=== PATIENT | female | born 1980 | race African-American/Black ===

== ENCOUNTER 2016-04-14 14:58 | Inpatient (IN) | payer OTHER ==
[~2016-04-14] VITALS: Ht 154.9 cm; Wt 104.0 kg
[2016-04-29] MEDS ORDERED: SIMV5TAB3 PO (14:57)
[2016-04-29] MEDS ORDERED: AMLO5TAB2 PO (14:57)
[2016-04-29] MEDS ORDERED: ZANT150T2 PO (15:10)
[2016-04-29] MEDS ORDERED: ERGO1CAP10 PO (15:10)
[2016-04-30 11:03] VITALS: BP 139/75; PULSE 76; RESP 18; TEMP 98.4; O2SAT 99
[2016-04-30] MEDS ORDERED: VANCOMYCIN 1,000 MG/NS 250ML (for <70 kg) IV SCH ×2 (11:30)
[2016-04-30] MEDS ORDERED: APREPITANT 40 MG CAP PO SCH (11:30)
[2016-04-30] MEDS ORDERED: ONDANSETRON HCL 4 MG/2 ML VIAL IV PUSH SCH (11:30)
[2016-04-30] MEDS ORDERED: SODIUM CHLORID 0.9% 500 ML IV SCH (11:30)
[2016-04-30] MEDS ORDERED: metroNIDAZOLE 500 MG INJ 100 ML IV SCH (11:30)
[2016-04-30] MEDS ORDERED: INSULIN HUMAN REGULAR 1,000 UNITS/10 ML VIAL SQ PRN (11:30)
[2016-04-30] MEDS ORDERED: LACTATED RINGER'S 1000 ML IV SCH (11:30)
[2016-04-30] MEDS ORDERED: METOPROLOL TARTRATE 25 MG TAB PO PRN (11:30)
[2016-04-30] MEDS ORDERED: ACETAMINOPHEN 1000 MG/100 ML VIAL IV SCH (11:30)
[2016-04-30] MEDS ORDERED: PHENYLEPH/NS 1000 MCG/10 ML SYR IV ONE (12:00)
[2016-04-30] MEDS ORDERED: NEOSTIGMINE 3 MG/3 ML SYR IV ONE (12:00)
[2016-04-30] MEDS ORDERED: NORMOSOL R INJ 1,000 ML IV ONE (12:00)
[2016-04-30] MEDS ORDERED: PROPOFOL 200 MG/20 ML AMP IV ONE (12:00)
[2016-04-30] MEDS ORDERED: ONDANSETRON HCL 4 MG/2 ML VIAL IV PUSH ONE (12:00)
[2016-04-30] MEDS ORDERED: LACTATED RINGER'S 1000 ML INJ 1,000 ML IV ONE (12:00)
[2016-04-30] MEDS ORDERED: BUPIVACAINE/EPINEPHRINE 0.25% 50 ML VIAL INFIL ONE (14:47)
[2016-04-30] MEDS ORDERED: ACETAMINOPHEN/HYDROcodone 325 MG/5 MG TAB PO PRN ×2 (17:45)
[2016-04-30] MEDS ORDERED: MAGNESIUM HYDROXIDE SUSP 30 ML CUP PO PRN (17:45)
[2016-04-30] MEDS ORDERED: SODIUM CHLORIDE 0.9% FLUSH 5 ML FLUSH IVF PRN (17:45)
[2016-04-30] MEDS ORDERED: Post-op Orders (for Pharmacy) MISC XX ONE (17:45)
[2016-04-30] MEDS ORDERED: ONDANSETRON HCL 4 MG/2 ML VIAL IV PRN (17:45)
[2016-04-30] MEDS ORDERED: fentaNYL CITRATE 250 MCG/5 ML AMP ONE ×2 (18:11)
[2016-04-30] MEDS ORDERED: DO NOT ADM ANY ANTICOAGULANT DRUGS XX PRN (19:30)
[2016-04-30] MEDS ORDERED: *morphine SULFATE 8 MG/ML PERIprocedure ONLY ONE (19:39)
[2016-04-30] MEDS: SODIUM CHLOR 0.9% 1000 ML INJ 1,000 ML IV SCH (19:45)
[2016-04-30 20:00] VITALS: BP 133/83; PULSE 103; RESP 18; TEMP 97.3; O2SAT 100
[2016-04-30] MEDS: HYDROmorphone HCL PF 1 MG/ML VIAL IV PRN (21:34)
[2016-04-30] MEDS: SODIUM CHLORIDE 0.9% FLUSH 5 ML FLUSH IVF SCH (21:39)
[2016-04-30] MEDS: PANTOPRAZOLE SODIUM 40 MG VIAL IV PUSH SCH (21:39)
[2016-04-30] MEDS: metroNIDAZOLE 500 MG INJ 100 ML IV SCH (21:39)
[2016-04-30] MEDS: DOCUSATE SODIUM 100 MG CAP PO SCH (21:39)
[2016-05-01] VITALS (8 sets, daily range): BP systolic 111–159; BP diastolic 62–93; PULSE 47–86; RESP 16–26; TEMP 96.6–98.1; O2SAT 96–99
[2016-05-01] MEDS: VANCOMYCIN INJ 1,000 MG in SODIUM CHLOR 0.9% 250 ML INJ 250 ML IV SCH ×2 (00:52→11:22)
[2016-05-01] MEDS: metroNIDAZOLE 500 MG INJ 100 ML IV SCH ×2 (04:45→12:39)
[2016-05-01] MEDS: HYDROmorphone HCL PF 1 MG/ML VIAL IV PRN ×2 (04:45→20:34)
[2016-05-01] MEDS: SODIUM CHLOR 0.9% 1000 ML INJ 1,000 ML IV SCH ×2 (04:46→16:58)
--- NOTE | 2016-05-01 05:28 | RADRPT ---
EXAM DATE/TIME: 05/01/2016 04:59 [facility] COMPARISON: No previous studies available for comparison. INDICATIONS : Shortness of breath. MEDICAL HISTORY : None. SURGICAL HISTORY : hiatal hernia repair ENCOUNTER: Initial ACUITY: 1 day PAIN SCORE: 0/10 LOCATION: Bilateral chest FINDINGS: The right lung is grossly clear. There appears to be an infiltrate in the left lung base. The heart s ize appears to be diffusely enlarged. There are no pleural effusions or overt pulmonary edema. The jenni ny structures are grossly intact. CONCLUSION: 1. Left lower lung probable consolidation. 2. Moderate cardiomegaly Aung Abdullahi MD on May 01, 2016 at 5:26 Board Certified Radiologist. This report was verified electronically.
[2016-05-01] MEDS: DOCUSATE SODIUM 100 MG CAP PO SCH ×2 (08:15→20:40)
[2016-05-01] MEDS: SODIUM CHLORIDE 0.9% FLUSH 5 ML FLUSH IVF SCH ×2 (08:16→20:40)
[2016-05-01] MEDS ORDERED: ACETAMINOPHEN 325MG/HYDROcodone 7.5MG/15ML UDC PO PRN (08:45)
--- NOTE | 2016-05-01 09:59 | HHI.PR ---
Subjective Subjective Notes pt comfortable sob unchanged from prior no n/v Objective Vitals/I&O Vital Signs Date Time Temp Pulse Resp B/P Pulse Ox O2 Delivery O2 Flow Rate FiO2 05/01/16 08:00 96.6 70 16 114/71 97 04/30/16 19:50 Nasal Cannula 3 Labs Laboratory Tests Test 05/01/16 04:57 Hemoglobin 11.2 Lungs: Clear Abdomen: Post-op tenderness Extremities: Perfused Wound Wound : Wound Location: Abdomen Appearance: Clean & Dry A/P Assessment and Plan pod #1 S/P lap repair hiatal hernia normal post op changes IS q 1hr possible d/c home later today Lawson Barajas MD May 01, 2016 09:59
[2016-05-01] MEDS: ACETAMINOPHEN 325MG/HYDROcodone 7.5MG/15ML UDC PO PRN ×2 (11:21→16:58)
[2016-05-01] MEDS: RESP: ALBUTEROL 1.25 MG/3 ML NEB (PRN) NEB ×2 (11:22→15:18)
[2016-05-01] MEDS ORDERED: ENOXAPARIN SODIUM 40 MG/0.4 ML SYRINGE SQ SCH (17:07)
[2016-05-01] MEDS: PANTOPRAZOLE SODIUM 40 MG VIAL IV PUSH SCH (20:40)
[2016-05-02] VITALS: BP 127/69; PULSE 82; RESP 24; TEMP 97.1; O2SAT 94
[2016-05-02] MEDS: SODIUM CHLOR 0.9% 1000 ML INJ 1,000 ML IV SCH (02:06)
[2016-05-02] MEDS: ACETAMINOPHEN 325MG/HYDROcodone 7.5MG/15ML UDC PO PRN ×2 (03:13→09:10)
[2016-05-02 08:00] VITALS: BP 125/86; PULSE 82; RESP 16; TEMP 98.6; O2SAT 95
[2016-05-02] MEDS: DOCUSATE SODIUM 100 MG CAP PO SCH (09:08)
[2016-05-02] MEDS: SODIUM CHLORIDE 0.9% FLUSH 5 ML FLUSH IVF SCH (09:08)
[2016-05-02] MEDS: RESP: ALBUTEROL 1.25 MG/3 ML NEB (PRN) NEB (09:46)
[2016-05-02 09:49] VITALS: O2SAT 91
[2016-05-02 12:00] VITALS: BP 124/79; PULSE 98; RESP 17; TEMP 98.8; O2SAT 96
--- NOTE | 2016-05-09 13:09 | MP ---
cc: JOSE ALBERTO BARAJAS DATE OF SURGERY: 04/30/2016. PREOPERATIVE DIAGNOSIS: Hiatal hernia and reflux unresponsive to medical management. POSTOPERATIVE DIAGNOSIS: Hiatal hernia and reflux unresponsive to medical management. OPERATIVE PROCEDURE PERFORMED: Robot-assisted laparoscopic repair of hiatal hernia with Bio-A mesh. SURGEON: Jose Alberto Barajas MD. ANESTHESIA: General endotracheal anesthesia. ESTIMATED BLOOD LOSS: Scant. FINDINGS: Hiatal hernia with proximal stomach within the chest. SPECIMENS: None. COMPLICATIONS: None. DESCRIPTION OF THE PROCEDURE IN DETAIL: The patient was brought to the operating room and placed on the operating table in the supine position. Bilateral sequential inflation devices were placed on the lower extremity. General anesthesia instituted. Olmos catheter placed. Antibiotics initiated. The abdomen was prepped and draped sterilely. A point 15 cm distal to the xiphoid in the midline was anesthetized with 0.25% Marcaine with epinephrine. The skin incision was made. A 5 mm OptiVu port was placed under direct vision and a pneumoperitoneum created. Under direct vision, a 5-mm left upper quadrant, an 8 mm left upper quadrant robotic port, an 8 mm right upper quadrant robotic port and a 5 mm right upper quadrant port was placed. Prior to placement of all ports, the skin and peritoneum were anesthetized with 0.25% Marcaine with epinephrine. The 5 mm port in the midline was switched out to the 12 mm port under direct vision. The patient was placed in reverse Trendelenburg position with the left side up. The Kassandra-Flex retractor was placed. The left lobe of the liver was retracted. #0 silk sutures as well as Newport drain and Ray-Ariel gauze was placed into the abdomen. The laparoscopic tower was then removed from the patient's bedside. The da Jeffrey robot was brought to the patient's bedside and docked in place. I then broke scrub and went to the console. Attention focused on the hepatogastric ligament. This was opened. The omentum adhesed to the lateral aspect of the stomach was taken down. The posterior gastric space was dissected from [id number]. The Newport was then placed. The stomach was retracted into the abdomen. The crura of the diaphragm was dissected anteriorly. The lower mediastinum was dissected, reducing the GE junction into the abdominal cavity and the hernia sac was excised. The vagus nerve was identified during the dissection and preserved both anterior and posterior. The crura of the diaphragm was then approximated inferiorly with #O silk suture in a [id number] manner. Three interrupted stitches were placed. A Bio-A mesh was opened on the back table. The ends were trimmed. It was introduced into the peritoneal cavity. It was then fashioned around the hiatus and secured with 2-0 silk sutures in the four corners as well as centrally. At this point, the robot was then undocked. The laparoscopic tower was brought back to the patient's bedside and I then scrubbed back in. All needle, sponge and Ray-Ariel were removed from the abdominal cavity as well as the Ronnell. The cavity was inspected. Hemostasis assured. The Kassandra-Flex retractor was then removed. The fascia at the 12 mm port site approximated with #0 Vicryl sutures. The CO2 was removed. All ports were removed. All skin incisions closed with 4-0 Monocryl. The abdominal wall was cleaned and sterile dressing was placed. All instruments and sponge counts and needle counts were reported as correct at the end of procedure. MD FARAZ Grigsby/CLAY /9:26 AM /1:01 PM
== END 2016-05-02 15:33 | disposition home or self-care (01) | DRG 327 ==
LOC: HSDI 04-30 10:14 → N07B 04-30 20:18
PROVIDERS: ADMIT Surgery; ATTEND Surgery
PROC: 0BUR4JZ (ICD-10-PCS; 2016-04-30)
PROC: 8E0W4CZ Robotic Assisted Procedure of Trunk Region, Percutaneous Endoscopic Approach (ICD-10-PCS; 2016-04-30)
PROC: 0BUS4JZ (ICD-10-PCS; principal; 2016-04-30 13:53)
PROC: 0T9B70Z Drainage of Bladder with Drainage Device, Via Natural or Artificial Opening (ICD-10-PCS; 2016-05-01)
DX: K44.9 Diaphragmatic hernia without obstruction or gangrene (principal); Z68.41 Body mass index [BMI] 40.0-44.9, adult; K21.9 Gastro-esophageal reflux disease without esophagitis; I10 Essential (primary) hypertension; E78.00 Pure hypercholesterolemia, unspecified; E66.01 Morbid (severe) obesity due to excess calories; Z98.84 Bariatric surgery status; E11.9 Type 2 diabetes mellitus without complications; R06.02 Shortness of breath
CPT/HCPCS: 71010; 85018; 94150; 94640; 94664; C1781; C9113; J0131; J1170; J1650; J2270; J2370; J2405; J2710; J3010; J3370; J7030; J7050; J7120; J7613; J8501

== ENCOUNTER 2016-05-09 14:36 | Emergency (ER) | payer OTHER ==
[~2016-05-09] VITALS: Ht 154.9 cm; Wt 100.0 kg
[~2016-05-09 14:36] MED LIST: AMLO5TAB2 PO; ERGO1CAP10 PO; SIMV5TAB3 PO; ZANT150T2 PO
[2016-05-09 14:38] VITALS: BP 152/103; PULSE 68; RESP 16; TEMP 98.7; O2SAT 99
[2016-05-09 16:21] VITALS: BP 127/80
--- NOTE | 2016-05-09 16:50 | PD ---
HPI Chief Complaint: Foreign Body Time Seen by Provider: 16:10 Travel History International Travel<30 days: No Contact w/Intl Traveler<30days: No Traveled to known affect area: No History of Present Illness HPI This patient reports that she swallowed a Levaquin pill on Thursday and feels like it got stuck in the bottom of her esophagus. She has history of gastric sleeve surgery and hiatal hernia repair. She is able to drink liquids without any difficulty but if she eats solids she has discomfort. No vomiting today. Symptoms severity is mild to moderate. PFSH Past Medical History Arthritis: No Autoimmune Disease: No Anxiety: No Depression: No Cancer: No Cardiovascular Problems: Yes (mitral valve prolapse) High Cholesterol: No Chemotherapy: No Chest Pain: No Congestive Heart Failure: No Cerebrovascular Accident: No Diabetes: Yes (type 1 diabetes) Patient Takes Glucophage: No Diminished Hearing: No Endocrine: No Gastrointestinal Disorders: No Genitourinary: No Headaches: No Hepatitis: No Hiatal Hernia: Yes Heparin Induced Thrombocytopen: No Hypertension: Yes Immune Disorder: No Implanted Vascular Access Dvce: No Musculoskeletal: No Neurologic: No Psychiatric: No Reproductive: No Respiratory: Yes (sob on occasion) Migraines: No Radiation Therapy: No Seizures: No Sickle Cell Disease: No Sleep Apnea: No Thyroid Disease: No Tetanus Vaccination: < 5 Years Influenza Vaccination: Yes ?: Not LMP: 04/09/2016 Past Surgical History Abdominal Surgery: Yes (gastric sleeve 2012) AICD: No Arteriovenous Shunt: No Body Medical Devices: sleeve Ear Surgery: No Endocrine Surgery: No Eye Surgery: No Genitourinary Surgery: No Gynecologic Surgery: No Insulin Pump: No Joint Replacement: No Pacemaker: No Thoracic Surgery: No Other Surgery: Yes (cardiac catherization and breast reduction) Social History Alcohol Use: No Tobacco Use: No Substance Use: No Allergies-Medications (Allergen,Severity, Reaction): Coded Allergies: Lisinopril (Verified Allergy, Severe, LIP AND AFCE SWELLING, 05/09/16) Penicillin (Verified Allergy, Severe, Hives, 05/09/16) Reported Meds & Prescriptions Reported Meds & Active Scripts Active Reported Zantac (Ranitidine HCl) 150 Mg Tab 150 Mg PO BID Vitamin D (Ergocalciferol) 50,000 Unit Cap 50,000 Units PO 2XWEEK Simvastatin 5 Mg Tab 5 Mg PO HS Amlodipine (Amlodipine Besylate) 5 Mg Tab 5 Mg PO HS Review of Systems General / Constitutional: No: Fever HENT: No: Headaches Cardiovascular: No: Chest Pain or Discomfort Physical Exam Narrative GASTROINTESTINAL: Abdomen soft, non-tender, nondistended. Positive bowel sounds. No hepato-splenomegaly, or palpable masses. No guarding. SKIN: Inspection shows no rash or ulcers. Palpation shows no induration or nodules. NECK: Symmetrical appearance, midline trachea. No mass or crepitus. Thyroid without enlargement, tenderness, or mass. Throat clear Data Data Last Documented VS Vital Signs Date Time Temp Pulse Resp B/P Pulse Ox O2 Delivery O2 Flow Rate FiO2 05/09/16 16:21 127/80 05/09/16 14:38 98.7 68 16 99 Room Air [facility] Medical Decision Making Medical Screen Exam Complete: Yes Emergency Medical Condition: Yes Medical Record Reviewed: Yes Differential Diagnosis Esophageal foreign body, esophagitis, hiatal hernia Narrative Course I have reviewed the patient's electronic medical record. No objective findings here. She's been drinking liquids and soft foods without any trouble but certain things like chicken and steak seems to cause her problems She may have esophageal stricture I'm recommending full liquid diet and GI follow-up to consider endoscopy I don't feel he needs to be done emergently She is here asymptomatic Diagnosis Primary Impression: Sensation of foreign body in esophagus Additional Instructions: Call the office of Dr. Chavez on Thursday if you still have symptoms for follow- up Use full liquid diet Med/Other Pt SpecificInfo: Other Disposition: DISCHARGE HOME Condition: Stable Tony Miller MD May 09, 2016 16:50
== END 2016-05-09 18:21 | disposition home or self-care (01) ==
LOC: NEPB 14:36
DX: R09.89 Other specified symptoms and signs involving the circulatory and respiratory systems (principal); R13.19 Other dysphagia; E10.9 Type 1 diabetes mellitus without complications; K44.9 Diaphragmatic hernia without obstruction or gangrene; I10 Essential (primary) hypertension
CPT/HCPCS: 99283

== ENCOUNTER 2017-01-09 08:10 | Day surgery (SDC) | payer OTHER ==
[2017-01-09] MEDS ORDERED: SODIUM CHLORID 0.9% 500 ML IV PRN (08:45)
[2017-01-09] MEDS ORDERED: POVIDONE IODINE 5% (ANTISEPSIS KIT) 4 APPLICATIONS EACH NARE PRN (08:45)
[2017-01-09] MEDS ORDERED: INSULIN HUMAN REGULAR 1,000 UNITS/10 ML VIAL SQ PRN (08:45)
[2017-01-09] MEDS ORDERED: LACTATED RINGER'S 1000 ML IV PRN (08:45)
[2017-01-09] MEDS ORDERED: METOPROLOL TARTRATE 25 MG TAB PO PRN (08:45)
[2017-01-09] MEDS ORDERED: CHLORHEXIDINE GLUCONATE 2 % 1 PACK (2 CLOTHS) TOPICAL PRN (08:45)
[2017-01-09] MEDS ORDERED: PROT40TA PO (08:56)
[2017-01-09] MEDS ORDERED: ERGO1CAP30 PO (08:56)
[2017-01-09] MEDS ORDERED: BARIATRIC VITAMIN PO (08:56)
[2017-01-09] MEDS ORDERED: [UNRECOGNIZED DRUG - OTHER] PO (08:56)
[2017-01-09] MEDS ORDERED: ROCURONIUM INJ 50 MG/5 ML SYRINGE IV PUSH ONE (12:00)
[2017-01-09] MEDS ORDERED: PROPOFOL 200 MG/20 ML AMP IV ONE (12:00)
[2017-01-09] MEDS ORDERED: LIDOCAINE HCL 1% PF 5 ML AMPULE OTHER ONE (12:00)
[2017-01-09] MEDS ORDERED: ONDANSETRON HCL 4 MG/2 ML VIAL IV PUSH ONE (12:00)
[2017-01-09] MEDS ORDERED: NEOSTIGMINE 3 MG/3 ML SYR IV ONE (12:00)
[2017-01-09] MEDS ORDERED: GLYCOPYRROLATE 1 MG/5 ML SYRINGE IV PUSH ONE (12:00)
[2017-01-09] MEDS ORDERED: PHENYLEPH/NS 1000 MCG/10 ML SYR IV ONE (12:00)
--- NOTE | 2017-01-09 12:02 | ECHRPT ---
Indication: MR CONCLUSIONS The left ventricular systolic function is normal with an estimated ejection fraction in the range of 55-60%. The interatrial septum bowed from left to right, consistent with increased left atrial pressure. Mild thickening of the mitral valve leaflets. Mitral valve regurgitation directed posteriorly with Coanda effect, appears severe in nature. Restricted mobility of the posterior mitral valve leaflet. There is mild tricuspid valve regurgitation. BP: 130 / 70 HR: 90 Rhythm: Sinus Technical Quality:Good Medications Complications None Proc. Components Anesthesia at bedside for sedation. FINDINGS LEFT VENTRICLE Normal left ventricular size. The left ventricular systolic function is normal with an estimated ejection fraction in the range of 55-60%. Wall thickness is normal. No regional wall motion abnormalities are present. RIGHT VENTRICLE Normal right ventricular size and systolic function. LEFT ATRIUM The left atrial size is moderately dilated. There is evidence of increased left atrial pressure. RIGHT ATRIUM The right atrial size is normal. ATRIAL APPENDAGES Normal left atrial appendage size with no evidence of thrombus formation. ATRIAL SEPTUM Normal atrial septal thickness. The interatrial septum bowed from left to right, consistent with increased left atrial pressure. No atrial level shunt is demonstrated by color flow Doppler or agitated saline imaging. MITRAL VALVE Mild thickening of the mitral valve leaflets. Mitral valve regurgitation directed posteriorly with Coanda effect, appears severe in nature. Restricted mobility of the posterior mitral valve leaflet. No mitral valve stenosis. AORTIC VALVE Trileaflet aortic valve. No aortic valve stenosis or regurgitation. TRICUSPID VALVE Structurally normal tricuspid valve. There is mild tricuspid valve regurgitation. No tricuspid valve stenosis. VESSELS The pulmonary valve is not well visualized. No pulmonary valve regurgitation. PERICADIUM No pericardial effusion. Alex Miller DO (Electronically Signed) Final Date:09 January 2017 12:01
--- NOTE | 2017-01-10 05:26 | EKG ---
Date Performed: 01/09/2017 Time Performed: 08:59:44 PTAGE: 36 years EKG: Sinus rhythm . Normal ECG PREVIOUS TRACING : 04/19/2004 02.56 DOCTOR: Brett Alaniz Interpretating Date/Time 01/10/2017 05:16:20
== END 2017-01-09 11:33 | disposition home or self-care (01) ==
LOC: HDOC 08:10 → HDIC 08:12 → HDOC 11:33
PROVIDERS: ATTEND Nuclear Medicine Nuclear Cardiology
DX: I34.0 Nonrheumatic mitral (valve) insufficiency (principal); I11.9 Hypertensive heart disease without heart failure; E11.9 Type 2 diabetes mellitus without complications; E78.5 Hyperlipidemia, unspecified; E66.9 Obesity, unspecified
CPT/HCPCS: 01922; 93005; 93312; 93320; 93325; J2370; J2405; J2710

== ENCOUNTER 2017-01-12 09:30 | Day surgery (SDC) | payer OTHER ==
[~2017-01-12] VITALS: Ht 154.9 cm; Wt 99.7 kg
[~2017-01-12 09:30] MED LIST changes: +BARIATRIC VITAMIN PO; -ERGO1CAP10 PO; +ERGO1CAP30 PO; +PROT40TA PO; +[UNRECOGNIZED DRUG - OTHER] PO
[2017-01-12] MEDS ORDERED: IOHEXOL 350 MG/ML 50 ML BTL (for Cath Lab) OTHER ONE (09:31)
[2017-01-12 10:15] LABS: AUTOMATED NEUTROPHIL # 3.2 TH/MM3 (1.8-7.7); BASOPHIL # 0.1 TH/MM3 (0-0.2); BASOPHIL % 0.9 % (0.0-2.0); EOSINOPHIL # 0.1 TH/MM3 (0-0.4); EOSINOPHIL % 1.8 % (0.0-4.0); HEMATOCRIT 35.2 % (35.0-46.0); HEMO FLAGS DIFF FINAL; LYMPH % 32.4 % (9.0-44.0); LYMPHOCYTE # 1.8 TH/MM3 (1.0-4.8); MEAN CELL VOLUME 79.2 FL (80.0-100.0); MEAN CORPUSCULAR HEMOGLOBIN 25.9 PG (27.0-34.0); MEAN CORPUSCULAR HGB CONC 32.7 % (32.0-36.0); MONO % 6.9 % (0.0-8.0); PLATELET COUNT 258 TH/MM3 (150-450); RED BLOOD COUNT 4.44 MIL/MM3 (4.00-5.30); WHITE BLOOD COUNT 5.5 TH/MM3 (4.0-11.0)
[2017-01-12 10:29] LABS: INTERNATIONAL NORMALIZED RATIO 1.1 RATIO; PROTHROMBIN TIME - PATIENT 11.8 SEC (9.8-11.6)
[2017-01-12] MEDS ORDERED: NS 1000P @30 MLS/HR (KVO) IV SCH (10:30)
[2017-01-12 10:45] LABS: BICARBONATE 27.8 MEQ/L (21.0-32.0); POTASSIUM 3.7 MEQ/L (3.5-5.1)
[2017-01-12] MEDS ORDERED: VERAPAMIL HCL 5 MG/2 ML VIAL ONE (12:49)
[2017-01-12] MEDS ORDERED: HEPARIN SODIUM - IV 10,000 UNITS/10 ML VIAL ONE (12:49)
[2017-01-12] MEDS ORDERED: NITROGLYCERIN INJ 5 ML ONE (12:49)
[2017-01-12] MEDS ORDERED: MIDAZOLAM HCL 2 MG/2 ML VIAL ONE (12:49)
[2017-01-12] MEDS ORDERED: MISC INFORMATION XX ONE (13:30)
[2017-01-12 14:46] LABS: BETA HCG QUANT 1 MIU/ML (0-5)
--- NOTE | 2017-01-12 15:14 | RADRPT ---
EXAM DATE/TIME: 01/12/2017 14:52 [facility] COMPARISON: No previous studies available for comparison. INDICATIONS : Evaluate for pneumonia, pneumothorax, and communicable disease. Pre op mitral valve replacement. MEDICAL HISTORY : None. SURGICAL HISTORY : None. ENCOUNTER: Initial ACUITY: 1 day PAIN SCORE: 0/10 LOCATION: Bilateral chest FINDINGS: There is compensated cardiomegaly. The lungs are nearly clear. The portion of the bony skeleton visu alized is unremarkable. CONCLUSION: Mild compensated cardiomegaly. Lew Marcial MD FACR on January 12, 2017 at 15:12 Board Certified Radiologist. This report was verified electronically.
[2017-01-12 16:35] LABS: HEMOGLOBIN A1a 1.1 %; HEMOGLOBIN A1b 0.8 %; HEMOGLOBIN Ao 85.7 %; HEMOGLOBIN F 1.2 %; HEMOGLOBIN LA1C 1.7 %; HEMOGLOBIN P3 3.5 %
--- NOTE | 2017-01-12 17:40 | PD.CAR.PN ---
CVT Progress Note Subjective/Hospital Course: sts data discussed with pt RISK SCORES About the STS Risk Calculator Procedure: MV Replacement Only Risk of Mortality: 0.572% Morbidity or Mortality: 10.454% Long Length of Stay: 4.994% Short Length of Stay: 35.682% Permanent Stroke: 0.827% Prolonged Ventilation: 6.38% DSW Infection: 0.117% Renal Failure: 2.077% Reoperation: 5.447% Objective: Vital Signs Date Time Temp Pulse Resp B/P (MAP) Pulse Ox O2 Delivery O2 Flow Rate FiO2 01/12/17 13:36 96 Room Air Labs: Laboratory Tests Test 01/12/17 10:00 White Blood Count 5.5 TH/MM3 (4.0-11.0) Red Blood Count 4.44 MIL/MM3 (4.00-5.30) Hemoglobin 11.5 GM/DL (11.6-15.3) Hematocrit 35.2 % (35.0-46.0) Mean Corpuscular Volume 79.2 FL (80.0-100.0) Mean Corpuscular Hemoglobin 25.9 PG (27.0-34.0) Mean Corpuscular Hemoglobin Concent 32.7 % (32.0-36.0) Red Cell Distribution Width 16.0 % (11.6-17.2) Platelet Count 258 TH/MM3 (150-450) Mean Platelet Volume 9.1 FL (7.0-11.0) Neutrophils (%) (Auto) 58.0 % (16.0-70.0) Lymphocytes (%) (Auto) 32.4 % (9.0-44.0) Monocytes (%) (Auto) 6.9 % (0.0-8.0) Eosinophils (%) (Auto) 1.8 % (0.0-4.0) Basophils (%) (Auto) 0.9 % (0.0-2.0) Neutrophils # (Auto) 3.2 TH/MM3 (1.8-7.7) Lymphocytes # (Auto) 1.8 TH/MM3 (1.0-4.8) Monocytes # (Auto) 0.4 TH/MM3 (0-0.9) Eosinophils # (Auto) 0.1 TH/MM3 (0-0.4) Basophils # (Auto) 0.1 TH/MM3 (0-0.2) CBC Comment DIFF FINAL Differential Comment Prothrombin Time 11.8 SEC (9.8-11.6) Prothromb Time International Ratio 1.1 RATIO Activated Partial Thromboplast Time 33.0 SEC (24.3-30.1) Blood Urea Nitrogen 10 MG/DL (7-18) Creatinine 0.71 MG/DL (0.50-1.00) Random Glucose 81 MG/DL (74-106) Calcium Level 8.4 MG/DL (8.5-10.1) Sodium Level 140 MEQ/L (136-145) Potassium Level 3.7 MEQ/L (3.5-5.1) Chloride Level 106 MEQ/L (98-107) Carbon Dioxide Level 27.8 MEQ/L (21.0-32.0) Anion Gap 6 MEQ/L (5-15) Estimat Glomerular Filtration Rate 112 ML/MIN (>89) Human Chorionic Gonadotropin, Quant 1 MIU/ML (0-5) Result Diagram: 01/12/17 1000 01/12/17 1000 Christa Mariano Jan 12, 2017 17:40
[2017-01-12 18:48] LABS: BACTERIA, URINE RARE /hpf; BLOOD, URINE NEG (NEG); COMMENT (UR) CULTURE INDICATED; CULTURE IF INDICATED CULTURE INDICATED; GLUCOSE,URINE NEG (NEG); KETONE, URINE NEG (NEG); MUCUS URINE FEW /lpf (OCC); NITRITE,URINE NEG (NEG); PH, URINE 8.5 (5.0-8.5); SQUAMOUS EPITHELIAL CELL URINE 44 /hpf (0-5); URINE COLOR YELLOW (YELLW/STRAW)
--- NOTE | 2017-01-12 19:14 | RADRPT ---
EXAM DATE/TIME: 01/12/2017 18:15 [facility] COMPARISON: No previous studies available for comparison. INDICATIONS : Preop mitral valve replacement. MEDICAL HISTORY : Hernia, hiatal. Hypertension. Diabetes mellitus type 1. Mitral valve prolapse. Dyspnea. SURGICAL HISTORY : Cardiac cath. Gastric sleeve. Breast reduction. ENCOUNTER: Initial ACUITY: 1 day PAIN SCORE: 0/10 LOCATION: Bilateral neck PEAK SYSTOLIC VELOCITIES (cm/sec): ICA/CCA RATIO: Right: 1.2 Left: 1.1 ICA: Right: 96.3 Left: 99.2 CCA: Right: 79.0 Left: 86.4 ECA: Right: 75.6 Left: 60.0 VERTEBRAL: Right: 62.2 antegrade Left: 63.1 antegrade Elevated flow velocities and ICA/CCA ratios have been found to correlate with increased degrees of vessel stenosis, calculated as percentage of diameter relative to a normal segment of distal ICA/CCA FINDINGS: RIGHT CAROTID: No significant stenosis is visualized. The waveforms are within normal limits. LEFT CAROTID: No significant stenosis is visualized. The waveforms are within normal limits. VERTEBRAL ARTERIES: Antegrade flow is seen in both vertebral arteries. MISCELLANEOUS: None. CONCLUSION: 1. No evidence of hemodynamically significant lesion. Reinaldo Sweet MD on January 12, 2017 at 19:12 Board Certified Radiologist. This report was verified electronically.
--- NOTE | 2017-01-13 08:07 | MB ---
cc: LIVIER MATOS MD DATE OF CONSULTATION 01/12/2017 DATE OF 1980 HISTORY OF THE PRESENT ILLNESS A 29-year-old patient of Dr. Miller, Dr. Robert Byers who has a history of aortic stenosis that she has known since she was about age 11. 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 She had noted some pressure in her chest and some shortness of breath. She normally had been riding a stationary bike three days a week but has noted progressive discomfort and shortness of breath. She underwent a transesophageal echo on 01/09/2017 which showed an EF of 55-60%. The mitral valve regurg directed posteriorly with a Coanda effect that appears severe in nature. Restricted immobility of the posterior mitral valve leaflet. No mitral valve stenosis. There was mild tricuspid regurgitation. The aortic valve had no stenosis or regurgitation. She underwent cardiac cath today which showed nonobstructive coronary disease. PAST MEDICAL HISTORY Her past medical history includes: 1. Iron deficiency anemia. 2. Sleep apnea. 3. Asthma. 4. Nonobstructive coronary disease. 5. Diabetes mellitus type 2. 6. Hyperlipidemia. 7. Hypertension. 8. Mitral regurgitation. 9. Obesity. PAST SURGICAL HISTORY Surgeries include: 1. A gastric sleeve surgery 4 years ago. she lost about 90 pounds and then gained some of that back. 2. Hiatal hernia back in April of 2016. 3. Reduction mammoplasty. ALLERGIES INCLUDE LISINOPRIL WHICH CAUSES FACIAL AND LIP SWELLING. PENICILLIN CAUSES HIVES. MEDICATIONS Home meds include: 1. Amlodipine. 2. Bariatric vitamin. 3. Vitamin D. 4. Protonix. 5. Simvastatin. 6. Zantac. FAMILY HISTORY Father at 67 from an [place]. Mother alive, had history of breast cancer 12 years ago. The patient is single. No tobacco or alcohol. REVIEW OF SYSTEMS GENERAL: No night sweats, fever, heat and cold intolerance. SKIN: No psoriasis, itching or hives. HEENT: No blurred vision, hearing loss. RESPIRATORY: As above in the HPI. CARDIOVASCULAR: As above in the history of present illness. GASTROINTESTINAL: No diarrhea, vomiting. GENITOURINARY: No burning, frequency, urgency. CENTRAL NERVOUS SYSTEM: No history of TIA, CVA, seizure disorder. ENDOCRINE: No history of diabetes or hypothyroidism. PHYSICAL EXAMINATION VITAL SIGNS: On exam blood pressure 130/70, heart rate of 78. Afebrile. O2 saturation 98%. GENERAL: The patient is awake, alert, in no acute distress. HEENT: Head is normocephalic, atraumatic. Pupils equal and reactive. Oral mucosa pink, moist. NECK: Supple. No JVD. CARDIOVASCULAR: Heart sounds S1-S2. Regular rate and rhythm. Has a holosystolic mitral regurg murmur. LUNGS: Clear to auscultation. No wheezes, rales or rhonchi. ABDOMEN: Obese, soft, nontender. No masses or organomegaly. EXTREMITIES: Reveal no cyanosis, clubbing or edema. LABORATORY DATA Lab work shows hemoglobin of 11, hematocrit of 35, white cell count 5.5, platelet count 258. Sodium 140, potassium 3.7, BUN of 10, creatinine 0.7. Beta hCG is negative. INR 1.1. IMAGING Radiological exams, mild compensated cardiomegaly. Pulmonary function testing pending. IMPRESSION This is a very pleasant 36-year-old female with history of mitral valve regurgitation, status post heart cath with nonobstructive disease, restrictive mobility of the posterior and mitral valve leaflet. At this time the patient is being evaluated for possible mitral valve replacement with a mechanical valve due to her age. However, we will send the copies of the CD and information and echo to Dr. Griffin Jeter at [facility] to evaluate for possible mitral valve repair, since she is concerned about childbearing in the near future. So further planning still pending. DICTATED BY: ALBERTINA Gonzalez Livier KING /5:26 PM /8:04 AM
--- NOTE | 2017-01-13 10:47 | MA ---
cc: ALEX REARDON DO DATE: 01/12/2017 PROCEDURE 1. Left heart catheterization. 2. Coronary angiogram. 3. Moderate sedation 20 minutes PREPROCEDURE DIAGNOSIS 1. Severe mitral regurgitation for possible open heart surgery. 2. Shortness of breath. POSTPROCEDURE DIAGNOSIS 1. Severe mitral regurgitation by echocardiogram. 2. Minimal coronary artery disease. MEDICATIONS Versed 0.5 mg, fentanyl 25 mcg, verapamil 2.5 mg, nitro 200 mcg, heparin 4000 units. CONTRAST USED 30 cc. FLUOROSCOPY 5.9 minutes. SEDATION Moderate sedation 20 minutes. ESTIMATED BLOOD LOSS 10 cc. PROCEDURAL SUMMARY Guicho Malik is a pleasant 36-year-old female who saw my partner, Dr. Marr, in the outpatient setting and was found to have severe mitral regurgitation. As there is a consideration for possible open heart surgery she needs to undergo coronary angiogram to rule out significant coronary artery disease. The risks, benefits and alternatives were explained to her and she consented as such. She was brought to the lab and prepped in the usual sterile fashion. The right radial artery was accessed using modified Seldinger technique and placement of a 5/6 [place] Slender sheath. This was easily aspirated and flushed. A JR4 was advanced over a J-wire to the ascending aorta and across the aortic valve for measurement of left ventricular pressure. This was pulled back across the aortic valve showing no significant gradient of aortic stenosis. The JR4 was used for selective angiography of the right coronary artery. This was exchanged out for a JL 3.5 which was used for selective angiography of the left coronary artery. The JL 3.5 was removed over a J-wire. A radial band was placed over the arteriotomy site for hemostasis. The patient left the catheterization laboratory technician cardiovascularly stable. FINDINGS Left main: Normal size vessel with adequate reflux and no significant disease. It bifurcates into an LAD and circumflex. LAD: Normal size vessel with mild tortuosity distally and mild luminal irregularities but no significant disease. It gives off two small diagonals with no disease. Left circumflex: Normal size vessel with no disease. It gives off two obtuse marginals with mild tortuosity as well as mild luminal irregularities but no significant disease. Right coronary artery: High anterior takeoff. Normal size vessel with mild luminal irregularities and mild tortuosity. It is a dominant vessel by nature with the PDA having no significant disease. LVEDP is 5. IMPRESSION 1. Severe mitral regurgitation by echocardiogram. 2. Minimal coronary artery disease by cardiac catheterization. 3. Shortness of breath secondary to mitral regurgitation. RECOMMENDATIONS 1. Because of Ms. Malik's significant mitral regurgitation she will be seen by CT surgery for consideration of repair versus replacement of her mitral valve. 2. She has no significant coronary artery disease that needs bypass at the time of the procedure. 3. Further recommendations will be made after being seen by cardiothoracic surgery. Thank you for allowing me to see Samira Malik. If there are any questions, please do not hesitate to call. Alex Reardon DO VGP/BT /10:21 AM /10:33 AM
== END 2017-01-12 20:00 | disposition home or self-care (01) ==
LOC: HDOC 09:30 → HDIC 09:30 → HDOC 20:00
PROVIDERS: ATTEND Nuclear Medicine Nuclear Cardiology
DX: R07.9 Chest pain, unspecified (principal); I35.0 Nonrheumatic aortic (valve) stenosis; I34.0 Nonrheumatic mitral (valve) insufficiency; I25.10 Atherosclerotic heart disease of native coronary artery without angina pectoris; D50.9 Iron deficiency anemia, unspecified; G47.30 Sleep apnea, unspecified; J45.909 Unspecified asthma, uncomplicated; E78.5 Hyperlipidemia, unspecified; I10 Essential (primary) hypertension; E66.9 Obesity, unspecified; I34.1 Nonrheumatic mitral (valve) prolapse; R82.90 Unspecified abnormal findings in urine; Z01.810 Encounter for preprocedural cardiovascular examination; Z79.4 Long term (current) use of insulin; E10.8 Type 1 diabetes mellitus with unspecified complications
CPT/HCPCS: 71020; 80048; 81001; 83036; 84702; 85025; 85610; 85730; 86850; 86900; 86901; 87086; 87641; 93458; 93880; 94010; C1769; C1893; J1644; J2250; J3010; Q9967

== ENCOUNTER → 2017-02-23 | Outpatient (CLI) | payer OTHER ==
[~2017-02-23] MED LIST changes: +AMIO200T PO; +ASPI81TA23 PO; +COUM5TAB PO; +DOCU1CAP39 PO; -ERGO1CAP30 PO; +OXYC1TAB63 PO; +VITA500012 PO
[2017-02-23 12:38] LABS: AUTOMATED NEUTROPHIL # 4.2 TH/MM3 (1.8-7.7); BASOPHIL % 0.2 % (0.0-2.0); EOSINOPHIL # 0.1 TH/MM3 (0-0.4); EOSINOPHIL % 1.4 % (0.0-4.0); HEMATOCRIT 35.2 % (35.0-46.0); HEMO FLAGS DIFF FINAL; LYMPH % 28.1 % (9.0-44.0); LYMPHOCYTE # 1.8 TH/MM3 (1.0-4.8); MEAN CELL VOLUME 79.9 FL (80.0-100.0); MEAN CORPUSCULAR HEMOGLOBIN 25.4 PG (27.0-34.0); MEAN CORPUSCULAR HGB CONC 31.7 % (32.0-36.0); MONO % 5.9 % (0.0-8.0); NEUT % 64.4 % (16.0-70.0); PLATELET COUNT 256 TH/MM3 (150-450); RED BLOOD COUNT 4.41 MIL/MM3 (4.00-5.30); RED CELL DISTRIBUTION WIDTH 14.6 % (11.6-17.2); WHITE BLOOD COUNT 6.5 TH/MM3 (4.0-11.0)
[2017-02-23 12:48] LABS: APTT (PATIENT) 32.9 SEC (24.3-30.1); PROTHROMBIN TIME - PATIENT 11.4 SEC (9.8-11.6)
--- NOTE | 2017-02-23 12:48 | RADRPT ---
EXAM DATE/TIME: 02/23/2017 12:15 [facility] COMPARISON: CHEST PA & LAT, January 12, 2017, 14:52. INDICATIONS : Evaluate for pneumonia,pneonothorax and communicable disease. MEDICAL HISTORY : mitral valve replacement. SURGICAL HISTORY : None. ENCOUNTER: Initial ACUITY: 1 day PAIN SCORE: 6/10 LOCATION: upper chest FINDINGS: The heart is enlarged. The pulmonary vasculature is normal. The lungs are clear. CONCLUSION: 1. Cardiomegaly. 2. No focal infiltrate or pulmonary vascular congestion. Lucio Doran MD on February 23, 2017 at 12:45 Board Certified Radiologist. This report was verified electronically.
[2017-02-23 13:01] LABS: ANION GAP 6 MEQ/L (5-15); BICARBONATE 25.5 MEQ/L (21.0-32.0); BLOOD UREA NITROGEN 9 MG/DL (7-18); CHLORIDE 106 MEQ/L (98-107); GLOMERULAR FILTRATION RATE 110 ML/MIN (>89); GLUCOSE,FASTING 102 MG/DL (74-99); POTASSIUM 3.7 MEQ/L (3.5-5.1); SODIUM (NA) 137 MEQ/L (136-145)
[2017-02-23 13:18] LABS: BLOOD, URINE SMALL (NEG); GLUCOSE,URINE NEG (NEG); KETONE, URINE NEG (NEG); MUCUS URINE FEW /lpf (OCC); NITRITE,URINE NEG (NEG); SQUAMOUS EPITHELIAL CELL URINE 2 /hpf (0-5); URINE COLOR YELLOW (YELLW/STRAW)
[2017-02-23 13:23] LABS: COMMENT (UR) CULT NOT INDICATED; CULTURE IF INDICATED CULT NOT INDICATED
[2017-02-23 14:34] LABS: MRSA PCR NEGATIVE (NEGATIVE); STAPH AUREUS PCR NEGATIVE (NEGATIVE)
[2017-02-23 17:15] LABS: HEMOGLOBIN A1a 1.1 %; HEMOGLOBIN A1b 0.8 %; HEMOGLOBIN Ao 85.2 %; HEMOGLOBIN F 1.3 %; HEMOGLOBIN LA1C 1.9 %; HEMOGLOBIN P3 3.6 %
--- NOTE | 2017-02-24 19:38 | EKG ---
Date Performed: 02/23/2017 Time Performed: 11:39:11 PTAGE: 36 years EKG: Sinus rhythm Since previous tracing, no significant change noted NORMAL ECG PREVIOUS TRACING : 01/09/2017 08.59.44 DOCTOR: Law Stanton Interpretating Date/Time 02/24/2017 19:36:53
== END ==
LOC: CPRE 11:01
PROVIDERS: ATTEND Thoracic Surgery (Cardiothoracic Vascular Surgery)
DX: Z01.810 Encounter for preprocedural cardiovascular examination (principal); Z01.811 Encounter for preprocedural respiratory examination; Z01.812 Encounter for preprocedural laboratory examination; I50.33 Acute on chronic diastolic (congestive) heart failure; I34.0 Nonrheumatic mitral (valve) insufficiency
CPT/HCPCS: 36415; 71020; 80048; 81001; 83036; 85025; 85610; 85730; 86850; 86900; 86901; 87640; 87641; 93005

== ENCOUNTER 2017-03-03 05:58 | Inpatient (IN) | payer OTHER ==
[~2017-03-03] VITALS: Ht 154.9 cm; Wt 104.5 kg
[~2017-03-03 05:58] MED LIST changes: -AMIO200T PO; -ASPI81TA23 PO; -COUM5TAB PO; -DOCU1CAP39 PO; -OXYC1TAB63 PO
[2017-03-03] MEDS ORDERED: CHLORHEXIDINE GLUCONATE 2 % 1 PACK (2 CLOTHS) TOPICAL PRN (06:30)
[2017-03-03] MEDS ORDERED: VANCOMYCIN 1000 MG in NS IRR BTL 1000 ML IRRIGATION SCH (06:30)
[2017-03-03] MEDS ORDERED: CHLORHEXIDINE GLUCONATE 4% SOLN 120 ML BTL TOPICAL SCH (06:30)
[2017-03-03] MEDS ORDERED: LACTATED RINGER'S 1000 ML IV PRN (06:30)
[2017-03-03] MEDS ORDERED: SODIUM CHLORID 0.9% 500 ML IV PRN (06:30)
[2017-03-03] MEDS ORDERED: INSULIN HUMAN REGULAR 1,000 UNITS/10 ML VIAL SQ PRN (06:30)
[2017-03-03] MEDS ORDERED: ceFAZolin 2 GM PREMIX 50 ML IV SCH (06:30)
[2017-03-03] MEDS ORDERED: SODIUM CHLORIDE 0.9% FLUSH 10 ML FLUSH IV FLUSH PRN ×3 (06:30→13:45)
[2017-03-03] MEDS ORDERED: METOPROLOL TARTRATE 25 MG TAB PO PRN (06:30)
[2017-03-03] MEDS ORDERED: METOPROLOL TARTRATE 25 MG TAB PO SCH (06:30)
[2017-03-03] MEDS ORDERED: POVIDONE IODINE 5% (ANTISEPSIS KIT) 4 APPLICATIONS EACH NARE PRN (06:30)
[2017-03-03] MEDS ORDERED: DEXTROSE 50% IN WATER 50 ML VIAL(D50) IV PUSH PRN ×2 (06:30→13:45)
[2017-03-03] MEDS ORDERED: INSULIN REGULAR 100 UNITS in NS 100 ML IV PRN (06:45)
[2017-03-03] MEDS ORDERED: ACETAMINOPHEN 1000 MG/100 ML 100 ML IV ONE (06:49)
[2017-03-03] MEDS ORDERED: DEXMEDETOMIDINE HCL 200 MCG/2 ML VIAL ONE (06:49)
[2017-03-03] MEDS ORDERED: HEPARIN SODIUM - SQ 10,000 UNITS/ML VIAL ONE (06:58)
[2017-03-03] MEDS ORDERED: VANCOMYCIN HCL 1000 MG VIAL ONE ×2 (06:58→09:56)
[2017-03-03] MEDS ORDERED: methylPREDNISolone SOD SUCC 125 MG/2 ML VIAL ONE (06:58)
[2017-03-03] MEDS ORDERED: BUPIVACAINE HCL PF 0.5% 30 ML VIAL ONE (06:58)
[2017-03-03] MEDS ORDERED: CUSTODIOL HTK IRR SOLN 2,000 ML ONE (07:25)
[2017-03-03] MEDS ORDERED: HEPARIN SODIUM - IV 10,000 UNITS/10 ML VIAL ONE (07:25)
[2017-03-03] MEDS ORDERED: SODIUM BICARBONATE 8.4% INJ 100 ML ONE (07:26)
[2017-03-03] MEDS ORDERED: POTASSIUM CHLORIDE 40 MEQ/20 ML VIAL ONE (07:26)
[2017-03-03] MEDS ORDERED: MANNITOL INJ 100 ML ONE (07:26)
[2017-03-03] MEDS ORDERED: ALBUMIN 25% INJ 50 ML IV ONE (07:27)
[2017-03-03] MEDS ORDERED: CALCIUM CHLORIDE 10% SOLN 1 GRAM/10 ML SYR ONE (07:27)
[2017-03-03] MEDS ORDERED: CALCIUM CHLORIDE 10% 1 GRAM/10 ML VIAL IV PUSH PRN (13:45)
[2017-03-03] MEDS ORDERED: POTASSIUM CHLORIDE 20 MEQ CONTROLLED RELEASE TAB PO PRN ×2 (13:45)
[2017-03-03] MEDS ORDERED: SODIUM BICARBONATE 8.4% SOLN 50 MEQ/50 ML VIAL IV PUSH PRN ×2 (13:45)
[2017-03-03] MEDS ORDERED: INSULIN REGULAR (IV INFUSION) 100 UNITS in SODIUM CHLORIDE 0.9% INJ 99 ML IV PRN (13:45)
[2017-03-03] MEDS ORDERED: METOPROLOL TARTRATE 5 MG/5 ML VIAL IV PUSH PRN (13:45)
[2017-03-03] MEDS ORDERED: ACETAMINOPHEN 650 MG SUPP RECTAL PRN (13:45)
[2017-03-03] MEDS ORDERED: RESP: ALBUTEROL 2.5 MG/IPRATROPIUM 0.5 MG NEB (PRN) NEB (13:45)
[2017-03-03] MEDS ORDERED: RESP: RACEPINEPHRINE 2.25% 0.5 ML NEB NEB PRN (13:45)
[2017-03-03] MEDS ORDERED: DEXMEDETOMIDINE INJ 200 MCG in SODIUM CHLORIDE 0.9% INJ 50 ML IV PRN (13:45)
[2017-03-03] MEDS ORDERED: POTASSIUM CHLOR 20 MEQ PREMIX 100 ML IV PRN ×3 (13:45)
[2017-03-03] MEDS ORDERED: Post-op Orders (for Pharmacy) MISC OTHER ONE (13:45)
[2017-03-03] MEDS ORDERED: LACTATED RINGER'S 1000 ML INJ 500 ML IV PRN (13:45)
[2017-03-03] MEDS ORDERED: ACETAMINOPHEN 325 MG TAB PO PRN (13:45)
[2017-03-03] MEDS ORDERED: ONDANSETRON HCL 4 MG/2 ML VIAL IV PUSH PRN (13:45)
[2017-03-03] MEDS ORDERED: CALCIUM CHLORIDE INJ 1 GM in SODIUM CHLORIDE 0.9% INJ 100 ML IV PRN (13:45)
[2017-03-03] MEDS ORDERED: hydrALAZINE HCL 20 MG/ML VIAL IV PUSH PRN (13:45)
[2017-03-03] MEDS ORDERED: MAGNESIUM SULFATE INJ 2 GM in SODIUM CHLORIDE 0.9% INJ 100 ML IV PRN ×4 (13:45)
[2017-03-03] MEDS ORDERED: ALBUMIN 5% INJ 250 ML IV PRN (13:45)
[2017-03-03] MEDS: AMIODARONE 200 MG TAB PO SCH ×2 (14:00→21:07)
--- NOTE | 2017-03-03 14:19 | PD.OP ---
cc: Kimberly Randolph MD; Alex Miller DO Operative Report Date of Surgery: Mar 03, 2017 Preoperative Diagnosis: (1) Mitral regurgitation (2) Diastolic CHF due to valvular disease Postoperative Diagnosis: same Procedure: Minimally invasive MV Repair Posterior leaflet reconstruction Annuloplasty with a 26 Broughton ring JAISON Percutaneous left femoral artery and vein cannulation with arterial Perclose closure Anesthesia: Dr. Parada Surgeon: Kimberly Randolph Real Property Appraiser(s): Scooby GA Operation and Findings: Standard monitoring lines and Olmos catheter were placed. General anesthesia was induced. The patient was prepped and draped in a sterile fashion. A 6 cm right anterolateral thoracotomy was performed in the 5th intercostal space. This was performed in the crease of the right breast laterally due to her habitus. An Ender retractor was placed followed by a small chest retractor. The pericardium was opened and a pericardial sling was created using interrupted 0 silk sutures. A small 1 cm incision was made at the 7th intercostal space and an LV vent CO2 line were placed through this access port. The aorta was dissected posteriorly for crossclamp placement. The left femoral artery and vein were percutaneously accessed using ultrasound guidance. The patient was heparinized for cardiopulmonary bypass. The left femoral artery was cannulated with a 17F Biomed[employer] arterial cannula. The left femoral vein was cannulated with a 21 Biomedicus cannula under JAISON guidance. Three Perclose devices were placed in the artery for later closure. Antegrade Custodiol cardioplegia was employed. The patient was placed on cardiopulmonary bypass. Waterstons groove was dissected using electrocautery and blunt dissection. An aortic cross-clamp was applied and the heart was arrested using cold Custodiol cardioplegia delivered through a 14F catheter. The left atrium was opened and the mitral valve was exposed. The valve was analyzed and the posterior leaflet was noted to be small with a cleft in P2. The cleft was closed in the posterior leaflet with interrupted 5-0 Ticron suture. The annulus was sized to a 26 Raphael ring which was seated using interrupted 2-0 Ticron horizontal mattress sutures. The repair was tested and found to be excellent. The left atrium was closed using running 4-0 Prolene suture. The patient systemically rewarmed and placed in Trendelenburg position. The cross clamp was removed, with the aorta and LV vented. The patient was easily weaned from cardiopulmonary bypass. Decannulation was carried out without incident and the artery was secured with the Perclose sutures. The vein was controlled with manual compression. Protamine was given. There was no adverse reaction. Intraoperative JAISON following the procedure showed a good repair with no MR or NAINA. LV function was preserved. Wound was checked for hemostasis was obtained using electrocautery. A 32F right pleural chest tube was placed and secured to the skin with a 0 silk suture. The ribs were approximated using a 1 Vicryl suture. The subcutaneous tissue was closed using a running 3-0 Monocryl suture. The skin was closed with 4-0 Monocryl. Sterile dressings were placed. At the end of the operation, all sponge, instruments, and needle counts were correct. The patient was transferred to the CVICU in stable condition. Kimberly Randolph MD Mar 03, 2017 14:19
[2017-03-03 14:22] VITALS: BP_SYST 125; BP_SYST 89; BP_DIAS 41; BP_DIAS 90; PULSE 97; RESP 20; TEMP 98.3; O2SAT 97
[2017-03-03 14:28] VITALS: TEMP 98.3
[2017-03-03 15:00] VITALS: BP 115/78; PULSE 84; RESP 20; TEMP 98.3; O2SAT 97
--- NOTE | 2017-03-03 15:16 | RADRPT ---
EXAM DATE/TIME: 03/03/2017 14:57 [facility] COMPARISON: CHEST PA & LAT, February 23, 2017, 12:15. INDICATIONS : Post CABG. MEDICAL HISTORY : Mitral valve replacement. SURGICAL HISTORY : None. ENCOUNTER: Initial ACUITY: 1 day PAIN SCORE: Non-responsive. LOCATION: Bilateral chest FINDINGS: The heart is enlarged. There is a cannula which enters via the subclavian vein. It appears in good po sition. The lungs are clear. There is a chest tube in place on the right. The osseous structures are grossly intact. CONCLUSION: 1. Cardiomegaly. 2. There is a cannula which enters from the left subclavian vein which appears in satisfactory positi on. Justen Marcial MD on March 03, 2017 at 15:13 Board Certified Radiologist. This report was verified electronically.
[2017-03-03] MEDS: VANCOMYCIN INJ 1,000 MG in SODIUM CHLOR 0.9% 250 ML INJ 250 ML IV SCH (15:21)
[2017-03-03] MEDS: ACETAMINOPHEN 1000 MG/100 ML 100 ML IV SCH ×2 (15:22→20:14)
[2017-03-03] MEDS ORDERED: RESP: ALBUTEROL 2.5 MG/IPRATROPIUM 0.5 MG NEB (SCH) NEB (16:00)
[2017-03-03] MEDS ORDERED: KETOROLAC TROMETHAMINE 30 MG/ML (IVP) VIAL IV PUSH ONE (18:00)
[2017-03-03 19:00] VITALS: BP_SYST 114; BP_DIAS 76; BP_DIAS 77; PULSE 81; PULSE 87; RESP 18; TEMP 98.6; O2SAT 99
[2017-03-03] MEDS: SODIUM CHLORIDE 0.9% FLUSH 10 ML FLUSH IV FLUSH SCH (20:14)
[2017-03-03] MEDS: PRAVASTATIN SOD 40 MG TAB PO SCH (20:14)
[2017-03-03 22:50] VITALS: O2SAT 98
[2017-03-03 23:00] VITALS: BP_SYST 118; BP_SYST 132; BP_DIAS 72; BP_DIAS 74; PULSE 84; RESP 22; TEMP 98.3; O2SAT 99
[2017-03-04] VITALS (15 sets, daily range): BP systolic 110–130; BP diastolic 57–87; PULSE 76–95; RESP 16–22; TEMP 97.6–99.6; O2SAT 93–99
[2017-03-04] MEDS ORDERED: KETOROLAC TROMETHAMINE 30 MG/ML (IVP) VIAL IV PUSH PRN
[2017-03-04] MEDS: ACETAMINOPHEN 1000 MG/100 ML 100 ML IV SCH ×2 (02:38→08:00)
[2017-03-04] MEDS: VANCOMYCIN INJ 1,000 MG in SODIUM CHLOR 0.9% 250 ML INJ 250 ML IV SCH ×2 (02:39→14:07)
[2017-03-04 04:51] LABS: MEAN CELL VOLUME 78.7 FL (80.0-100.0); MEAN CORPUSCULAR HEMOGLOBIN 24.5 PG (27.0-34.0); MEAN CORPUSCULAR HGB CONC 31.1 % (32.0-36.0); PLATELET COUNT 150 TH/MM3 (150-450); RED BLOOD COUNT 3.94 MIL/MM3 (4.00-5.30); RED CELL DISTRIBUTION WIDTH 14.4 % (11.6-17.2); REVIEW FLAG FINAL
--- NOTE | 2017-03-04 05:01 | RADRPT ---
EXAM DATE/TIME: 03/04/2017 04:00 [facility] COMPARISON: CHEST SINGLE AP, March 03, 2017, 14:57. INDICATIONS : Shortness of breath. MEDICAL HISTORY : Mitral valve replacement. SURGICAL HISTORY : None. ENCOUNTER: Subsequent ACUITY: 1 week PAIN SCORE: 0/10 LOCATION: Bilateral chest FINDINGS: There is a right chest tube in place. There is hazy density seen throughout the lungs bilaterally. Th e heart size appears enlarged. CONCLUSION: 1. Cardiomegaly. 2. Increased density seen at the lungs bilaterally likely related to diffuse consolidation and possib le effusions. Scooby Fuchs MD on March 04, 2017 at 4:59 Board Certified Radiologist. This report was verified electronically.
[2017-03-04 05:20] LABS: BICARBONATE 23.3 MEQ/L (21.0-32.0); MAGNESIUM 1.8 MG/DL (1.5-2.5); POTASSIUM 4.4 MEQ/L (3.5-5.1)
[2017-03-04] MEDS: AMIODARONE 200 MG TAB PO SCH ×3 (05:45→21:53)
[2017-03-04] MEDS: SODIUM CHLORIDE 0.9% FLUSH 10 ML FLUSH IV FLUSH SCH ×2 (08:32→21:00)
[2017-03-04] MEDS: ASPIRIN 81 MG CHEW TAB PO SCH (08:32)
[2017-03-04] MEDS: PANTOPRAZOLE SOD 40 MG DELAYED RELEASE TAB PO SCH (08:32)
[2017-03-04] MEDS ORDERED: GLUCAGON 1 MG/ML VIAL OTHER PRN (09:00)
[2017-03-04] MEDS ORDERED: MULTIVITAMIN INJ 10 ML, THIAMINE INJ 500 MG, FOLIC ACID INJ 1 MG in SODIUM CHLORID 0.9%... IV SCH (09:00)
[2017-03-04] MEDS ORDERED: DEXTROSE 50% IN WATER 50 ML VIAL(D50) IV PUSH PRN (09:00)
--- NOTE | 2017-03-04 09:20 | EKG ---
Date Performed: 03/04/2017 Time Performed: 05:42:20 PTAGE: 36 years EKG: Sinus tachycardia. Possible inferior infarct - age undetermined Abnormal ECG Compared to pr ior electrocardiogram, rate has increased . NO PREVIOUS TRACING DOCTOR: Dilshad Marr Interpretating Date/Time 03/04/2017 09:19:07
[2017-03-04] MEDS ORDERED: PILL SPLITTER OTHER PRN (09:45)
[2017-03-04] MEDS: INSULIN ASPART SUPPLEMENTAL SCALE SQ SCH ×4 (09:58→22:30)
[2017-03-04] MEDS ORDERED: FUROSEMIDE 40 MG/4 ML VIAL IV PUSH ONE (10:00)
[2017-03-04] MEDS ORDERED: POTASSIUM CHLORIDE 20 MEQ CONTROLLED RELEASE TAB PO ONE (10:00)
[2017-03-04] MEDS: MAGNESIUM HYDROXIDE SUSP 30 ML CUP PO SCH (10:05)
[2017-03-04] MEDS: MULTIVITAMINS/MINERALS THERAPEUTIC TAB PO SCH (10:05)
[2017-03-04] MEDS ORDERED: BISACODYL 10 MG SUPP RECTAL PRN (11:00)
[2017-03-04] MEDS ORDERED: SOD PHOSPHATE/SOD BIPHOSPHATE (ADULT) ENEMA 133ML RECTAL PRN (11:00)
[2017-03-04] MEDS: FERROUS SULFATE 300 MG /5ML UDC PO SCH (12:17)
[2017-03-04] MEDS: RESP: ALBUTEROL 2.5 MG/IPRATROPIUM 0.5 MG NEB (SCH) NEB ×2 (13:53→20:15)
[2017-03-04] MEDS: METOPROLOL TARTRATE 25 MG TAB PO SCH ×2 (14:07→21:54)
--- NOTE | 2017-03-04 14:59 | PD.CAR.PN ---
CVT Progress Note Subjective/Hospital Course: 36-year-old patient of Dr. Miller, Dr. Robert Byers who has a history of aortic stenosis that she has known since she was about age 11. 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 She had noted some pressure in her chest and some shortness of breath. She normally had been riding a stationary bike three days a week but has noted progressive discomfort and shortness of breath. She underwent a transesophageal echo on 01/09/2017 which showed an EF of 55-60%. The mitral valve regurg directed posteriorly with a Coanda effect that appears severe in nature. Restricted immobility of the posterior mitral valve leaflet. No mitral valve stenosis. There was mild tricuspid regurgitation. The aortic valve had no stenosis or regurgitation. She underwent cardiac cath today which showed nonobstructive coronary disease. PAST MEDICAL HISTORY: Iron deficiency anemia, Sleep apnea, Asthma, Nonobstructive coronary disease, Diabetes mellitus type 2, Hyperlipidemia, Hypertension, Mitral regurgitation, Obesity. PAST SURGICAL HISTORY A gastric sleeve surgery 4 years ago 03/03 surgery : Minimally invasive MV Repair, Posterior leaflet reconstruction, Annuloplasty with a 26 Raphael ring, JAISON, Percutaneous left femoral artery and vein cannulation with arterial Perclose closure crystalloid 2900cc, 500cc cell saver, EBL 1000cc 03/04 very painful this am fentanyl dosing increased CXR noted, gentle diuresis pulm toileting chest tube in place, drained 130cc/ 12 hrs will transfer to stepdown Objective: GENERAL: SKIN: Warm and dry. right upper chest wall dressing in place HEAD: Normocephalic. EYES: No scleral icterus. No injection or drainage. NECK: Supple, trachea midline. No JVD or lymphadenopathy. CARDIOVASCULAR: Regular rate and rhythm without murmurs, gallops, or rubs. RESPIRATORY: Breath sounds equal bilaterally. No accessory muscle use. right chest tube in place, no air leak to wall suction GASTROINTESTINAL: Abdomen soft, non-tender, nondistended. MUSCULOSKELETAL: No cyanosis, or edema. BACK: Nontender without obvious deformity. No CVA tenderness. Vital Signs Date Time Temp Pulse Resp B/P (MAP) Pulse Ox O2 Delivery O2 Flow Rate FiO2 03/04/17 11:47 97.6 76 18 110/70 (83) 95 03/04/17 11:00 89 03/04/17 11:00 98.6 93 18 117/87 (97) 98 Arterial Line 03/04/17 07:58 97 Nasal Cannula 2.00 03/04/17 07:00 98.7 94 16 99 125/73 (90) 03/04/17 07:00 92 03/04/17 07:00 99 Room Air 03/04/17 04:15 20 03/04/17 03:10 18 03/04/17 03:00 85 03/04/17 03:00 98.3 84 22 118/77 (91) 99 130/71 (90) 03/03/17 23:00 98.3 84 22 132/74 (93) 99 118/72 (87) 03/03/17 23:00 84 03/03/17 22:50 98 Nasal Cannula 2.00 03/03/17 19:00 98.6 81 18 114/77 (89) 99 114/76 (89) 03/03/17 19:00 100 Nasal Cannula 2.00 03/03/17 19:00 87 03/03/17 19:00 18 03/03/17 15:00 84 03/03/17 15:00 98.3 84 20 115/78 (90) 97 Labs: Laboratory Tests Test 03/04/17 04:14 White Blood Count 18.0 TH/MM3 (4.0-11.0) Red Blood Count 3.94 MIL/MM3 (4.00-5.30) Hemoglobin 9.6 GM/DL (11.6-15.3) Hematocrit 31.0 % (35.0-46.0) Mean Corpuscular Volume 78.7 FL (80.0-100.0) Mean Corpuscular Hemoglobin 24.5 PG (27.0-34.0) Mean Corpuscular Hemoglobin Concent 31.1 % (32.0-36.0) Red Cell Distribution Width 14.4 % (11.6-17.2) Platelet Count 150 TH/MM3 (150-450) Mean Platelet Volume 9.6 FL (7.0-11.0) Blood Urea Nitrogen 9 MG/DL (7-18) Creatinine 0.53 MG/DL (0.50-1.00) Random Glucose 104 MG/DL (74-106) Calcium Level 7.8 MG/DL (8.5-10.1) Magnesium Level 1.8 MG/DL (1.5-2.5) Sodium Level 139 MEQ/L (136-145) Potassium Level 4.4 MEQ/L (3.5-5.1) Chloride Level 108 MEQ/L (98-107) Carbon Dioxide Level 23.3 MEQ/L (21.0-32.0) Anion Gap 8 MEQ/L (5-15) Estimat Glomerular Filtration Rate 157 ML/MIN (>89) Result Diagram: 03/04/1741303/04/17413 Telemetry: NSR (1) S/P mitral valve repair Plan: ASA, BB gentle diuresis OOB pulm toileting (2) Chronic anemia Plan: resume ferrous sulfate (3) Diastolic CHF due to valvular disease Plan: gentle diuresis (4) Mitral regurgitation Christa Mariano Mar 04, 2017 14:59
--- NOTE | 2017-03-04 15:03 | HHI.FF ---
Face to Face Verification Diagnosis: (1) Sensation of foreign body in esophagus (2) Mitral regurgitation (3) Diastolic CHF due to valvular disease (4) Chronic anemia (5) S/P mitral valve repair Home Health Nursing Order: Signs/symptoms of disease process Medication education-adverse effect Wound care and dressing changes Nursing assessment with vital signs Instructions: Heart and Vascular Surgery patients *Special attention to sternal dressing Mandatory frequency Assess and evaluation, 4 days in a row The next week 3X week 2 times a week for 4 weeks 1 time a week for 5 weeks Schedule Heart and Vascular patients for full 60 day certification period Initial visit Review Open Heart Surgery Discharge Instructions (Sternal precautions, Activity, Elastic hose, Incision care, Driving, Incentive spirometry, Smoking, [place], Work and other) Need Betadine to paint incision Medication reconciliation Importance of follow up care/ check on appointments Make calendar record temperature daily When to call [facility] nurse, review instructions, phone list Incentive Spirometry, demonstration Visit 1- Begin discharge instruction for patient family and/ or caregiver using teach back method- Signs and symptoms of infection Disease characteristics Medicines and side effects Foods and nutrition/ appetite Infection control/ hand washing/ hygiene Visit 2- Continue teaching Discharge instructions- include additional information on smoking cessation , sternal dressing (sternal vac) Visit 3- Continue teaching- Cough and deep breathing, incision monitoring. Choose my plate Visit 4- Continue teaching- Discuss limitations Discuss how they are feeling Discuss progress toward goals Remaining visits- continue teaching and monitoring Incentive spirometry Q1 hr x 10, while awake, also use acapella device hourly whole awake chest wall Precautions: NO pushing or pulling, ( pt must use chest pillow to support chest with all activities and with coughing Daily incision care: ok to shower daily, no tub bath. Wash all incisions with liquid dial soap, clean wash cloth to each site, rinse and pat dry. Observe for any signs of infection, such as drainage which is dark yellow, miller, green or foul smelling. Immediately report to the surgeon any drainage from the chest incision, or legs, and for any abnormal drainage from the chest tube sites. Notify surgeon if any temp >101.5 degrees F. When specialty dressing removed/ or if you do not have one, continue to shower daily as above, then rinse and pat incision dry and paint with betadine daily x 5 days. Allow steri strips to fall off if you have any. Avoid lotions, creams, salves, oils, etc. for the first month For Dr. Randolph patients , please obtain CBC, BMP, PA & Lat CXR in 2 weeks, results to Dr. Randolph ( prescription will be given) ( ) (Tele: [phone]) , Valve replacement pts will need 2decho in 2 weeks with results to Dr. Randolph . Please obtain 2 d echo at your data security administrator office if possible F/U appointment: as per DC instructions: PCP in 2 weeks, CV surgeon 2 weeks, Meat Smoker 3-4 weeks For any questions regarding incisions/ dressing / meds / post op care or above Symptoms, Thursday 8am-5pm Heart & Vascular Surgery Office ( Dr. Pike & Dr. Randolph), After Hours / Nights (5pm -8am) Weekends and Holidays Please call [facility] ([facility]) Charge Nurse I have seen patient Samira Malik on 03/04/17. My clinical findings support the need for the requested home health care services because: Deconditioned w/ increased weakness I certify that my clinical findings support that this patient is homebound because: Post-op weakness Christa Mariano Mar 04, 2017 15:03
[2017-03-04] MEDS: oxyCODONE/ACETAMINOPHEN 5 MG/325 MG TAB PO PRN (18:06)
[2017-03-04] MEDS: PRAVASTATIN SOD 40 MG TAB PO SCH (21:53)
[2017-03-04] MEDS: DOCUSATE SODIUM 100 MG CAP PO SCH (21:53)
[2017-03-04] MEDS: SENNOSIDES 8.6 MG TAB PO SCH (21:53)
[2017-03-05] VITALS (21 sets, daily range): BP systolic 93–133; BP diastolic 57–77; PULSE 73–94; RESP 16–18; TEMP 98.4–100; O2SAT 94
[2017-03-05] MEDS: oxyCODONE/ACETAMINOPHEN 5 MG/325 MG TAB PO PRN ×5 (00:05→20:37)
[2017-03-05] MEDS: INSULIN ASPART SUPPLEMENTAL SCALE SQ SCH ×5 (02:00→21:00)
[2017-03-05] MEDS: AMIODARONE 200 MG TAB PO SCH ×2 (05:44→20:38)
[2017-03-05 05:58] LABS: AUTOMATED NEUTROPHIL # 10.5 TH/MM3 (1.8-7.7); BASOPHIL # 0.1 TH/MM3 (0-0.2); BASOPHIL % 0.4 % (0.0-2.0); EOSINOPHIL % 0.2 % (0.0-4.0); HEMATOCRIT 27.1 % (35.0-46.0); HEMO FLAGS DIFF FINAL; LYMPH % 12.5 % (9.0-44.0); LYMPHOCYTE # 1.7 TH/MM3 (1.0-4.8); MEAN CELL VOLUME 79.4 FL (80.0-100.0); MEAN CORPUSCULAR HEMOGLOBIN 25.3 PG (27.0-34.0); MEAN CORPUSCULAR HGB CONC 31.9 % (32.0-36.0); MONO % 9.9 % (0.0-8.0); PLATELET COUNT 140 TH/MM3 (150-450); RED BLOOD COUNT 3.42 MIL/MM3 (4.00-5.30); RED CELL DISTRIBUTION WIDTH 14.7 % (11.6-17.2); WHITE BLOOD COUNT 13.6 TH/MM3 (4.0-11.0)
[2017-03-05 06:27] LABS: BICARBONATE 27.5 MEQ/L (21.0-32.0); MAGNESIUM 2.1 MG/DL (1.5-2.5); POTASSIUM 3.9 MEQ/L (3.5-5.1)
[2017-03-05] MEDS: RESP: ALBUTEROL 2.5 MG/IPRATROPIUM 0.5 MG NEB (SCH) NEB ×3 (08:00→19:37)
[2017-03-05] MEDS: SODIUM CHLORIDE 0.9% FLUSH 10 ML FLUSH IV FLUSH SCH ×2 (09:00→20:49)
[2017-03-05] MEDS: POLYETHYLENE GLYCOL 17 GM PKG PO SCH (09:21)
[2017-03-05] MEDS: MAGNESIUM HYDROXIDE SUSP 30 ML CUP PO SCH (09:22)
[2017-03-05] MEDS: METOPROLOL TARTRATE 25 MG TAB PO SCH ×2 (09:23→20:38)
[2017-03-05] MEDS: FERROUS SULFATE 300 MG /5ML UDC PO SCH (09:23)
[2017-03-05] MEDS: DOCUSATE SODIUM 100 MG CAP PO SCH ×2 (09:23→20:38)
[2017-03-05] MEDS: MULTIVITAMINS/MINERALS THERAPEUTIC TAB PO SCH (09:23)
[2017-03-05] MEDS: PANTOPRAZOLE SOD 40 MG DELAYED RELEASE TAB PO SCH (09:24)
[2017-03-05] MEDS: ASPIRIN 81 MG CHEW TAB PO SCH (09:24)
[2017-03-05 11:28] LABS: INTERNATIONAL NORMALIZED RATIO 1.1 RATIO; PROTHROMBIN TIME - PATIENT 11.6 SEC (9.8-11.6)
[2017-03-05] MEDS: WARFARIN SOD 5 MG TAB PO SCH (16:10)
--- NOTE | 2017-03-05 17:09 | PD.CAR.PN ---
CVT Progress Note Subjective/Hospital Course: 36-year-old patient of Dr. Miller, Dr. Robert Byers who has a history of aortic stenosis that she has known since she was about age 11. 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 She had noted some pressure in her chest and some shortness of breath. She normally had been riding a stationary bike three days a week but has noted progressive discomfort and shortness of breath. She underwent a transesophageal echo on 01/09/2017 which showed an EF of 55-60%. The mitral valve regurg directed posteriorly with a Coanda effect that appears severe in nature. Restricted immobility of the posterior mitral valve leaflet. No mitral valve stenosis. There was mild tricuspid regurgitation. The aortic valve had no stenosis or regurgitation. She underwent cardiac cath today which showed nonobstructive coronary disease. PAST MEDICAL HISTORY: Iron deficiency anemia, Sleep apnea, Asthma, Nonobstructive coronary disease, Diabetes mellitus type 2, Hyperlipidemia, Hypertension, Mitral regurgitation, Obesity. PAST SURGICAL HISTORY A gastric sleeve surgery 4 years ago 03/03 surgery : Minimally invasive MV Repair, Posterior leaflet reconstruction, Annuloplasty with a 26 Raphael ring, JAISON, Percutaneous left femoral artery and vein cannulation with arterial Perclose closure crystalloid 2900cc, 500cc cell saver, EBL 1000cc 03/04 very painful this am fentanyl dosing increased CXR noted, gentle diuresis pulm toileting chest tube in place, drained 130cc/ 12 hrs will transfer to stepdown 03/05 chest tube removed without difficulty start coumadin this pm , goal 2-2.5 x 6 weeks Objective: GENERAL: SKIN: Warm and dry. incision intact left chest wall , groin dressing in place HEAD: Normocephalic. EYES: No scleral icterus. No injection or drainage. NECK: Supple, trachea midline. No JVD or lymphadenopathy. CARDIOVASCULAR: Regular rate and rhythm without murmurs, gallops, or rubs. RESPIRATORY: Breath sounds equal bilaterally. No accessory muscle use. GASTROINTESTINAL: Abdomen soft, non-tender, nondistended. MUSCULOSKELETAL: No cyanosis, or edema. BACK: Nontender without obvious deformity. No CVA tenderness. Vital Signs Date Time Temp Pulse Resp B/P (MAP) Pulse Ox O2 Delivery O2 Flow Rate FiO2 03/05/17 16:00 98.4 78 18 130/76 (94) 94 03/05/17 16:00 78 03/05/17 15:00 84 03/05/17 14:00 73 03/05/17 13:00 78 03/05/17 12:00 98.6 73 18 105/74 (84) 94 03/05/17 12:00 73 03/05/17 11:05 20 03/05/17 11:00 74 03/05/17 10:00 80 03/05/17 09:00 79 03/05/17 08:00 99.1 85 18 108/77 (87) 94 03/05/17 08:00 78 03/05/17 07:00 78 03/05/17 06:00 79 03/05/17 05:00 80 03/05/17 04:00 78 03/05/17 03:00 99.1 85 18 93/57 (69) 94 03/05/17 03:00 81 03/05/17 02:00 81 03/05/17 01:00 78 03/05/17 00:00 86 03/04/17 23:14 16 03/04/17 23:00 98.8 85 16 111/57 (75) 93 03/04/17 23:00 82 03/04/17 22:00 88 03/04/17 21:54 16 03/04/17 21:00 88 03/04/17 20:15 94 21 03/04/17 20:00 88 03/04/17 19:00 90 03/04/17 19:00 99.6 87 16 119/78 (92) 93 03/04/17 17:19 86 Labs: Laboratory Tests Test 03/05/17 05:45 03/05/17 10:33 White Blood Count 13.6 TH/MM3 (4.0-11.0) Red Blood Count 3.42 MIL/MM3 (4.00-5.30) Hemoglobin 8.6 GM/DL (11.6-15.3) Hematocrit 27.1 % (35.0-46.0) Mean Corpuscular Volume 79.4 FL (80.0-100.0) Mean Corpuscular Hemoglobin 25.3 PG (27.0-34.0) Mean Corpuscular Hemoglobin Concent 31.9 % (32.0-36.0) Red Cell Distribution Width 14.7 % (11.6-17.2) Platelet Count 140 TH/MM3 (150-450) Mean Platelet Volume 9.5 FL (7.0-11.0) Neutrophils (%) (Auto) 77.0 % (16.0-70.0) Lymphocytes (%) (Auto) 12.5 % (9.0-44.0) Monocytes (%) (Auto) 9.9 % (0.0-8.0) Eosinophils (%) (Auto) 0.2 % (0.0-4.0) Basophils (%) (Auto) 0.4 % (0.0-2.0) Neutrophils # (Auto) 10.5 TH/MM3 (1.8-7.7) Lymphocytes # (Auto) 1.7 TH/MM3 (1.0-4.8) Monocytes # (Auto) 1.3 TH/MM3 (0-0.9) Eosinophils # (Auto) 0.0 TH/MM3 (0-0.4) Basophils # (Auto) 0.1 TH/MM3 (0-0.2) CBC Comment DIFF FINAL Differential Comment Blood Urea Nitrogen 8 MG/DL (7-18) Creatinine 0.62 MG/DL (0.50-1.00) Random Glucose 108 MG/DL (74-106) Calcium Level 7.9 MG/DL (8.5-10.1) Magnesium Level 2.1 MG/DL (1.5-2.5) Sodium Level 140 MEQ/L (136-145) Potassium Level 3.9 MEQ/L (3.5-5.1) Chloride Level 104 MEQ/L (98-107) Carbon Dioxide Level 27.5 MEQ/L (21.0-32.0) Anion Gap 9 MEQ/L (5-15) Estimat Glomerular Filtration Rate 131 ML/MIN (>89) Prothrombin Time 11.6 SEC (9.8-11.6) Prothromb Time International Ratio 1.1 RATIO Result Diagram: 03/05/1745 03/05/17544 (1) S/P mitral valve repair Plan: ASA, BB OOB pulm toileting start coumadin (2) Chronic anemia Plan: resume ferrous sulfate (3) Diastolic CHF due to valvular disease Plan: gentle diuresis (4) Mitral regurgitation Christa Mariano Mar 05, 2017 17:09
[2017-03-05] MEDS: SENNOSIDES 8.6 MG TAB PO SCH (20:37)
[2017-03-05] MEDS: PRAVASTATIN SOD 40 MG TAB PO SCH (20:37)
[2017-03-06] VITALS (22 sets, daily range): BP systolic 93–127; BP diastolic 52–67; PULSE 85–104; RESP 16–22; TEMP 98.3–100.6; O2SAT 93–97
[2017-03-06] MEDS: oxyCODONE/ACETAMINOPHEN 5 MG/325 MG TAB PO PRN ×3 (00:07→20:12)
--- NOTE | 2017-03-06 06:04 | RADRPT ---
EXAM DATE/TIME: 03/06/2017 05:14 [facility] COMPARISON: CHEST SINGLE AP, March 04, 2017, 4:00. INDICATIONS : Chest tube removal- Evaluate for pneumothorax MEDICAL HISTORY : Mitral Valve Replacement SURGICAL HISTORY : ENCOUNTER: Subsequent ACUITY: 1 week PAIN SCORE: 7/10 LOCATION: Bilateral chest FINDINGS: Portable AP view of the chest demonstrates cardiac silhouette size at the upper limits for normal. Th e right chest tube has been removed and no pneumothorax is visualized. There is mild bibasilar air sp natalia opacity. No pleural effusion is appreciated. CONCLUSION: No pneumothorax following right chest tube removal. There is mild bibasilar airspace opacity. Scooby Cassidy MD on March 06, 2017 at 6:02 Board Certified Radiologist. This report was verified electronically.
[2017-03-06] MEDS: RESP: ALBUTEROL 2.5 MG/IPRATROPIUM 0.5 MG NEB (SCH) NEB (07:50)
[2017-03-06] MEDS: INSULIN ASPART SUPPLEMENTAL SCALE SQ SCH ×4 (08:00→21:00)
--- NOTE | 2017-03-06 08:19 | PD.CAR.PN ---
CVT Progress Note CVT: POD #: 3 Subjective/Hospital Course: 36-year-old patient of Dr. Miller, Dr. Robert Byers who has a history of mitral regurgitation that she has known since she was about age 11. 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 She had noted some pressure in her chest and some shortness of breath. She normally had been riding a stationary bike three days a week but has noted progressive discomfort and shortness of breath. She underwent a transesophageal echo on 01/09/2017 which showed an EF of 55-60%. The mitral valve regurg directed posteriorly with a Coanda effect that appears severe in nature. Restricted immobility of the posterior mitral valve leaflet. No mitral valve stenosis. There was mild tricuspid regurgitation. The aortic valve had no stenosis or regurgitation. She underwent cardiac cath today which showed nonobstructive coronary disease. PAST MEDICAL HISTORY: Iron deficiency anemia, Sleep apnea, Asthma, Nonobstructive coronary disease, Diabetes mellitus type 2, Hyperlipidemia, Hypertension, Mitral regurgitation, Obesity. PAST SURGICAL HISTORY A gastric sleeve surgery 4 years ago 03/03 surgery : Minimally invasive MV Repair, Posterior leaflet reconstruction, Annuloplasty with a 26 Planada ring, JAISON, Percutaneous left femoral artery and vein cannulation with arterial Perclose closure crystalloid 2900cc, 500cc cell saver, EBL 1000cc 03/04 very painful this am fentanyl dosing increased CXR noted, gentle diuresis pulm toileting chest tube in place, drained 130cc/ 12 hrs will transfer to stepdown 03/05 chest tube removed without difficulty start coumadin this pm , goal 2-2.5 x 6 weeks 03/06/17 c/o exertional dyspnea +BM Objective: Vital Signs Date Time Temp Pulse Resp B/P (MAP) Pulse Ox O2 Delivery O2 Flow Rate FiO2 03/06/17 07:52 97 Nasal Cannula 2.00 03/06/17 04:11 99.3 91 16 109/57 (74) 95 03/06/17 03:00 91 03/06/17 02:08 104 03/06/17 01:00 91 03/06/17 00:00 100.6 93 18 127/52 (77) 96 03/06/17 00:00 93 03/05/17 20:35 100.0 94 16 133/62 (85) 94 03/05/17 19:37 94 21 03/05/17 18:00 73 03/05/17 17:10 20 03/05/17 17:00 77 03/05/17 16:00 98.4 78 18 130/76 (94) 94 03/05/17 16:00 78 03/05/17 15:00 84 03/05/17 14:00 73 03/05/17 13:00 78 03/05/17 12:00 98.6 73 18 105/74 (84) 94 03/05/17 12:00 73 03/05/17 11:00 74 03/05/17 10:00 80 03/05/17 09:00 79 Result Diagram: 03/05/17 0545 03/05/17 0545 Imaging: Last 24 hours Impressions Chest X-Ray 03/06/17 0600 Signed Impressions: Service Date/Time: Monday, March 06, 2017 05:14 - CONCLUSION: No pneumothorax following right chest tube removal. There is mild bibasilar airspace opacity. Scooby Cassidy MD Cardiovascular: RRR Telemetry: NSR Pulmonary: Decreased BS bilat GI/: NABS, NT Incision: dry and intact Plan: Diurese Home in AM (1) S/P mitral valve repair Plan: ASA, BB OOB pulm toileting start coumadin (2) Chronic anemia Plan: resume ferrous sulfate (3) Diastolic CHF due to valvular disease Plan: gentle diuresis (4) Mitral regurgitation Kimberly Randolph MD Mar 06, 2017 08:19
[2017-03-06 08:37] LABS: INTERNATIONAL NORMALIZED RATIO 1.2 RATIO; PROTHROMBIN TIME - PATIENT 11.8 SEC (9.8-11.6)
[2017-03-06] MEDS: MAGNESIUM HYDROXIDE SUSP 30 ML CUP PO SCH (09:00)
[2017-03-06] MEDS: SODIUM CHLORIDE 0.9% FLUSH 10 ML FLUSH IV FLUSH SCH ×2 (09:00→21:33)
[2017-03-06] MEDS: POLYETHYLENE GLYCOL 17 GM PKG PO SCH (09:14)
[2017-03-06] MEDS: AMIODARONE 200 MG TAB PO SCH ×2 (09:15→21:28)
[2017-03-06] MEDS: FUROSEMIDE 40 MG/4 ML VIAL IV PUSH SCH ×2 (09:15→17:31)
[2017-03-06] MEDS: FERROUS SULFATE 300 MG /5ML UDC PO SCH (09:15)
[2017-03-06] MEDS: ASPIRIN 81 MG CHEW TAB PO SCH (09:16)
[2017-03-06] MEDS: PANTOPRAZOLE SOD 40 MG DELAYED RELEASE TAB PO SCH (09:16)
[2017-03-06] MEDS: MULTIVITAMINS/MINERALS THERAPEUTIC TAB PO SCH (09:16)
[2017-03-06] MEDS: DOCUSATE SODIUM 100 MG CAP PO SCH ×2 (09:16→21:28)
[2017-03-06] MEDS: POTASSIUM CHLORIDE 10 MEQ CONTROLLED RELEASE TAB PO SCH ×2 (09:16→21:28)
[2017-03-06] MEDS: METOPROLOL TARTRATE 25 MG TAB PO SCH ×2 (09:16→21:28)
[2017-03-06] MEDS ORDERED: OXYC1TAB63 PO (14:07)
[2017-03-06] MEDS ORDERED: DOCU1CAP39 PO (14:07)
[2017-03-06] MEDS ORDERED: ASPI81TA23 PO (14:07)
[2017-03-06] MEDS ORDERED: COUM5TAB PO (14:07)
[2017-03-06] MEDS ORDERED: AMIO200T PO (14:07)
--- NOTE | 2017-03-06 14:16 | HHI.DS ---
Discharge Summary Admission Date Mar 03, 2017 at 05:58 Discharge Date: Mar 07, 2017 Admitting Diagnosis severe mitral valve regurgitation (1) Mitral regurgitation ICD Codes: I34.0 - Nonrheumatic mitral (valve) insufficiency Status: Chronic (2) Diastolic CHF due to valvular disease Diagnosis: Principal ICD Codes: I38 - Endocarditis, valve unspecified; I50.30 - Unspecified diastolic (congestive) heart failure Status: Chronic (3) Chronic anemia Diagnosis: Principal ICD Codes: D64.9 - Anemia, unspecified Status: Chronic (4) S/P mitral valve repair Diagnosis: Secondary ICD Codes: Z98.890 - Other specified postprocedural states Procedures Minimally invasive MV Repair 03/03 Posterior leaflet reconstruction Annuloplasty with a 26 Walnut ring JAISON Percutaneous left femoral artery and vein cannulation with arterial Perclose closure Brief History 36-year-old patient of Dr. Miller, Dr. Robert Byers who has a history of aortic stenosis that she has known since she was about age 11. 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 She had noted some pressure in her chest and some shortness of breath. She normally had been riding a stationary bike three days a week but has noted progressive discomfort and shortness of breath. She underwent a transesophageal echo on 01/09/2017 which showed an EF of 55-60%. The mitral valve regurg directed posteriorly with a Coanda effect that appears severe in nature. Restricted immobility of the posterior mitral valve leaflet. No mitral valve stenosis. There was mild tricuspid regurgitation. The aortic valve had no stenosis or regurgitation. She underwent cardiac cath today which showed nonobstructive coronary disease. PAST MEDICAL HISTORY: Iron deficiency anemia, Sleep apnea, Asthma, Nonobstructive coronary disease, Diabetes mellitus type 2, Hyperlipidemia, Hypertension, Mitral regurgitation, Obesity. PAST SURGICAL HISTORY A gastric sleeve surgery 4 years ago CBC/BMP: 03/05/17 0545 03/05/17 0545 Significant Findings Laboratory Tests Test 03/04/17 04:14 03/05/17 05:45 03/05/17 10:33 03/06/17 08:08 White Blood Count 18.0 TH/MM3 (4.0-11.0) 13.6 TH/MM3 (4.0-11.0) Red Blood Count 3.94 MIL/MM3 (4.00-5.30) 3.42 MIL/MM3 (4.00-5.30) Hemoglobin 9.6 GM/DL (11.6-15.3) 8.6 GM/DL (11.6-15.3) Hematocrit 31.0 % (35.0-46.0) 27.1 % (35.0-46.0) Mean Corpuscular Volume 78.7 FL (80.0-100.0) 79.4 FL (80.0-100.0) Mean Corpuscular Hemoglobin 24.5 PG (27.0-34.0) 25.3 PG (27.0-34.0) Mean Corpuscular Hemoglobin Concent 31.1 % (32.0-36.0) 31.9 % (32.0-36.0) Calcium Level 7.8 MG/DL (8.5-10.1) 7.9 MG/DL (8.5-10.1) Chloride Level 108 MEQ/L (98-107) Platelet Count 140 TH/MM3 (150-450) Neutrophils (%) (Auto) 77.0 % (16.0-70.0) Monocytes (%) (Auto) 9.9 % (0.0-8.0) Neutrophils # (Auto) 10.5 TH/MM3 (1.8-7.7) Monocytes # (Auto) 1.3 TH/MM3 (0-0.9) Random Glucose 108 MG/DL (74-106) Prothrombin Time 11.8 SEC (9.8-11.6) Imaging Last Impressions Chest X-Ray 03/06/17 0600 Signed Impressions: Service Date/Time: Monday, March 06, 2017 05:14 - CONCLUSION: No pneumothorax following right chest tube removal. There is mild bibasilar airspace opacity. Scooby Cassidy MD PE at Discharge GENERAL: SKIN: Warm and dry. incision intact to right upper chest , dressing to right lower breast area from chest tube , suture removed left groin HEAD: Normocephalic. EYES: No scleral icterus. No injection or drainage. NECK: Supple, trachea midline. No JVD or lymphadenopathy. CARDIOVASCULAR: Regular rate and rhythm without murmurs, gallops, or rubs. mild edema RESPIRATORY: Breath sounds equal bilaterally. No accessory muscle use. GASTROINTESTINAL: Abdomen soft, non-tender, nondistended. MUSCULOSKELETAL: No cyanosis, or edema. BACK: Nontender without obvious deformity. No CVA tenderness. Hospital Course 03/03 surgery : Minimally invasive MV Repair, Posterior leaflet reconstruction, Annuloplasty with a 26 Walnut ring, JAISON, Percutaneous left femoral artery and vein cannulation with arterial Perclose closure crystalloid 2900cc, 500cc cell saver, EBL 1000cc 03/04 very painful this am fentanyl dosing increased CXR noted, gentle diuresis pulm toileting chest tube in place, drained 130cc/ 12 hrs will transfer to stepdown 03/05 chest tube removed without difficulty start coumadin this pm , goal 2-2.5 x 6 weeks 03/06/17 c/o exertional dyspnea +BM BP labile, will need to hold BB on coumadin INR 1.2/ Pt Condition on Discharge: Good Discharge Disposition: Disch w/ Home Health Serv Discharge Instructions DIET: Follow Instructions for: Heart Healthy Diet Activities you can perform: Full Weight Bearing, Shower Only-No Bath Activities to avoid: Strenuous Activity, Driving Additional Activity Instructio: no lifting > 8 lbs or gallon of milk Follow up Referrals: Cardiology with Alex Miller DO PCP Follow-up - 2 Weeks with Robert Webster Md Surgical - 2 Weeks with Christa Mariano New Orders: 2D ECHO - 2 Weeks BASIC METABOLIC PROF - 2 Weeks CBC NO DIFF - 2 Weeks PT/INR - 2-3 Days X-RAY CHEST PA & LAT - 2 Weeks New Medications: Aspirin DR (Aspirin EC) 81 Mg Tabdr 81 MG PO DAILY for Blood Clot Prevention, #30 TAB 0 Refills Amiodarone (Amiodarone) 200 Mg Tab 200 MG PO Q12HR for heart rhythm, #28 TAB 0 Refills Docusate Sodium (Dok) 100 Mg Cap 100 MG PO BID for Constipation, #60 CAP 0 Refills Oxycodone HCl/Acetaminophen (Oxycodone-Acetaminophen 5-325) 5 Mg-325 Mg Tablet 1 TAB PO Q6HR PRN for PAIN SCALE 1 TO 5, #40 TAB 0 Refills Warfarin (Coumadin) 5 Mg Tab 5 MG PO DAILY@1600 for Blood Clot Prevention, #30 TAB 1 Refill hold INR > 3.5 coumadin for 6 week only Continued Medications: Ergocalciferol (Ergocalciferol) 50,000 Unit Cap 00649 UNITS PO TWICE WEEKLY for Nutritional Supplement, CAP 0 Refills Pantoprazole (Protonix) 40 Mg Tab 40 MG PO DAILY for Reflux, TAB 0 Refills Simvastatin (Simvastatin) 5 Mg Tab 20 MG PO HS for Cholesterol Management, #30 TAB 0 Refills [Bariatric Iron] () 25 MG PO DAILY [Bariatric Vitamin] () 1 TAB PO BID Discontinued Medications: Amlodipine (Amlodipine) 5 Mg Tab 5 MG PO HS for Blood Pressure Management, #30 TAB 0 Refills Christa Mariano Mar 06, 2017 14:15
[2017-03-06] MEDS: WARFARIN SOD 5 MG TAB PO SCH (16:32)
[2017-03-06] MEDS: PRAVASTATIN SOD 40 MG TAB PO SCH (21:28)
[2017-03-06] MEDS: SENNOSIDES 8.6 MG TAB PO SCH (21:28)
[2017-03-07] VITALS (14 sets, daily range): BP systolic 91–97; BP diastolic 54–57; PULSE 80–94; RESP 16–18; TEMP 98.3–99; O2SAT 95–97
[2017-03-07 04:45] LABS: MEAN CELL VOLUME 79.2 FL (80.0-100.0); MEAN CORPUSCULAR HEMOGLOBIN 25.7 PG (27.0-34.0); MEAN CORPUSCULAR HGB CONC 32.4 % (32.0-36.0); PLATELET COUNT 180 TH/MM3 (150-450); RED CELL DISTRIBUTION WIDTH 14.2 % (11.6-17.2); REVIEW FLAG FINAL; WHITE BLOOD COUNT 10.7 TH/MM3 (4.0-11.0)
[2017-03-07 05:04] LABS: BICARBONATE 29.6 MEQ/L (21.0-32.0); MAGNESIUM 2.3 MG/DL (1.5-2.5); POTASSIUM 3.7 MEQ/L (3.5-5.1)
[2017-03-07 05:06] LABS: INTERNATIONAL NORMALIZED RATIO 1.3 RATIO; PROTHROMBIN TIME - PATIENT 13.2 SEC (9.8-11.6)
[2017-03-07] MEDS: oxyCODONE/ACETAMINOPHEN 5 MG/325 MG TAB PO PRN (05:30)
[2017-03-07] MEDS: INSULIN ASPART SUPPLEMENTAL SCALE SQ SCH ×2 (08:00→12:30)
[2017-03-07] MEDS: MAGNESIUM HYDROXIDE SUSP 30 ML CUP PO SCH (09:00)
[2017-03-07] MEDS: POLYETHYLENE GLYCOL 17 GM PKG PO SCH (10:09)
[2017-03-07] MEDS: POTASSIUM CHLORIDE 10 MEQ CONTROLLED RELEASE TAB PO SCH (10:10)
[2017-03-07] MEDS: AMIODARONE 200 MG TAB PO SCH (10:11)
[2017-03-07] MEDS: MULTIVITAMINS/MINERALS THERAPEUTIC TAB PO SCH (10:12)
[2017-03-07] MEDS: PANTOPRAZOLE SOD 40 MG DELAYED RELEASE TAB PO SCH (10:12)
[2017-03-07] MEDS: METOPROLOL TARTRATE 25 MG TAB PO SCH (10:12)
[2017-03-07] MEDS: FERROUS SULFATE 300 MG /5ML UDC PO SCH (10:13)
[2017-03-07] MEDS: DOCUSATE SODIUM 100 MG CAP PO SCH (10:13)
[2017-03-07] MEDS: ASPIRIN 81 MG CHEW TAB PO SCH (10:14)
[2017-03-07] MEDS: FUROSEMIDE 40 MG/4 ML VIAL IV PUSH SCH (10:15)
[2017-03-07] MEDS: SODIUM CHLORIDE 0.9% FLUSH 10 ML FLUSH IV FLUSH SCH (10:16)
== END 2017-03-07 13:24 | disposition home health service (06) | DRG 220 ==
LOC: HSDI 05:58 → HCVI 14:25 → HCPC 03-04 11:40
PROVIDERS: ADMIT Thoracic Surgery (Cardiothoracic Vascular Surgery); ATTEND Thoracic Surgery (Cardiothoracic Vascular Surgery)
PROC: B246ZZ4 Ultrasonography of Right and Left Heart, Transesophageal (ICD-10-PCS; 2017-03-03)
PROC: 02UG0JZ Supplement Mitral Valve with Synthetic Substitute, Open Approach (ICD-10-PCS; principal; 2017-03-03 07:35)
PROC: 5A1221Z Performance of Cardiac Output, Continuous (ICD-10-PCS; 2017-03-03 07:35)
DX: I08.1 Rheumatic disorders of both mitral and tricuspid valves (principal); I50.30 Unspecified diastolic (congestive) heart failure; I11.0 Hypertensive heart disease with heart failure; Z68.41 Body mass index [BMI] 40.0-44.9, adult; J45.909 Unspecified asthma, uncomplicated; I25.10 Atherosclerotic heart disease of native coronary artery without angina pectoris; G47.30 Sleep apnea, unspecified; E78.5 Hyperlipidemia, unspecified; E66.9 Obesity, unspecified; D50.9 Iron deficiency anemia, unspecified; Z98.84 Bariatric surgery status; Z88.0 Allergy status to penicillin
CPT/HCPCS: 71010; 80048; 82948; 83735; 85025; 85027; 85610; 86850; 86900; 86901; 86920; 93005; 94150; 94640; 94664; 94667; 94668; C9248; J0131; J1644; J1815; J1817; J1885; J1940; J2150; J2930; J3010; J3370; J3475; J3480; J7050; J7120; P9047

== ENCOUNTER 2017-03-25 13:57 | Inpatient (IN) | payer OTHER ==
[2017-03-25] VITALS (10 sets, daily range): BP systolic 97–113; BP diastolic 56–82; PULSE 84–134; RESP 16–24; TEMP 98.2–98.4; O2SAT 98–100
[~2017-03-25 13:57] MED LIST changes: +AMIO200T PO; -AMLO5TAB2 PO; +ASPI81TA23 PO; +COUM5TAB PO; +DOCU1CAP39 PO; +OXYC1TAB63 PO; -ZANT150T2 PO
[2017-03-25 14:42] LABS: AUTOMATED NEUTROPHIL # 4.5 TH/MM3 (1.8-7.7); BASOPHIL # 0.1 TH/MM3 (0-0.2); BASOPHIL % 1.1 % (0.0-2.0); EOSINOPHIL # 0.2 TH/MM3 (0-0.4); EOSINOPHIL % 2.1 % (0.0-4.0); HEMATOCRIT 33.8 % (35.0-46.0); HEMOGLOBIN 10.6 GM/DL (11.6-15.3); LYMPH % 29.5 % (9.0-44.0); LYMPHOCYTE # 2.2 TH/MM3 (1.0-4.8); MEAN CELL VOLUME 78.4 FL (80.0-100.0); MEAN CORPUSCULAR HEMOGLOBIN 24.7 PG (27.0-34.0); MEAN CORPUSCULAR HGB CONC 31.5 % (32.0-36.0); MEAN PLATELET VOLUME 9.2 FL (7.0-11.0); MONO % 6.8 % (0.0-8.0); MONOCYTE # 0.5 TH/MM3 (0-0.9); NEUT % 60.5 % (16.0-70.0); PLATELET COUNT 415 TH/MM3 (150-450); RED BLOOD COUNT 4.31 MIL/MM3 (4.00-5.30); RED CELL DISTRIBUTION WIDTH 15.3 % (11.6-17.2); WHITE BLOOD COUNT 7.5 TH/MM3 (4.0-11.0)
--- NOTE | 2017-03-25 14:47 | PD ---
HPI Chief Complaint: Cardiac Complaint Time Seen by Provider: 14:47 Travel History International Travel<30 days: No Contact w/Intl Traveler<30days: No Traveled to known affect area: No History of Present Illness HPI 36-year-old Afro-Micron[place] female presents the emergency department status post being seen by her oim architect, Dr. Marr in his office. Patient recently had a mitral valve prolapse repair with Dr. Sutton. Since that time she has had complaints of palpitations, shortness of breath with exertion, and occasional left arm burning and diaphoresis. EKG from Dr. Marr's office shows atrial flutter with RVR. Patient currently states she is not having pain but does feel palpitations while at rest here in the ED. Patient is currently on 81 mg aspirin as well as Coumadin 5 mg daily. She is also on amiodarone 200 mg twice a day. Patient is allergic to lisinopril and penicillin. PFSH Past Medical History Arthritis: No Autoimmune Disease: No Anxiety: No Depression: No Cancer: No Cardiovascular Problems: Yes (mitral valve regurgitation, aortic stenosis) High Cholesterol: No Chemotherapy: No Chest Pain: No Congestive Heart Failure: No Cerebrovascular Accident: No Diabetes: Yes (pre diabetic) Diminished Hearing: No Endocrine: No Gastrointestinal Disorders: No Genitourinary: No Headaches: No Hepatitis: No Hiatal Hernia: Yes Heparin Induced Thrombocytopen: No Hypertension: Yes Immune Disorder: No Implanted Vascular Access Dvce: No Musculoskeletal: No Neurologic: No Psychiatric: No Reproductive: No Respiratory: Yes (sob on occasion) Migraines: No Radiation Therapy: No Seizures: No Sickle Cell Disease: No Sleep Apnea: No Thyroid Disease: No ?: Unknown Past Surgical History Abdominal Surgery: Yes (gastric sleeve 2012, hiatal hernia repair apr 2016) AICD: No Arteriovenous Shunt: No Body Medical Devices: sleeve Cardiac Surgery: Yes (cardiac catherization) Ear Surgery: No Endocrine Surgery: No Eye Surgery: No Genitourinary Surgery: No Gynecologic Surgery: No Insulin Pump: No Joint Replacement: No Oral Surgery: No Pacemaker: No Thoracic Surgery: Yes (breast reduction) Other Surgery: Yes (cardiac catherization and breast reduction) Social History Alcohol Use: No Tobacco Use: No Substance Use: No Allergies-Medications (Allergen,Severity, Reaction): Coded Allergies: lisinopril (Verified Allergy, Severe, LIP AND AFCE SWELLING, 03/25/17) penicillin G (Verified Allergy, Severe, Hives, 03/25/17) Reported Meds & Prescriptions Reported Meds & Active Scripts Active Aspirin EC (Aspirin) 81 Mg Tabdr 81 Mg PO DAILY Dok (Docusate Sodium) 100 Mg Cap 100 Mg PO BID Oxycodone-Acetaminophen 5-325 (Oxycodone HCl/Acetaminophen) 5 Mg-325 Mg Tablet 1 Tab PO Q6HR PRN Amiodarone (Amiodarone HCl) 200 Mg Tab 200 Mg PO Q12HR Coumadin (Warfarin) 5 Mg Tab 5 Mg PO DAILY@1600 hold INR > 3.5 coumadin for 6 week only Reported Protonix (Pantoprazole Sodium) 40 Mg Tab 40 Mg PO DAILY Ergocalciferol 50,000 Unit Cap 50,000 Units PO TWICE WEEKLY [Bariatric Vitamin] 1 Tab PO BID [Bariatric Iron] 25 Mg PO DAILY Simvastatin 5 Mg Tab 20 Mg PO HS Review of Systems Except as stated in HPI: all other systems reviewed are Neg General / Constitutional: No: Fever Eyes: No: Visual changes HENT: No: Headaches Cardiovascular: Positive: Chest Pain or Discomfort, Palpitations, Tachycardia, Diaphoresis, Dyspnea on exertion (see history present illness), No: Irregular Rhythm, Syncope, Varicosities, Edema, Cyanosis, Varicosities, Phlebitis, Claudication Respiratory: No: Shortness of Breath Gastrointestinal: No: Abdominal Pain Genitourinary: No: Dysuria Musculoskeletal: No: Pain Skin: No Rash Neurologic: No: Weakness Psychiatric: No: Depression Endocrine: No: Polydipsia Hematologic/Lymphatic: No: Easy Bruising Physical Exam Narrative GENERAL: Patient appears in no obvious distress on exam. SKIN: Warm and dry. No diaphoresis currently. Normal color. Normal turgor. HEAD: Atraumatic. Normocephalic. EYES: Pupils equal and round. No scleral icterus. No injection or drainage. ENT: No nasal bleeding or discharge. Mucous membranes pink and moist. Pharynx is clear. Airway is patent. NECK: Trachea midline. No JVD. Supple and nontender. CARDIOVASCULAR: Tachycardic rate and occasionally irregular rhythm. RESPIRATORY: No accessory muscle use. Clear to auscultation. Breath sounds equal bilaterally. GASTROINTESTINAL: Abdomen soft, non-tender, nondistended. Hepatic and splenic margins not palpable. MUSCULOSKELETAL: Extremities without clubbing, cyanosis, or edema. No obvious deformities. NEUROLOGICAL: Awake and alert. No obvious cranial nerve deficits. Motor grossly within normal limits. Five out of 5 muscle strength in the arms and legs. Normal speech. PSYCHIATRIC: Appropriate mood and affect; insight and judgment normal. Data Data Last Documented VS Vital Signs Date Time Temp Pulse Resp B/P (MAP) Pulse Ox O2 Delivery O2 Flow Rate FiO2 03/25/17 15:59 100 18 97/70 (79) 100 Room Air 03/25/17 13:58 98.2 Orders Orders Electrocardiogram (03/25/17 14:05) Ckmb (Isoenzyme) Profile (03/25/17 14:05) Complete Blood Count With Diff (03/25/17 14:05) Comprehensive Metabolic Panel (03/25/17 14:05) Magnesium (Mg) (03/25/17 14:05) Prothrombin Time / Inr (Pt) (03/25/17 14:05) Act Partial Throm Time (Ptt) (03/25/17 14:05) Troponin I (03/25/17 14:05) Chest, Pa & Lat (03/25/17 14:05) Ecg Monitoring (03/25/17 14:50) Bilateral Bp Monitoring (03/25/17 14:50) Iv Access Insert/Monitor (03/25/17 14:50) Oximetry (03/25/17 14:50) Oxygen Administration (03/25/17 14:50) Sodium Chloride 0.9% Flush (Ns Flush) (03/25/17 15:00) Sodium Chlorid 0.9% 500 Ml Inj (Ns 500 M (03/25/17 15:00) Diltiazem Inj (Cardizem Inj) (03/25/17 15:15) Diltiazem (Cardizem) (03/25/17 16:15) Admit To Inpatient (03/25/17 ) Code Status (03/25/17 16:14) Vital Signs (Adult) Q4H (03/25/17 16:14) Activity Oob With Assistance (03/25/17 16:14) Cartridge Loading Operator / Telemetry .CONTINUOUS (03/25/17 16:14) Diet Heart Healthy (03/25/17 Dinner) Sodium Chloride 0.9% Flush (Ns Flush) (03/25/17 16:15) Sodium Chloride 0.9% Flush (Ns Flush) (03/25/17 21:00) Acetaminophen (Tylenol) (03/25/17 16:15) Ondansetron Inj (Zofran Inj) (03/25/17 16:15) Basic Metabolic Panel (Bmp) (03/26/17 06:00) Complete Blood Count With Diff (03/26/17 06:00) Chest, Single Ap (03/25/17 16:14) Electrocardiogram (03/25/17 16:14) Pt Request For Service (03/25/17 16:14) Scd Bilateral/Knee High GILES.BID (03/25/17 16:14) Naloxone Inj (Narcan Inj) (03/25/17 16:15) Magnesium Hydroxide Liq (Milk Of Magnesi (03/25/17 16:15) Inpatient Certification (03/25/17 ) Diltiazem Inj (Cardizem Inj) (03/25/17 16:30) Vital Signs (Adult) Q4H (03/25/17 16:18) Activity Bed Rest (03/25/17 16:18) Intake + Output GILES.QSHIFT (03/25/17 16:18) Diltiazem (Cardizem) (03/25/17 22:00) Consult Cardiothoracic Surgery (03/25/17 ) Admit Order (Ed Use Only) (03/25/17 16:35) Labs Laboratory Tests Test 03/25/17 14:28 White Blood Count 7.5 TH/MM3 Red Blood Count 4.31 MIL/MM3 Hemoglobin 10.6 GM/DL Hematocrit 33.8 % Mean Corpuscular Volume 78.4 FL Mean Corpuscular Hemoglobin 24.7 PG Mean Corpuscular Hemoglobin Concent 31.5 % Red Cell Distribution Width 15.3 % Platelet Count 415 TH/MM3 Mean Platelet Volume 9.2 FL Neutrophils (%) (Auto) 60.5 % Lymphocytes (%) (Auto) 29.5 % Monocytes (%) (Auto) 6.8 % Eosinophils (%) (Auto) 2.1 % Basophils (%) (Auto) 1.1 % Neutrophils # (Auto) 4.5 TH/MM3 Lymphocytes # (Auto) 2.2 TH/MM3 Monocytes # (Auto) 0.5 TH/MM3 Eosinophils # (Auto) 0.2 TH/MM3 Basophils # (Auto) 0.1 TH/MM3 CBC Comment DIFF FINAL Differential Comment Prothrombin Time 14.0 SEC Prothromb Time International Ratio 1.4 RATIO Activated Partial Thromboplast Time 33.4 SEC Blood Urea Nitrogen 9 MG/DL Creatinine 0.87 MG/DL Random Glucose 96 MG/DL Total Protein 7.6 GM/DL Albumin 3.2 GM/DL Calcium Level 8.4 MG/DL Magnesium Level 2.1 MG/DL Alkaline Phosphatase 69 U/L Aspartate Amino Transf (AST/SGOT) 8 U/L Alanine Aminotransferase (ALT/SGPT) 12 U/L Total Bilirubin 0.3 MG/DL Sodium Level 139 MEQ/L Potassium Level 4.0 MEQ/L Chloride Level 108 MEQ/L Carbon Dioxide Level 24.8 MEQ/L Anion Gap 6 MEQ/L Estimat Glomerular Filtration Rate 89 ML/MIN Total Creatine Kinase 37 U/L Troponin I LESS THAN 0.02 NG/ML MDM Medical Decision Making Medical Screen Exam Complete: Yes Emergency Medical Condition: Yes Medical Record Reviewed: Yes Differential Diagnosis Symptomatic palpitations. Atrial flutter. Tachycardia with AVR. Recent mitral valve surgery. Narrative Course Patient appears medically stable at time of exam. EKG is ordered. Chest x-ray is ordered. Cardiac panel is ordered per protocol. IV access is obtained patient is given [address] normal saline bolus. Call was placed to Dr. Sutton, the thoracic surgeon to discuss possible Cardizem versus other medication to control rate. Dr. Sutton agrees that diltiazem would be appropriate to attempt rate control. Patient is given 10 mg IV Cardizem. Vitals were monitored for 30 minutes. CBC is unremarkable except for hemoglobin of 10.6, hematocrit 33.8. CMP is unremarkable. Troponin is less than 0.02. Coagulation studies shows a PT of 14.0, INR is 1.4, APTT is 33.4 on Coumadin. Chest x-ray shows no acute process per radiologist Patient's rate did lower to 108 showing atrial flutter on the monitor. Patient was further discussed with Dr. Kraft who recommends 30 mg diltiazem by mouth and admission, for further workup with cardiology. Call was placed at [facility] who agreed to admit the patient. Diagnosis Primary Impression: Atrial flutter with rapid ventricular response Additional Impression: S/P mitral valve repair Admitting Information Admitting Physician Requests: Admit Condition: Stable Sergio Woods Mar 25, 2017 14:47
[2017-03-25 14:55] LABS: ALBUMIN 3.2 GM/DL (3.4-5.0); ALT (GPT) 12 U/L (10-53); AST (GOT) 8 U/L (15-37); BICARBONATE 24.8 MEQ/L (21.0-32.0); BLOOD UREA NITROGEN 9 MG/DL (7-18); CALCIUM 8.4 MG/DL (8.5-10.1); CHLORIDE 108 MEQ/L (98-107); CREATININE 0.87 MG/DL (0.50-1.00); GLOMERULAR FILTRATION RATE 89 ML/MIN (>89); GLUCOSE,RANDOM 96 MG/DL (74-106); MAGNESIUM 2.1 MG/DL (1.5-2.5); SODIUM (NA) 139 MEQ/L (136-145)
[2017-03-25 14:59] LABS: ALKALINE PHOSPHATASE 69 U/L (45-117); TOTAL BILIRUBIN ADULT 0.3 MG/DL (0.2-1.0); TOTAL PROTEIN 7.6 GM/DL (6.4-8.2); TROPONIN I LESS THAN 0.02 NG/ML (0.02-0.05)
[2017-03-25] MEDS ORDERED: SODIUM CHLORIDE 0.9% FLUSH 10 ML FLUSH IVF PRN (15:00)
[2017-03-25] MEDS ORDERED: SODIUM CHLORID 0.9% 500 ML INJ 500 ML IV ONE (15:00)
[2017-03-25] MEDS ORDERED: DILTIAZEM HCL 25 MG/5 ML VIAL IV ONE (15:15)
[2017-03-25 15:24] LABS: INTERNATIONAL NORMALIZED RATIO 1.4 RATIO
--- NOTE | 2017-03-25 15:40 | RADRPT ---
EXAM DATE/TIME: 03/25/2017 14:38 [facility] COMPARISON: CHEST PA & LAT, February 23, 2017, 12:15. INDICATIONS : Short of breath, tachycardia MEDICAL HISTORY : mitral valve regurgitation. SURGICAL HISTORY : mitral valve repair ENCOUNTER: Initial ACUITY: 1 day PAIN SCORE: 0/10 LOCATION: Bilateral chest FINDINGS: PA and lateral views of the chest demonstrate the lungs to be symmetrically aerated without evidence of mass, infiltrate or effusion. The cardiomediastinal contours are unremarkable. Osseous structure s are intact. CONCLUSION: No acute cardiopulmonary process. Dudley Vazquez MD on March 25, 2017 at 15:37 Board Certified Radiologist. This report was verified electronically.
[2017-03-25] MEDS ORDERED: SODIUM CHLORIDE 0.9% FLUSH 10 ML FLUSH IV FLUSH PRN (16:15)
[2017-03-25] MEDS ORDERED: ONDANSETRON HCL 4 MG/2 ML VIAL IVP PRN (16:15)
[2017-03-25] MEDS ORDERED: ACETAMINOPHEN 325 MG TAB PO PRN (16:15)
[2017-03-25] MEDS ORDERED: MAGNESIUM HYDROXIDE SUSP 30 ML CUP PO PRN (16:15)
[2017-03-25] MEDS ORDERED: DILTIAZEM HCL 30 MG TAB PO ONE (16:15)
[2017-03-25] MEDS ORDERED: NALOXONE HCL 0.4 MG/ML AMP IV PUSH PRN (16:15)
--- NOTE | 2017-03-25 16:24 | HHI.HP ---
HPI Service [facility] Hospitalists Primary Care Physician Rboert Webster MD Admission Diagnosis Chief Complaint: palpitations Travel History International Travel<30 Days: No Contact w/Intl Traveler <30 Da: No Traveled to Known Affected Are: No History of Present Illness This is a 36 year old female patient with a past medical history which includes Iron deficiency anemia, sleep apnea, asthma, nonobstructive coronary disease, diabetes mellitus type 2, hyperlipidemia, hypertension, mitral regurgitation and Obesity. Patient is S/P mitral valve repair with ring 03/03/[address] Sutton. Patient presented to her domestic helper office today with complaints of dizziness and palpitations for the past two days. Outpatient EKG revealed A Flutter with RVR. Patient was then sent to the ER for further evaluation and treatment. Patient reports feeling better at this time. She is no longer having palpitations. Patient endorses continued shortness of breath with nonproductive cough. Denies chest pain, fevers chills, nausea or vomiting. Review of Systems Constitutional: COMPLAINS OF: Fatigue, DENIES: Fever, Chills Eyes: DENIES: Blurred vision, Diplopia, Vision loss Respiratory: COMPLAINS OF: Cough, Shortness of breath, DENIES: Sputum production Cardiovascular: COMPLAINS OF: Chest pain, Palpitations, DENIES: Dyspnea on Exertion, Lower Extremity Edema Gastrointestinal: DENIES: Abdominal pain, Constipation, Diarrhea Neurologic: DENIES: Abnormal gait, Headache, Localized weakness, Speech Problems Psychiatric: DENIES: Anxiety, Confusion, Depression Past Family Social History Past Medical History Iron deficiency anemia, sleep apnea, asthma, nonobstructive coronary disease, diabetes mellitus type 2, hyperlipidemia, hypertension, mitral regurgitation and Obesity Past Surgical History A gastric sleeve surgery 4 years ago mitral valve repair with ring 03/03/[address] Sutton Reported Medications Aspirin EC (Aspirin) 81 Mg Tabdr 81 Mg PO DAILY Dok (Docusate Sodium) 100 Mg Cap 100 Mg PO BID Oxycodone-Acetaminophen 5-325 (Oxycodone HCl/Acetaminophen) 5 Mg-325 Mg Tablet 1 Tab PO Q6HR PRN Amiodarone (Amiodarone HCl) 200 Mg Tab 200 Mg PO Q12HR Coumadin (Warfarin) 5 Mg Tab 5 Mg PO DAILY@1600 hold INR > 3.5 coumadin for 6 week only Protonix (Pantoprazole Sodium) 40 Mg Tab 40 Mg PO DAILY Ergocalciferol 50,000 Unit Cap 50,000 Units PO TWICE WEEKLY [Bariatric Vitamin] 1 Tab PO BID [Bariatric Iron] 25 Mg PO DAILY Simvastatin 5 Mg Tab 20 Mg PO HS Allergies: Coded Allergies: lisinopril (Verified Allergy, Severe, LIP AND AFCE SWELLING, 03/25/17) penicillin G (Verified Allergy, Severe, Hives, 03/25/17) Active Ordered Medications Current Medications Medications (Trade) Dose Ordered Sig/Hernando Route Start Time Stop Time Status Last Admin (NS Flush) 2 ml UNSCH PRN IVF 03/25/17 15:00 (Cardizem) 30 mg ONCE ONCE PO 03/25/17 16:15 03/25/17 16:16 Family History reviewed and noncontributory Physical Exam Vital Signs Vital Signs Date Time Temp Pulse Resp B/P (MAP) Pulse Ox O2 Delivery O2 Flow Rate FiO2 03/25/17 15:59 100 18 97/70 (79) 100 Room Air 03/25/17 15:27 100 03/25/17 15:22 132 18 110/59 (76) 98 98/56 (70) 03/25/17 13:58 98.2 134 16 113/82 (92) 99 Physical Exam GENERAL: This is a well-nourished, well-developed patient, in no apparent distress. SKIN: No rashes, ecchymoses or lesions. Cool and dry. HEAD: Atraumatic. Normocephalic. No temporal or scalp tenderness. EYES: Extraocular motions intact. No scleral icterus. No injection or drainage. ENT: Nose without bleeding, purulent drainage or septal hematoma. Throat without erythema, tonsillar hypertrophy or exudate. Uvula midline. Airway patent. NECK: Trachea midline. No JVD or lymphadenopathy. Supple, nontender, no meningeal signs. CARDIOVASCULAR: Irregularly irregular rate controlled RESPIRATORY: Clear to auscultation. Breath sounds equal bilaterally. GASTROINTESTINAL: Abdomen soft, non-tender, nondistended. No hepato-splenomegaly , or palpable masses. No guarding. MUSCULOSKELETAL: Extremities without clubbing, cyanosis, or edema. No joint tenderness, effusion, or edema noted. No calf tenderness. Negative Homans sign bilaterally. NEUROLOGICAL: Awake and alert. No focal deficits noted. Motor and sensory grossly within normal limits. Five out of 5 muscle strength in all muscle groups. Normal speech. Laboratory Laboratory Tests Test 03/25/17 14:28 White Blood Count 7.5 Red Blood Count 4.31 Hemoglobin 10.6 Hematocrit 33.8 Mean Corpuscular Volume 78.4 Mean Corpuscular Hemoglobin 24.7 Mean Corpuscular Hemoglobin Concent 31.5 Red Cell Distribution Width 15.3 Platelet Count 415 Mean Platelet Volume 9.2 Neutrophils (%) (Auto) 60.5 Lymphocytes (%) (Auto) 29.5 Monocytes (%) (Auto) 6.8 Eosinophils (%) (Auto) 2.1 Basophils (%) (Auto) 1.1 Neutrophils # (Auto) 4.5 Lymphocytes # (Auto) 2.2 Monocytes # (Auto) 0.5 Eosinophils # (Auto) 0.2 Basophils # (Auto) 0.1 CBC Comment DIFF FINAL Differential Comment Prothrombin Time 14.0 Prothromb Time International Ratio 1.4 Activated Partial Thromboplast Time 33.4 Blood Urea Nitrogen 9 Creatinine 0.87 Random Glucose 96 Total Protein 7.6 Albumin 3.2 Calcium Level 8.4 Magnesium Level 2.1 Alkaline Phosphatase 69 Aspartate Amino Transf (AST/SGOT) 8 Alanine Aminotransferase (ALT/SGPT) 12 Total Bilirubin 0.3 Sodium Level 139 Potassium Level 4.0 Chloride Level 108 Carbon Dioxide Level 24.8 Anion Gap 6 Estimat Glomerular Filtration Rate 89 Total Creatine Kinase 37 Troponin I LESS THAN 0.02 Result Diagram: 03/25/17 1428 03/25/17 1428 Imaging Last Impressions Chest X-Ray 03/25/17 1405 Signed Impressions: Service Date/Time: Saturday, March 25, 2017 14:38 - CONCLUSION: No acute cardiopulmonary process. MD Estefanía Warneri VTE Risk Assessment Caprini VTE Risk Assessment: Mod/High Risk (score >= 2) Caprini Risk Assessment Model Point Value = 1 Point Value = 2 Point Value = 3 Point Value = 5 Age 41-60 Minor surgery BMI > 25 kg/m2 Swollen legs Varicose veins or History of unexplained or recurrent spontaneous Oral contraceptives or hormone replacement Sepsis (< 1 month) Serious lung disease, including pneumonia (< 1 month) Abnormal pulmonary function Acute myocardial infarction Congestive heart failure (< 1 month) History of inflammatory bowel disease Medical patient at bed rest Age 61-74 Arthroscopic surgery Major open surgery (> 45 min) Laparoscopic surgery (> 45 min) Malignancy Confined to bed (> 72 hours) Immobilizing plaster cast Central venous access Age >= 75 History of VTE Family history of VTE Factor V Leiden Prothrombin [id number] Lupus anticoagulant Anticardiolipin antibodies Elevated serum homocysteine Heparin-induced thrombocytopenia Other congenital or acquired thrombophilia Stroke (< 1 month) Elective arthroplasty Hip, pelvis, or leg fracture Acute spinal cord injury (< 1 month) Prophylaxis Regimen Total Risk Factor Score Risk Level Prophylaxis Regimen 0-1 Low Early ambulation 2 Moderate Order ONE of the following: *Sequential Compression Device (SCD) *Heparin 5000 units SQ BID 3-4 Higher Order ONE of the following medications: *Heparin 5000 units SQ TID *Enoxaparin/Lovenox 40 mg SQ daily (WT < 150 kg, CrCl > 30 mL/min) *Enoxaparin/Lovenox 30 mg SQ daily (WT < 150 kg, CrCl > 10-29 mL/min) *Enoxaparin/Lovenox 30 mg SQ BID (WT < 150 kg, CrCl > 30 mL/min) AND/OR *Sequential Compression Device (SCD) 5 or more Highest Order ONE of the following medications: *Heparin 5000 units SQ TID (Preferred with Epidurals) *Enoxaparin/Lovenox 40 mg SQ daily (WT < 150 kg, CrCl > 30 mL/min) *Enoxaparin/Lovenox 30 mg SQ daily (WT < 150 kg, CrCl > 10-29 mL/min) *Enoxaparin/Lovenox 30 mg SQ BID (WT < 150 kg, CrCl > 30 mL/min) AND *Sequential Compression Device (SCD) Assessment and Plan Problem List: (1) Atrial flutter with rapid ventricular response ICD Codes: I48.92 - Unspecified atrial flutter Status: Acute Plan: This is a 36 year old female patient with a past medical history which includes Iron deficiency anemia, sleep apnea, asthma, nonobstructive coronary disease, diabetes mellitus type 2, hyperlipidemia, hypertension, mitral regurgitation and Obesity. Patient is S/P mitral valve repair with ring with Dr. Sutton. Patient presented to her domestic helper office today with complaints of chest pain and palpitations. Outpatient EKG revealed A Flutter with RVR. Patient was then sent to the ER for further evaluation and treatment. EKG in ER revealed: Patient given Cardizem 10 mg IV push and 30 mg PO in ER will continue Cardizem 3 mg Q6H PO and add Cardizem drip if needed Continue amiodarone 200mg PO daily continuous telemetry monitoring patient currently on aspirin and Coumadin, INR subtherapeutic 1.4 JAISON 01/09/2017 revealed EF 55-60% case discussed with patient's regular domestic helper Dr. Marr (2) Diastolic CHF due to valvular disease ICD Codes: I38 - Endocarditis, valve unspecified; I50.30 - Unspecified diastolic (congestive) heart failure Status: Chronic Plan: continue home medication regiment (3) Chronic anemia ICD Codes: D64.9 - Anemia, unspecified Status: Chronic Plan: hgb 10.6 stable when compared to previous hgb levels (4) S/P mitral valve repair ICD Codes: Z98.890 - Other specified postprocedural states Plan: Patient had mitral valve repair 03/[address] Sutton ER provider spoke with Dr. Sutton- consult placed Assessment and Plan Patient examined. Assessment and plan formulated with Francheska Michelle PA-C. I agree with the above. Francheska Michelle Mar 25, 2017 16:24 Jesus Uribe DO Mar 26, 2017 11:11
[2017-03-25] MEDS ORDERED: DILTIAZEM INJ 125 MG in SODIUM CHLORIDE 0.9% INJ 100 ML IV PRN ×2 (16:30→19:00)
--- NOTE | 2017-03-25 17:14 | RADRPT ---
EXAM DATE/TIME: 03/25/2017 16:30 [place] COMPARISON: CHEST SINGLE AP, March 06, 2017, 5:14. INDICATIONS : Cough, dizziness, and left arm/back pain. MEDICAL HISTORY : mitral valve regurgitation. SURGICAL HISTORY : None. ENCOUNTER: Subsequent ACUITY: 1 day PAIN SCORE: 0/10 LOCATION: chest FINDINGS: A single view of the chest demonstrates the lungs to be symmetrically aerated without evidence of mas s, infiltrate or effusion. Heart size is prominent. Osseous structures are intact. CONCLUSION: 1. Compensated cardiomegaly. 2. Lungs are clear Dudley Vazquez MD on March 25, 2017 at 17:12 Board Certified Radiologist. This report was verified electronically.
[2017-03-25] MEDS ORDERED: AMIO200T PO ×2 (18:43→18:49)
[2017-03-25] MEDS ORDERED: oxyCODONE/ACETAMINOPHEN 5 MG/325 MG TAB PO PRN (18:45)
--- NOTE | 2017-03-25 19:17 | PD ---
Data Data Last Documented VS Vital Signs Date Time Temp Pulse Resp B/P (MAP) Pulse Ox O2 Delivery O2 Flow Rate FiO2 03/25/17 15:59 100 18 97/70 (79) 100 Room Air 03/25/17 13:58 98.2 Orders Orders Electrocardiogram (03/25/17 14:05) Ckmb (Isoenzyme) Profile (03/25/17 14:05) Complete Blood Count With Diff (03/25/17 14:05) Comprehensive Metabolic Panel (03/25/17 14:05) Magnesium (Mg) (03/25/17 14:05) Prothrombin Time / Inr (Pt) (03/25/17 14:05) Act Partial Throm Time (Ptt) (03/25/17 14:05) Troponin I (03/25/17 14:05) Chest, Pa & Lat (03/25/17 14:05) Ecg Monitoring (03/25/17 14:50) Bilateral Bp Monitoring (03/25/17 14:50) Iv Access Insert/Monitor (03/25/17 14:50) Oximetry (03/25/17 14:50) Oxygen Administration (03/25/17 14:50) Sodium Chloride 0.9% Flush (Ns Flush) (03/25/17 15:00) Sodium Chlorid 0.9% 500 Ml Inj (Ns 500 M (03/25/17 15:00) Diltiazem Inj (Cardizem Inj) (03/25/17 15:15) Diltiazem (Cardizem) (03/25/17 16:15) Admit To Inpatient (03/25/17 ) Code Status (03/25/17 16:14) Vital Signs (Adult) Q4H (03/25/17 16:14) Activity Oob With Assistance (03/25/17 16:14) Engineer Chief / Telemetry .CONTINUOUS (03/25/17 16:14) Diet Heart Healthy (03/25/17 Dinner) Sodium Chloride 0.9% Flush (Ns Flush) (03/25/17 16:15) Sodium Chloride 0.9% Flush (Ns Flush) (03/25/17 21:00) Acetaminophen (Tylenol) (03/25/17 16:15) Ondansetron Inj (Zofran Inj) (03/25/17 16:15) Basic Metabolic Panel (Bmp) (03/26/17 06:00) Complete Blood Count With Diff (03/26/17 06:00) Chest, Single Ap (03/25/17 16:14) Electrocardiogram (03/25/17 16:14) Pt Request For Service (03/25/17 16:14) Scd Bilateral/Knee High GILES.BID (03/25/17 16:14) Naloxone Inj (Narcan Inj) (03/25/17 16:15) Magnesium Hydroxide Liq (Milk Of Magnesi (03/25/17 16:15) Inpatient Certification (03/25/17 ) Vital Signs (Adult) Q4H (03/25/17 16:18) Activity Bed Rest (03/25/17 16:18) Intake + Output GILES.QSHIFT (03/25/17 16:18) Diltiazem (Cardizem) (03/25/17 22:00) Consult Cardiothoracic Surgery (03/25/17 ) Admit Order (Ed Use Only) (03/25/17 16:35) Labs Laboratory Tests Test 03/25/17 14:28 White Blood Count 7.5 TH/MM3 Red Blood Count 4.31 MIL/MM3 Hemoglobin 10.6 GM/DL Hematocrit 33.8 % Mean Corpuscular Volume 78.4 FL Mean Corpuscular Hemoglobin 24.7 PG Mean Corpuscular Hemoglobin Concent 31.5 % Red Cell Distribution Width 15.3 % Platelet Count 415 TH/MM3 Mean Platelet Volume 9.2 FL Neutrophils (%) (Auto) 60.5 % Lymphocytes (%) (Auto) 29.5 % Monocytes (%) (Auto) 6.8 % Eosinophils (%) (Auto) 2.1 % Basophils (%) (Auto) 1.1 % Neutrophils # (Auto) 4.5 TH/MM3 Lymphocytes # (Auto) 2.2 TH/MM3 Monocytes # (Auto) 0.5 TH/MM3 Eosinophils # (Auto) 0.2 TH/MM3 Basophils # (Auto) 0.1 TH/MM3 CBC Comment DIFF FINAL Differential Comment Prothrombin Time 14.0 SEC Prothromb Time International Ratio 1.4 RATIO Activated Partial Thromboplast Time 33.4 SEC Blood Urea Nitrogen 9 MG/DL Creatinine 0.87 MG/DL Random Glucose 96 MG/DL Total Protein 7.6 GM/DL Albumin 3.2 GM/DL Calcium Level 8.4 MG/DL Magnesium Level 2.1 MG/DL Alkaline Phosphatase 69 U/L Aspartate Amino Transf (AST/SGOT) 8 U/L Alanine Aminotransferase (ALT/SGPT) 12 U/L Total Bilirubin 0.3 MG/DL Sodium Level 139 MEQ/L Potassium Level 4.0 MEQ/L Chloride Level 108 MEQ/L Carbon Dioxide Level 24.8 MEQ/L Anion Gap 6 MEQ/L Estimat Glomerular Filtration Rate 89 ML/MIN Total Creatine Kinase 37 U/L Troponin I LESS THAN 0.02 NG/ML [facility] Supervised Visit with TIFFANY: Yes Narrative Course The history, exam, and medical decision-making in the associated midlevel provider note were completed with my assistance. I reviewed and agree with the findings presented. I attest that I had a [id number] encounter with the patient on the same day, and personally performed and documented my assessment and findings in the medical record. *My assessment and Findings: This is a 36-year-old female who presents to the emergency department with atrial flutter with RVR having had a recent mitral valve repair in late February. Here in the emergency department she continues to have mild tachycardia arrhythmia. She was given 10 mg of IV diltiazem and then given 30 mg of oral diltiazem. Her heart rate is improved and she has no more palpitations. Patient will be observed on telemetry. Diagnosis Primary Impression: Atrial flutter with rapid ventricular response Additional Impression: S/P mitral valve repair Scripts Amiodarone (Amiodarone) 200 Mg Tab 200 MG PO BID for heart rhythm, #28 TAB 0 Refills Prov: Francheska Michelle 03/25/17 Condition: Stable Mariana Kraft MD Mar 25, 2017 19:17
[2017-03-25] MEDS ORDERED: WARFARIN SOD 5 MG TAB PO ONE (20:00)
[2017-03-25] MEDS ORDERED: AMIODARONE 200 MG TAB PO SCH (21:00)
[2017-03-25] MEDS: SODIUM CHLORIDE 0.9% FLUSH 10 ML FLUSH IV FLUSH SCH (21:42)
[2017-03-25] MEDS: AMIODARONE 200 MG TAB PO SCH (21:43)
[2017-03-25] MEDS: DOCUSATE SODIUM 100 MG CAP PO SCH (21:43)
[2017-03-25] MEDS: PRAVASTATIN SOD 40 MG TAB PO SCH (21:43)
[2017-03-25] MEDS: DILTIAZEM HCL 30 MG TAB PO SCH (21:43)
[2017-03-26] VITALS (27 sets, daily range): BP systolic 92–104; BP diastolic 55–68; PULSE 65–110; RESP 16–20; TEMP 97.9–98.5; O2SAT 100
[2017-03-26 05:13] LABS: AUTOMATED NEUTROPHIL # 3.5 TH/MM3 (1.8-7.7); BASOPHIL % 0.7 % (0.0-2.0); EOSINOPHIL # 0.1 TH/MM3 (0-0.4); EOSINOPHIL % 1.9 % (0.0-4.0); HEMOGLOBIN 9.5 GM/DL (11.6-15.3); LYMPH % 28.9 % (9.0-44.0); LYMPHOCYTE # 1.7 TH/MM3 (1.0-4.8); MEAN CELL VOLUME 78.4 FL (80.0-100.0); MEAN CORPUSCULAR HEMOGLOBIN 24.1 PG (27.0-34.0); MEAN CORPUSCULAR HGB CONC 30.7 % (32.0-36.0); MEAN PLATELET VOLUME 9.2 FL (7.0-11.0); MONOCYTE # 0.5 TH/MM3 (0-0.9); NEUT % 59.5 % (16.0-70.0); PLATELET COUNT 326 TH/MM3 (150-450); RED BLOOD COUNT 3.95 MIL/MM3 (4.00-5.30); WHITE BLOOD COUNT 5.9 TH/MM3 (4.0-11.0)
[2017-03-26 05:35] LABS: BICARBONATE 23.5 MEQ/L (21.0-32.0); CREATININE 0.74 MG/DL (0.50-1.00)
[2017-03-26] MEDS: DILTIAZEM HCL 30 MG TAB PO SCH ×4 (05:46→23:43)
[2017-03-26] MEDS: SODIUM CHLORIDE 0.9% FLUSH 10 ML FLUSH IV FLUSH SCH ×2 (08:52→20:36)
[2017-03-26] MEDS: PANTOPRAZOLE SOD 40 MG DELAYED RELEASE TAB PO SCH (08:52)
[2017-03-26] MEDS: DOCUSATE SODIUM 100 MG CAP PO SCH ×2 (08:52→20:36)
[2017-03-26] MEDS: ASPIRIN EC 81 MG TABEC PO SCH (08:52)
[2017-03-26] MEDS: AMIODARONE 200 MG TAB PO SCH (08:52)
--- NOTE | 2017-03-26 08:55 | HHI.PR ---
Subjective Remarks Patient offers no complaints through the night patient back in A Fib rate controlled Objective Vitals Vital Signs Date Time Temp Pulse Resp B/P (MAP) Pulse Ox O2 Delivery O2 Flow Rate FiO2 03/26/17 07:00 94 03/26/17 06:05 89 03/26/17 05:05 84 03/26/17 04:11 88 03/26/17 03:00 98.2 88 17 104/62 (76) 100 03/26/17 03:00 88 03/26/17 02:00 85 03/26/17 01:00 89 03/26/17 00:00 87 03/25/17 23:00 93 03/25/17 21:23 98.4 84 17 101/60 (74) 100 03/25/17 21:00 87 03/25/17 20:42 89 18 103/60 (74) 03/25/17 19:37 91 24 100/57 (71) 100 Room Air 03/25/17 19:01 97 18 99/71 (80) 100 Room Air 03/25/17 15:59 100 18 97/70 (79) 100 Room Air 03/25/17 15:27 100 03/25/17 15:22 132 18 110/59 (76) 98 98/56 (70) 03/25/17 13:58 98.2 134 16 113/82 (92) 99 Result Diagram: 03/26/1744003/26/17 0441 Other Results Laboratory Tests Test 03/25/17 14:28 03/26/17 04:41 White Blood Count 7.5 TH/MM3 5.9 TH/MM3 Red Blood Count 4.31 MIL/MM3 3.95 MIL/MM3 Hemoglobin 10.6 GM/DL 9.5 GM/DL Hematocrit 33.8 % 31.0 % Mean Corpuscular Volume 78.4 FL 78.4 FL Mean Corpuscular Hemoglobin 24.7 PG 24.1 PG Mean Corpuscular Hemoglobin Concent 31.5 % 30.7 % Red Cell Distribution Width 15.3 % 15.0 % Platelet Count 415 TH/MM3 326 TH/MM3 Mean Platelet Volume 9.2 FL 9.2 FL Neutrophils (%) (Auto) 60.5 % 59.5 % Lymphocytes (%) (Auto) 29.5 % 28.9 % Monocytes (%) (Auto) 6.8 % 9.0 % Eosinophils (%) (Auto) 2.1 % 1.9 % Basophils (%) (Auto) 1.1 % 0.7 % Neutrophils # (Auto) 4.5 TH/MM3 3.5 TH/MM3 Lymphocytes # (Auto) 2.2 TH/MM3 1.7 TH/MM3 Monocytes # (Auto) 0.5 TH/MM3 0.5 TH/MM3 Eosinophils # (Auto) 0.2 TH/MM3 0.1 TH/MM3 Basophils # (Auto) 0.1 TH/MM3 0.0 TH/MM3 CBC Comment DIFF FINAL DIFF FINAL Differential Comment Prothrombin Time 14.0 SEC Prothromb Time International Ratio 1.4 RATIO Activated Partial Thromboplast Time 33.4 SEC Blood Urea Nitrogen 9 MG/DL 11 MG/DL Creatinine 0.87 MG/DL 0.74 MG/DL Random Glucose 96 MG/DL 85 MG/DL Total Protein 7.6 GM/DL Albumin 3.2 GM/DL Calcium Level 8.4 MG/DL 8.0 MG/DL Magnesium Level 2.1 MG/DL Alkaline Phosphatase 69 U/L Aspartate Amino Transf (AST/SGOT) 8 U/L Alanine Aminotransferase (ALT/SGPT) 12 U/L Total Bilirubin 0.3 MG/DL Sodium Level 139 MEQ/L 140 MEQ/L Potassium Level 4.0 MEQ/L 4.0 MEQ/L Chloride Level 108 MEQ/L 109 MEQ/L Carbon Dioxide Level 24.8 MEQ/L 23.5 MEQ/L Anion Gap 6 MEQ/L 8 MEQ/L Estimat Glomerular Filtration Rate 89 ML/MIN 107 ML/MIN Total Creatine Kinase 37 U/L Troponin I LESS THAN 0.02 NG/ML Imaging Last Impressions Chest X-Ray 03/25/17 1405 Signed Impressions: Service Date/Time: Saturday, March 25, 2017 14:38 - CONCLUSION: No acute cardiopulmonary process. Dudley Vazquez MD Objective Remarks GENERAL: This is a well-nourished, well-developed patient, in no apparent distress. CARDIOVASCULAR: Irregularly irregular rate controlled RESPIRATORY: Clear to auscultation. Breath sounds equal bilaterally. GASTROINTESTINAL: Abdomen soft, non-tender, nondistended. No hepato-splenomegaly , or palpable masses. No guarding. MUSCULOSKELETAL: Extremities without clubbing, cyanosis, or edema. No joint tenderness, effusion, or edema noted. No calf tenderness. Negative Homans sign bilaterally. NEUROLOGICAL: Awake and alert. No focal deficits noted. Motor and sensory grossly within normal limits. Five out of 5 muscle strength in all muscle groups. Normal speech. A/P Problem List: (1) Atrial flutter with rapid ventricular response ICD Codes: I48.92 - Unspecified atrial flutter Status: Acute Plan: This is a 36 year old female patient with a past medical history which includes Iron deficiency anemia, sleep apnea, asthma, nonobstructive coronary disease, diabetes mellitus type 2, hyperlipidemia, hypertension, mitral regurgitation and Obesity. Patient is S/P mitral valve repair with ring with Dr. Sutton. Patient presented to her science professor office today with complaints of chest pain and palpitations. Outpatient EKG revealed A Flutter with RVR. Patient was then sent to the ER for further evaluation and treatment. EKG in ER revealed: A Fib/Flutter rate 111 bpm Patient given Cardizem 10 mg IV push and 30 mg PO in ER will continue Cardizem 3 mg Q6H PO and add Cardizem drip if needed Continue amiodarone 200mg PO daily, in talking with IT INTERN for cardiothoracic surgery patient did not have postoperative A Fib. Patient was put on Amiodarone for two weeks prophylactically post-op. Discussed with Dr. Liu agrees with stopping amiodarone Will DC amiodarone will continue Cardizem 30 mg Q6H and reevaluate tomorrow continuous telemetry monitoring patient currently on aspirin and Coumadin, INR subtherapeutic 1.4 Will add Lovenox 100mg PO BID. Per surgery patient needs to be anticoagulated for 6 weeks post-op INR last week at cardiothoracic surgery JAISON 01/09/2017 revealed EF 55-60% case discussed with patient's regular science professor Dr. Marr (03/25) patient back in A Fib today will consult cardiology Discharge planning - Plan to DC patient tomorrow with [facility] and Lovenox bridge untill INR equal or greater than 2.0 - discussed with patient, [facility] surgery IT INTERN and patient (2) Diastolic CHF due to valvular disease ICD Codes: I38 - Endocarditis, valve unspecified; I50.30 - Unspecified diastolic (congestive) heart failure Status: Chronic Plan: continue home medication regiment (3) Chronic anemia ICD Codes: D64.9 - Anemia, unspecified Status: Chronic Plan: stable when compared to previous hgb levels (4) S/P mitral valve repair ICD Codes: Z98.890 - Other specified postprocedural states Plan: Patient had mitral valve repair 03/[address] Sutton ER provider spoke with Dr. Sutton- consult placed Assessment and Plan Patient examined. Assessment and plan formulated with Francheska Michelle PA-C. I agree with the above. Case d/w CTS service (03/26) Case d/w Dr. Aponte (03/26) - Pt did NOT have postop afib, but discharged on amiodarone x 2 weeks prophylactically - amiodarone stopped - continue short acting cardizem - if pt remains rate controlled, then I will convert to long acting cardizem - Per CTS service, pt will need to continue on coumadin thru 04/13/17 - INR 1.4 (03/26) - continue coumadin 5mg daily - lovenox 100mcg BID until INR is therapeutic - anticipate d/c to home 03/27 with [facility] Francheska Michelle Mar 26, 2017 08:55 Jesus Uribe DO Mar 26, 2017 11:16
[2017-03-26] MEDS ORDERED: AMIODARONE 200 MG TAB PO SCH (09:00)
[2017-03-26 12:03] LABS: INTERNATIONAL NORMALIZED RATIO 1.4 RATIO; PROTHROMBIN TIME - PATIENT 14.4 SEC (9.8-11.6)
--- NOTE | 2017-03-26 13:59 | EKG ---
Date Performed: 03/25/2017 Time Performed: 15:00:11 PTAGE: 36 years EKG: ATRIAL FIBRILLATION WITH RAPID VENTRICULAR RESPONSE ABNORMAL RHYTHM ECG Compared to PREVIOUS TRACING atrial fibrillation with rapid v. response has replaced Sinus rhythm PREVIOUS TRACIN03/04/2017 05.42 DOCTOR: Reinaldo Bowie Interpretating Date/Time 03/26/2017 13:58:50
--- NOTE | 2017-03-26 14:01 | EKG ---
Date Performed: 03/25/2017 Time Performed: 16:24:41 PTAGE: 36 years EKG: Sinus rhythm with PACs Compared to previous tracing sinus rhythm with frequent PACs has replaced atrial fibrillat ion ABNORMAL RHYTHM ECG PREVIOUS TRACING : 03/25/2017 15.00 DOCTOR: Reinaldo Bowie Interpretating Date/Time 03/26/2017 13:59:54
[2017-03-26] MEDS: ENOXAPARIN SODIUM 100 MG/ML SYRINGE SQ SCH ×2 (14:18→23:43)
--- NOTE | 2017-03-26 15:16 | PD.CAR.PN ---
CVT Progress Note Subjective/Hospital Course: 36 / female sent from Dr Marr office yesterday , routine f/u , was c/o palpitations, found to be in afib flutter rate 130, sent to ED , she is known to our service. Admitted 03/03 for elective Minimally invasive MV Repair, Posterior leaflet reconstruction, Annuloplasty with a 26 [place] ring, JAISON Percutaneous left femoral artery and vein cannulation with arterial Perclose closure. She was discharged on 03/07, BP was labile during her postop course, we were unable to start BB, she was on prophylactic amiodarone x 2 weeks and coumadin for 6 weeks , goal 2-2.5. She was last seen in our office one week ago and was doing well, we continued her coumadin, last INR 2.9 on 03/17, she has been compliant with her meds. This was her final postop visit , but we were still following her INR for complete 6 weeks Brief History 36-year-old patient of Dr. Miller, Dr. Robert Byers who has a history of aortic stenosis that she has known since she was about age 11. 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 She had noted some pressure in her chest and some shortness of breath. She normally had been riding a stationary bike three days a week but has noted progressive discomfort and shortness of breath. She underwent a transesophageal echo on 01/09/2017 which showed an EF of 55-60%. The mitral valve regurg directed posteriorly with a Coanda effect that appears severe in nature. Restricted immobility of the posterior mitral valve leaflet. No mitral valve stenosis. There was mild tricuspid regurgitation. The aortic valve had no stenosis or regurgitation. She underwent cardiac cath today which showed nonobstructive coronary disease. PAST MEDICAL HISTORY: Iron deficiency anemia, Sleep apnea, Asthma, Nonobstructive coronary disease, Diabetes mellitus type 2, Hyperlipidemia, Hypertension, Mitral regurgitation, Obesity, gastric sleeve surgery 4 years ago 03/26 on room air , remains in afib rate controlled now on lovenox and continue coumadin, on cardizem for rate control spoke with Dr Uribe Objective: GENERAL: SKIN: Warm and dry. incision intact and well approximated right upper lateral chest wall HEAD: Normocephalic. EYES: No scleral icterus. No injection or drainage. NECK: Supple, trachea midline. No JVD or lymphadenopathy. CARDIOVASCULAR: irregular rate and rhythm without murmurs, gallops, or rubs. RESPIRATORY: Breath sounds equal bilaterally. No accessory muscle use. GASTROINTESTINAL: Abdomen soft, non-tender, nondistended. MUSCULOSKELETAL: No cyanosis, or edema. BACK: Nontender without obvious deformity. No CVA tenderness. Vital Signs Date Time Temp Pulse Resp B/P (MAP) Pulse Ox O2 Delivery O2 Flow Rate FiO2 03/26/17 14:00 89 03/26/17 13:00 106 03/26/17 12:00 97 03/26/17 11:55 98.2 88 17 104/62 (76) 100 03/26/17 11:00 95 03/26/17 10:00 95 03/26/17 09:00 90 03/26/17 08:00 98.3 95 18 101/63 (76) 100 03/26/17 08:00 95 03/26/17 07:00 94 03/26/17 06:05 89 03/26/17 05:05 84 03/26/17 04:11 88 03/26/17 03:00 98.2 88 17 104/62 (76) 100 03/26/17 03:00 88 03/26/17 02:00 85 03/26/17 01:00 89 03/26/17 00:00 87 03/25/17 23:00 93 03/25/17 21:23 98.4 84 17 101/60 (74) 100 03/25/17 21:00 87 03/25/17 20:42 89 18 103/60 (74) 03/25/17 19:37 91 24 100/57 (71) 100 Room Air 03/25/17 19:01 97 18 99/71 (80) 100 Room Air 03/25/17 15:59 100 18 97/70 (79) 100 Room Air 03/25/17 15:27 100 03/25/17 15:22 132 18 110/59 (76) 98 98/56 (70) Labs: Laboratory Tests Test 03/26/17 04:41 03/26/17 11:15 White Blood Count 5.9 TH/MM3 (4.0-11.0) Red Blood Count 3.95 MIL/MM3 (4.00-5.30) Hemoglobin 9.5 GM/DL (11.6-15.3) Hematocrit 31.0 % (35.0-46.0) Mean Corpuscular Volume 78.4 FL (80.0-100.0) Mean Corpuscular Hemoglobin 24.1 PG (27.0-34.0) Mean Corpuscular Hemoglobin Concent 30.7 % (32.0-36.0) Red Cell Distribution Width 15.0 % (11.6-17.2) Platelet Count 326 TH/MM3 (150-450) Mean Platelet Volume 9.2 FL (7.0-11.0) Neutrophils (%) (Auto) 59.5 % (16.0-70.0) Lymphocytes (%) (Auto) 28.9 % (9.0-44.0) Monocytes (%) (Auto) 9.0 % (0.0-8.0) Eosinophils (%) (Auto) 1.9 % (0.0-4.0) Basophils (%) (Auto) 0.7 % (0.0-2.0) Neutrophils # (Auto) 3.5 TH/MM3 (1.8-7.7) Lymphocytes # (Auto) 1.7 TH/MM3 (1.0-4.8) Monocytes # (Auto) 0.5 TH/MM3 (0-0.9) Eosinophils # (Auto) 0.1 TH/MM3 (0-0.4) Basophils # (Auto) 0.0 TH/MM3 (0-0.2) CBC Comment DIFF FINAL Differential Comment Blood Urea Nitrogen 11 MG/DL (7-18) Creatinine 0.74 MG/DL (0.50-1.00) Random Glucose 85 MG/DL (74-106) Calcium Level 8.0 MG/DL (8.5-10.1) Sodium Level 140 MEQ/L (136-145) Potassium Level 4.0 MEQ/L (3.5-5.1) Chloride Level 109 MEQ/L (98-107) Carbon Dioxide Level 23.5 MEQ/L (21.0-32.0) Anion Gap 8 MEQ/L (5-15) Estimat Glomerular Filtration Rate 107 ML/MIN (>89) Prothrombin Time 14.4 SEC (9.8-11.6) Prothromb Time International Ratio 1.4 RATIO Human Chorionic Gonadotropin, Quant LESS THAN 1 MIU/ML (0-5) Result Diagram: 03/26/1744003/26/17440 (1) Atrial flutter with rapid ventricular response Plan: on cardizem, rate controlled , coumadin and lovenox (2) S/P mitral valve repair (3) Chronic anemia Plan: HGB stable at 9.5 Christa Mariano Mar 26, 2017 15:15
[2017-03-26] MEDS: WARFARIN SOD 5 MG TAB PO SCH (17:00)
[2017-03-26] MEDS: PRAVASTATIN SOD 40 MG TAB PO SCH (20:36)
[2017-03-27] VITALS (28 sets, daily range): BP systolic 98–108; BP diastolic 56–67; PULSE 73–134; RESP 16–20; TEMP 98–98.5; O2SAT 97–100
[2017-03-27 06:57] LABS: AUTOMATED NEUTROPHIL # 1.9 TH/MM3 (1.8-7.7); BASOPHIL % 0.9 % (0.0-2.0); EOSINOPHIL # 0.1 TH/MM3 (0-0.4); HEMATOCRIT 32.8 % (35.0-46.0); HEMOGLOBIN 10.3 GM/DL (11.6-15.3); LYMPH % 43.6 % (9.0-44.0); LYMPHOCYTE # 1.9 TH/MM3 (1.0-4.8); MEAN CELL VOLUME 77.1 FL (80.0-100.0); MEAN CORPUSCULAR HEMOGLOBIN 24.3 PG (27.0-34.0); MEAN CORPUSCULAR HGB CONC 31.6 % (32.0-36.0); MEAN PLATELET VOLUME 8.8 FL (7.0-11.0); MONO % 8.9 % (0.0-8.0); MONOCYTE # 0.4 TH/MM3 (0-0.9); NEUT % 43.6 % (16.0-70.0); PLATELET COUNT 354 TH/MM3 (150-450); RED BLOOD COUNT 4.25 MIL/MM3 (4.00-5.30); RED CELL DISTRIBUTION WIDTH 14.8 % (11.6-17.2); WHITE BLOOD COUNT 4.4 TH/MM3 (4.0-11.0)
[2017-03-27 07:03] LABS: INTERNATIONAL NORMALIZED RATIO 1.7 RATIO; PROTHROMBIN TIME - PATIENT 16.8 SEC (9.8-11.6)
[2017-03-27] MEDS ORDERED: DILTIAZEM-CD 120 MG CAP ER PO SCH (09:00)
[2017-03-27] MEDS: ASPIRIN EC 81 MG TABEC PO SCH (09:04)
[2017-03-27] MEDS: PANTOPRAZOLE SOD 40 MG DELAYED RELEASE TAB PO SCH (09:04)
[2017-03-27] MEDS: DOCUSATE SODIUM 100 MG CAP PO SCH ×2 (09:05→20:00)
[2017-03-27] MEDS: SODIUM CHLORIDE 0.9% FLUSH 10 ML FLUSH IV FLUSH SCH ×2 (09:07→20:00)
--- NOTE | 2017-03-27 10:52 | PD.CAR.PN ---
CVT Progress Note Subjective/Hospital Course: 36 / female sent from Dr Marr office yesterday , routine f/u , was c/o palpitations, found to be in afib flutter rate 130, sent to ED , she is known to our service. Admitted 03/03 for elective Minimally invasive MV Repair, Posterior leaflet reconstruction, Annuloplasty with a 26 [place] ring, JAISON Percutaneous left femoral artery and vein cannulation with arterial Perclose closure. She was discharged on 03/07, BP was labile during her postop course, we were unable to start BB, she was on prophylactic amiodarone x 2 weeks and coumadin for 6 weeks , goal 2-2.5. She was last seen in our office one week ago and was doing well, we continued her coumadin, last INR 2.9 on 03/17, she has been compliant with her meds. This was her final postop visit , but we were still following her INR for complete 6 weeks Brief History 36-year-old patient of Dr. Miller, Dr. Robert Byers who has a history of aortic stenosis that she has known since she was about age 11. 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 She had noted some pressure in her chest and some shortness of breath. She normally had been riding a stationary bike three days a week but has noted progressive discomfort and shortness of breath. She underwent a transesophageal echo on 01/09/2017 which showed an EF of 55-60%. The mitral valve regurg directed posteriorly with a Coanda effect that appears severe in nature. Restricted immobility of the posterior mitral valve leaflet. No mitral valve stenosis. There was mild tricuspid regurgitation. The aortic valve had no stenosis or regurgitation. She underwent cardiac cath today which showed nonobstructive coronary disease. PAST MEDICAL HISTORY: Iron deficiency anemia, Sleep apnea, Asthma, Nonobstructive coronary disease, Diabetes mellitus type 2, Hyperlipidemia, Hypertension, Mitral regurgitation, Obesity, gastric sleeve surgery 4 years ago 03/26 on room air , remains in afib rate controlled now on lovenox and continue coumadin, on cardizem for rate control spoke with Dr Uribe 03/27 remains in afib/ flutter, additional cardizem given on lovenox and coumadin will need to address timing and continuation of coumadin was initially to discontinue on Apr 13 no further f/u with [facility] at this point, will sign off Objective: GENERAL: SKIN: Warm and dry. HEAD: Normocephalic. EYES: No scleral icterus. No injection or drainage. NECK: Supple, trachea midline. No JVD or lymphadenopathy. CARDIOVASCULAR: irregular rate and rhythm without murmurs, gallops, or rubs. RESPIRATORY: Breath sounds equal bilaterally. No accessory muscle use. GASTROINTESTINAL: Abdomen soft, non-tender, nondistended. MUSCULOSKELETAL: No cyanosis, or edema. BACK: Nontender without obvious deformity. No CVA tenderness. Vital Signs Date Time Temp Pulse Resp B/P (MAP) Pulse Ox O2 Delivery O2 Flow Rate FiO2 03/27/17 07:30 102 03/27/17 07:30 98.3 102 20 108/67 (81) 99 03/27/17 06:00 100 03/27/17 05:16 75 93/65 03/27/17 05:00 86 03/27/17 04:00 85 03/27/17 04:00 80 97/65 03/27/17 03:10 98.4 73 16 98/66 (77) 99 03/27/17 03:00 80 03/27/17 02:45 75 95/61 03/27/17 02:00 99 03/27/17 02:00 99 92/50 03/27/17 01:42 115 99/53 03/27/17 01:37 134 03/27/17 01:00 100 03/27/17 00:00 98 03/26/17 23:40 98.1 65 18 99/68 (78) 100 03/26/17 23:00 74 03/26/17 22:00 98 03/26/17 21:00 92 03/26/17 20:00 90 03/26/17 19:30 97.9 78 16 92/55 (67) 100 03/26/17 19:00 110 03/26/17 18:00 97 03/26/17 17:00 89 03/26/17 16:00 97 03/26/17 16:00 98.5 97 20 102/64 (77) 100 03/26/17 15:00 100 03/26/17 14:00 89 03/26/17 13:00 106 03/26/17 12:00 97 03/26/17 11:55 98.2 88 17 104/62 (76) 100 03/26/17 11:00 95 Labs: Laboratory Tests Test 03/27/17 06:37 White Blood Count 4.4 TH/MM3 (4.0-11.0) Red Blood Count 4.25 MIL/MM3 (4.00-5.30) Hemoglobin 10.3 GM/DL (11.6-15.3) Hematocrit 32.8 % (35.0-46.0) Mean Corpuscular Volume 77.1 FL (80.0-100.0) Mean Corpuscular Hemoglobin 24.3 PG (27.0-34.0) Mean Corpuscular Hemoglobin Concent 31.6 % (32.0-36.0) Red Cell Distribution Width 14.8 % (11.6-17.2) Platelet Count 354 TH/MM3 (150-450) Mean Platelet Volume 8.8 FL (7.0-11.0) Neutrophils (%) (Auto) 43.6 % (16.0-70.0) Lymphocytes (%) (Auto) 43.6 % (9.0-44.0) Monocytes (%) (Auto) 8.9 % (0.0-8.0) Eosinophils (%) (Auto) 3.0 % (0.0-4.0) Basophils (%) (Auto) 0.9 % (0.0-2.0) Neutrophils # (Auto) 1.9 TH/MM3 (1.8-7.7) Lymphocytes # (Auto) 1.9 TH/MM3 (1.0-4.8) Monocytes # (Auto) 0.4 TH/MM3 (0-0.9) Eosinophils # (Auto) 0.1 TH/MM3 (0-0.4) Basophils # (Auto) 0.0 TH/MM3 (0-0.2) CBC Comment DIFF FINAL Differential Comment Prothrombin Time 16.8 SEC (9.8-11.6) Prothromb Time International Ratio 1.7 RATIO Result Diagram: 03/27/17 0637 03/26/17 0441 (1) Atrial flutter with rapid ventricular response Plan: on cardizem, rate improved , coumadin and lovenox (2) S/P mitral valve repair Plan: will sign off , see prn (3) Chronic anemia Plan: HGB stable at 9.5 Christa Mariano Mar 27, 2017 10:52
[2017-03-27] MEDS: ENOXAPARIN SODIUM 100 MG/ML SYRINGE SQ SCH ×2 (12:02→23:14)
--- NOTE | 2017-03-27 14:24 | MB ---
cc: ROSALVA PRASAD MD DATE OF CONSULTATION March 27, 2017 REASON FOR CONSULTATION New onset A-fib/flutter. HISTORY OF PRESENT ILLNESS The patient is a pleasant 36-year-old woman who sees my partner Dr. Marr who is status post recent mitral valve repair who presented to the office with atrial flutter, was sent to the emergency department and has been on Cardizem and now rate control. She is asymptomatic except for mild chest discomfort this morning (she has only minimal coronary disease by recent cardiac catheterization) otherwise she has no shortness of breath, palpitation, lightheadedness or dizziness. PAST MEDICAL HISTORY 1. Recent mitral valve repair. 2. Hypertension. 3. Hyperlipidemia. 4. Diabetes. CURRENT MEDICATIONS 1. Warfarin. 2. Lovenox subcu. 3. Aspirin. 4. Cardizem 30 mg p.o. q.6 hours. 5. Pravachol 40 mg q.h.s. ALLERGIES LISINOPRIL. PENICILLIN. PHYSICAL EXAMINATION VITAL SIGNS: Afebrile, pulse 100, respiratory rate 16, BP 93/65, sating at 100 on room air. GENERAL: A pleasant Afro-Greek woman in no distress. NECK: No JVD. LUNGS: Clear to auscultation bilaterally. CARDIOVASCULAR: Irregularly irregular rhythm with a regular rate. No murmurs appreciated. ABDOMEN: Benign. EXTREMITIES: No edema. LABORATORY DATA White count 4.4, hematocrit 32.8, platelets 354. Sodium 140, potassium 4.0, chloride 109, bicarb 23.5, BUN 11, creatinine 0.74. EKG showed a rate-controlled atrial flutter. Telemetry shows rate-controlled A-flutter. IMPRESSION AND PLAN A-flutter: The patient has rate-controlled A-flutter. I will change her diltiazem to long-acting as the blood pressure has come up somewhat. She is already anticoagulated. If she remains asymptomatic, rate-controlled on her current regimen, she can be discharged home later today to follow up with Dr. Marr. Thank you again for the opportunity to participate in this patient's care. MD SUNNI Hurley/ANTONIO /7:21 AM /1:50 PM
[2017-03-27] MEDS: WARFARIN SOD 5 MG TAB PO SCH (15:49)
[2017-03-27] MEDS ORDERED: DILT120C50 PO (16:52)
--- NOTE | 2017-03-27 16:59 | HHI.DS ---
Discharge Summary Admission Date Mar 25, 2017 at 16:37 Discharge Date: Mar 27, 2017 Admitting Diagnosis (1) Atrial flutter with rapid ventricular response ICD Codes: I48.92 - Unspecified atrial flutter Status: Acute (2) Diastolic CHF due to valvular disease ICD Codes: I38 - Endocarditis, valve unspecified; I50.30 - Unspecified diastolic (congestive) heart failure Status: Chronic (3) Chronic anemia ICD Codes: D64.9 - Anemia, unspecified Status: Chronic (4) S/P mitral valve repair ICD Codes: Z98.890 - Other specified postprocedural states Consultants Dr. Agustín Isaac Procedures none Brief History This is a 36 year old female patient with a past medical history which includes Iron deficiency anemia, sleep apnea, asthma, nonobstructive coronary disease, diabetes mellitus type 2, hyperlipidemia, hypertension, mitral regurgitation and Obesity. Patient is S/P mitral valve repair with ring 03/03/[address] Sutton. Patient presented to her cell maker office today with complaints of dizziness and palpitations for the past two days. Outpatient EKG revealed A Flutter with RVR. Patient was then sent to the ER for further evaluation and treatment. Patient reports feeling better at this time. She is no longer having palpitations. Patient endorses continued shortness of breath with nonproductive cough. Denies chest pain, fevers chills, nausea or vomiting. CBC/BMP: 03/27/17 0637 03/26/17 0441 Significant Findings Laboratory Tests Test 03/25/17 14:28 03/26/17 04:41 03/26/17 11:15 03/27/17 06:37 Hemoglobin 10.6 GM/DL (11.6-15.3) 9.5 GM/DL (11.6-15.3) 10.3 GM/DL (11.6-15.3) Hematocrit 33.8 % (35.0-46.0) 31.0 % (35.0-46.0) 32.8 % (35.0-46.0) Mean Corpuscular Volume 78.4 FL (80.0-100.0) 78.4 FL (80.0-100.0) 77.1 FL (80.0-100.0) Mean Corpuscular Hemoglobin 24.7 PG (27.0-34.0) 24.1 PG (27.0-34.0) 24.3 PG (27.0-34.0) Mean Corpuscular Hemoglobin Concent 31.5 % (32.0-36.0) 30.7 % (32.0-36.0) 31.6 % (32.0-36.0) Prothrombin Time 14.0 SEC (9.8-11.6) 14.4 SEC (9.8-11.6) 16.8 SEC (9.8-11.6) Activated Partial Thromboplast Time 33.4 SEC (24.3-30.1) Albumin 3.2 GM/DL (3.4-5.0) Calcium Level 8.4 MG/DL (8.5-10.1) 8.0 MG/DL (8.5-10.1) Aspartate Amino Transf (AST/SGOT) 8 U/L (15-37) Chloride Level 108 MEQ/L (98-107) 109 MEQ/L (98-107) Troponin I LESS THAN 0.02 NG/ML Red Blood Count 3.95 MIL/MM3 (4.00-5.30) Monocytes (%) (Auto) 9.0 % (0.0-8.0) 8.9 % (0.0-8.0) PE at Discharge GENERAL: This is a well-nourished, well-developed patient, in no apparent distress. CARDIOVASCULAR: Irregularly irregular rate controlled RESPIRATORY: Clear to auscultation. Breath sounds equal bilaterally. GASTROINTESTINAL: Abdomen soft, non-tender, nondistended. No hepato-splenomegaly , or palpable masses. No guarding. MUSCULOSKELETAL: Extremities without clubbing, cyanosis, or edema. No joint tenderness, effusion, or edema noted. No calf tenderness. Negative Homans sign bilaterally. NEUROLOGICAL: Awake and alert. No focal deficits noted. Motor and sensory grossly within normal limits. Five out of 5 muscle strength in all muscle groups. Normal speech. Hospital Course Atrial flutter with rapid ventricular response This is a 36 year old female patient with a past medical history which includes Iron deficiency anemia, sleep apnea, asthma, nonobstructive coronary disease, diabetes mellitus type 2, hyperlipidemia, hypertension, mitral regurgitation and Obesity. Patient is S/P mitral valve repair with ring 03/03/[address] Sutton. Patient presented to her cell maker office today with complaints of chest pain and palpitations. Outpatient EKG revealed A Flutter with RVR. Patient was then sent to the ER for further evaluation and treatment. EKG in ER revealed: A Fib/Flutter rate 111 bpm Patient given Cardizem 10 mg IV push and 30 mg PO in ER will continue Cardizem 3 mg Q6H PO and add Cardizem drip if needed Continue amiodarone 200mg PO daily, in talking with [facility] for cardiothoracic surgery patient did not have postoperative A Fib. Patient was put on Amiodarone for two weeks prophylactically post-op. Discussed with Dr. Liu agrees with stopping amiodarone Will DC amiodarone will continue Cardizem 30 mg Q6H initially then transitioned to 120 mg PO daily continuous telemetry monitoring- HR controlled patient currently on aspirin and Coumadin, INR improving 1.7 today Will add Lovenox 100mg PO BID. Per surgery patient needs to be anticoagulated for 6 weeks post-op INR last week at cardiothoracic surgery JAISON 01/09/2017 revealed EF 55-60% case discussed with patient's regular cell maker Dr. Marr (03/25) patient back in A Fib today will consult cardiology, seen by Dr. Aponte- cleared for DC. Diastolic CHF due to valvular disease continue home medication regiment Chronic anemia stable when compared to previous hgb levels S/P mitral valve repair Patient had mitral valve repair 03/[address] Sutton ER provider spoke with Dr. Sutton- consult placed, appreciate input [facility] signed [facility] Pt Condition on Discharge: Stable Discharge Disposition: Disch w/ Home Health Serv Discharge Instructions DIET: Follow Instructions for: Coumadin (Warfarin) Diet Activities you can perform: See Additionl Instruction Other Activity Instructions: Per surgery Follow up Referrals: Cardiology - 1 Week with Dilshad Marr MD PCP Follow-up - [address] Webster New Medications: Diltiazem CD 24 HR (Diltiazem CD 24 HR) 120 Mg Caper 120 MG PO DAILY for heart rate, #30 CAP 0 Refills Continued Medications: Aspirin DR (Aspirin EC) 81 Mg Tabdr 81 MG PO DAILY for Blood Clot Prevention, #30 TAB 0 Refills Docusate Sodium (Dok) 100 Mg Cap 100 MG PO BID for Constipation, #60 CAP 0 Refills Ergocalciferol (Ergocalciferol) 50,000 Unit Cap 72314 UNITS PO TWICE WEEKLY for Nutritional Supplement, CAP 0 Refills Oxycodone HCl/Acetaminophen (Oxycodone-Acetaminophen 5-325) 5 Mg-325 Mg Tablet 1 TAB PO Q6HR PRN for PAIN SCALE 1 TO 5, #40 TAB 0 Refills Pantoprazole (Protonix) 40 Mg Tab 40 MG PO DAILY for Reflux, TAB 0 Refills Simvastatin (Simvastatin) 5 Mg Tab 20 MG PO HS for Cholesterol Management, #30 TAB 0 Refills Warfarin (Coumadin) 5 Mg Tab 5 MG PO DAILY@1600 for Blood Clot Prevention, #30 TAB 1 Refill hold INR > 3.5 coumadin for 6 week only [Bariatric Iron] () 25 MG PO DAILY [Bariatric Vitamin] () 1 TAB PO BID Discontinued Medications: Amiodarone (Amiodarone) 200 Mg Tab 200 MG PO BID for heart rhythm, #28 TAB 0 Refills Francheska Michelle Mar 27, 2017 16:59 Jesus Uribe DO Mar 30, 2017 14:08
--- NOTE | 2017-03-27 17:03 | HHI.FF ---
Face to Face Verification Diagnosis: (1) S/P mitral valve repair (2) Atrial flutter with rapid ventricular response (3) Diastolic CHF due to valvular disease Home Health Nursing Order: Medical education Signs/symptoms of disease process Medication education-adverse effect Nursing assessment with vital signs Instructions: Pt/INR in 4 days with results to Dr. Marr I have seen patient Samira Malik on 03/27/17. My clinical findings support the need for the requested home health care services because: Deconditioned w/ increased weakness Med compliance is questionable I certify that my clinical findings support that this patient is homebound because: Post-op weakness Poor cardiac reserve Francheska Michelle Mar 27, 2017 17:03 Jesus Uribe DO Mar 27, 2017 18:05
--- NOTE | 2017-03-27 17:24 | HHI.PR ---
Subjective Remarks Patient wanting to go home telemetry reveals HR up to 120-130 Objective Vitals Vital Signs Date Time Temp Pulse Resp B/P (MAP) Pulse Ox O2 Delivery O2 Flow Rate FiO2 03/27/17 17:00 98 03/27/17 16:00 100 03/27/17 15:30 98.3 93 20 98/56 (70) 100 03/27/17 15:30 93 03/27/17 14:00 92 03/27/17 13:00 98 03/27/17 12:00 98 03/27/17 11:30 98.3 115 20 98/62 (74) 100 03/27/17 11:30 115 03/27/17 11:00 104 03/27/17 10:00 84 03/27/17 09:00 88 03/27/17 08:00 94 03/27/17 07:30 102 03/27/17 07:30 98.3 102 20 108/67 (81) 99 03/27/17 06:00 100 03/27/17 05:16 75 93/65 03/27/17 05:00 86 03/27/17 04:00 85 03/27/17 04:00 80 97/65 03/27/17 03:10 98.4 73 16 98/66 (77) 99 03/27/17 03:00 80 03/27/17 02:45 75 95/61 03/27/17 02:00 99 03/27/17 02:00 99 92/50 03/27/17 01:42 115 99/53 03/27/17 01:37 134 03/27/17 01:00 100 03/27/17 00:00 98 03/26/17 23:40 98.1 65 18 99/68 (78) 100 03/26/17 23:00 74 03/26/17 22:00 98 03/26/17 21:00 92 03/26/17 20:00 90 03/26/17 19:30 97.9 78 16 92/55 (67) 100 03/26/17 19:00 110 03/26/17 18:00 97 03/27/17 03/27/17 03/28/17 15:00 23:00 07:00 Intake Total 1000 ml Output Total 700 ml Balance 300 ml Intake Oral 1000 ml Output Urine Total 700 ml # Voids 1 # Bowel Movements 1 Result Diagram: 03/27/17 0637 03/26/17 0441 Imaging Last Impressions Chest X-Ray 03/25/17 1405 Signed Impressions: Service Date/Time: Saturday, March 25, 2017 14:38 - CONCLUSION: No acute cardiopulmonary process. Dudley Vazquez MD Objective Remarks GENERAL: This is a well-nourished, well-developed patient, in no apparent distress. CARDIOVASCULAR: Irregularly irregular tachycardic RESPIRATORY: Clear to auscultation. Breath sounds equal bilaterally. GASTROINTESTINAL: Abdomen soft, non-tender, nondistended. No hepato-splenomegaly , or palpable masses. No guarding. MUSCULOSKELETAL: Extremities without clubbing, cyanosis, or edema. No joint tenderness, effusion, or edema noted. No calf tenderness. Negative Homans sign bilaterally. NEUROLOGICAL: Awake and alert. No focal deficits noted. Motor and sensory grossly within normal limits. Five out of 5 muscle strength in all muscle groups. Normal speech. Procedures none A/P Problem List: (1) Atrial flutter with rapid ventricular response ICD Codes: I48.92 - Unspecified atrial flutter Status: Acute Plan: Atrial flutter with rapid ventricular response This is a 36 year old female patient with a past medical history which includes Iron deficiency anemia, sleep apnea, asthma, nonobstructive coronary disease, diabetes mellitus type 2, hyperlipidemia, hypertension, mitral regurgitation and Obesity. Patient is S/P mitral valve repair with ring 03/03/[address] Sutton. Patient presented to her software analyst office today with complaints of chest pain and palpitations. Outpatient EKG revealed A Flutter with RVR. Patient was then sent to the ER for further evaluation and treatment. EKG in ER revealed: A Fib/Flutter rate 111 bpm Patient given Cardizem 10 mg IV push and 30 mg PO in ER will continue Cardizem 3 mg Q6H PO and add Cardizem drip if needed Continue amiodarone 200mg PO daily, in talking with [facility] [employer] for cardiothoracic surgery patient did not have postoperative A Fib. Patient was put on Amiodarone for two weeks prophylactically post-op. Discussed with Dr. Liu agrees with stopping amiodarone Will DC amiodarone will continue Cardizem 30 mg Q6H initially then transitioned to 120 mg PO daily continuous telemetry monitoring- HR controlled patient currently on aspirin and Coumadin, INR improving 1.7 today Will add Lovenox 100mg PO BID. Per surgery patient needs to be anticoagulated for 6 weeks post-op INR last week at cardiothoracic surgery JAISON 01/09/2017 revealed EF 55-60% case discussed with patient's regular software analyst Dr. Marr (03/25) patient back in A Fib today will consult cardiology, seen by Dr. Aponte- cleared for DC if HR controlled Unable to DC today due to continued Atrail flutter with RVR telemetry reveals HR up to 120-130 additional 30 mg Cardizem ordered increase Cardizem to 180mg tomorrow (2) Diastolic CHF due to valvular disease ICD Codes: I38 - Endocarditis, valve unspecified; I50.30 - Unspecified diastolic (congestive) heart failure Status: Chronic Plan: continue home medication regiment (3) Chronic anemia ICD Codes: D64.9 - Anemia, unspecified Status: Chronic Plan: stable when compared to previous hgb levels (4) S/P mitral valve repair ICD Codes: Z98.890 - Other specified postprocedural states Plan: Patient had mitral valve repair 03/[address] Sutton ER provider spoke with Dr. Sutton- consult placed, appreciate input [facility] signed off Assessment and Plan Patient examined. Assessment and plan formulated with Francheska Michelle PA-C. I agree with the above. Telemetry reading showed several HR spikes over 100 bpm during the day. and pt running in the 120s when I rounded this evening. -planned discharge cancelled - modest increase of pt's cardizem - case d/w Cardiology, Dr. Stanton - Will give lovenox 100mg subQ once - repeat INR in AM - start amiodarone 400mg PO BID\ - hopefully d/c to home 03/28 or 03/29 Francheska Michelle Mar 27, 2017 17:24 Jesus Uribe DO Mar 27, 2017 18:09
[2017-03-27] MEDS ORDERED: DILTIAZEM HCL 30 MG TAB PO ONE (17:30)
[2017-03-27] MEDS ORDERED: AMIODARONE 200 MG TAB PO SCH (18:15)
[2017-03-27] MEDS ORDERED: ENOXAPARIN SODIUM 100 MG/ML SYRINGE SQ ONE (18:15)
[2017-03-27] MEDS: PRAVASTATIN SOD 40 MG TAB PO SCH (20:00)
[2017-03-27] MEDS: AMIODARONE 200 MG TAB PO SCH (20:00)
--- NOTE | 2017-03-27 23:52 | EKG ---
Date Performed: 03/26/2017 Time Performed: 07:56:44 PTAGE: 36 years EKG: Atrial flutter Rightward axis Possible inferior infarct - age undetermined Non-specific ST/ T wave changes Abnormal ECG PREVIOUS TRACING : 03/25/2017 20.45 Compared to the previous tracing, previously normal Sinus r hythm DOCTOR: Alex Miller Interpretating Date/Time 03/27/2017 23:51:23
--- NOTE | 2017-03-27 23:54 | EKG ---
Date Performed: 03/25/2017 Time Performed: 20:45:52 PTAGE: 36 years EKG: Sinus rhythm WITH FREQUENT SUPRAVENTRICULAR PREMATURE COMPLEXES ABNORMAL RHYTHM ECG INTERPRETATION BASED ON A DEF NAYELY AGE OF 40 YEARS PREVIOUS TRACING : 03/25/2017 16.24 Compared to prior tracing no significant change DOCTOR: Alex Miller Interpretating Date/Time 03/27/2017 23:53:11
[2017-03-28] VITALS (30 sets, daily range): BP systolic 89–112; BP diastolic 52–64; PULSE 60–128; RESP 16–20; TEMP 98.1–98.7; O2SAT 96–100
[2017-03-28 05:25] LABS: INTERNATIONAL NORMALIZED RATIO 1.9 RATIO; PROTHROMBIN TIME - PATIENT 19.4 SEC (9.8-11.6)
[2017-03-28] MEDS: SODIUM CHLORIDE 0.9% FLUSH 10 ML FLUSH IV FLUSH SCH ×2 (09:00→21:08)
[2017-03-28] MEDS ORDERED: DILTIAZEM-CD 180 MG CAP ER PO SCH (09:00)
[2017-03-28] MEDS: PANTOPRAZOLE SOD 40 MG DELAYED RELEASE TAB PO SCH (09:55)
[2017-03-28] MEDS: AMIODARONE 200 MG TAB PO SCH ×2 (09:55→21:08)
[2017-03-28] MEDS: ASPIRIN EC 81 MG TABEC PO SCH (09:55)
[2017-03-28] MEDS: DOCUSATE SODIUM 100 MG CAP PO SCH ×2 (09:55→21:08)
--- NOTE | 2017-03-28 10:31 | PD.CARD.PN ---
Subjective Subjective Remarks c/o palps when she gets out of bed and moves around Objective Medications Current Medications Medications (Trade) Dose Ordered Sig/Hernando Route Start Time Stop Time Status Last Admin (NS Flush) 2 ml UNSCH PRN IV FLUSH 03/25/17 16:15 (NS Flush) 2 ml BID IV FLUSH 03/25/17 21:00 03/28/17 09:00 (Tylenol) 650 mg Q4H PRN PO 03/25/17 16:15 (Zofran Inj) 4 mg Q6H PRN IVP 03/25/17 16:15 (Narcan Inj) 0.4 mg UNSCH PRN IV PUSH 03/25/17 16:15 (Milk Of Magnesia Liq) 30 ml Q12H PRN PO 03/25/17 16:15 Diltiazem HCl 125 mg/Sodium Chloride 125 ml @ 5 mls/hr TITRATE PRN IV 03/25/17 19:00 03/27/17 01:42 (Ecotrin Ec) 81 mg DAILY PO 03/26/17 09:00 03/28/17 09:55 (Colace) 100 mg BID PO 03/25/17 21:00 03/28/17 09:55 (Percocet 5-325 Mg) 1 tab Q6HR PRN PO 03/25/17 18:45 (Protonix) 40 mg DAILY PO 03/26/17 09:00 03/28/17 09:55 (Coumadin) 5 mg DAILY@1600 PO 03/26/17 16:00 03/27/17 15:49 (Pravachol) 40 mg HS PO 03/25/17 21:00 03/27/17 20:00 (Lovenox Inj) 100 mg Q12H SQ 03/26/17 12:00 03/27/17 23:14 (Cordarone) 400 mg Q12HR PO 03/27/17 21:00 03/28/17 09:55 (Cardizem Cd) 120 mg DAILY PO 03/28/17 09:00 Vital Signs / I&O Vital Signs Date Time Temp Pulse Resp B/P (MAP) Pulse Ox O2 Delivery O2 Flow Rate FiO2 03/28/17 09:54 94/62 (73) 03/28/17 08:10 98.2 65 16 89/52 (64) 100 90/58 (69) 03/28/17 06:00 93 03/28/17 05:00 78 03/28/17 04:00 85 03/28/17 03:30 98.1 94 16 102/61 (75) 99 03/28/17 03:00 87 03/28/17 02:00 89 03/28/17 01:00 86 03/28/17 00:00 86 03/27/17 23:00 74 03/27/17 23:00 98.0 77 16 99/66 (77) 100 03/27/17 22:00 76 03/27/17 21:00 100 03/27/17 20:00 98 03/27/17 19:50 98.5 102 16 103/63 (76) 97 03/27/17 19:00 101 03/27/17 18:00 98 03/27/17 17:00 98 03/27/17 16:00 100 03/27/17 15:30 98.3 93 20 98/56 (70) 100 03/27/17 15:30 93 03/27/17 14:00 92 03/27/17 13:00 98 03/27/17 12:00 98 03/27/17 11:30 98.3 115 20 98/62 (74) 100 03/27/17 11:30 115 03/27/17 11:00 104 I/O 03/27/17 03/27/17 03/27/17 03/28/17 03/28/17 03/28/17 07:00 15:00 23:00 07:00 15:00 23:00 Intake Total 317 ml 1000 ml 240 ml Output Total 400 ml 700 ml 700 ml Balance -83 ml 300 ml -460 ml Intake Oral 300 ml 1000 ml 240 ml IV Total 17 ml Output Urine Total 400 ml 700 ml 700 ml # Voids 1 # Bowel Movements 0 1 0 Physical Exam Alert No JVD Chest clear CV S1S2 irr irr no edema Tele atrial flutter EKG's: Office 03/25 12:47 atrial flutter with 2:1 conduction, Hospital 03/25 1500 shows SR with bursts of afib/flutter, 03/25 16:24 SR with PAC's, 03/25 20: 45 SR with PAC's, 03/26 AM on has been atrial flutter Laboratory Laboratory Tests Test 03/28/17 04:47 Prothrombin Time 19.4 SEC Prothromb Time International Ratio 1.9 RATIO Assessment and Plan Problem List: (1) Atrial flutter with rapid ventricular response ICD Codes: I48.92 - Unspecified atrial flutter Status: Acute Plan: rate hard to control due to low BP. Amio 400 bid added. Cont Dilt 120. I could do JAISON guided cardioversion but likely arrythmia will come back since it is already documented that she has gone into atrial flutter, back into SR, then back into flutter. I don't see any afib documented - it all looks like flutter. Doing ablation is probably best option but Dr. Oakes is out for the cardiology. I am trying to see if I can get a hold of Dr. Oakes. Spoke to Dr. Uribe (2) S/P mitral valve repair ICD Codes: Z98.890 - Other specified postprocedural states (3) Chronic anemia ICD Codes: D64.9 - Anemia, unspecified Status: Chronic Law Stanton MD Mar 28, 2017 10:31
[2017-03-28] MEDS: DILTIAZEM-CD 120 MG CAP ER PO SCH (10:37)
[2017-03-28] MEDS: ENOXAPARIN SODIUM 100 MG/ML SYRINGE SQ SCH (13:19)
--- NOTE | 2017-03-28 15:12 | HHI.PR ---
Subjective Remarks Patient remains in A flutter HR controlled at rest with minimal exertion patient has increased HR associated with palpitations Objective Vitals Vital Signs Date Time Temp Pulse Resp B/P (MAP) Pulse Ox O2 Delivery O2 Flow Rate FiO2 03/28/17 14:17 94 03/28/17 13:06 104 03/28/17 12:00 128 03/28/17 11:51 98.2 60 20 98/54 (69) 03/28/17 11:00 98 03/28/17 10:00 107 03/28/17 09:54 94/62 (73) 03/28/17 09:00 94 03/28/17 08:10 98.2 65 16 89/52 (64) 100 90/58 (69) 03/28/17 08:00 94 03/28/17 07:00 71 03/28/17 06:00 93 03/28/17 05:00 78 03/28/17 04:00 85 03/28/17 03:30 98.1 94 16 102/61 (75) 99 03/28/17 03:00 87 03/28/17 02:00 89 03/28/17 01:00 86 03/28/17 00:00 86 03/27/17 23:00 74 03/27/17 23:00 98.0 77 16 99/66 (77) 100 03/27/17 22:00 76 03/27/17 21:00 100 03/27/17 20:00 98 03/27/17 19:50 98.5 102 16 103/63 (76) 97 03/27/17 19:00 101 03/27/17 18:00 98 03/27/17 17:00 98 03/27/17 16:00 100 03/27/17 15:30 98.3 93 20 98/56 (70) 100 03/27/17 15:30 93 Result Diagram: 03/27/17 0637 03/26/17 0441 Other Results Laboratory Tests Test 03/26/17 04:41 03/26/17 11:15 03/27/17 06:37 03/28/17 04:47 White Blood Count 5.9 TH/MM3 4.4 TH/MM3 Red Blood Count 3.95 MIL/MM3 4.25 MIL/MM3 Hemoglobin 9.5 GM/DL 10.3 GM/DL Hematocrit 31.0 % 32.8 % Mean Corpuscular Volume 78.4 FL 77.1 FL Mean Corpuscular Hemoglobin 24.1 PG 24.3 PG Mean Corpuscular Hemoglobin Concent 30.7 % 31.6 % Red Cell Distribution Width 15.0 % 14.8 % Platelet Count 326 TH/MM3 354 TH/MM3 Mean Platelet Volume 9.2 FL 8.8 FL Neutrophils (%) (Auto) 59.5 % 43.6 % Lymphocytes (%) (Auto) 28.9 % 43.6 % Monocytes (%) (Auto) 9.0 % 8.9 % Eosinophils (%) (Auto) 1.9 % 3.0 % Basophils (%) (Auto) 0.7 % 0.9 % Neutrophils # (Auto) 3.5 TH/MM3 1.9 TH/MM3 Lymphocytes # (Auto) 1.7 TH/MM3 1.9 TH/MM3 Monocytes # (Auto) 0.5 TH/MM3 0.4 TH/MM3 Eosinophils # (Auto) 0.1 TH/MM3 0.1 TH/MM3 Basophils # (Auto) 0.0 TH/MM3 0.0 TH/MM3 CBC Comment DIFF FINAL DIFF FINAL Differential Comment Blood Urea Nitrogen 11 MG/DL Creatinine 0.74 MG/DL Random Glucose 85 MG/DL Calcium Level 8.0 MG/DL Sodium Level 140 MEQ/L Potassium Level 4.0 MEQ/L Chloride Level 109 MEQ/L Carbon Dioxide Level 23.5 MEQ/L Anion Gap 8 MEQ/L Estimat Glomerular Filtration Rate 107 ML/MIN Prothrombin Time 14.4 SEC 16.8 SEC 19.4 SEC Prothromb Time International Ratio 1.4 RATIO 1.7 RATIO 1.9 RATIO Human Chorionic Gonadotropin, Quant LESS THAN 1 MIU/ML Imaging Last Impressions Chest X-Ray 03/25/17 1405 Signed Impressions: Service Date/Time: Saturday, March 25, 2017 14:38 - CONCLUSION: No acute cardiopulmonary process. Dudley Vazquez MD Objective Remarks GENERAL: This is a well-nourished, well-developed patient, in no apparent distress. CARDIOVASCULAR: Irregularly irregular tachycardic RESPIRATORY: Clear to auscultation. Breath sounds equal bilaterally. GASTROINTESTINAL: Abdomen soft, non-tender, nondistended. No hepato-splenomegaly , or palpable masses. No guarding. MUSCULOSKELETAL: Extremities without clubbing, cyanosis, or edema. No joint tenderness, effusion, or edema noted. No calf tenderness. Negative Homans sign bilaterally. NEUROLOGICAL: Awake and alert. No focal deficits noted. Motor and sensory grossly within normal limits. Five out of 5 muscle strength in all muscle groups. Normal speech. Procedures none A/P Problem List: (1) Atrial flutter with rapid ventricular response ICD Codes: I48.92 - Unspecified atrial flutter Status: Acute Plan: Atrial flutter with rapid ventricular response This is a 36 year old female patient with a past medical history which includes Iron deficiency anemia, sleep apnea, asthma, nonobstructive coronary disease, diabetes mellitus type 2, hyperlipidemia, hypertension, mitral regurgitation and Obesity. Patient is S/P mitral valve repair with ring 03/03/[address] Sutton. Patient presented to her technology development intern office today with complaints of chest pain and palpitations. Outpatient EKG revealed A Flutter with RVR. Patient was then sent to the ER for further evaluation and treatment. EKG in ER revealed: A Fib/Flutter rate 111 bpm Patient given Cardizem 10 mg IV push and 30 mg PO in ER will continue Cardizem 30 mg Q6H PO and add Cardizem drip if needed Continue amiodarone 200mg PO daily, in talking with [employer] MANAGER for cardiothoracic surgery patient did not have postoperative A Fib. Patient was put on Amiodarone for two weeks prophylactically post-op. Discussed with Dr. Liu agrees with stopping amiodarone Will DC amiodarone Cardizem transitioned to 120 mg PO daily continuous telemetry monitoring patient currently on aspirin and Coumadin, INR improving Lovenox 100mg PO BID until INR equal or greater than 2.0. Per surgery patient needs to be anticoagulated for 6 weeks post-op INR last week at cardiothoracic surgery JAISON 01/09/2017 revealed EF 55-60% case discussed with patient's outpatient technology development intern Dr. Marr (03/25) patient back in A Fib today will consult cardiology, seen by Dr. Aponte- cleared for DC if HR controlled Unable to DC today due to continued Atrial flutter with RVR telemetry reveals HR up to 120-130 additional 30 mg Cardizem ordered - case discussed with Cardiology Dr. Stanton who is currently covering recommends adding amiodarone 400 mg PO BID - 03/28 per cardiology rate hard to control due to low BP could do JAISON guided cardioversion but likely arrhythmia will come back since it is already documented that she has gone into atrial flutter, back into SR, then back into flutter. Doing ablation is probably best option but Dr. Oakes is out for the cardiology. Cardiology trying to see if they can get a hold of Dr. Oakes. - with minimal exertion patient HR increases with associated palpations unable to DC -Plan for Cardiac Ablation on Thursday03/31/[address] Oakes (2) Diastolic CHF due to valvular disease ICD Codes: I38 - Endocarditis, valve unspecified; I50.30 - Unspecified diastolic (congestive) heart failure Status: Chronic Plan: continue home medication regiment (3) Chronic anemia ICD Codes: D64.9 - Anemia, unspecified Status: Chronic Plan: stable when compared to previous hgb levels (4) S/P mitral valve repair ICD Codes: Z98.890 - Other specified postprocedural states Plan: Patient had mitral valve repair 03/[address] Sutton ER provider spoke with Dr. Sutton- consult placed, appreciate input [facility] signed [facility] Assessment and Plan Patient examined. Assessment and plan formulated with Francheska Michelle PA-C. I agree with the above. Francheska Michelle Mar 28, 2017 15:12 Jesus Uribe DO Mar 29, 2017 10:42
[2017-03-28] MEDS: WARFARIN SOD 5 MG TAB PO SCH (15:58)
[2017-03-28] MEDS: PRAVASTATIN SOD 40 MG TAB PO SCH (21:08)
[2017-03-28] MEDS: guaiFENesin/DEXTROMETHORPHAN 200 MG/20 MG/10 ML CUP PO PRN (21:21)
[2017-03-29] VITALS (27 sets, daily range): BP systolic 92–107; BP diastolic 51–68; PULSE 68–126; RESP 16–20; TEMP 98.1–98.7; O2SAT 98–100
[2017-03-29 08:09] LABS: INTERNATIONAL NORMALIZED RATIO 1.8 RATIO; PROTHROMBIN TIME - PATIENT 18.7 SEC (9.8-11.6)
[2017-03-29] MEDS: SODIUM CHLORIDE 0.9% FLUSH 10 ML FLUSH IV FLUSH SCH ×2 (09:59→20:00)
[2017-03-29] MEDS: DOCUSATE SODIUM 100 MG CAP PO SCH ×2 (09:59→20:00)
[2017-03-29] MEDS: AMIODARONE 200 MG TAB PO SCH ×2 (09:59→20:00)
[2017-03-29] MEDS: ASPIRIN EC 81 MG TABEC PO SCH (09:59)
[2017-03-29] MEDS: PANTOPRAZOLE SOD 40 MG DELAYED RELEASE TAB PO SCH (09:59)
[2017-03-29] MEDS: DILTIAZEM-CD 120 MG CAP ER PO SCH (09:59)
--- NOTE | 2017-03-29 10:07 | HHI.PR ---
Subjective Remarks no new complaints Objective Vitals Vital Signs Date Time Temp Pulse Resp B/P (MAP) Pulse Ox O2 Delivery O2 Flow Rate FiO2 03/29/17 09:54 76 16 104/59 (74) 100 03/29/17 08:00 90 03/29/17 07:20 98.7 82 20 105/64 (78) 99 Manual Cuff/Auscultation 03/29/17 06:00 89 03/29/17 05:04 85 03/29/17 04:00 82 03/29/17 03:00 98.1 90 17 95/56 (69) 98 03/29/17 03:00 105 03/29/17 02:00 91 03/29/17 01:00 90 03/29/17 00:02 68 03/28/17 23:20 90 03/28/17 23:00 98.2 91 17 98/58 (71) 99 03/28/17 22:00 87 03/28/17 20:00 97 03/28/17 19:00 98.5 80 17 112/60 (77) 96 108/64 (79) 03/28/17 19:00 90 03/28/17 18:35 92 03/28/17 17:10 88 03/28/17 16:07 90 03/28/17 15:54 98.7 91 20 103/54 (70) 100 03/28/17 15:22 92 03/28/17 14:17 94 03/28/17 13:06 104 03/28/17 12:00 128 03/28/17 11:51 98.2 60 20 98/54 (69) 03/28/17 11:00 98 Result Diagram: 03/27/17 0637 03/26/17 0441 Other Results Laboratory Tests Test 03/26/17 11:15 03/27/17 06:37 03/28/17 04:47 03/29/17 07:25 Prothrombin Time 14.4 SEC 16.8 SEC 19.4 SEC 18.7 SEC Prothromb Time International Ratio 1.4 RATIO 1.7 RATIO 1.9 RATIO 1.8 RATIO Human Chorionic Gonadotropin, Quant LESS THAN 1 MIU/ML White Blood Count 4.4 TH/MM3 Red Blood Count 4.25 MIL/MM3 Hemoglobin 10.3 GM/DL Hematocrit 32.8 % Mean Corpuscular Volume 77.1 FL Mean Corpuscular Hemoglobin 24.3 PG Mean Corpuscular Hemoglobin Concent 31.6 % Red Cell Distribution Width 14.8 % Platelet Count 354 TH/MM3 Mean Platelet Volume 8.8 FL Neutrophils (%) (Auto) 43.6 % Lymphocytes (%) (Auto) 43.6 % Monocytes (%) (Auto) 8.9 % Eosinophils (%) (Auto) 3.0 % Basophils (%) (Auto) 0.9 % Neutrophils # (Auto) 1.9 TH/MM3 Lymphocytes # (Auto) 1.9 TH/MM3 Monocytes # (Auto) 0.4 TH/MM3 Eosinophils # (Auto) 0.1 TH/MM3 Basophils # (Auto) 0.0 TH/MM3 CBC Comment DIFF FINAL Differential Comment Imaging Last Impressions Chest X-Ray 03/25/17 1405 Signed Impressions: Service Date/Time: Thursday, March 25, 2017 14:38 - CONCLUSION: No acute cardiopulmonary process. Dudley Vazquez MD Objective Remarks GENERAL: This is a well-nourished, well-developed patient, in no apparent distress. CARDIOVASCULAR: Irregularly irregular RESPIRATORY: Clear to auscultation. Breath sounds equal bilaterally. GASTROINTESTINAL: Abdomen soft, non-tender, nondistended. No hepato-splenomegaly , or palpable masses. No guarding. MUSCULOSKELETAL: Extremities without clubbing, cyanosis, or edema. No joint tenderness, effusion, or edema noted. No calf tenderness. Negative Homans sign bilaterally. NEUROLOGICAL: Awake and alert. No focal deficits noted. Motor and sensory grossly within normal limits. Five out of 5 muscle strength in all muscle groups. Normal speech. Procedures none A/P Problem List: (1) Atrial flutter with rapid ventricular response ICD Codes: I48.92 - Unspecified atrial flutter Status: Acute Plan: Atrial flutter with rapid ventricular response This is a 36 year old female patient with a past medical history which includes Iron deficiency anemia, sleep apnea, asthma, nonobstructive coronary disease, diabetes mellitus type 2, hyperlipidemia, hypertension, mitral regurgitation and Obesity. Patient is S/P mitral valve repair with ring 03/03/[address] Sutton. Patient presented to her rn examiner office today with complaints of chest pain and palpitations. Outpatient EKG revealed A Flutter with RVR. Patient was then sent to the ER for further evaluation and treatment. - EKG in ER revealed: A Fib/Flutter rate 111 bpm - Patient given Cardizem 10 mg IV push and 30 mg PO in ER - will continue Cardizem 30 mg Q6H PO - and add Cardizem drip if needed - Continue amiodarone 200mg PO daily, in talking with PRESIDENT AND CEO for cardiothoracic surgery patient did not have postoperative A Fib. Patient was put on Amiodarone for two weeks prophylactically post-op. - Discussed with Dr. Liu agrees with stopping amiodarone - Will DC amiodarone - Cardizem transitioned to 120 mg PO daily - continuous telemetry monitoring - patient currently on aspirin and Coumadin, INR improving - Lovenox 100mg PO BID until INR equal or greater than 2.0. Per surgery patient needs to be anticoagulated for 6 weeks post-op - INR last week at cardiothoracic surgery - JAISON 01/09/2017 revealed EF 55-60% - case discussed with patient's outpatient rn examiner Dr. Marr (03/25) - patient back in A Flutter today will consult cardiology, seen by Dr. Aponte - cleared for DC if HR controlled - Unable to DC today due to continued Atrial flutter with RVR telemetry reveals HR up to 120-130 - additional 30 mg Cardizem ordered - case discussed with Cardiology Dr. Stanton who is currently covering recommends adding amiodarone 400 mg PO BID - 03/28 per cardiology rate hard to control due to low BP could do JAISON guided cardioversion but likely arrhythmia will come back since it is already documented that she has gone into atrial flutter, back into SR, then back into flutter. Doing ablation is probably best option but Dr. Oakes is out for the cardiology. Cardiology trying to see if they can get a hold of Dr. Oakes. - with minimal exertion patient HR increases with associated palpations unable to DC -Plan for Cardiac Ablation on Thursday03/31/[address] Oakes (2) Diastolic CHF due to valvular disease ICD Codes: I38 - Endocarditis, valve unspecified; I50.30 - Unspecified diastolic (congestive) heart failure Status: Chronic Plan: continue home medication regiment (3) Chronic anemia ICD Codes: D64.9 - Anemia, unspecified Status: Chronic Plan: stable when compared to previous hgb levels (4) S/P mitral valve repair ICD Codes: Z98.890 - Other specified postprocedural states Plan: Patient had mitral valve repair 03/[address] Sutton ER provider spoke with Dr. Sutton- consult placed, appreciate input [facility] signed [facility] Assessment and Plan Patient examined. Assessment and plan formulated with Francheska Michelle PA-C. I agree with the above. Pt had NO new complaints. telemetry: A.Flutter controlled rate, but accelerates with activity 130s Pt planned for EPS with ablation 03/[address] Oakes INR 1.8 (03/29) coumadin 7.5mg tonight repeat INR in AM Francheska Michelle Mar 29, 2017 10:07 Jesus Uribe DO Mar 29, 2017 10:45
[2017-03-29] MEDS: ENOXAPARIN SODIUM 100 MG/ML SYRINGE SQ SCH (13:02)
[2017-03-29 14:03] LABS: % SATURATION IRON PROFILE 11.3 % (20-50); IRON (FE) 36 MCG/DL (50-170); TOTAL IRON BINDING CAPACITY 319 MCG/DL (250-450)
--- NOTE | 2017-03-29 15:09 | PD.CARD.PN ---
Subjective Subjective Remarks c/o palps when she gets out of bed and moves around Objective Medications Current Medications Medications (Trade) Dose Ordered Sig/[place] Route Start Time Stop Time Status Last Admin (NS Flush) 2 ml UNSCH PRN IV FLUSH 03/25/17 16:15 (NS Flush) 2 ml BID IV FLUSH 03/25/17 21:00 03/29/17 09:59 (Tylenol) 650 mg Q4H PRN PO 03/25/17 16:15 (Zofran Inj) 4 mg Q6H PRN IVP 03/25/17 16:15 (Narcan Inj) 0.4 mg UNSCH PRN IV PUSH 03/25/17 16:15 (Milk Of Magnesia Liq) 30 ml Q12H PRN PO 03/25/17 16:15 Diltiazem HCl 125 mg/Sodium Chloride 125 ml @ 5 mls/hr TITRATE PRN IV 03/25/17 19:00 03/27/17 01:42 (Ecotrin Ec) 81 mg DAILY PO 03/26/17 09:00 03/29/17 09:59 (Colace) 100 mg BID PO 03/25/17 21:00 03/29/17 09:59 (Percocet 5-325 Mg) 1 tab Q6HR PRN PO 03/25/17 18:45 (Protonix) 40 mg DAILY PO 03/26/17 09:00 03/29/17 09:59 (Coumadin) 5 mg DAILY@1600 PO 03/26/17 16:00 03/28/17 15:58 (Pravachol) 40 mg HS PO 03/25/17 21:00 03/28/17 21:08 (Cordarone) 400 mg Q12HR PO 03/27/17 21:00 03/29/17 09:59 (Cardizem Cd) 120 mg DAILY PO 03/28/17 09:00 03/29/17 09:59 (Robitussin Dm 200-20 Mg/10 ml Liq) 10 ml Q6H PRN PO 03/28/17 21:00 03/28/17 21:21 (Coumadin) 2.5 mg DAILY@16 PO 03/29/17 16:00 (Lovenox Inj) 100 mg Q12H SQ 03/29/17 12:00 03/29/17 13:02 Vital Signs / I&O Vital Signs Date Time Temp Pulse Resp B/P (MAP) Pulse Ox O2 Delivery O2 Flow Rate FiO2 03/29/17 14:13 90 03/29/17 13:15 88 03/29/17 12:00 126 03/29/17 11:06 98.3 70 16 92/51 (65) 99 03/29/17 11:00 92 03/29/17 10:00 88 03/29/17 09:54 76 16 104/59 (74) 100 03/29/17 09:00 100 03/29/17 08:00 90 03/29/17 07:20 98.7 82 20 105/64 (78) 99 Manual Cuff/Auscultation 03/29/17 06:00 89 03/29/17 05:04 85 03/29/17 04:00 82 03/29/17 03:00 98.1 90 17 95/56 (69) 98 03/29/17 03:00 105 03/29/17 02:00 91 03/29/17 01:00 90 03/29/17 00:02 68 03/28/17 23:20 90 03/28/17 23:00 98.2 91 17 98/58 (71) 99 03/28/17 22:00 87 03/28/17 20:00 97 03/28/17 19:00 98.5 80 17 112/60 (77) 96 108/64 (79) 03/28/17 19:00 90 03/28/17 18:35 92 03/28/17 17:10 88 03/28/17 16:07 90 03/28/17 15:54 98.7 91 20 103/54 (70) 100 03/28/17 15:22 92 I/O 03/28/17 03/28/17 03/28/17 03/29/17 03/29/17 03/29/17 07:00 15:00 23:00 07:00 15:00 23:00 Intake Total 240 ml 480 ml 240 ml Output Total 700 ml 800 ml Balance -460 ml 480 ml -560 ml Intake Oral 240 ml 480 ml 240 ml Output Urine Total 700 ml 800 ml # Voids 3 # Bowel Movements 0 1 Physical Exam Alert No JVD Chest clear CV S1S2 irr irr no edema Tele atrial flutter/tachycardia EKG's: Office 03/25 12:47 atrial flutter with 2:1 conduction, Hospital 03/25 1500 shows SR with bursts of afib/flutter, 03/25 16:24 SR with PAC's, 03/25 20: 45 SR with PAC's, 03/26 AM on has been atrial flutter Laboratory Laboratory Tests Test 03/29/17 07:25 03/29/17 13:00 Prothrombin Time 18.7 SEC Prothromb Time International Ratio 1.8 RATIO Iron Level 36 MCG/DL Total Iron Binding Capacity 319 MCG/DL Percent Iron Saturation 11.3 % Assessment and Plan Problem List: (1) Atrial flutter with rapid ventricular response ICD Codes: I48.92 - Unspecified atrial flutter Status: Acute Plan: Recommend NPO after midnight tomorrow and consult Dr Almita Oakes for ablation Thursday (2) S/P mitral valve repair ICD Codes: Z98.890 - Other specified postprocedural states (3) Chronic anemia ICD Codes: D64.9 - Anemia, unspecified Status: Chronic Assessment and Plan Dr. Hernández available prn tomorrow Law Stanton MD Mar 29, 2017 15:09
[2017-03-29] MEDS: WARFARIN SOD 5 MG TAB PO SCH (16:29)
[2017-03-29] MEDS: WARFARIN SOD 2.5 MG TAB PO SCH (16:29)
--- NOTE | 2017-03-29 18:27 | EKG ---
Date Performed: 03/29/2017 Time Performed: 07:07:54 PTAGE: 36 years EKG: Atrial flutter with variable block Abnormal ECG PREVIOUS TRACING : 03/26/2017 07.56 Compared to prior tracing no significant change DOCTOR: Jamin Saleem Interpretating Date/Time 03/29/2017 18:25:24
[2017-03-29] MEDS: FERROUS SULFATE 325 MG (65 MG ELEMENTAL IRON) TAB PO SCH (18:28)
[2017-03-29] MEDS: PRAVASTATIN SOD 40 MG TAB PO SCH (20:00)
[2017-03-30] VITALS (29 sets, daily range): BP systolic 89–120; BP diastolic 54–77; PULSE 70–108; RESP 16–19; TEMP 97.5–98.4; O2SAT 98–100
[2017-03-30] MEDS: ENOXAPARIN SODIUM 100 MG/ML SYRINGE SQ SCH (00:06)
[2017-03-30 04:33] LABS: INTERNATIONAL NORMALIZED RATIO 2.2 RATIO; PROTHROMBIN TIME - PATIENT 22.1 SEC (9.8-11.6)
[2017-03-30 04:37] LABS: HEMATOCRIT 31.3 % (35.0-46.0); HEMOGLOBIN 9.8 GM/DL (11.6-15.3); MEAN CELL VOLUME 76.5 FL (80.0-100.0); MEAN CORPUSCULAR HEMOGLOBIN 23.9 PG (27.0-34.0); MEAN CORPUSCULAR HGB CONC 31.2 % (32.0-36.0); PLATELET COUNT 312 TH/MM3 (150-450); RED BLOOD COUNT 4.09 MIL/MM3 (4.00-5.30); WHITE BLOOD COUNT 4.3 TH/MM3 (4.0-11.0)
[2017-03-30 04:54] LABS: BICARBONATE 25.1 MEQ/L (21.0-32.0); CALCIUM 8.2 MG/DL (8.5-10.1); CREATININE 0.82 MG/DL (0.50-1.00)
[2017-03-30] MEDS: SODIUM CHLORIDE 0.9% FLUSH 10 ML FLUSH IV FLUSH SCH ×2 (09:00→20:22)
[2017-03-30] MEDS: DILTIAZEM-CD 120 MG CAP ER PO SCH (09:40)
[2017-03-30] MEDS: FERROUS SULFATE 325 MG (65 MG ELEMENTAL IRON) TAB PO SCH (09:40)
[2017-03-30] MEDS: DOCUSATE SODIUM 100 MG CAP PO SCH ×2 (09:40→20:21)
[2017-03-30] MEDS: AMIODARONE 200 MG TAB PO SCH ×2 (09:40→20:21)
[2017-03-30] MEDS: ASPIRIN EC 81 MG TABEC PO SCH (09:41)
[2017-03-30] MEDS: PANTOPRAZOLE SOD 40 MG DELAYED RELEASE TAB PO SCH (09:41)
[2017-03-30] MEDS ORDERED: IRON SUCROSE INJ 200 MG in SODIUM CHLORIDE 0.9% INJ 100 ML IV ONE (13:00)
--- NOTE | 2017-03-30 14:28 | HHI.PR ---
Subjective Remarks doing ok. no new complaints Objective Vitals heart reg lung cta abd s/nt ext no edema Vital Signs Date Time Temp Pulse Resp B/P (MAP) Pulse Ox O2 Delivery O2 Flow Rate FiO2 03/30/17 13:00 104 03/30/17 12:30 98.2 100 16 120/65 (83) 98 03/30/17 12:00 96 03/30/17 11:00 107 03/30/17 10:00 96 03/30/17 09:30 102/69 (80) 03/30/17 09:00 100 03/30/17 08:00 96 03/30/17 07:15 98.0 70 19 92/68 (76) 100 03/30/17 07:00 95 03/30/17 06:00 95 03/30/17 05:00 93 03/30/17 04:00 93 03/30/17 03:00 98.2 95 17 89/54 (66) 100 03/30/17 03:00 85 03/30/17 02:03 87 03/30/17 01:00 87 03/30/17 00:02 87 03/29/17 23:00 98.4 120 17 97/65 (76) 100 03/29/17 23:00 103 03/29/17 22:00 100 03/29/17 21:00 86 03/29/17 20:00 88 03/29/17 20:00 100 03/29/17 19:00 98.2 88 17 99/68 (78) 100 03/29/17 19:00 87 03/29/17 18:00 96 03/29/17 17:00 90 03/29/17 16:08 88 03/29/17 15:08 98.2 71 18 107/62 (77) 100 03/29/17 15:00 92 Result Diagram: 03/30/17 0404 03/30/17 0404 Imaging Last Impressions Chest X-Ray 03/25/17 1405 Signed Impressions: Service Date/Time: Saturday, March 25, 2017 14:38 - CONCLUSION: No acute cardiopulmonary process. Dudley Vazquez MD Procedures none A/P Problem List: (1) Atrial flutter with rapid ventricular response ICD Codes: I48.92 - Unspecified atrial flutter Status: Acute Plan: Atrial flutter with rapid ventricular response This is a 36 year old female patient with a past medical history which includes Iron deficiency anemia, sleep apnea, asthma, nonobstructive coronary disease, diabetes mellitus type 2, hyperlipidemia, hypertension, mitral regurgitation and Obesity. Patient is S/P mitral valve repair with ring 03/03/[address] Sutton. 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 Outpatient EKG revealed A Flutter with RVR. Patient was then sent to the ER for further evaluation and treatment. note her - JAISON 01/09/2017 revealed EF 55-60% Cardiothoracic surgery patient did not have postoperative A Fib. Patient was put on Amiodarone for two weeks prophylactically post-op. Per surgery patient needs to be anticoagulated for 6 weeks post-op - EKG in ER revealed: A Fib/Flutter rate 111 bpm - Pt unable to be controlled on low dose cardizem and amiodarone. low bp making it difficult to titrate up - coumadin bridged with lovenox. stop lovenox on 03/30 - Unable to DC due to continued Atrial flutter with RVR especially with any activity - 03/28 per cardiology rate hard to control due to low BP could do JAISON guided cardioversion but likely arrhythmia will come back since it is already documented that she has gone into atrial flutter, back into SR, then back into flutter. Doing ablation is probably best option but Dr. Oakes is out for the cardiology. -Plan for Cardiac Ablation on Thursday03/31/[address] Oakes (2) Diastolic CHF due to valvular disease ICD Codes: I38 - Endocarditis, valve unspecified; I50.30 - Unspecified diastolic (congestive) heart failure Status: Chronic Plan: continue home medication regiment (3) Chronic anemia ICD Codes: D64.9 - Anemia, unspecified Status: Chronic Plan: Pt gets outpt infusions with iv iron and requested we do this while admitted for her iron def anemia. followed by hem/onc (4) S/P mitral valve repair ICD Codes: Z98.890 - Other specified postprocedural states Plan: Patient had mitral valve repair 03/[address] Sutton ER provider spoke with Dr. Sutton- consult placed, appreciate input [facility] has signed off Dexter Tsai MD Mar 30, 2017 14:27
[2017-03-30] MEDS: WARFARIN SOD 5 MG TAB PO SCH (16:02)
[2017-03-30] MEDS: WARFARIN SOD 2.5 MG TAB PO SCH (16:03)
[2017-03-30] MEDS: PRAVASTATIN SOD 40 MG TAB PO SCH (20:22)
[2017-03-31] VITALS (27 sets, daily range): BP systolic 88–118; BP diastolic 53–68; PULSE 82–142; RESP 14–16; TEMP 98.3–98.7; O2SAT 99–100
[2017-03-31 05:04] LABS: INTERNATIONAL NORMALIZED RATIO 2.9 RATIO; PROTHROMBIN TIME - PATIENT 28.8 SEC (9.8-11.6)
--- NOTE | 2017-03-31 08:44 | HHI.PR ---
Subjective Remarks no complaints Objective Vitals heart reg lung cta abd s/nt ext no edema Vital Signs Date Time Temp Pulse Resp B/P (MAP) Pulse Ox O2 Delivery O2 Flow Rate FiO2 03/31/17 06:00 101 03/31/17 05:00 91 03/31/17 04:00 97 03/31/17 03:00 91 03/31/17 03:00 98.7 84 16 108/68 (81) 100 03/31/17 02:00 94 03/31/17 01:00 108 03/31/17 00:00 85 03/30/17 23:00 97.5 85 16 114/77 (89) 100 03/30/17 23:00 85 03/30/17 22:00 77 03/30/17 21:00 85 03/30/17 20:20 98.2 93 16 107/65 (79) 100 03/30/17 20:00 85 03/30/17 19:00 93 03/30/17 18:00 96 03/30/17 17:00 92 03/30/17 16:14 92 03/30/17 16:04 98.4 75 19 104/68 (80) 100 03/30/17 15:00 99 03/30/17 14:00 108 03/30/17 13:00 104 03/30/17 12:30 98.2 100 16 120/65 (83) 98 03/30/17 12:00 96 03/30/17 11:00 107 03/30/17 10:00 96 03/30/17 09:30 102/69 (80) 03/30/17 09:00 100 Result Diagram: 03/30/17 0404 03/30/17 0404 Imaging Last Impressions Chest X-Ray 03/25/17 1405 Signed Impressions: Service Date/Time: Saturday, March 25, 2017 14:38 - CONCLUSION: No acute cardiopulmonary process. Dudley Vazquez MD Procedures none A/P Problem List: (1) Atrial flutter with rapid ventricular response ICD Codes: I48.92 - Unspecified atrial flutter Status: Acute Plan: Atrial flutter with rapid ventricular response This is a 36 year old female patient with a past medical history which includes Iron deficiency anemia, sleep apnea, asthma, nonobstructive coronary disease, diabetes mellitus type 2, hyperlipidemia, hypertension, mitral regurgitation and Obesity. Patient is S/P mitral valve repair with ring 03/03/[address] Sutton. 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 Outpatient EKG revealed A Flutter with RVR. Patient was then sent to the ER for further evaluation and treatment. note her - JAISON 01/09/2017 revealed EF 55-60% Cardiothoracic surgery patient did not have postoperative A Fib. Patient was put on Amiodarone for two weeks prophylactically post-op. Per surgery patient needs to be anticoagulated for 6 weeks post-op - EKG in ER revealed: A Fib/Flutter rate 111 bpm - Pt unable to be controlled on low dose cardizem and amiodarone. low bp making it difficult to titrate up - coumadin bridged with lovenox. stop lovenox on 03/30 - Unable to DC due to continued Atrial flutter with RVR especially with any activity - 03/28 per cardiology rate hard to control due to low BP could do JAISON guided cardioversion but likely arrhythmia will come back since it is already documented that she has gone into atrial flutter, back into SR, then back into flutter. Doing ablation is probably best option but Dr. Oakes is out for the cardiology. Awaiting Dr Oakes decision today for ablation. (2) Diastolic CHF due to valvular disease ICD Codes: I38 - Endocarditis, valve unspecified; I50.30 - Unspecified diastolic (congestive) heart failure Status: Chronic Plan: continue home medication regiment (3) Chronic anemia ICD Codes: D64.9 - Anemia, unspecified Status: Chronic Plan: Pt gets outpt infusions with iv iron and requested we do this while admitted for her iron def anemia. followed by hem/onc (4) S/P mitral valve repair ICD Codes: Z98.890 - Other specified postprocedural states Plan: Patient had mitral valve repair 03/[address] Sutton ER provider spoke with Dr. Sutton- consult placed, appreciate input [facility] signed off Dexter Tsai MD Mar 31, 2017 08:44
[2017-03-31] MEDS ORDERED: IRON SUCROSE INJ 200 MG in SODIUM CHLORIDE 0.9% INJ 100 ML IV ONE (09:00)
[2017-03-31] MEDS: FERROUS SULFATE 325 MG (65 MG ELEMENTAL IRON) TAB PO SCH (10:20)
[2017-03-31] MEDS: DOCUSATE SODIUM 100 MG CAP PO SCH ×2 (10:20→20:26)
[2017-03-31] MEDS: PANTOPRAZOLE SOD 40 MG DELAYED RELEASE TAB PO SCH (10:20)
[2017-03-31] MEDS: AMIODARONE 200 MG TAB PO SCH ×2 (10:20→20:25)
[2017-03-31] MEDS: DILTIAZEM-CD 120 MG CAP ER PO SCH (10:20)
[2017-03-31] MEDS: ASPIRIN EC 81 MG TABEC PO SCH (10:21)
[2017-03-31] MEDS: SODIUM CHLORIDE 0.9% FLUSH 10 ML FLUSH IV FLUSH SCH ×2 (10:21→20:26)
[2017-03-31] MEDS: guaiFENesin/DEXTROMETHORPHAN 200 MG/20 MG/10 ML CUP PO PRN (13:08)
[2017-03-31] MEDS ORDERED: DILTIAZEM HCL 30 MG TAB PO PRN (14:15)
[2017-03-31] MEDS: PRAVASTATIN SOD 40 MG TAB PO SCH (20:25)
[2017-04-01] VITALS (21 sets, daily range): BP systolic 90–112; BP diastolic 62–76; PULSE 82–99; RESP 16; TEMP 97.7–98.3; O2SAT 98–100
[2017-04-01 04:53] LABS: INTERNATIONAL NORMALIZED RATIO 2.8 RATIO; PROTHROMBIN TIME - PATIENT 28.1 SEC (9.8-11.6)
[2017-04-01] MEDS: PANTOPRAZOLE SOD 40 MG DELAYED RELEASE TAB PO SCH (08:14)
[2017-04-01] MEDS: AMIODARONE 200 MG TAB PO SCH (08:14)
[2017-04-01] MEDS: DILTIAZEM-CD 120 MG CAP ER PO SCH (08:14)
[2017-04-01] MEDS: ASPIRIN EC 81 MG TABEC PO SCH (08:14)
[2017-04-01] MEDS: DOCUSATE SODIUM 100 MG CAP PO SCH ×2 (08:14→21:12)
[2017-04-01] MEDS: FERROUS SULFATE 325 MG (65 MG ELEMENTAL IRON) TAB PO SCH (08:14)
[2017-04-01] MEDS: SODIUM CHLORIDE 0.9% FLUSH 10 ML FLUSH IV FLUSH SCH ×2 (08:15→21:00)
--- NOTE | 2017-04-01 08:22 | HHI.PR ---
Subjective Remarks no new events overnight pt with hr 120-130s with minimal exertion yesterday. Objective Vitals heart irreg lung cta abd s/nt ext no edema Vital Signs Date Time Temp Pulse Resp B/P (MAP) Pulse Ox O2 Delivery O2 Flow Rate FiO2 04/01/17 06:00 83 04/01/17 05:00 88 04/01/17 04:00 95 04/01/17 03:00 98.2 85 16 101/65 (77) 100 04/01/17 03:00 89 04/01/17 02:00 91 04/01/17 01:00 82 04/01/17 00:00 84 03/31/17 23:00 98.3 85 16 105/64 (78) 99 03/31/17 23:00 89 03/31/17 22:00 99 03/31/17 21:00 101 03/31/17 20:00 98 03/31/17 19:30 98.4 105 16 111/68 (82) 99 03/31/17 19:00 88 03/31/17 18:00 94 03/31/17 17:00 83 03/31/17 16:00 100 03/31/17 15:00 92 03/31/17 15:00 82 16 96/53 (67) 99 03/31/17 14:00 102 03/31/17 13:00 136 03/31/17 12:00 108 03/31/17 11:00 94 16 118/65 (82) 100 03/31/17 11:00 103 03/31/17 10:00 92 03/31/17 09:00 142 Result Diagram: 03/30/17 0404 03/30/17 0404 Imaging Last Impressions Chest X-Ray 03/25/17 1405 Signed Impressions: Service Date/Time: Saturday, March 25, 2017 14:38 - CONCLUSION: No acute cardiopulmonary process. Dudley Vazquez MD Procedures none A/P Problem List: (1) Atrial flutter with rapid ventricular response ICD Codes: I48.92 - Unspecified atrial flutter Status: Acute Plan: Atrial flutter with rapid ventricular response This is a 36 year old female patient with a past medical history which includes Iron deficiency anemia, sleep apnea, asthma, nonobstructive coronary disease, diabetes mellitus type 2, hyperlipidemia, hypertension, mitral regurgitation and Obesity. Patient is S/P mitral valve repair with ring 03/03/[address] Sutton. 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 Outpatient EKG revealed A Flutter with RVR. Patient was then sent to the ER for further evaluation and treatment. note her - JAISON 01/09/2017 revealed EF 55-60% Cardiothoracic surgery patient did not have postoperative A Fib. Patient was put on Amiodarone for two weeks prophylactically post-op. Per surgery patient needs to be anticoagulated for 6 weeks post-op - EKG in ER revealed: A Fib/Flutter with rvr - Pt unable to be controlled on low dose cardizem and amiodarone. low bp making it difficult to titrate up - coumadin bridged with lovenox. stop lovenox on 03/30 - Unable to DC due to continued Atrial flutter with RVR especially with any activity - 03/28 per cardiology rate hard to control due to low BP could do JAISON guided cardioversion but likely arrhythmia will come back since it is already documented that she has gone into atrial flutter, back into SR, then back into flutter. I'm told Dr Oakes will see pt this AM and prepare for ablation (2) Diastolic CHF due to valvular disease ICD Codes: I38 - Endocarditis, valve unspecified; I50.30 - Unspecified diastolic (congestive) heart failure Status: Chronic Plan: continue home medication regiment (3) Chronic anemia ICD Codes: D64.9 - Anemia, unspecified Status: Chronic Plan: Pt gets outpt infusions with iv iron and requested we do this while admitted for her iron def anemia. followed by hem/onc (4) S/P mitral valve repair ICD Codes: Z98.890 - Other specified postprocedural states Plan: Patient had mitral valve repair 03/[address] Sutton ER provider spoke with Dr. Sutton- consult placed, appreciate input [facility] signed [facility] Dexter Tsai MD Apr 01, 2017 08:22
[2017-04-01] MEDS ORDERED: PROPOFOL 200 MG/20 ML AMP IV ONE (12:00)
[2017-04-01] MEDS ORDERED: PHENYLEPH/NS 1000 MCG/10 ML SYR IV ONE (12:00)
[2017-04-01] MEDS ORDERED: ISOPROTERENOL HCL 1 MG/5 ML AMP ONE (19:16)
[2017-04-01] MEDS ORDERED: SODIUM CHLOR 0.9% 250 ML INJ 250 ML ONE (19:17)
[2017-04-01] MEDS ORDERED: MIDAZOLAM HCL 2 MG/2 ML VIAL ONE (19:17)
[2017-04-01] MEDS ORDERED: HEPARIN-NS/PF INJ 1,000 ML ONE (19:20)
[2017-04-01] MEDS ORDERED: LIDOCAINE HCL 1% 50 ML VIAL INFIL PRN (20:30)
[2017-04-01] MEDS ORDERED: ONDANSETRON HCL 4 MG/2 ML VIAL IV PUSH PRN (20:30)
[2017-04-01] MEDS ORDERED: ATROPINE SULFATE 1 MG/ML VIAL IV PUSH PRN (20:30)
[2017-04-01] MEDS ORDERED: SODIUM CHLOR 0.9% 250 ML INJ 250 ML IV PRN (20:30)
[2017-04-01] MEDS ORDERED: oxyCODONE/ACETAMINOPHEN 5 MG/325 MG TAB PO PRN ×2 (20:30)
[2017-04-01] MEDS ORDERED: BACITRACIN OINT 0.9 GM PKT TOP ONE (20:30)
[2017-04-01] MEDS ORDERED: LORazepam 2 MG/ML VIAL IV PUSH PRN (20:30)
--- NOTE | 2017-04-01 20:45 | CATHPROC ---
[facility] [facility] HIS Report Study Information Study Number Admission Scheduled Start Study Start [id number] Mar 25 2017 4:37PM 04/01/2017 Apr 01 2017 7:05PM [place] [facility] Electrophysiology Study Admit Source Facility Department Other [facility] - Box Printer Physician and Clinical Staff Initial Dania Boogie Manager Sign Scar Quijano,RT(R) Manager Sign Suzette Stewart,URIEL Other Anesthesia, CONTENT PRODUCER Recorder More Garcia,ARUN Scrub Josy Boyd,RT(R) TECH2 Procedures Performed Procedure Location (Site) Vessel Name Ablation Procedure RF Ablation Isthmus Other Equipment Time Fitter And Turner Description Size Mfg Part Number Used/Scraped BIOSENSE ANGEL CATHETER, CELSIUS DS, 8MM, F [id number] 19:31 FR 7 Used INC. TYPE QUAD *[id number] 19:07 [employer] IND[employer]ES PACK, CCL CUSTOM * Used *[id number] 19:07 [employer] PACER BACON, LIMB * 2530 *[id number] Used [id number] 19:07 Access Intelligence BLANKET,WARM AIR CCL * Used *[id number] 19:29 [employer] MEDICAL CATHETER, JSN, QUAD FR 5 Used *[id number] 19:29 [employer] MEDICAL CATHETER, JSN, QUAD FR 5 Used *[id number] 19:30 [employer] MEDICAL CATHETER, JSN, QUAD FR 5 Used *[id number] 19:30 [employer] MEDICAL CATHETER, JSN, QUAD FR 5 Used *[id number] 19:07 [employer] MEDICAL ELECTRODE KIT, KWESI X SURFACE * Used *[id number] 904304 19:29 [employer] MED[employer] SHEATH, EPS, FR5 FAST CATH FR 5 Used *[id number] 369109 19:29 [employer] MEDICAL SHEATH, EPS, FR5 FAST CATH FR 5 Used *[id number] 19:29 [employer] MEDICAL SHEATH, EPS, FR5 FAST CATH FR 5 Used *[id number] 154590 19:29 [employer] MEDICAL SHEATH, EPS, FR6 FAST CATH FR 6 Used *[id number] 19:44 [employer] MEDICAL SHEATH, EPS, FR6 FAST CATH FR 6 Used *[id number] 19:29 [employer] MEDICAL SHEATH, EPS, FR8 FAST CATH FR 8 Used *[id number] 150859 20:02 [employer] MEDICAL SHEATH, EPS, FR8 SRO 60CM FR 8 Used *[id number] [facility] PAD, ELECTROSURGICAL 19:07 * [id number] *[id number] Used SURGICAL GROUNDING (BLUE) History: Allergies Allergy Reaction lisinopril LIP AND AFCE SWELLING Penicillin Hives penicillin G Hives History: Risk Factors Hypertension Dyslipidemia Yes Yes Chronic Lung Diabetes Disease Labs Hgb (g/dl) Hct (%) RBC (MIL/MM3) WBC (l/cumm) Platelets (thousands) 11.60-17.00 35.00-51.00 4.00-5.90 4.00-11.00 150.00-450.00 9.8 31 4 4.3 312 Glucose (mg/dl) BUN (mg/dl) Creatinine (mg/dl) BUN:Creatinine (1:x) 74.00-106.00 7.00-18.00 0.50-1.30 10.00-20.00 102 12 0.8 15 Na (meq/l) K (meq/l) 136.00-145.00 3.50-5.10 141 3.9 INR (PTT:PT) 0.90-1.10 2.8 Medication Medication Total Dose (Bolus/Oral) Medication Total Dosage/Unit 1% XYLOCAINE 40 mL Medications (Bolus/Oral) Medication Time Given Dosage/Unit Administered By Reason 1% XYLOCAINE 04/01/2017 7:38:24 PM 20 mL Dania Oakes 20 mL 1% XYLOCAINE given in lab by Dania Oakes in Left Groin via Subcutaneous. 1% XYLOCAINE 04/01/2017 7:41:00 PM 20 mL Dania Oakes 20 mL 1% XYLOCAINE given in lab by Dania Oakes in Right Groin via Subcutaneous. Medication (Drip) Medication Time Given Dosage/Unit Concentration/Unit Diluent (ml) Solution ISUPREL 04/01/2017 8:08:01 PM 5 mcg/min 1 mg 250 NaCl .9 5 mcg/min ISUPREL given in lab by Dania Oakes via Peripheral IV. Pump/Drip Flow = 75 ml/hr using Na Cl .9 with a concentration of 1 mg in 250 ml. Initial Case Assessment Cardiovascular HR Rhythm NIBP Chest Pain 112 aflt 111/91 0 Edema Present Skin color Skin None Normal Warm Dry Circulatory - Right Pulses Dorsalis Pedis 2 Scale (0,1,2,3,4,d) Circulatory - Left Pulses Dorsalis Pedis 2 Scale (0,1,2,3,4,d) Circulatory - Lower Extremities Color Lower Right Color Lower Left Normal Normal Neurological State Oriented to time-place- Alert Moves all extremities person Respiration - General Respiration Rate SpO2 (%) (B/min) 20 100 Final Case Assessment Cardiovascular HR Rhythm NIBP Chest Pain 95 sr 110/60 0 Edema Present Skin color Skin None Normal Warm Dry Circulatory - Right Pulses Dorsalis Pedis 2 Scale (0,1,2,3,4,d) Circulatory - Left Pulses Dorsalis Pedis 2 Scale (0,1,2,3,4,d) Circulatory - Lower Extremities Color Lower Right Color Lower Left Normal Normal Neurological State Oriented to time-place- Lethargic Moves all extremities person Respiration - General Respiration Rate SpO2 (%) (B/min) 16 95 Chronological Log Time Study Chronological Log 19:05:15 Patient arrived via Bed. 19:05:16 Patient Name, D.O.B, / Armband Verified By R.N. 19:05:17 Consent signed by the physician and the patient and verified by the Box Printer staff. 19:05:18 Pre-op and post- op instructions given; patient acknowledges understanding of instructions. 19:05:19 Verbal Stimulation=2 Physical Stimulation=2 Airway=2 Respiration=2 TOTAL=8. (0=absent, 1=li mited, 2=present) 19:07:34 Patient has been NPO for More than 6Hrs. 19:07:34 Skin Breakdown-post CT drsg under right breast 19:07:40 Patient Warmer Placed on the Table. 19:07:41 Disposable Defibrillator Pads Placed On Patient. 19:07:43 Geraldine Prominences Protected 19:07:49 A # 20 IV was noted in the Hand (left). Grade = 0 0.9ns kvo 19:08:21 A # 20 IV was noted in the Forearm (right). Grade = 0 0.9ns kvo 19:08:44 History and physical on the chart or being dictated. 19:08:46 Table restraints applied according to hospital policy Assessment: Initial Case, PO=885 BPM, Rhythm=aflt, IXPN=239/91 mmhg, Chest Pain=0, Edema=None, Color=Normal, Skin = Warm, Dry Right Pulses: Jose Maria Ped=2 Left Pulses: Jose Maria Ped=2 19:16:18 Lower Right Extremities: Color=Normal Lower Left Extremities: Color=Normal Neurological: State=Alert, Ox3, ZAMBRANO Respiration: Resp=20 B/min, UwH4=314 % 19:22:58 Bilateral groins prepped with 2% chlorhexidine, and draped after a 3 minute waiting time. 19:30:11 MD paged 19:37:11 MD arrived. Time Out. Correct patient, procedure, procedure equipment, site and side verified with physicia n present. Time 19:38:00 concurred by MD, individual staff and CONTENT PRODUCER. Time Out #2 - Consents verified, patient in correct position, all results are labled and displa yed, safety precautions 19:38:09 taken, antibiotics administered. Time out concurred by MD, individual staff and CONTENT PRODUCER in procedu re 19:38:23 Case Start 19:38:24 20 mL 1% XYLOCAINE given in lab by Dania Oakes in Left Groin via Subcutaneous. 19:38:38 Vascular access was obtained in the Fem Vein (left). 19:38:44 Vascular access was obtained in the Fem Vein (left). 19:39:20 Vascular access was obtained in the Fem Vein (left). 19:40:24 A SHEATH, EPS, FR5 FAST CATH FR 5 was advanced into the Fem Vein (left) using the Modified Seldinger technique. 19:40:31 A SHEATH, EPS, FR5 FAST CATH FR 5 was advanced into the Fem Vein (left) using the Modified Seldinger technique. 19:40:35 A SHEATH, EPS, FR5 FAST CATH FR 5 was advanced into the Fem Vein (left) using the Modified Seldinger technique. 19:41:00 20 mL 1% XYLOCAINE given in lab by Dania Oakes in Right Groin via Subcutaneous. 19:41:44 Vascular access was obtained in the Fem Vein (right). 19:41:51 Vascular access was obtained in the Fem Vein (right). 19:41:57 A SHEATH, EPS, FR6 FAST CATH FR 6 was advanced into the Fem Vein (right) using the Modified Seldinger technique. A SHEATH, EPS, FR6 FAST CATH FR 6 was advanced into the Fem Vein (right) using the Modified Makenna niraj technique. 19:42:07 1st sheath kinked 19:44:37 A SHEATH, EPS, FR8 FAST CATH FR 8 was advanced into the Fem Vein (right) using the Modified Seldinger technique. A CATHETER, JSN, QUAD FR 5 was advanced vis Fem Vein (left) and placed in the CS. Placement was visually 19:45:42 confirmed under fluoroscopy. A CATHETER, JSN, QUAD FR 5 was advanced vis Fem Vein (left) and placed in the HIS. Placement wa s visually 19:46:43 confirmed under fluoroscopy. A CATHETER, JSN, QUAD FR 5 was advanced vis Fem Vein (left) and placed in the HRA. Placement wa s visually 19:47:16 confirmed under fluoroscopy. A CATHETER, JSN, QUAD FR 5 was advanced vis Fem Vein (right) and placed in the RVA. Placement w as visually 19:47:23 confirmed under fluoroscopy. A CATHETER, CELSIUS DS, 8MM, F TYPE QUAD FR 7 was advanced vis Fem Vein (right) and placed in t he Isthmus. 19:50:39 Placement was visually confirmed under fluoroscopy. 19:50:53 RF Ablation of the Isthmus with a CATHETER, CELSIUS DS, 8MM, F TYPE QUAD FR 7. 19:55:00 EPS in progress 19:57:25 RF Ablation of the Isthmus with a CATHETER, CELSIUS DS, 8MM, F TYPE QUAD FR 7 continues. A SHEATH, EPS, FR8 SRO 60CM FR 8 was exchanged in the Fem Vein (right) for the 8fr sheath. This was necessary in 20:01:47 order for catheter support. 20:02:00 RF Ablation of the Isthmus with a CATHETER, CELSIUS DS, 8MM, F TYPE QUAD FR 7 continues. 5 mcg/min ISUPREL given in lab by Dania Oakes via Peripheral IV. Pump/Drip Flow = 75 ml/hr us ing NaCl .9 with a 20:08:01 concentration of 1 mg in 250 ml. 20:19:14 Isuprel off 20:19:41 Catheter(s) removed without difficulty 20:20:53 [facility]PCU called. Spoke to Tisha 20:21:04 Bedside Report will be given. A SHEATH, EPS, FR8 FAST CATH FR 8 was exchanged in the Fem Vein (right). This was necessary in order to achieve 20:22:22 vascular hemostasis. 20:23:43 Sheaths removed; pressure applied to right access sites by HH. 20:25:18 Sheaths removed; pressure applied to access left groin sites by MM. 20:35:31 Case End 20:41:39 Sterile dressing applied to left groin site. Site wnl. Assessment: Final Case, HR=95 BPM, Rhythm=sr, QWXL=974/60 mmhg, Chest Pain=0, Edema=None, [place] r=Normal, Skin = Warm, Dry Right Pulses: Jose Maria Ped=2 Left Pulses: Josem Aria Ped=2 20:42:08 Lower Right Extremities: Color=Normal Lower Left Extremities: Color=Normal Neurological: State=Lethargic, Ox3, ZAMBRANO Respiration: Resp=16 B/min, SpO2=95 % 20:45:22 Ablation procedure performed: Aflutter. 20:45:28 EP Procedure was performed. 20:45:53 Sterile dressing applied to right groin site. Site wnl. 20:55:43 Patient moved to [facility] End Study - Contrast Media Used In Study Contrast Total Opened (mL) Total Used (mL) Total Wasted (mL) Unspecified 0 0 0 End Study - Maximum Contrast Load Max Contrast Load (mL) 670.7 End Study - Radiation Exposure Fluoro Time (minutes) 2.9 End Study - Patient Disposition Complications Transferred To Interventional Outcome No Telemetry Bed successful
[2017-04-01] MEDS: PRAVASTATIN SOD 40 MG TAB PO SCH (21:12)
--- NOTE | 2017-04-01 23:45 | MB ---
cc: CHIQUIS TURCIOS M.D. DATE OF CONSULTATION: 04/01/2017 REASON FOR CONSULTATION: Atrial flutter unable to control with medication. HISTORY OF PRESENT ILLNESS: Ms. Malik is a 36-year-old -[place] female with history of anemia, diabetes mellitus, hyperlipidemia, high blood pressure, status post mitral valve repair that was in February by Dr. Randolph, admitted due to atrial flutter with biventricular response. Heart rate unable to control with medication. I was consulted for evaluation and management. The chart was reviewed. The patient was evaluated. ALLERGIES Lisinopril Penicillin SOCIAL HISTORY Negative for smoking and drinking. FAMILY HISTORY Noncontributory to her current medical condition. MEDICATIONS 1. Ferrous sulfate. 2. Cardizem CD 120 mg a day. 3. Amiodarone 200 mg a day. 4. Aspirin. REVIEW OF SYSTEMS The patient refers no chest pain, no chest discomfort, some shortness of breath and palpitations. No fever. PHYSICAL EXAMINATION: Alert, fully oriented. VITAL SIGNS: Blood pressure on evaluation this morning, 103/64, pulse around 110, respiratory rate 18. LUNGS: Ventilated. CARDIOVASCULAR: Sinus tachycardia, regular. ABDOMEN: Soft, obese. No masses. EXTREMITIES: No edema. Electrocardiogram showed atrial flutter. LABORATORY DATA Hemoglobin 9.8, white blood cell 4.3, creatinine is 0.82, potassium 3.9. INR 2.8. ASSESSMENT AND RECOMMENDATIONS Ms. Malik apparently has atrial flutter, unable to control, despite being on amiodarone and Cardizem. I discussed the case extensively over the phone with Dr. Stanton, as well as Dr. Miller, as well as with the patient this morning. The best approach is atrial flutter ablation. The risks, the nature and the benefit of the procedure are clearly stated to her. Risks include pneumothorax, cardiac perforation, stroke and even . She understood and agreed to proceed. I will keep her on anticoagulation. I will schedule the procedure for this afternoon. Chiquis Turcios MD /NELLY /7:57 PM /11:19 PM
[2017-04-02] VITALS (13 sets, daily range): BP systolic 95–108; BP diastolic 64–69; PULSE 82–92; RESP 16–20; TEMP 98.2–98.4; O2SAT 99–100
[2017-04-02 07:13] LABS: INTERNATIONAL NORMALIZED RATIO 1.9 RATIO; PROTHROMBIN TIME - PATIENT 19.3 SEC (9.8-11.6)
[2017-04-02] MEDS ORDERED: COUM7.5T PO (07:40)
[2017-04-02] MEDS ORDERED: COUM5TAB PO (07:40)
[2017-04-02] MEDS: ASPIRIN EC 81 MG TABEC PO SCH (08:37)
[2017-04-02] MEDS: PANTOPRAZOLE SOD 40 MG DELAYED RELEASE TAB PO SCH (08:37)
[2017-04-02] MEDS: DOCUSATE SODIUM 100 MG CAP PO SCH (08:38)
[2017-04-02] MEDS: FERROUS SULFATE 325 MG (65 MG ELEMENTAL IRON) TAB PO SCH (08:38)
[2017-04-02] MEDS: SODIUM CHLORIDE 0.9% FLUSH 10 ML FLUSH IV FLUSH SCH (08:38)
[2017-04-02] MEDS: guaiFENesin/DEXTROMETHORPHAN 200 MG/20 MG/10 ML CUP PO PRN (08:38)
[2017-04-02] MEDS: DILTIAZEM-CD 120 MG CAP ER PO SCH (08:38)
--- NOTE | 2017-04-02 08:41 | HHI.DS ---
Discharge Summary Admission Date Mar 25, 2017 at 16:37 Discharge Date: Apr 02, 2017 Admitting Diagnosis (1) Atrial flutter with rapid ventricular response Diagnosis: Principal ICD Codes: I48.92 - Unspecified atrial flutter Status: Acute (2) Diastolic CHF due to valvular disease Diagnosis: Secondary ICD Codes: I38 - Endocarditis, valve unspecified; I50.30 - Unspecified diastolic (congestive) heart failure Status: Chronic (3) Chronic anemia Diagnosis: Secondary ICD Codes: D64.9 - Anemia, unspecified Status: Chronic (4) S/P mitral valve repair ICD Codes: Z98.890 - Other specified postprocedural states Procedures none Brief History This is a 36 year old female patient with a past medical history which includes Iron deficiency anemia, sleep apnea, asthma, nonobstructive coronary disease, diabetes mellitus type 2, hyperlipidemia, hypertension, mitral regurgitation and Obesity. Patient is S/P mitral valve repair with ring 03/03/[address] Sutton. 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 Outpatient EKG revealed A Flutter with RVR. Patient was then sent to the ER for further evaluation and treatment. Patient reports feeling better at this time. She is no longer having palpitations. Patient endorses continued shortness of breath with nonproductive cough. Denies chest pain, fevers chills, nausea or vomiting. CBC/BMP: 03/30/17 0404 03/30/17 0404 Significant Findings Laboratory Tests Test 03/31/17 04:16 04/01/17 04:31 04/02/17 06:25 Prothrombin Time 28.8 SEC (9.8-11.6) 28.1 SEC (9.8-11.6) 19.3 SEC (9.8-11.6) Activated Partial Thromboplast Time 33.8 SEC (24.3-30.1) Hospital Course (1) Atrial flutter with rapid ventricular response This is a 36 year old female patient with a past medical history which includes Iron deficiency anemia, sleep apnea, asthma, nonobstructive coronary disease, diabetes mellitus type 2, hyperlipidemia, hypertension, mitral regurgitation and Obesity. Patient is S/P mitral valve repair with ring 03/03/[address] Sutton. 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 Outpatient EKG revealed A Flutter with RVR. Patient was then sent to the ER for further evaluation and treatment. note her - JAISON 01/09/2017 revealed EF 55-60% Cardiothoracic surgery patient did not have postoperative A Fib. Patient was put on Amiodarone for two weeks prophylactically post-op. Per surgery patient needs to be anticoagulated for 6 weeks post-op - EKG in ER revealed: A Fib/Flutter with rvr - Pt unable to be controlled on low dose cardizem and amiodarone. low bp making it difficult to titrate up - coumadin bridged with lovenox. stop lovenox on 03/30 - Unable to DC due to continued Atrial flutter with RVR especially with any activity - 03/28 per cardiology rate hard to control due to low BP could do JAISON guided cardioversion but likely arrhythmia will come back since it is already documented that she has gone into atrial flutter, back into SR, then back into flutter. DR Turcios performed an ablation on 04/01 and on 04/02 pt is in sinus rhythm evening with ambulation. she feels well. I spoke to pcp and her office will f/u on next inr 1/2 and manage it from there. CALLED BY DR TURCIOS..HE WANTS STOP COUMADIN. START ELIQUIS OR XARELTO APR 06Thursday. ORDERS WRITTEN. (2) Diastolic CHF due to valvular disease ICD Codes: I38 - Endocarditis, valve unspecified; I50.30 - Unspecified diastolic (congestive) heart failure Status: Chronic Plan: continue home medication regiment (3) Chronic anemia ICD Codes: D64.9 - Anemia, unspecified Status: Chronic Plan: Pt gets outpt infusions with iv iron and requested we do this while admitted for her iron def anemia. followed by hem/onc (4) S/P mitral valve repair ICD Codes: Z98.890 - Other specified postprocedural states Plan: Patient had mitral valve repair 03/[address] Sutton ER provider spoke with Dr. Sutton- consult placed, appreciate input [facility] has signed off Dexter Tsai MD Apr 01, 2017 08:22 Pt Condition on Discharge: Stable Discharge Disposition: Disch w/ Home Health Serv Discharge Instructions DIET: Follow Instructions for: Coumadin (Warfarin) Diet Activities you can perform: Regular-No Restrictions Other Activity Instructions: Per surgery Follow up Referrals: Cardiology - 1 Week with Dilshad Marr MD PCP Follow-up - [address] Webster New Orders: PT/INR - 04/07/17 New Medications: Apixaban (Eliquis) 5 Mg Tab 5 MG PO BID for Blood Clot Prevention, #60 TAB 0 Refills start first dose 04/06/17 Diltiazem CD 24 HR (Diltiazem CD 24 HR) 120 Mg Caper 120 MG PO DAILY for heart rate, #30 CAP 0 Refills Continued Medications: Aspirin DR (Aspirin EC) 81 Mg Tabdr 81 MG PO DAILY for Blood Clot Prevention, #30 TAB 0 Refills Docusate Sodium (Dok) 100 Mg Cap 100 MG PO BID for Constipation, #60 CAP 0 Refills Ergocalciferol (Ergocalciferol) 50,000 Unit Cap 61391 UNITS PO TWICE WEEKLY for Nutritional Supplement, CAP 0 Refills Oxycodone HCl/Acetaminophen (Oxycodone-Acetaminophen 5-325) 5 Mg-325 Mg Tablet 1 TAB PO Q6HR PRN for PAIN SCALE 1 TO 5, #40 TAB 0 Refills Pantoprazole (Protonix) 40 Mg Tab 40 MG PO DAILY for Reflux, TAB 0 Refills Simvastatin (Simvastatin) 5 Mg Tab 20 MG PO HS for Cholesterol Management, #30 TAB 0 Refills [Bariatric Iron] () 25 MG PO DAILY [Bariatric Vitamin] () 1 TAB PO BID Discontinued Medications: Amiodarone (Amiodarone) 200 Mg Tab 200 MG PO BID for heart rhythm, #28 TAB 0 Refills Dexter Tsai MD Apr 02, 2017 08:41
[2017-04-02] MEDS ORDERED: APIX5TAB PO (13:04)
--- NOTE | 2017-04-02 15:40 | HHI.PR ---
Subjective Remarks Feeling better Objective Vital Signs Date Time Temp Pulse Resp B/P (MAP) Pulse Ox O2 Delivery O2 Flow Rate FiO2 04/02/17 12:08 92 04/02/17 11:04 87 04/02/17 11:04 98.2 89 16 106/64 (78) 99 04/02/17 10:22 86 04/02/17 09:34 87 04/02/17 08:30 98.2 88 16 95/69 (78) 100 04/02/17 08:30 82 04/02/17 06:00 84 04/02/17 05:00 85 04/02/17 04:00 85 04/02/17 03:02 98.4 90 20 108/69 (82) 100 04/02/17 03:00 88 04/02/17 02:00 84 04/02/17 01:00 84 04/02/17 00:00 86 04/01/17 23:00 98.1 84 16 98/62 (74) 98 04/01/17 23:00 84 04/01/17 22:00 86 04/01/17 21:00 83 04/01/17 18:00 99 04/01/17 17:05 88 04/01/17 16:05 97 I/O 04/01/17 04/01/17 04/01/17 04/02/17 04/02/17 04/02/17 07:00 15:00 23:00 07:00 15:00 23:00 Intake Total 480 ml 240 ml 240 ml Output Total 500 ml 450 ml 100 ml Balance -20 ml -210 ml 140 ml Intake Oral 480 ml 240 ml 240 ml Output Urine Total 500 ml 450 ml 100 ml # Voids 1 # Bowel Movements 0 0 Result Diagram: 03/30/17 0404 03/30/17 0404 Imaging Alert, fully oriented Lungs: ventilated Heart: S12, S2 regular, no gallop Abdomen: soft, no mass, obese Ext: no edema Last Impressions Chest X-Ray 03/25/17 1614 Signed Impressions: Service Date/Time: Saturday, March 25, 2017 16:30 - CONCLUSION: 1. Compensated cardiomegaly. 2. Lungs are clear Dudley Vazquez MD Assessment and Plan Problem List: (1) Atrial flutter ICD Codes: I48.92 - Unspecified atrial flutter Plan: In sinus rhythm SP ablation. doing well Can be DH INR very difficult to control This a class I indication for NOAC Case discussed with Dr Tsai over the phone Coumadin will be DC NOAC initiated on Thursday Follow up in 3 weeks (2) SOB (shortness of breath) ICD Codes: R06.02 - Shortness of breath Plan: Significantly improve post ablation Dania Oakes MD Apr 02, 2017 15:39
--- NOTE | 2017-04-02 22:32 | EKG ---
Date Performed: 04/02/2017 Time Performed: 03:14:14 PTAGE: 36 years EKG: Sinus rhythm Anterior T wave changes are borderline abnormal Borderline ECG PREVIOUS TRACING : 03/29/2017 07.07 Compared to the previous tracing AFlutter no longer present DOCTOR: Uriah Scott Interpretating Date/Time 04/02/2017 22:30:47
--- NOTE | 2017-04-20 23:38 | PD.CARD ---
Atrial Flutter PROCEDURE DATE: Apr 01, 2017 PROCEDURE PERFORMED Electrophysiology study, CS cannulation, 3-D mapping, radiofrequency ablation of atrial flutter, repeat electrophysiology study on Isuprel infusion. INDICATIONS FOR PROCEDURE Ms. Malik is a 36-year-old female with history of hypertension, SP mitral valve replacement, shortness of breath, atrial flutter, heart rate difficult to control to undergo electrophysiology study and ablation. The risks, the nature and the benefit of the procedure are clearly stated to her. The risks include pneumothorax, cardiac perforation, stroke and even . The patient understood and agreed to proceed. PROCEDURE After written informed consent was obtained, the patient was brought to the EP lab where she was prepped and draped in the usual sterile fashion. Conscious sedation was initiated and maintained throughout the procedure by the anesthesiologist. Once sedation was verified, the left and right inguinal area was anesthetized with 2% Xylocaine. Using modified Seldinger technique, the left femoral vein was cannulated on three occasions, three guidewires were advanced over the wire. Three 5-Nauruan Hemaquets were advanced. Then the right femoral vein was cannulated on two occasions; two guidewire were advanced over the wire. A 6 and an 8-Nauruan Hemaquet were advanced. Then under fluoroscopic guidance through the 5-Nauruan Hemaquet, four 5-[place]auruan Do curved quadripolar electrophysiology catheters were advanced and placed and the His, upper right atrium, coronary sinus and right ventricular apex. Basic interval was measured. The patient was in atrial flutter. Cycle length was around 270 milliseconds. Then through the 8-Nauruan Hemaquet, a Cordis Arias 8-mm F-curved mapping and radiofrequency ablation catheter was advanced. Using [employer] endocardial solution mapping system, a three-dimensional configuration of the right atrium was obtained. Points were taken at the SVC, IVC, TV6, CS and His. Then the catheter was placed at the critical isthmus. Radiofrequency energy was delivered. Cycle length prolonged, subsequently converted into sinus rhythm. Further burn was delivered in the area. Then Isuprel infusion was initiated. No tachyarrhythmia was induced. At that point the procedure was complete. All catheters were removed. The patient is going to be transferred to the recovery room. That was a very difficult case. The patient unable to tolerate flat bed. Blood loss minimal. 1. Electrocardiogram: At baseline the patient was in atrial flutter. Postprocedure the patient is in sinus rhythm. 2. Basic Interval: Base cycle length was around 510 milliseconds. Post- ablation it was around 980 seconds. AH, was around 90, HV was around 46 milliseconds. 3. Atrial Pacing Protocol: No tachyarrhythmia was induced post ablation. 4. Tachyarrhythmia: Atrial flutter was mapped and ablated. Ablation was successful. CONCLUSION Successful electrophysiology study, mapping, radiofrequency of atrial flutter. COMMENT AND RECOMMENDATIONS The patient is going to be transferred to the recovery room. She will be observed, when stable can be discharged home. Dania Oakes MD Apr 20, 2017 23:38
== END 2017-04-02 13:43 | disposition home health service (06) | DRG 274 ==
LOC: NEPC 13:57 → NEDA 16:37 → HCPC 21:00
PROVIDERS: ADMIT Hospitalist; ATTEND Hospitalist
PROC: 4A023FZ Measurement of Cardiac Rhythm, Percutaneous Approach (ICD-10-PCS; 2017-04-01)
PROC: 4A0234Z Measurement of Cardiac Electrical Activity, Percutaneous Approach (ICD-10-PCS; 2017-04-01)
PROC: 02583ZZ Destruction of Conduction Mechanism, Percutaneous Approach (ICD-10-PCS; principal; 2017-04-01 18:15)
DX: I48.92 Unspecified atrial flutter (principal); I11.0 Hypertensive heart disease with heart failure; I50.32 Chronic diastolic (congestive) heart failure; E11.9 Type 2 diabetes mellitus without complications; E78.5 Hyperlipidemia, unspecified; E66.9 Obesity, unspecified; D50.9 Iron deficiency anemia, unspecified; I48.91 Unspecified atrial fibrillation; I25.10 Atherosclerotic heart disease of native coronary artery without angina pectoris; J45.909 Unspecified asthma, uncomplicated; G47.30 Sleep apnea, unspecified; Z88.0 Allergy status to penicillin; Z79.01 Long term (current) use of anticoagulants; Z79.82 Long term (current) use of aspirin; Z98.84 Bariatric surgery status
CPT/HCPCS: 71010; 71020; 80048; 80053; 82550; 82728; 83540; 83550; 83735; 84484; 84702; 85025; 85027; 85610; 85730; 93005; 93613; 93623; 93653; 96361; 96374; C1730; C1732; C2630; J1644; J1650; J1756; J2250; J2370; J3010; J7040; J7050

== ENCOUNTER 2017-04-16 10:35 | Observation (INO) | payer OTHER ==
[~2017-04-16] VITALS: Ht 154.9 cm; Wt 100.0 kg
[~2017-04-16 10:35] MED LIST changes: -AMIO200T PO; +APIX5TAB PO; -COUM5TAB PO; +DILT120C50 PO
[2017-04-16 10:36] VITALS: BP 113/83; PULSE 110; RESP 20; TEMP 98.9; O2SAT 98
--- NOTE | 2017-04-16 11:16 | PD ---
HPI Chief Complaint: Chest Pain Time Seen by Provider: 11:16 Travel History International Travel<30 days: No Contact w/Intl Traveler<30days: No Traveled to known affect area: No History of Present Illness HPI 36-year-old female came to the emergency room with history of left-sided chest pain that started last night. Patient says the pain feels like she is suffocating. It radiates to the back. Patient says last night it also radiated to her neck. She has some associated shortness of breath. Patient had a recent ablation of atrial flutter 2 months ago. Patient says that since last night she has had the pain continuously. No history of nausea vomiting. Vital signs are stable. [facility] Past Medical History Narrative Medical List of her past medical, surgical, social and family history is reviewed from the nursing note. Hx Anticoagulant Therapy: Yes (eloquis) Arthritis: No Atrial Fibrillation: Yes (this visit) Autoimmune Disease: No Anxiety: No Depression: No Cancer: No Cardiovascular Problems: Yes High Cholesterol: Yes Chemotherapy: No Chest Pain: No Congestive Heart Failure: No Cerebrovascular Accident: No Diabetes: No (pre diabetic) Diminished Hearing: No Endocrine: No Gastrointestinal Disorders: No GERD: Yes Genitourinary: No Headaches: No Hepatitis: No Hiatal Hernia: Yes Heparin Induced Thrombocytopen: No Hypertension: Yes Immune Disorder: No Implanted Vascular Access Dvce: No Musculoskeletal: No Neurologic: No Psychiatric: No Reproductive: No Respiratory: Yes (sob on occasion) Migraines: No Radiation Therapy: No Seizures: No Sickle Cell Disease: No Sleep Apnea: No Thyroid Disease: No Past Surgical History Abdominal Surgery: Yes (gastric sleeve 2012, hiatal hernia repair apr 2016) AICD: No Arteriovenous Shunt: No Body Medical Devices: sleeve Cardiac Surgery: Yes (cardiac catherization; mitral valve repair) Ear Surgery: No Endocrine Surgery: No Eye Surgery: No Genitourinary Surgery: No Gynecologic Surgery: Yes (breast reduction) Insulin Pump: No Joint Replacement: No Oral Surgery: No Pacemaker: No Thoracic Surgery: Yes (breast reduction) Other Surgery: Yes (cardiac catherization and breast reduction) Social History Alcohol Use: No Tobacco Use: No Substance Use: No Allergies-Medications (Allergen,Severity, Reaction): Coded Allergies: lisinopril (Verified Allergy, Severe, LIP AND AFCE SWELLING, 04/16/17) penicillin G (Verified Allergy, Severe, Hives, 04/16/17) Comments List of her allergies reviewed from the nursing note. Reported Meds & Prescriptions Reported Meds & Active Scripts Active Eliquis (Apixaban) 5 Mg Tab 5 Mg PO BID start first dose 04/06/17 Diltiazem CD 24 HR 120 Mg Caper 120 Mg PO DAILY Aspirin EC (Aspirin) 81 Mg Tabdr 81 Mg PO DAILY Dok (Docusate Sodium) 100 Mg Cap 100 Mg PO BID Oxycodone-Acetaminophen 5-325 (Oxycodone HCl/Acetaminophen) 5 Mg-325 Mg Tablet 1 Tab PO Q6HR PRN Reported Protonix (Pantoprazole Sodium) 40 Mg Tab 40 Mg PO DAILY [Bariatric Vitamin] 1 Tab PO BID [Bariatric Iron] 25 Mg PO DAILY Simvastatin 5 Mg Tab 20 Mg PO HS Narrative Medication List of her home medications reviewed from the nursing note. Review of Systems Except as stated in HPI: all other systems reviewed are Neg Cardiovascular: Positive: Chest Pain or Discomfort Physical Exam Narrative GENERAL: Awake, alert, morbidly obese, mild distress SKIN: Focused skin assessment warm/dry. HEAD: Atraumatic. Normocephalic. EYES: Pupils equal and round. No scleral icterus. No injection or drainage. ENT: No nasal bleeding or discharge. Mucous membranes pink and moist. NECK: Trachea midline. No JVD. CARDIOVASCULAR: Regular rate and rhythm. No murmur appreciated. RESPIRATORY: No accessory muscle use. Clear to auscultation. Breath sounds equal bilaterally. GASTROINTESTINAL: Abdomen soft, non-tender, nondistended. Hepatic and splenic margins not palpable. MUSCULOSKELETAL: No obvious deformities. No clubbing. No cyanosis. No edema. NEUROLOGICAL: Awake and alert. No obvious cranial nerve deficits. Motor grossly within normal limits. Normal speech. PSYCHIATRIC: Appropriate mood and affect; insight and judgment normal. Data Data Last Documented VS Vital Signs Date Time Temp Pulse Resp B/P (MAP) Pulse Ox O2 Delivery O2 Flow Rate FiO2 04/16/17 11:21 101 20 128/75 (92) 100 Room Air 04/16/17 10:36 98.9 Orders Orders Electrocardiogram (04/16/17 11:25) Basic Metabolic Panel (Bmp) (04/16/17 11:25) Ckmb (Isoenzyme) Profile (04/16/17 11:25) Complete Blood Count With Diff (04/16/17 11:25) Magnesium (Mg) (04/16/17 11:25) Prothrombin Time / Inr (Pt) (04/16/17 11:25) Troponin I (04/16/17 11:25) Chest, Single Ap (04/16/17 11:25) Ecg Monitoring (04/16/17 11:25) Bilateral Bp Monitoring (04/16/17 11:) Iv Access Insert/Monitor (04/16/17 11:) Oximetry (04/16/17 11:) Oxygen Administration (04/16/17 11:25) Sodium Chloride 0.9% Flush (Ns Flush) (04/16/17 11:30) Ketorolac Inj (Toradol Inj) (04/16/17 11:30) Admit Order (Ed Use Only) (04/16/17 13:00) Labs Laboratory Tests Test 04/16/17 11:10 White Blood Count 9.5 TH/MM3 Red Blood Count 4.53 MIL/MM3 Hemoglobin 11.1 GM/DL Hematocrit 34.6 % Mean Corpuscular Volume 76.4 FL Mean Corpuscular Hemoglobin 24.5 PG Mean Corpuscular Hemoglobin Concent 32.1 % Red Cell Distribution Width 16.7 % Platelet Count 333 TH/MM3 Mean Platelet Volume 9.6 FL Neutrophils (%) (Auto) 77.7 % Lymphocytes (%) (Auto) 14.3 % Monocytes (%) (Auto) 7.3 % Eosinophils (%) (Auto) 0.3 % Basophils (%) (Auto) 0.4 % Neutrophils # (Auto) 7.4 TH/MM3 Lymphocytes # (Auto) 1.4 TH/MM3 Monocytes # (Auto) 0.7 TH/MM3 Eosinophils # (Auto) 0.0 TH/MM3 Basophils # (Auto) 0.0 TH/MM3 CBC Comment DIFF FINAL Differential Comment Prothrombin Time 12.3 SEC Prothromb Time International Ratio 1.2 RATIO Blood Urea Nitrogen 10 MG/DL Creatinine 0.78 MG/DL Random Glucose 95 MG/DL Calcium Level 8.4 MG/DL Magnesium Level 2.1 MG/DL Sodium Level 137 MEQ/L Potassium Level 3.7 MEQ/L Chloride Level 104 MEQ/L Carbon Dioxide Level 22.9 MEQ/L Anion Gap 10 MEQ/L Estimat Glomerular Filtration Rate 101 ML/MIN Total Creatine Kinase 38 U/L Troponin I LESS THAN 0.02 NG/ML MDM Medical Decision Making Medical Screen Exam Complete: Yes Emergency Medical Condition: Yes Medical Record Reviewed: Yes Interpretation(s) twelve-lead EKG was reviewed by me. Normal sinus rhythm, borderline right axis deviation, tachycardia, nonspecific ST-T wave changes. Heart rate of 106 bpm. Differential Diagnosis ACS, non-STEMI, nonspecific chest pain Narrative Course 1:05 PM patient has risk factors in the form of obesity, race. I would like her to be ruled out for ACS at the chest pain center. The blood test results of back and within acceptable limits. 1:40 PM I was just pointed out that patient had a cardiac catheterization done 3 months ago that showed minimal coronary artery disease. There was a severe MR which was surgically repaired soon after. In light of this I'm comfortable discharging the patient home. She is on Eliquis that should protect her in theory from PEs. Procedures EKG Prior to Arrival: No Diagnosis Primary Impression: Nonspecific chest pain Admitting Information Admitting Physician Requests: Observation Referrals: Primary Care Physician Additional Instructions: Please return to the ER if the condition worsens or any other new concerns. Otherwise follow-up with your primary care. Med/Other Pt SpecificInfo: No Change to Meds Disposition: 01 DISCHARGE HOME Condition: Stable Britta Wilson MD Apr 16, 2017 11:16
[2017-04-16 11:21] VITALS: BP 128/75; PULSE 101; RESP 20; O2SAT 100
[2017-04-16] MEDS ORDERED: SODIUM CHLORIDE 0.9% FLUSH 10 ML FLUSH IVF PRN (11:30)
[2017-04-16] MEDS ORDERED: KETOROLAC TROMETHAMINE 30 MG/ML (IVP) VIAL IV PUSH ONE (11:30)
[2017-04-16 11:46] LABS: AUTOMATED NEUTROPHIL # 7.4 TH/MM3 (1.8-7.7); BASOPHIL % 0.4 % (0.0-2.0); EOSINOPHIL % 0.3 % (0.0-4.0); HEMATOCRIT 34.6 % (35.0-46.0); HEMOGLOBIN 11.1 GM/DL (11.6-15.3); LYMPH % 14.3 % (9.0-44.0); LYMPHOCYTE # 1.4 TH/MM3 (1.0-4.8); MEAN CELL VOLUME 76.4 FL (80.0-100.0); MEAN CORPUSCULAR HEMOGLOBIN 24.5 PG (27.0-34.0); MEAN CORPUSCULAR HGB CONC 32.1 % (32.0-36.0); MEAN PLATELET VOLUME 9.6 FL (7.0-11.0); MONO % 7.3 % (0.0-8.0); MONOCYTE # 0.7 TH/MM3 (0-0.9); NEUT % 77.7 % (16.0-70.0); PLATELET COUNT 333 TH/MM3 (150-450); RED BLOOD COUNT 4.53 MIL/MM3 (4.00-5.30); RED CELL DISTRIBUTION WIDTH 16.7 % (11.6-17.2); WHITE BLOOD COUNT 9.5 TH/MM3 (4.0-11.0)
[2017-04-16 11:50] LABS: INTERNATIONAL NORMALIZED RATIO 1.2 RATIO; PROTHROMBIN TIME - PATIENT 12.3 SEC (9.8-11.6)
[2017-04-16 12:01] LABS: BICARBONATE 22.9 MEQ/L (21.0-32.0); BLOOD UREA NITROGEN 10 MG/DL (7-18); CALCIUM 8.4 MG/DL (8.5-10.1); CHLORIDE 104 MEQ/L (98-107); CREATININE 0.78 MG/DL (0.50-1.00); GLOMERULAR FILTRATION RATE 101 ML/MIN (>89); GLUCOSE,RANDOM 95 MG/DL (74-106); MAGNESIUM 2.1 MG/DL (1.5-2.5); SODIUM (NA) 137 MEQ/L (136-145)
[2017-04-16 12:07] LABS: TROPONIN I LESS THAN 0.02 NG/ML (0.02-0.05)
--- NOTE | 2017-04-16 13:00 | RADRPT ---
EXAM DATE/TIME: 04/16/2017 12:20 [facility] COMPARISON: CHEST SINGLE AP, March 25, 2017, 16:30. INDICATIONS : Chest pain. MEDICAL HISTORY : mitral valve regurgitation. SURGICAL HISTORY : None. ENCOUNTER: Subsequent ACUITY: 1 day PAIN SCORE: 4/10 LOCATION: middle chest FINDINGS: A single view of the chest demonstrates the lungs to be poorly aerated without evidence of mass, infi ltrate or effusion. The cardiomediastinal contours are unremarkable. Osseous structures are intact. CONCLUSION: Small lung volumes. Heart is slightly enlarged. Erik Iglesias MD on April 16, 2017 at 12:56 Board Certified Radiologist. This report was verified electronically.
[2017-04-16] MEDS ORDERED: oxyCODONE/ACETAMINOPHEN 5 MG/325 MG TAB PO PRN (13:45)
[2017-04-16] MEDS ORDERED: PRAVASTATIN SOD 40 MG TAB PO SCH (21:00)
[2017-04-16] MEDS ORDERED: DOCUSATE SODIUM 100 MG CAP PO SCH (21:00)
[2017-04-16] MEDS ORDERED: APIXABAN 5 MG TABLET PO SCH (21:00)
[2017-04-17] MEDS ORDERED: ASPIRIN EC 81 MG TABEC PO SCH (09:00)
[2017-04-17] MEDS ORDERED: DILTIAZEM-CD 120 MG CAP ER PO SCH (09:00)
[2017-04-17] MEDS ORDERED: PANTOPRAZOLE SOD 40 MG DELAYED RELEASE TAB PO SCH (09:00)
--- NOTE | 2017-04-17 16:00 | EKG ---
Date Performed: 04/16/2017 Time Performed: 11:05:54 PTAGE: 36 years EKG: SINUS TACHYCARDIA POSSIBLE LEFT ATRIAL ENLARGEMENT ABNORMAL RHYTHM ECG PREVIOUS TRACING : 04/02/2017 03.14 Since previous tracing, no significant change noted DOCTOR: Luis Darling Interpretating Date/Time 04/17/2017 15:58:59
== END 2017-04-16 13:46 | disposition home or self-care (01) ==
LOC: NEPE 10:35 → NEDA 13:03
PROVIDERS: ADMIT Internal Medicine Cardiovascular Disease; ATTEND Internal Medicine Cardiovascular Disease
DX: R07.89 Other chest pain (principal); R06.02 Shortness of breath; I48.91 Unspecified atrial fibrillation; I11.9 Hypertensive heart disease without heart failure; I34.0 Nonrheumatic mitral (valve) insufficiency; R00.0 Tachycardia, unspecified; E78.00 Pure hypercholesterolemia, unspecified; K21.9 Gastro-esophageal reflux disease without esophagitis; R73.03 Prediabetes; Z79.899 Other long term (current) drug therapy; Z79.82 Long term (current) use of aspirin; Z79.01 Long term (current) use of anticoagulants; Z88.0 Allergy status to penicillin; E66.01 Morbid (severe) obesity due to excess calories
CPT/HCPCS: 71045; 80048; 82550; 83735; 84484; 85025; 85610; 93005; 96374; 99285; G0378; J1885

== ENCOUNTER 2017-04-19 02:44 | Inpatient (IN) | payer OTHER ==
[~2017-04-19] VITALS: Ht 154.9 cm; Wt 101.8 kg
[2017-04-19] VITALS (18 sets, daily range): BP systolic 105–133; BP diastolic 55–95; PULSE 94–119; RESP 16–32; TEMP 98.6–99.1; O2SAT 96–100
[~2017-04-19 02:44] MED LIST changes: -VITA500012 PO
--- NOTE | 2017-04-19 03:43 | PD ---
HPI Chief Complaint: Chest Pain Time Seen by Provider: 03:37 Travel History International Travel<30 days: No Contact w/Intl Traveler<30days: No Traveled to known affect area: No History of Present Illness HPI 36 year-old female presents to the emergency department by private transportation for complaint of left-sided chest pain radiating into the left subscapular region worsened by deep inspiration. Patient states chest pain has been present since Thursday was seen in the emergency department on has persisted Thursday and Thursday and on Thursday developed cough and just prior to arrival to the emergency department had an episode of small amount of hemoptysis. Patient denies fever has had chills. Patient is status post recent cardiac ablation for atrial flutter and underwent valvular heart repair in February (03/03/18/ per Dr. Randolph op note 'minimal invasive mitral valve repair') for mitral valve regurgitation; (MR identified during cardiac cath 2016 minimal coronary disease with significant MR). Patient denies any lower extremity pain or swelling. Patient has been at bedrest while convalescing. Patient denies other concerns or complaints. Patient rates pain 9/10 intensity. PFSH Past Medical History Narrative Medical Atrial fibrillation atrial flutter dyslipidemia hypertension valvular heart disease status post repair cardiac catheterization; no tobacco use: Nursing notes reviewed Hx Anticoagulant Therapy: Yes (ELIQUIS) Arthritis: No Atrial Fibrillation: Yes Autoimmune Disease: No Anxiety: No Depression: No Cancer: No Cardiovascular Problems: Yes High Cholesterol: Yes Chemotherapy: No Chest Pain: No Congestive Heart Failure: No Cerebrovascular Accident: No Diminished Hearing: No Endocrine: No Gastrointestinal Disorders: Yes (gerd) GERD: Yes Genitourinary: No Headaches: No Hepatitis: No Hiatal Hernia: Yes Heparin Induced Thrombocytopen: No Hypertension: Yes Immune Disorder: No Implanted Vascular Access Dvce: No Musculoskeletal: No Neurologic: No Psychiatric: No Reproductive: No Respiratory: Yes (sob on occasion) Migraines: No Radiation Therapy: No Seizures: No Sickle Cell Disease: No Sleep Apnea: No Thyroid Disease: No ?: Not LMP: END MAR 2017 Past Surgical History Abdominal Surgery: Yes (gastric sleeve 2012, hiatal hernia repair apr 2016) AICD: No Arteriovenous Shunt: No Body Medical Devices: sleeve Cardiac Surgery: Yes (cardiac catherization; mitral valve repair) Ear Surgery: No Endocrine Surgery: No Eye Surgery: No Genitourinary Surgery: No Gynecologic Surgery: Yes (breast reduction) Insulin Pump: No Joint Replacement: No Oral Surgery: No Pacemaker: No Thoracic Surgery: Yes (breast reduction) Other Surgery: Yes (cardiac catherization and breast reduction) Social History Alcohol Use: No Tobacco Use: No Substance Use: No Allergies-Medications (Allergen,Severity, Reaction): Coded Allergies: lisinopril (Verified Allergy, Severe, LIP AND AFCE SWELLING, 04/19/17) penicillin G (Verified Allergy, Severe, Hives, 04/19/17) Reported Meds & Prescriptions Reported Meds & Active Scripts Active Eliquis (Apixaban) 5 Mg Tab 5 Mg PO BID start first dose 04/06/17 Diltiazem CD 24 HR 120 Mg Caper 120 Mg PO DAILY Aspirin EC (Aspirin) 81 Mg Tabdr 81 Mg PO DAILY Dok (Docusate Sodium) 100 Mg Cap 100 Mg PO BID Oxycodone-Acetaminophen 5-325 (Oxycodone HCl/Acetaminophen) 5 Mg-325 Mg Tablet 1 Tab PO Q6HR PRN Reported Protonix (Pantoprazole Sodium) 40 Mg Tab 40 Mg PO DAILY [Bariatric Vitamin] 1 Tab PO BID [Bariatric Iron] 25 Mg PO DAILY Simvastatin 5 Mg Tab 20 Mg PO HS Review of Systems Except as stated in HPI: all other systems reviewed are Neg General / Constitutional: Positive: Chills, No: Fever HENT: No: Congestion Cardiovascular: Positive: Chest Pain or Discomfort Respiratory: Positive: Cough, Shortness of Breath, Hemoptysis (small amount x 1 ), Pleuritic Pain, No: Wheezing Gastrointestinal: No: Nausea, Vomiting, Abdominal Pain Genitourinary: No: Dysuria, Flank Pain Musculoskeletal: No: Myalgias, Arthralgias, Edema Skin: No Rash Neurologic: No: Weakness Psychiatric: No: Anxiety Hematologic/Lymphatic: No: Easy Bruising Physical Exam Narrative GENERAL: Well-developed well-nourished female in no acute distress no respiratory distress SKIN: Warm and dry. HEAD: Normocephalic. EYES: No scleral icterus. No injection or drainage. NECK: Supple, trachea midline. No JVD or lymphadenopathy. CARDIOVASCULAR: Increased Regular rate and rhythm without murmurs, gallops, or rubs. RESPIRATORY: Breath sounds equal bilaterally. No accessory muscle use. GASTROINTESTINAL: Abdomen soft, non-tender, nondistended. MUSCULOSKELETAL: No cyanosis, or edema. BACK: Nontender without obvious deformity. No CVA tenderness. Data Data Last Documented VS Vital Signs Date Time Temp Pulse Resp B/P (MAP) Pulse Ox O2 Delivery O2 Flow Rate FiO2 04/19/17 06:34 133/78 (96) 126/78 (94) 04/19/17 04:37 96 Room Air 04/19/17 03:14 106 18 04/19/17 02:46 98.6 Orders Orders Electrocardiogram (04/19/17 03:56) Basic Metabolic Panel (Bmp) (04/19/17 03:56) Ckmb (Isoenzyme) Profile (04/19/17 03:56) Complete Blood Count With Diff (04/19/17 03:56) Magnesium (Mg) (04/19/17 03:56) Prothrombin Time / Inr (Pt) (04/19/17 03:56) Act Partial Throm Time (Ptt) (04/19/17 03:56) Troponin I (04/19/17 03:56) Chest, Single Ap (04/19/17 03:56) Ecg Monitoring (04/19/17 03:56) Bilateral Bp Monitoring (04/19/17 03:56) Iv Access Insert/Monitor (04/19/17 03:56) Oximetry (04/19/17 03:56) Oxygen Administration (04/19/17 03:56) Sodium Chloride 0.9% Flush (Ns Flush) (04/19/17 04:00) D-Dimer (04/19/17 05:05) Ketorolac Inj (Toradol Inj) (04/19/17 06:45) Ct Pulmonary Angiogram (04/19/17 ) Labs Laboratory Tests Test 04/19/17 03:40 White Blood Count 10.0 TH/MM3 Red Blood Count 4.60 MIL/MM3 Hemoglobin 11.0 GM/DL Hematocrit 35.0 % Mean Corpuscular Volume 76.2 FL Mean Corpuscular Hemoglobin 23.9 PG Mean Corpuscular Hemoglobin Concent 31.4 % Red Cell Distribution Width 16.9 % Platelet Count 389 TH/MM3 Mean Platelet Volume 9.4 FL Neutrophils (%) (Auto) 70.2 % Lymphocytes (%) (Auto) 19.5 % Monocytes (%) (Auto) 7.8 % Eosinophils (%) (Auto) 2.1 % Basophils (%) (Auto) 0.4 % Neutrophils # (Auto) 7.1 TH/MM3 Lymphocytes # (Auto) 2.0 TH/MM3 Monocytes # (Auto) 0.8 TH/MM3 Eosinophils # (Auto) 0.2 TH/MM3 Basophils # (Auto) 0.0 TH/MM3 CBC Comment DIFF FINAL Differential Comment Prothrombin Time 12.7 SEC Prothromb Time International Ratio 1.3 RATIO Activated Partial Thromboplast Time 36.0 SEC Blood Urea Nitrogen 7 MG/DL Creatinine 0.75 MG/DL Random Glucose 88 MG/DL Calcium Level 8.3 MG/DL Magnesium Level 2.2 MG/DL Sodium Level 138 MEQ/L Potassium Level 3.4 MEQ/L Chloride Level 104 MEQ/L Carbon Dioxide Level 26.2 MEQ/L Anion Gap 8 MEQ/L Estimat Glomerular Filtration Rate 105 ML/MIN Total Creatine Kinase 45 U/L Troponin I LESS THAN 0.02 NG/ML MDM Medical Decision Making Medical Screen Exam Complete: Yes Emergency Medical Condition: Yes Medical Record Reviewed: Yes Interpretation(s) EKG sinus tachycardia rate [address] elevation injury pattern or ectopy noted Last Impressions Chest X-Ray 04/19/17 0356 Signed Impressions: Service Date/Time: Wednesday, April 19, 2017 04:18 - CONCLUSION: Mild right lower lung infiltrate. Stable cardiomegaly. Otherwise, no significant changes. Aung Abdullahi MD CBC & BMP Diagram 04/19/17 03:40 Calcium Level 8.3 L, Magnesium Level 2.2 Differential Diagnosis Chest pain, ACS, IN, PE, pleurisy, costochondritis, pneumonia, bronchitis Narrative Course Patient placed on insurance account representative EKG performed shows sinus tachycardia without acute injury pattern specimens collected and sent for resulting Patient resting comfortably chest x-ray reveals infiltrate right lower lobe stable cardiomegaly no effusion Cardiac enzymes are found to be in normal range D-dimer is pending per lab quality assurance analyst is being re-performed due to machine issue Patient rating for d-dimer results Informed will be done will be elevated result pending therefore CT pulmonary angiogram ordered to assess for PE As patient needs to have CT study will sign imaging results oncoming physician Dr. Miller As 7:25 AM d-dimer is elevated at 5.28; care signed over to Ro Pak MD Apr 19, 2017 03:43
[2017-04-19] MEDS ORDERED: SODIUM CHLORIDE 0.9% FLUSH 10 ML FLUSH IVF PRN (04:00)
[2017-04-19 04:29] LABS: AUTOMATED NEUTROPHIL # 7.1 TH/MM3 (1.8-7.7); BASOPHIL % 0.4 % (0.0-2.0); EOSINOPHIL # 0.2 TH/MM3 (0-0.4); EOSINOPHIL % 2.1 % (0.0-4.0); LYMPH % 19.5 % (9.0-44.0); MEAN CELL VOLUME 76.2 FL (80.0-100.0); MEAN CORPUSCULAR HEMOGLOBIN 23.9 PG (27.0-34.0); MEAN CORPUSCULAR HGB CONC 31.4 % (32.0-36.0); MEAN PLATELET VOLUME 9.4 FL (7.0-11.0); MONO % 7.8 % (0.0-8.0); MONOCYTE # 0.8 TH/MM3 (0-0.9); NEUT % 70.2 % (16.0-70.0); PLATELET COUNT 389 TH/MM3 (150-450); RED CELL DISTRIBUTION WIDTH 16.9 % (11.6-17.2)
[2017-04-19 04:37] LABS: INTERNATIONAL NORMALIZED RATIO 1.3 RATIO; PROTHROMBIN TIME - PATIENT 12.7 SEC (9.8-11.6)
--- NOTE | 2017-04-19 04:41 | RADRPT ---
EXAM DATE/TIME: 04/19/2017 04:18 [facility] COMPARISON: CHEST SINGLE AP, March 25, 2017, 16:30. CHEST SINGLE AP, April 16, 2017, 12:20. INDICATIONS : Chest pain MEDICAL HISTORY : Mitral Valve Regurgitation SURGICAL HISTORY : ENCOUNTER: Initial ACUITY: 1 day PAIN SCORE: 8/10 LOCATION: Bilateral chest FINDINGS: A single view of the chest demonstrates focal parenchymal changes in the right lung base. The left nam ng is grossly clear. The heart size is enlarged but stable. There is hypoaeration in both lung pavon most likely from poor inspiration. No significant pleural effusions. No evidence of pneumothorax. No significant change compared to the prior study.. CONCLUSION: Mild right lower lung infiltrate. Stable cardiomegaly. Otherwise, no significant changes. Aung Abdullahi MD on April 19, 2017 at 4:38 Board Certified Radiologist. This report was verified electronically.
[2017-04-19 04:54] LABS: BICARBONATE 26.2 MEQ/L (21.0-32.0); BLOOD UREA NITROGEN 7 MG/DL (7-18); CALCIUM 8.3 MG/DL (8.5-10.1); CHLORIDE 104 MEQ/L (98-107); CREATININE 0.75 MG/DL (0.50-1.00); GLOMERULAR FILTRATION RATE 105 ML/MIN (>89); GLUCOSE,RANDOM 88 MG/DL (74-106); MAGNESIUM 2.2 MG/DL (1.5-2.5); SODIUM (NA) 138 MEQ/L (136-145)
[2017-04-19 04:57] LABS: TROPONIN I LESS THAN 0.02 NG/ML (0.02-0.05)
[2017-04-19] MEDS ORDERED: KETOROLAC TROMETHAMINE 30 MG/ML (IVP) VIAL IV PUSH ONE (06:45)
[2017-04-19] MEDS ORDERED: IOHEXOL 350 MG/ML 10 ML VIAL (for RAD DIAG) IVCONTRAST ONE (07:55)
--- NOTE | 2017-04-19 08:21 | PD ---
Data Data Last Documented VS Vital Signs Date Time Temp Pulse Resp B/P (MAP) Pulse Ox O2 Delivery O2 Flow Rate FiO2 04/19/17 09:01 99.1 96 17 109/66 (80) 98 Room Air Orders Orders Electrocardiogram (04/19/17 03:56) Basic Metabolic Panel (Bmp) (04/19/17 03:56) Ckmb (Isoenzyme) Profile (04/19/17 03:56) Complete Blood Count With Diff (04/19/17 03:56) Magnesium (Mg) (04/19/17 03:56) Prothrombin Time / Inr (Pt) (04/19/17 03:56) Act Partial Throm Time (Ptt) (04/19/17 03:56) Troponin I (04/19/17 03:56) Chest, Single Ap (04/19/17 03:56) Ecg Monitoring (04/19/17 03:56) Bilateral Bp Monitoring (04/19/17 03:56) Iv Access Insert/Monitor (04/19/17 03:56) Oximetry (04/19/17 03:56) Oxygen Administration (04/19/17 03:56) Sodium Chloride 0.9% Flush (Ns Flush) (04/19/17 04:00) D-Dimer (04/19/17 05:05) Ketorolac Inj (Toradol Inj) (04/19/17 06:45) Ct Pulmonary Angiogram (04/19/17 ) Iohexol 350 Inj (Omnipaque 350 Inj) (04/19/17 07:55) Admit Order (Ed Use Only) (04/19/17 ) Vital Signs (Adult) Q4H (04/19/17 09:49) Diet Heart Healthy (04/19/17 Breakfast) Activity Oob With Assistance (04/19/17 09:49) Labs Laboratory Tests Test 04/19/17 03:40 White Blood Count 10.0 TH/MM3 Red Blood Count 4.60 MIL/MM3 Hemoglobin 11.0 GM/DL Hematocrit 35.0 % Mean Corpuscular Volume 76.2 FL Mean Corpuscular Hemoglobin 23.9 PG Mean Corpuscular Hemoglobin Concent 31.4 % Red Cell Distribution Width 16.9 % Platelet Count 389 TH/MM3 Mean Platelet Volume 9.4 FL Neutrophils (%) (Auto) 70.2 % Lymphocytes (%) (Auto) 19.5 % Monocytes (%) (Auto) 7.8 % Eosinophils (%) (Auto) 2.1 % Basophils (%) (Auto) 0.4 % Neutrophils # (Auto) 7.1 TH/MM3 Lymphocytes # (Auto) 2.0 TH/MM3 Monocytes # (Auto) 0.8 TH/MM3 Eosinophils # (Auto) 0.2 TH/MM3 Basophils # (Auto) 0.0 TH/MM3 CBC Comment DIFF FINAL Differential Comment Prothrombin Time 12.7 SEC Prothromb Time International Ratio 1.3 RATIO Activated Partial Thromboplast Time 36.0 SEC D-Dimer Quantitative (PE/DVT) 5.82 MG/L FEU Blood Urea Nitrogen 7 MG/DL Creatinine 0.75 MG/DL Random Glucose 88 MG/DL Calcium Level 8.3 MG/DL Magnesium Level 2.2 MG/DL Sodium Level 138 MEQ/L Potassium Level 3.4 MEQ/L Chloride Level 104 MEQ/L Carbon Dioxide Level 26.2 MEQ/L Anion Gap 8 MEQ/L Estimat Glomerular Filtration Rate 105 ML/MIN Total Creatine Kinase 45 U/L Troponin I LESS THAN 0.02 NG/ML [facility] Medical Record Reviewed: Yes Supervised Visit with TIFFANY: No Narrative Course CBC & BMP Diagram 04/19/17 03:40 Calcium Level 8.3 L, Magnesium Level 2.2 Last Impressions Chest X-Ray 04/19/17 0356 Signed Impressions: Service Date/Time: Wednesday, April 19, 2017 04:18 - CONCLUSION: Mild right lower lung infiltrate. Stable cardiomegaly. Otherwise, no significant changes. Aung Abdullahi MD CT Angiography 04/19/17 0000 Signed Impressions: Service Date/Time: Wednesday, April 19, 2017 07:55 - CONCLUSION: 1. No evidence of pulmonary loss. 2. Moderate-sized right pleural effusion. Small left pleural effusion. Small moderate pericardial effusion. 3. Bilateral dependent atelectasis and mild bilateral groundglass opacity that may represent mild pulmonary edema. 4. Moderate diffuse cardiac enlargement. Timo Serrano MD The patient has moderate right pleural effusion, new and not expected for this 36-year-old female. She is on Eloquis. The case was discussed with pulmonology who advised suspending Eliquis for planned thoracentesis. Addition of LFTs advised. d/w Dr Martinez for [facility]. Diagnosis Primary Impression: Pleural effusion on right Additional Impression: Hyperkalemia Admitting Information Admitting Physician Requests: Admit Justen Miller MD Apr 19, 2017 08:21
--- NOTE | 2017-04-19 08:31 | RADRPT ---
EXAM DATE/TIME: 04/19/2017 07:55 [facility] COMPARISON: No previous studies available for comparison. INDICATIONS : Chest pain, cough, hemoptysis IV CONTRAST: 99 cc Omnipaque 350 (iohexol) IV RADIATION DOSE: 22.84 CTDIvol (mGy) ; Patient body habitus MEDICAL HISTORY : Cardiovascular disease. Hypertension. Gastroesophageal reflux disease. SURGICAL HISTORY : Breast augmentation,Cardia cath ENCOUNTER: Initial ACUITY: 2 days PAIN SCALE: 6/10 LOCATION: chest TECHNIQUE: Volumetric scanning of the chest was performed using a pulmonary embolism protocol MIP images were re constructed. Using automated exposure control and adjustment of the mA and/or kV according to patien t size, radiation dose was kept as low as reasonably achievable to obtain optimal diagnostic quality images. DICOM format image data is available electronically for review and comparison. Follow-up recommendations for detected pulmonary nodules are based at a minimum on nodule size and pa tient risk factors according to Fleischner Society Guidelines. FINDINGS: PULMONARY ARTERIES: No filling defects are seen in the pulmonary arteries through the segmental level. LUNGS: Moderate dependent atelectasis bilateral lower lobes and right middle lobe. Mild groundglass opacity in the lungs bilaterally. PLEURAE: Moderate sized right pleural effusion. Small left pleural effusion. MEDIASTINUM: Diffuse moderate cardiac enlargement. Small to moderate pericardial effusion. No enlarged lymph nodes . Aortic diameter within normal limits. MUSCULOSKELETAL: Within normal limits for patient age. MISCELLANEOUS: The visualized upper abdominal organs demonstrate no acute abnormality. CONCLUSION: 1. No evidence of pulmonary loss. 2. Moderate-sized right pleural effusion. Small left pleural effusion. Small moderate pericardial eff usion. 3. Bilateral dependent atelectasis and mild bilateral groundglass opacity that may represent mild pul monary edema. 4. Moderate diffuse cardiac enlargement. Timo Serrano MD on April 19, 2017 at 8:24 Board Certified Radiologist. This report was verified electronically.
--- NOTE | 2017-04-19 10:27 | HHI.HP ---
H[facility] Service [facility] Primary [facility] Physician Robert Webster MD Admission Diagnosis New R Pleural Effusion; CP/Dyspnea; HyperK on Eliquis Diagnoses: Chief Complaint: Atypical Chest pain Travel History International Travel<30 Days: No Contact w/Intl Traveler <30 Da: No Traveled to Known Affected Are: No History of Present Illness This is a pleasant 36 y/o Female with iron Deficiency anemia, Sleep apnea, Asthma, Nonobstructive Coronary artery disease, DM II, Hyperlipidemia Hypertension, Mitral regurgitation and Morbid Obesity, she had Status post Mitral Valve repair ring 03/03/[address] Agustín, status post new admission on 03/25/17 due to Atrial Flutter with RVR, On this opportunity the patient came to ER with Chest pain on the left side radiating into the left subscapular region worsened by deep inspiration, that started four days ago, seen last 04/16/17 in ER, the pain continued, yesterday developed cough and in ER seen small amount of Hemoptysis, Patient is status post recent cardiac ablation for atrial flutter; (MR identified during cardiac cath 01/2017 minimal coronary disease with significant MR). Patient denies any lower extremity pain or swelling. the chest pain reported as 9/10 in intensity. Stable seen by network support specialist, will have Thoracentesis tomorrow will give diet and will be NPO at midnight. Review of Systems Constitutional: DENIES: Fever, Chills, Change in appetite Endocrine: DENIES: Heat/cold intolerance Eyes: DENIES: Blurred vision, Eye pain Respiratory: COMPLAINS OF: Hemoptysis Except as stated in HPI: all other systems reviewed are Neg Past Family Social History Past Medical History Iron deficiency anemia sleep apnea asthma nonobstructive coronary disease diabetes mellitus type 2 hyperlipidemia hypertension mitral regurgitation Obesity chronic anticoagulation with Eliquis Atrial fibrillation GERD Hiatal hernia Past Surgical History mitral valve repair with ring 03/03/[address] Sutton Gastric Sleeve 2013 Hiatal hernia repair 04/22 Cardiac cath Breast reduction Status post Ablation for Atrial Fibrillation. Reported Medications Reported Meds & Active Scripts Active Eliquis (Apixaban) 5 Mg Tab 5 Mg PO BID start first dose 04/06/17 Diltiazem CD 24 HR 120 Mg Caper 120 Mg PO DAILY Aspirin EC (Aspirin) 81 Mg Tabdr 81 Mg PO DAILY Dok (Docusate Sodium) 100 Mg Cap 100 Mg PO BID Oxycodone-Acetaminophen 5-325 (Oxycodone HCl/Acetaminophen) 5 Mg-325 Mg Tablet 1 Tab PO Q6HR PRN Reported Protonix (Pantoprazole Sodium) 40 Mg Tab 40 Mg PO DAILY [Bariatric Vitamin] 1 Tab PO BID [Bariatric Iron] 25 Mg PO DAILY Simvastatin 5 Mg Tab 20 Mg PO HS Allergies: Coded Allergies: lisinopril (Verified Allergy, Severe, LIP AND AFCE SWELLING, 04/19/17) penicillin G (Verified Allergy, Severe, Hives, 04/19/17) Active Ordered Medications Current Medications Medications (Trade) Dose Ordered Sig/Hernando Route Start Time Stop Time Status Last Admin (NS Flush) 2 ml UNSCH PRN IVF 04/19/17 04:00 Sodium Chloride 1,000 ml @ 83 mls/hr Q12H3M IV 04/19/17 11:00 04/19/17 11:14 (NS Flush) 2 ml UNSCH PRN IV FLUSH 04/19/17 10:30 (NS Flush) 2 ml BID IV FLUSH 04/19/17 21:00 (Tylenol) 650 mg Q4H PRN PO 04/19/17 10:30 (Zofran Inj) 4 mg Q6H PRN IVP 04/19/17 10:30 (Narcan Inj) 0.4 mg UNSCH PRN IV PUSH 04/19/17 10:30 (Senokot) 17.2 mg Q12H PRN PO 04/19/17 10:30 (Dulcolax Supp) 10 mg DAILY PRN RECTAL 04/19/17 10:30 (Lactulose Liq) 30 ml DAILY PRN PO 04/19/17 10:30 (Mucinex Er) 600 mg BID PO 04/19/17 21:00 (Atrovent Neb) 0.5 mg Q4HR NEB NEB 04/19/17 12:00 04/19/17 11:33 (Cardizem Cd) 120 mg DAILY PO 04/20/17 09:00 (Percocet 5-325 Mg) 1 tab Q6HR PRN PO 04/19/17 10:30 (Protonix) 40 mg DAILY PO 04/20/17 09:00 (Pravachol) 40 mg HS PO 04/19/17 21:00 (Theragran Hematinic) 1 tab DAILY PO 04/19/17 13:00 (Duoneb Neb) 1 ampule Q6HR NEB PRN NEB 04/19/17 12:00 Family History Mother with Breast Cancer, Father with DM II, Hypertension and diet of ACS, Sister with DM II Social History Denies any toxic Habits. Physical Exam Vital Signs Vital Signs Date Time Temp Pulse Resp B/P (MAP) Pulse Ox O2 Delivery O2 Flow Rate FiO2 04/19/17 09:01 99.1 96 17 109/66 (80) 98 Room Air 04/19/17 06:34 133/78 (96) 126/78 (94) 04/19/17 04:37 96 Room Air 04/19/17 04:37 98 Room Air 04/19/17 03:14 106 18 105/57 (73) 97 Room Air 04/19/17 02:46 98.6 119 16 133/95 (108) 96 Room Air Physical Exam GENERAL: Obese patient in no acute distress. SKIN: Warm and dry. HEAD: Normocephalic. EYES: No scleral icterus. No injection or drainage. NECK: Supple, trachea midline. No JVD or lymphadenopathy. CARDIOVASCULAR: Increased Regular rate and rhythm without murmurs, gallops, or rubs. RESPIRATORY: Decreased breath sounds on Right lung base. GASTROINTESTINAL: Abdomen soft, non-tender, nondistended. MUSCULOSKELETAL: No cyanosis, or edema. BACK: Nontender without obvious deformity. No CVA tenderness. Laboratory Laboratory Tests Test 04/19/17 03:40 White Blood Count 10.0 Red Blood Count 4.60 Hemoglobin 11.0 Hematocrit 35.0 Mean Corpuscular Volume 76.2 Mean Corpuscular Hemoglobin 23.9 Mean Corpuscular Hemoglobin Concent 31.4 Red Cell Distribution Width 16.9 Platelet Count 389 Mean Platelet Volume 9.4 Neutrophils (%) (Auto) 70.2 Lymphocytes (%) (Auto) 19.5 Monocytes (%) (Auto) 7.8 Eosinophils (%) (Auto) 2.1 Basophils (%) (Auto) 0.4 Neutrophils # (Auto) 7.1 Lymphocytes # (Auto) 2.0 Monocytes # (Auto) 0.8 Eosinophils # (Auto) 0.2 Basophils # (Auto) 0.0 CBC Comment DIFF FINAL Differential Comment Prothrombin Time 12.7 Prothromb Time International Ratio 1.3 Activated Partial Thromboplast Time 36.0 D-Dimer Quantitative (PE/DVT) 5.82 Blood Urea Nitrogen 7 Creatinine 0.75 Random Glucose 88 Calcium Level 8.3 Magnesium Level 2.2 Sodium Level 138 Potassium Level 3.4 Chloride Level 104 Carbon Dioxide Level 26.2 Anion Gap 8 Estimat Glomerular Filtration Rate 105 Total Creatine Kinase 45 Troponin I LESS THAN 0.02 Result Diagram: 04/19/17 0340 04/19/17 0340 Imaging Last Impressions Chest X-Ray 04/19/17 0356 Signed Impressions: Service Date/Time: Wednesday, April 19, 2017 04:18 - CONCLUSION: Mild right lower lung infiltrate. Stable cardiomegaly. Otherwise, no significant changes. Aung Abdullahi MD CT Angiography 04/19/17 0000 Signed Impressions: Service Date/Time: Wednesday, April 19, 2017 07:55 - CONCLUSION: 1. No evidence of pulmonary loss. 2. Moderate-sized right pleural effusion. Small left pleural effusion. Small moderate pericardial effusion. 3. Bilateral dependent atelectasis and mild bilateral groundglass opacity that may represent mild pulmonary edema. 4. Moderate diffuse cardiac enlargement. Timo Serrano MD Caprini VTE Risk Assessment Caprini VTE Risk Assessment: Mod/High Risk (score >= 2) Caprini Risk Assessment Model Point Value = 1 Point Value = 2 Point Value = 3 Point Value = 5 Age 41-60 Minor surgery BMI > 25 kg/m2 Swollen legs Varicose veins or History of unexplained or recurrent spontaneous Oral contraceptives or hormone replacement Sepsis (< 1 month) Serious lung disease, including pneumonia (< 1 month) Abnormal pulmonary function Acute myocardial infarction Congestive heart failure (< 1 month) History of inflammatory bowel disease Medical patient at bed rest Age 61-74 Arthroscopic surgery Major open surgery (> 45 min) Laparoscopic surgery (> 45 min) Malignancy Confined to bed (> 72 hours) Immobilizing plaster cast Central venous access Age >= 75 History of VTE Family history of VTE Factor V Leiden Prothrombin [id number] Lupus anticoagulant Anticardiolipin antibodies Elevated serum homocysteine Heparin-induced thrombocytopenia Other congenital or acquired thrombophilia Stroke (< 1 month) Elective arthroplasty Hip, pelvis, or leg fracture Acute spinal cord injury (< 1 month) Prophylaxis Regimen Total Risk Factor Score Risk Level Prophylaxis Regimen 0-1 Low Early ambulation 2 Moderate Order ONE of the following: *Sequential Compression Device (SCD) *Heparin 5000 units SQ BID 3-4 Higher Order ONE of the following medications: *Heparin 5000 units SQ TID *Enoxaparin/Lovenox 40 mg SQ daily (WT < 150 kg, CrCl > 30 mL/min) *Enoxaparin/Lovenox 30 mg SQ daily (WT < 150 kg, CrCl > 10-29 mL/min) *Enoxaparin/Lovenox 30 mg SQ BID (WT < 150 kg, CrCl > 30 mL/min) AND/OR *Sequential Compression Device (SCD) 5 or more Highest Order ONE of the following medications: *Heparin 5000 units SQ TID (Preferred with Epidurals) *Enoxaparin/Lovenox 40 mg SQ daily (WT < 150 kg, CrCl > 30 mL/min) *Enoxaparin/Lovenox 30 mg SQ daily (WT < 150 kg, CrCl > 10-29 mL/min) *Enoxaparin/Lovenox 30 mg SQ BID (WT < 150 kg, CrCl > 30 mL/min) AND *Sequential Compression Device (SCD) Assessment and Plan Assessment and Plan 1. Hemoptysis EKG sinus tachycardia rate [address] elevation injury pattern or ectopy noted, CXR Mild right lower lung infiltrate, CTA with moderate pleural effusion, magnesium 2.2, Calcium level 8.3, discussed with network support specialist recommended to discontinue Eliquis and Hospitalize, Cardiac enzymes within normal range. Discussed with doctor Macario Sorto by ER physician Doctor Miller. continue Bronchodilator, Mucolytic and incentive spirometry. Oxygen to keep oxygen saturation above 92%, Ultrasound guided Thoracentesis for tomorrow. hold Eliquis, Sleep study as outpatient for probable Sleep apnea. 2. Obesity strongly recommended diet and exercise. 3. Questionable Sleep Apnea asked for Polysomnography as outpatient by network support specialist 4. CAD by history 5. DM II on sliding scale 6. Hyperlipidemia to continue Home medicines. 7. Hypertension controlled to continue Home medicines 8. Atrial Fibrillation status post Ablation. continue Home medicines. chronic anticoagulation with Eliquis 9. GERD to continue Gastric protection 10. mitral valve repair with ring 03/03/[address] Sutton DVT prophylaxis with SCDs awaiting for procedure tomorrow, [place] on hold Ladderman consult. Code Status Full Code. Discussed Condition With patient and ER physician Doctor Paul Physician Certification 2 Midnight Certification Type: Admission for Inpatient Services Order for Inpatient Services The services are ordered in accordance with Medicare regulations or non- Medicare payer requirements, as applicable. In the case of services not specified as inpatient-only, they are appropriately provided as inpatient services in accordance with the 2-midnight benchmark. Estimated LOS (days): 3 days is the estimated time the patient will need to remain in the hospital, assuming treatment plan goals are met and no additional complications. Post-Hospital Plan: Home Ludwin Desir MD Apr 19, 2017 10:27
[2017-04-19] MEDS ORDERED: NALOXONE HCL 0.4 MG/ML AMP IV PUSH PRN (10:30)
[2017-04-19] MEDS ORDERED: SODIUM CHLORIDE 0.9% FLUSH 10 ML FLUSH IV FLUSH PRN (10:30)
[2017-04-19] MEDS ORDERED: ONDANSETRON HCL 4 MG/2 ML VIAL IVP PRN (10:30)
[2017-04-19] MEDS ORDERED: LACTULOSE SYRUP 20 GM/30 ML CUP PO PRN (10:30)
[2017-04-19] MEDS ORDERED: ACETAMINOPHEN 325 MG TAB PO PRN (10:30)
[2017-04-19] MEDS ORDERED: BISACODYL 10 MG SUPP RECTAL PRN (10:30)
[2017-04-19 10:54] LABS: ALBUMIN 2.4 GM/DL (3.4-5.0); DIRECT BILIRUBIN ADULT 0.1 MG/DL (0.0-0.2)
[2017-04-19 10:55] LABS: INDIRECT BILIRUBIN 0.3 MG/DL (0.0-0.8); TOTAL BILIRUBIN ADULT 0.4 MG/DL (0.2-1.0); TOTAL PROTEIN 6.7 GM/DL (6.4-8.2)
[2017-04-19] MEDS: SODIUM CHLOR 0.9% 1000 ML INJ 1,000 ML IV SCH ×2 (11:14→21:09)
[2017-04-19] MEDS: RESP: IPRATROPIUM 0.5 MG/2.5 ML NEB NEB SCH ×4 (11:33→23:53)
[2017-04-19] MEDS ORDERED: RESP: ALBUTEROL 2.5 MG/IPRATROPIUM 0.5 MG NEB (PRN) NEB (12:00)
--- NOTE | 2017-04-19 12:27 | MB ---
cc: JO LORA DATE OF CONSULTATION: 04/19/2017 DATE OF : 1980 REASON FOR CONSULTATION: Pleural effusion. REFERRING PHYSICIAN Dr. Martinez HISTORY OF PRESENT ILLNESS The patient is a 36-year-old female with a past medical history of bronchial asthma, diabetes mellitus, obesity, nonobstructive coronary artery disease and hyperlipidemia. She presented to [facility] ED with a 1-day history of chest pain in addition to cough with one episode of hemoptysis at 01:30 this morning without any recurrence. She denies any fever, chills or any constitutional symptoms. In addition she denies any exposure to sick contacts. She underwent ablation for atrial flutter by Dr. Oakes on April 01 and is currently on Eliquis. The patient states that she was on Coumadin prior, however post ablation she was switched to Eliquis. She also had mitral valve repair in February 2017. Chest x-ray in the ED showed mild right lower lung infiltrate stable cardiomegaly. Subsequently she underwent CT angiogram of the chest which showed no evidence of pulmonary embolism however it showed moderate size pleural effusion, small to moderate pericardial effusion, bilaterally dependent atelectasis with mild ground-glass opacities. When seen in the ER she is on room air oxygen with saturation 98%. Blood pressure 119/89. She denies any orthopnea, PND or edema of lower extremities. In addition she denies any nausea, vomiting or abdominal pain. PAST MEDICAL HISTORY: Significant for: 1. Iron deficiency anemia. 2. Bronchial asthma. 3. Nonobstructive coronary artery disease. 4. Type 2 diabetes mellitus. 5. Hyperlipidemia. 6. Hypertension. 7. GERD. 8. History of A-fib/flutter. PAST SURGICAL HISTORY: 1. Previous mitral valve repair on March 03, 2017, by Dr. Sutton. 2. Previous ablation for atrial flutter on April 01, by Dr. Oakes. 3. Gastric sleeve in 2012. 4. Previous cardiac catheterization. 5. Breast reduction. ALLERGIES PENICILLIN. LISINOPRIL SOCIAL HISTORY: Non-smoker, non-drinker. FAMILY HISTORY: Noncontributory to present illness. MEDICATIONS: Reported include: 1. Eliquis. 2. Diltiazem. 3. Simvastatin. 4. Protonix. REVIEW OF SYSTEMS: As per HPI. The rest of the review of systems is unremarkable. PHYSICAL EXAMINATION: The patient is a 36 year-old female, lying in bed in no acute distress. VITAL SIGNS: Temperature 99.1, pulse 105, respiratory rate 17, blood pressure 119/89. Saturation 98% on room air. HEENT: Atraumatic, normocephalic. Pupils equal, round, reactive to light and accommodation. Extraocular muscles intact. Conjunctivae pink. Nonicteric sclera. Oral mucosa within normal limits. NECK: Supple. No JVD, adenopathy or thyromegaly. Trachea midline. CARDIOVASCULAR: Tachycardiac, normal S1-S2. No murmurs, rubs, or gallops noted. PULMONARY: Bilateral equal air entry. Diminished at the right base. ABDOMEN: Soft, nontender. No distension. Positive bowel sounds. EXTREMITIES: No clubbing, cyanosis or edema. NEUROLOGIC: No focal sensory deficit. LABORATORY DATA: WBC 10.0, hemoglobin 11, hematocrit 35, platelet count 389. Sodium 138, potassium 3.4, chloride 104, CO2 26, BUN of 7, creatinine 0.75, glucose 88. Troponin less than 0.02. RADIOLOGIC STUDIES: CT angiogram of the chest showed no evidence of pulmonary embolus. Right-sided pleural effusion. Bilateral dependent atelectasis. EKG showed sinus tachycardia with heart rate 110 beats per minute. IMPRESSION: 1. Moderate right-sided pleural effusion. 2. Bilateral atelectasis. 3. Obesity. 4. Questionable underlying sleep apnea. 5. History of bronchial asthma. 6. Status post ablation for atrial flutter on April 01. 7. Chronic anticoagulation with Eliquis. 8. Status post mitral valve repair in February 2017. 9. Hypertension. 10. Diabetes mellitus. RECOMMENDATIONS 1. Oxygen p.r.n. to maintain sats above 92%. 2. Bronchial dilators in the form of DuoNeb q6, plus q2 p.r.n. for shortness of breath. 3. Will proceed with ultrasound guided thoracentesis and will send the pleural fluid for analysis and culture. Will hold Eliquis for now for thoracentesis. 4. Incentive spirometry q1 hour while awake. 5. Will need sleep study as an outpatient to rule out underlying obstructive sleep apnea. 6. Monitor for signs of infection which include fever and WBC. 7. Continue other treatment plan, per primary team. Further recommendations will be based on hospital course. Thank you for the consultation and allowing us to participate ion this patient's care. MD EMMANUEL Ponce/NELLY /11:49 AM /12:06 PM
[2017-04-19] MEDS: MULTIVITAMIN HEMATINIC THERAPEUTIC TAB PO SCH (13:00)
[2017-04-19 14:23] LABS: TROPONIN I LESS THAN 0.02 NG/ML (0.02-0.05)
[2017-04-19 19:08] LABS: TROPONIN I LESS THAN 0.02 NG/ML (0.02-0.05)
[2017-04-19] MEDS: oxyCODONE/ACETAMINOPHEN 5 MG/325 MG TAB PO PRN (19:38)
[2017-04-19 20:57] LABS: AMORPHOUS SEDIMENT, URINE RARE; BLOOD, URINE SMALL (NEG); GLUCOSE,URINE NEG (NEG); KETONE, URINE NEG (NEG); MUCUS URINE MANY /lpf (OCC); NITRITE,URINE NEG (NEG); PH, URINE 6.5 (5.0-8.5); SQUAMOUS EPITHELIAL CELL URINE 5 /hpf (0-5); URINE COLOR YELLOW (YELLW/STRAW); URINE LEUKOCYTE ESTERASE NEG (NEG)
[2017-04-19 20:59] LABS: BILIRUBIN, URINE NEG (NEG)
[2017-04-19] MEDS: SODIUM CHLORIDE 0.9% FLUSH 10 ML FLUSH IV FLUSH SCH (21:00)
[2017-04-19] MEDS ORDERED: BARIATRIC VITAMIN PO SCH (21:00)
[2017-04-19] MEDS: guaiFENesin E.R. 600 MG TAB PO SCH (21:02)
[2017-04-19] MEDS: PRAVASTATIN SOD 40 MG TAB PO SCH (21:03)
[2017-04-19] MEDS: SENNOSIDES 8.6 MG TAB PO PRN (21:04)
[2017-04-20] VITALS (35 sets, daily range): BP systolic 115–138; BP diastolic 70–95; PULSE 100–124; RESP 18–22; TEMP 97.7–98.7; O2SAT 95–99
[2017-04-20] MEDS: RESP: IPRATROPIUM 0.5 MG/2.5 ML NEB NEB SCH ×6 (04:05→23:49)
[2017-04-20 04:42] LABS: AUTOMATED NEUTROPHIL # 7.1 TH/MM3 (1.8-7.7); BASOPHIL # 0.1 TH/MM3 (0-0.2); BASOPHIL % 0.6 % (0.0-2.0); EOSINOPHIL # 0.4 TH/MM3 (0-0.4); EOSINOPHIL % 3.6 % (0.0-4.0); HEMATOCRIT 34.1 % (35.0-46.0); HEMOGLOBIN 10.9 GM/DL (11.6-15.3); LYMPH % 16.3 % (9.0-44.0); LYMPHOCYTE # 1.6 TH/MM3 (1.0-4.8); MEAN CELL VOLUME 76.4 FL (80.0-100.0); MEAN CORPUSCULAR HEMOGLOBIN 24.4 PG (27.0-34.0); MEAN CORPUSCULAR HGB CONC 31.9 % (32.0-36.0); MEAN PLATELET VOLUME 9.9 FL (7.0-11.0); MONO % 6.5 % (0.0-8.0); MONOCYTE # 0.6 TH/MM3 (0-0.9); PLATELET COUNT 369 TH/MM3 (150-450); RED BLOOD COUNT 4.46 MIL/MM3 (4.00-5.30); RED CELL DISTRIBUTION WIDTH 16.6 % (11.6-17.2); WHITE BLOOD COUNT 9.7 TH/MM3 (4.0-11.0)
[2017-04-20 04:56] LABS: INTERNATIONAL NORMALIZED RATIO 1.1 RATIO; PROTHROMBIN TIME - PATIENT 11.6 SEC (9.8-11.6)
[2017-04-20 05:04] LABS: BICARBONATE 25.5 MEQ/L (21.0-32.0); CALCIUM 8.8 MG/DL (8.5-10.1); CREATININE 0.73 MG/DL (0.50-1.00)
[2017-04-20] MEDS: oxyCODONE/ACETAMINOPHEN 5 MG/325 MG TAB PO PRN ×2 (06:46→14:43)
--- NOTE | 2017-04-20 08:12 | HHI.PR ---
Subjective Remarks This is a pleasant 36 y/o Female with iron Deficiency anemia, Sleep apnea, Asthma, Nonobstructive Coronary artery disease, DM II, Hyperlipidemia Hypertension, Mitral regurgitation and Morbid Obesity, she had Status post Mitral Valve repair ring 03/03/17 [address] Doctor Agustín, status post new admission on 03/25/17 due to Atrial Flutter with RVR, On this opportunity the patient came to ER with Chest pain on the left side radiating into the left subscapular region worsened by deep inspiration, that started four days ago, seen last 04/16/17 in ER, the pain continued, yesterday developed cough and in ER seen small amount of Hemoptysis, Patient is status post recent cardiac ablation for atrial flutter; (MR identified during cardiac cath 01/2017 minimal coronary disease with significant MR). Patient denies any lower extremity pain or swelling. the chest pain reported as 9/10 in intensity. 04/20: Stable discussed with nurse Miss Desir, status Post Thoracentesis, bioinformatics support specialist following, no nausea, vomit or diarrhea Objective Vital Signs Date Time Temp Pulse Resp B/P (MAP) Pulse Ox O2 Delivery O2 Flow Rate FiO2 04/20/17 07:51 98.3 111 20 116/72 (87) 95 04/20/17 07:51 95 Room Air 04/20/17 07:31 96 21 04/20/17 06:00 110 04/20/17 05:00 120 04/20/17 04:00 124 04/20/17 03:40 110 20 138/83 (101) 96 04/20/17 03:00 107 04/20/17 02:00 104 04/20/17 01:00 102 04/20/17 00:00 100 04/19/17 23:59 104 20 106/69 (81) 97 04/19/17 23:00 101 04/19/17 22:00 100 04/19/17 21:00 104 04/19/17 20:00 110 04/19/17 19:35 98.8 107 18 125/73 (90) 100 04/19/17 19:35 100 Room Air 04/19/17 19:00 115 04/19/17 18:00 106 04/19/17 17:00 100 04/19/17 15:45 104 04/19/17 15:45 98.7 104 20 118/67 (84) 97 04/19/17 15:45 04/19/17 15:45 97 Room Air 04/19/17 15:10 96 26 116/60 (78) 98 Room Air 04/19/17 12:26 04/19/17 12:15 94 32 112/55 (74) 98 Room Air 04/19/17 11:33 98 21 04/19/17 09:01 99.1 96 17 109/66 (80) 98 Room Air I/O 04/19/17 04/19/17 04/19/17 04/20/17 04/20/17 04/20/17 07:00 15:00 23:00 07:00 15:00 23:00 Intake Total 890 ml 480 ml Balance 890 ml 480 ml Intake Oral 480 ml 480 ml IV Total 410 ml # Voids 1 2 # Bowel Movements 0 0 Result Diagram: 04/20/17 0344 04/20/17 0344 Imaging Last Impressions Chest X-Ray 04/19/17 0356 Signed Impressions: Service Date/Time: Wednesday, April 19, 2017 04:18 - CONCLUSION: Mild right lower lung infiltrate. Stable cardiomegaly. Otherwise, no significant changes. Aung Abdullahi MD CT Angiography 04/19/17 0000 Signed Impressions: Service Date/Time: Wednesday, April 19, 2017 07:55 - CONCLUSION: 1. No evidence of pulmonary loss. 2. Moderate-sized right pleural effusion. Small left pleural effusion. Small moderate pericardial effusion. 3. Bilateral dependent atelectasis and mild bilateral groundglass opacity that may represent mild pulmonary edema. 4. Moderate diffuse cardiac enlargement. Timo Serrano MD Procedures Thoracentesis obtained 700 ml of fluid. Other Results Laboratory Tests Test 04/19/17 03:40 04/19/17 10:15 04/19/17 18:08 04/19/17 18:30 Activated Partial Thromboplast Time 36.0 SEC D-Dimer Quantitative (PE/DVT) 5.82 MG/L FEU Blood Urea Nitrogen 7 MG/DL Creatinine 0.75 MG/DL Random Glucose 88 MG/DL Calcium Level 8.3 MG/DL Magnesium Level 2.2 MG/DL Sodium Level 138 MEQ/L Potassium Level 3.4 MEQ/L Chloride Level 104 MEQ/L Carbon Dioxide Level 26.2 MEQ/L Total Bilirubin 0.4 MG/DL Direct Bilirubin 0.1 MG/DL Indirect Bilirubin 0.3 MG/DL Aspartate Amino Transf (AST/SGOT) 10 U/L Alanine Aminotransferase (ALT/SGPT) 17 U/L Alkaline Phosphatase 59 U/L Total Protein 6.7 GM/DL Albumin 2.4 GM/DL Total Creatine Kinase 34 U/L Troponin I LESS THAN 0.02 NG/ML Urine Color YELLOW Urine Turbidity CLEAR Urine pH 6.5 Urine Specific [place] GREATER THAN 1.050 Urine Protein 100 mg/dL Urine Glucose (UA) NEG mg/dL Urine Ketones NEG mg/dL Urine Occult Blood SMALL Urine Nitrite NEG Urine Bilirubin NEG Urine Urobilinogen 4.0 MG/DL Urine Leukocyte Esterase NEG Urine RBC 14 /hpf Urine WBC 3 /hpf Urine Squamous Epithelial Cells 5 /hpf Urine Amorphous Sediment RARE Urine Mucus MANY /lpf Microscopic Urinalysis Comment CULT NOT INDICATED Test 04/20/17 03:44 White Blood Count 9.7 TH/MM3 Red Blood Count 4.46 MIL/MM3 Hemoglobin 10.9 GM/DL Hematocrit 34.1 % Mean Corpuscular Volume 76.4 FL Mean Corpuscular Hemoglobin 24.4 PG Mean Corpuscular Hemoglobin Concent 31.9 % Red Cell Distribution Width 16.6 % Platelet Count 369 TH/MM3 Mean Platelet Volume 9.9 FL Neutrophils (%) (Auto) 73.0 % Lymphocytes (%) (Auto) 16.3 % Monocytes (%) (Auto) 6.5 % Eosinophils (%) (Auto) 3.6 % Basophils (%) (Auto) 0.6 % Neutrophils # (Auto) 7.1 TH/MM3 Lymphocytes # (Auto) 1.6 TH/MM3 Monocytes # (Auto) 0.6 TH/MM3 Eosinophils # (Auto) 0.4 TH/MM3 Basophils # (Auto) 0.1 TH/MM3 CBC Comment DIFF FINAL Differential Comment Prothrombin Time 11.6 SEC Prothromb Time International Ratio 1.1 RATIO Blood Urea Nitrogen 9 MG/DL Creatinine 0.73 MG/DL Random Glucose 81 MG/DL Calcium Level 8.8 MG/DL Sodium Level 138 MEQ/L Potassium Level 3.5 MEQ/L Chloride Level 104 MEQ/L Carbon Dioxide Level 25.5 MEQ/L Anion Gap 9 MEQ/L Estimat Glomerular Filtration Rate 109 ML/MIN Objective Remarks GENERAL: Obese patient in no acute distress. SKIN: Warm and dry. HEAD: Normocephalic. EYES: No scleral icterus. No injection or drainage. NECK: Supple, trachea midline. No JVD or lymphadenopathy. CARDIOVASCULAR: Regular rate and rhythm without murmurs, gallops, or rubs. RESPIRATORY: Decreased breath sounds bilateral. GASTROINTESTINAL: Abdomen soft, non-tender, nondistended. MUSCULOSKELETAL: No cyanosis, or edema. BACK: Nontender without obvious deformity. No CVA tenderness. Medications and IVs Current Medications Medications (Trade) Dose Ordered Sig/Hernando Route Start Time Stop Time Status Last Admin (NS Flush) 2 ml UNSCH PRN IVF 04/19/17 04:00 Sodium Chloride 1,000 ml @ 83 mls/hr Q12H3M IV 04/19/17 11:00 04/19/17 21:09 (NS Flush) 2 ml UNSCH PRN IV FLUSH 04/19/17 10:30 (NS Flush) 2 ml BID IV FLUSH 04/19/17 21:00 (Tylenol) 650 mg Q4H PRN PO 04/19/17 10:30 (Zofran Inj) 4 mg Q6H PRN IVP 04/19/17 10:30 (Narcan Inj) 0.4 mg UNSCH PRN IV PUSH 04/19/17 10:30 (Senokot) 17.2 mg Q12H PRN PO 04/19/17 10:30 04/19/17 21:04 (Dulcolax Supp) 10 mg DAILY PRN RECTAL 04/19/17 10:30 (Lactulose Liq) 30 ml DAILY PRN PO 04/19/17 10:30 (Mucinex Er) 600 mg BID PO 04/19/17 21:00 04/19/17 21:02 (Atrovent Neb) 0.5 mg Q4HR NEB NEB 04/19/17 12:00 04/20/17 07:31 (Cardizem Cd) 120 mg DAILY PO 04/20/17 09:00 (Percocet 5-325 Mg) 1 tab Q6HR PRN PO 04/19/17 10:30 04/20/17 06:46 (Protonix) 40 mg DAILY PO 04/20/17 09:00 (Pravachol) 40 mg HS PO 04/19/17 21:00 04/19/17 21:03 (Theragran Hematinic) 1 tab DAILY PO 04/19/17 13:00 (Duoneb Neb) 1 ampule Q6HR NEB PRN NEB 04/19/17 12:00 A/P Assessment and Plan 1. Hemoptysis EKG sinus tachycardia rate [address] elevation injury pattern or ectopy noted, CXR Mild right lower lung infiltrate, CTA with moderate pleural effusion, magnesium 2.2, Calcium level 8.3, discussed with bioinformatics support specialist recommended to discontinue Eliquis and Hospitalize, Cardiac enzymes within normal range. Discussed with doctor Macario Sorto by ER physician Doctor Miller. continue Bronchodilator, Mucolytic and incentive spirometry. Oxygen to keep oxygen saturation above 92%, Status Ultrasound guided Thoracentesis obtained 700 ml of fluids. started on Levofloxacin by bioinformatics support specialist. 2. Obesity strongly recommended diet and exercise. 3. Questionable Sleep Apnea asked for Polysomnography as outpatient by bioinformatics support specialist 4. CAD by history 5. DM II on sliding scale 6. Hyperlipidemia to continue Home medicines. 7. Hypertension controlled to continue Home medicines 8. Atrial Fibrillation status post Ablation. continue Home medicines. chronic anticoagulation with Eliquis at this time on hold due to procedure. 9. GERD to continue Gastric protection 10. mitral valve repair with ring 03/03/[address] Sutton DVT prophylaxis with SCDs awaiting for procedure tomorrow, Eliquis on hold Code Status Full Code. Discharge Planning Once cleared by bioinformatics support specialist Ludwin Desir MD Apr 20, 2017 08:12
--- NOTE | 2017-04-20 08:26 | EKG ---
Date Performed: 04/19/2017 Time Performed: 03:09:02 PTAGE: 36 years EKG: SINUS TACHYCARDIA POSSIBLE LEFT ATRIAL ENLARGEMENT BORDERLINE RIGHT AXIS DEVIATION NONSPECI FIC ST & T-WAVE ABNORMALITY Nondiagnostic Q waves inferior leads Since previous tracing, no significa nt change noted ABNORMAL RHYTHM ECG PREVIOUS TRACING : 04/16/2017 11.05 DOCTOR: Law Stanton Interpretating Date/Time 04/20/2017 08:25:10
[2017-04-20] MEDS ORDERED: [UNRECOGNIZED DRUG - OTHER] PO SCH (09:00)
[2017-04-20] MEDS: SODIUM CHLOR 0.9% 1000 ML INJ 1,000 ML IV SCH ×2 (09:31→23:09)
[2017-04-20] MEDS: guaiFENesin E.R. 600 MG TAB PO SCH ×2 (09:32→21:03)
[2017-04-20] MEDS: DILTIAZEM-CD 120 MG CAP ER PO SCH (09:32)
[2017-04-20] MEDS: MULTIVITAMIN HEMATINIC THERAPEUTIC TAB PO SCH (09:32)
[2017-04-20] MEDS: SODIUM CHLORIDE 0.9% FLUSH 10 ML FLUSH IV FLUSH SCH ×2 (09:32→21:00)
[2017-04-20] MEDS: PANTOPRAZOLE SOD 40 MG DELAYED RELEASE TAB PO SCH (09:32)
--- NOTE | 2017-04-20 11:24 | PD.RAD ---
Post US Procedure Prog Note Pre Procedure Diagnosis: (1) Pleural effusion on right Post Procedure Diagnosis: (1) Pleural effusion on right Procedure Date: Apr 20, 2017 Supervising Radiologist: Scooby Cassidy Estimated blood loss: none Anesthesia: Local Plan of Activity Patient to Unit: Other Patient Condition: Good See PACS Report for procedural detail/treatment Drainage Procedure Procedure 1 Imaging Guidance: Ultrasound Side: Right Procedure Type: Thoracentesis Fluid Removal (CCs): 700 Fluid Description: Clear, Yellow Plan cxr then return to floor if normal. Scooby Cassidy MD Apr 20, 2017 11:24
--- NOTE | 2017-04-20 11:52 | RADRPT ---
EXAM DATE/TIME: 04/20/2017 11:33 [facility] COMPARISON: CHEST SINGLE AP, April 19, 2017, 4:18. INDICATIONS : Post right sided thoracentesis. MEDICAL HISTORY : Cardiovascular disease. Hypertension. Gastroesophageal reflux disease. SURGICAL HISTORY : Breast augmentation. Cardiac cath. ENCOUNTER: Initial ACUITY: 1 day PAIN SCORE: 0/10 LOCATION: Bilateral chest FINDINGS: The heart is enlarged. There are bilateral effusions and diffuse interstitial prominence suggesting c ongestive failure the effusion on the right is no longer identified. There is no pneumothorax seen po st thoracentesis. CONCLUSION: 1. Interval thoracentesis on the right. No pneumothorax is seen. Justen Marcial MD on April 20, 2017 at 11:42 Board Certified Radiologist. This report was verified electronically.
--- NOTE | 2017-04-20 12:13 | RADRPT ---
EXAM DATE/TIME: 04/20/2017 10:46 [facility] COMPARISON: No previous studies available for comparison. INDICATIONS : Right pleural effusion. MEDICAL HISTORY : Cardiac disorders. Hypercholesterol Afib. Hypertension.GERD. Hiatal hernia. SURGICAL HISTORY : Cardiac catheterization. Mitral valve repair. Breast reduction. Gastric sleeve. Hiatal hernia rep air. ENCOUNTER: Initial ACUITY: 3 days PAIN SCORE: 10/10 LOCATION: Right chest FLUID: Total volume of 700 cc of clear, yellow fluid was removed. Fluid was sent to lab for ordered studies. TECHNIQUE: 1. Ultrasound guidance for thoracentesis. 2. Thoracentesis. The risks, benefits, and alternatives to ultrasound guided thoracentesis were explained to the patien t in lay simple terms, including the risk of bleeding and infection. Written and verbal informed con sent was obtained. Appropriate area for thoracentesis was marked under ultrasound guidance with the patient in the uprig ht position. Overlying skin was prepped and draped in the usual sterile fashion and with local anest hetic, a dermatotomy was made with an 11 blade scalpel. A 6 Arabic thoracentesis catheter was placed in the pleural space and fluid was removed. Catheter was then removed and a sterile dressing applie d. There were no immediate complications. The patient tolerated the procedure well and the left the ultrasound suite in stable condition. Chest radiograph is to be obtained. CONCLUSION: Uncomplicated ultrasound guided right thoracentesis. Scooby Cassidy MD on April 20, 2017 at 12:05 Board Certified Radiologist. This report was verified electronically.
[2017-04-20 12:17] LABS: TOTAL PROTEIN,PLEURAL FLUID 4.8 GM/DL
[2017-04-20 12:46] LABS: PLEURAL FLUID BASO 1 %; PLEURAL FLUID HISTIOCYTES 3 %; PLEURAL FLUID LYMPHS 46 %; PLEURAL FLUID MESOTHELIAL 5 %; PLEURAL FLUID POLYS (SEGS) 45 %; PLEURAL FLUID RBC 2357 /MM3 (0-0); PLEURAL FLUID WBC 4677 /MM3 (0-10)
[2017-04-20] MEDS ORDERED: POTASSIUM CHLORIDE 20 MEQ CONTROLLED RELEASE TAB PO ONE (16:15)
--- NOTE | 2017-04-20 18:18 | HHI.PR ---
Subjective Remarks PLEURAL EFFUSION S/P MVREPAIR AFLUTTER POST ABLATION BRONCHIAL ASTHMA H/O URI PRIOR TO ADMISSION PLAN O2 NEEDED BRONCHODILATORS ANTIBX CHECK FLUID RESILTS Objective Vital Signs Date Time Temp Pulse Resp B/P (MAP) Pulse Ox O2 Delivery O2 Flow Rate FiO2 04/20/17 17:09 102 04/20/17 16:06 108 04/20/17 15:12 98.7 109 18 125/86 (99) 98 04/20/17 15:00 111 04/20/17 14:45 112 04/20/17 13:00 121 18 136/82 (100) 98 04/20/17 13:00 117 04/20/17 12:40 107 18 127/95 (106) 97 04/20/17 12:20 104 18 120/89 (99) 98 04/20/17 12:10 111 18 118/85 (96) 98 04/20/17 12:05 98.7 111 20 118/85 (96) 99 04/20/17 12:00 118 04/20/17 11:06 97.7 113 22 118/70 (86) 95 04/20/17 11:00 114 04/20/17 10:22 115 04/20/17 09:00 106 04/20/17 08:00 112 04/20/17 07:51 98.3 111 20 116/72 (87) 95 04/20/17 07:51 95 Room Air 04/20/17 07:31 96 21 04/20/17 07:00 123 04/20/17 06:00 110 04/20/17 05:00 120 04/20/17 04:00 124 04/20/17 03:40 110 20 138/83 (101) 96 04/20/17 03:00 107 04/20/17 02:00 104 04/20/17 01:00 102 04/20/17 00:00 100 04/19/17 23:59 104 20 106/69 (81) 97 04/19/17 23:00 101 04/19/17 22:00 100 04/19/17 21:00 104 04/19/17 20:00 110 04/19/17 19:35 98.8 107 18 125/73 (90) 100 04/19/17 19:35 100 Room Air 04/19/17 19:00 115 I/O 04/19/17 04/19/17 04/19/17 04/20/17 04/20/17 04/20/17 07:00 15:00 23:00 07:00 15:00 23:00 Intake Total 890 ml 480 ml 840 ml Balance 890 ml 480 ml 840 ml Intake Oral 480 ml 480 ml 840 ml IV Total 410 ml # Voids 1 2 5 # Bowel Movements 0 0 1 Result Diagram: 04/20/17 0344 04/20/17 0344 Assessment and Plan Assessment and Plan PLEURAL EFFUSION S/P MV REPAIR H/O RECENT URI PLAN O2 NEEDED CHECK FLUID RESULTS ANTIBX Macario Sorto MD Apr 20, 2017 18:18
[2017-04-20] MEDS: LEVOFLOXACIN 500 MG PREMIX INJ 100 ML IV SCH (18:36)
[2017-04-20] MEDS: PRAVASTATIN SOD 40 MG TAB PO SCH (21:03)
[2017-04-21] VITALS (30 sets, daily range): BP systolic 104–134; BP diastolic 68–87; PULSE 90–113; RESP 17–18; TEMP 97.9–98.6; O2SAT 96–100
[2017-04-21] MEDS: RESP: IPRATROPIUM 0.5 MG/2.5 ML NEB NEB SCH ×6 (03:09→20:28)
[2017-04-21] MEDS: SODIUM CHLORIDE 0.9% FLUSH 10 ML FLUSH IV FLUSH SCH ×2 (08:11→20:22)
[2017-04-21] MEDS: guaiFENesin E.R. 600 MG TAB PO SCH ×2 (08:13→20:21)
[2017-04-21] MEDS: PANTOPRAZOLE SOD 40 MG DELAYED RELEASE TAB PO SCH (08:13)
[2017-04-21] MEDS: MULTIVITAMIN HEMATINIC THERAPEUTIC TAB PO SCH (08:13)
[2017-04-21] MEDS: DILTIAZEM-CD 120 MG CAP ER PO SCH (08:13)
--- NOTE | 2017-04-21 08:30 | HHI.PR ---
Subjective Remarks PLEURAL EFFUSION S/P MVREPAIR AFLUTTER POST ABLATION BRONCHIAL ASTHMA H/O URI PRIOR TO ADMISSION PLAN O2 NEEDED BRONCHODILATORS ANTIBX CHECK FLUID RESILTS Objective Vital Signs Date Time Temp Pulse Resp B/P (MAP) Pulse Ox O2 Delivery O2 Flow Rate FiO2 04/21/17 08:15 98 21 04/21/17 07:54 96 Room Air 04/21/17 07:54 98.2 103 18 117/80 (92) 96 04/21/17 06:02 101 04/21/17 05:02 101 04/21/17 04:00 103 04/21/17 03:10 98.5 108 18 118/79 (92) 100 04/21/17 03:01 101 04/21/17 02:13 101 04/21/17 01:00 103 04/21/17 00:04 98 04/20/17 23:00 102 04/20/17 22:49 98.6 101 18 115/79 (91) 98 04/20/17 22:09 108 04/20/17 21:00 101 04/20/17 20:00 103 04/20/17 19:55 21 04/20/17 19:28 98 Room Air 04/20/17 19:27 98.6 116 18 121/82 (95) 98 04/20/17 19:00 124 04/20/17 18:21 114 04/20/17 17:09 102 04/20/17 16:06 108 04/20/17 15:12 98.7 109 18 125/86 (99) 98 04/20/17 15:00 111 04/20/17 14:45 112 04/20/17 13:00 121 18 136/82 (100) 98 04/20/17 13:00 117 04/20/17 12:40 107 18 127/95 (106) 97 04/20/17 12:20 104 18 120/89 (99) 98 04/20/17 12:10 111 18 118/85 (96) 98 04/20/17 12:05 98.7 111 20 118/85 (96) 99 04/20/17 12:00 118 04/20/17 11:06 97.7 113 22 118/70 (86) 95 04/20/17 11:00 114 04/20/17 10:22 115 04/20/17 09:00 106 I/O 04/20/17 04/20/17 04/20/17 04/21/17 04/21/17 04/21/17 07:00 15:00 23:00 07:00 15:00 23:00 Intake Total 480 ml 840 ml 2917 ml Balance 480 ml 840 ml 2917 ml Intake Oral 480 ml 840 ml 480 ml IV Total 2437 ml # Voids 2 5 2 # Bowel Movements 0 1 Result Diagram: 04/20/17 0344 04/20/17 0344 Assessment and Plan Assessment and Plan PLEURAL EFFUSION S/P MV REPAIR H/O RECENT URI PLEURAL FLUID CULTURE NEGATIVE PLAN O2 NEEDED ANTIBX Macario Sorto MD Apr 21, 2017 08:30
[2017-04-21] MEDS: oxyCODONE/ACETAMINOPHEN 5 MG/325 MG TAB PO PRN ×2 (10:43→16:53)
[2017-04-21] MEDS: SODIUM CHLOR 0.9% 1000 ML INJ 1,000 ML IV SCH (12:52)
--- NOTE | 2017-04-21 15:01 | HHI.PR ---
Subjective Remarks This is a pleasant 36 y/o Female with iron Deficiency anemia, Sleep apnea, Asthma, Nonobstructive Coronary artery disease, DM II, Hyperlipidemia Hypertension, Mitral regurgitation and Morbid Obesity, she had Status post Mitral Valve repair ring 03/03/[address] Agustín, status post new admission on 03/25/17 due to Atrial Flutter with RVR, On this opportunity the patient came to ER with Chest pain on the left side radiating into the left subscapular region worsened by deep inspiration, that started four days ago, seen last 04/16/17 in ER, the pain continued, yesterday developed cough and in ER seen small amount of Hemoptysis, Patient is status post recent cardiac ablation for atrial flutter; (MR identified during cardiac cath 01/2017 minimal coronary disease with significant MR). Patient denies any lower extremity pain or swelling. the chest pain reported as 9/10 in intensity. 04/20: Stable discussed with nurse Miss Desir, status Post Thoracentesis, marketing data specialist following, no nausea, vomit or diarrhea 04/21: Seen in her bedroom, not yet cleared for discharge by marketing data specialist , no nausea, vomit or diarrhea, her mother and two sisters with her at this time. Objective Vital Signs Date Time Temp Pulse Resp B/P (MAP) Pulse Ox O2 Delivery O2 Flow Rate FiO2 04/21/17 14:00 101 04/21/17 13:00 102 04/21/17 12:14 101 04/21/17 11:03 98.2 107 18 113/72 (86) 98 04/21/17 11:00 109 04/21/17 10:39 113 04/21/17 09:00 105 04/21/17 08:15 98 21 04/21/17 08:00 105 04/21/17 07:54 96 Room Air 04/21/17 07:54 98.2 103 18 117/80 (92) 96 04/21/17 07:00 104 04/21/17 06:02 101 04/21/17 05:02 101 04/21/17 04:00 103 04/21/17 03:10 98.5 108 18 118/79 (92) 100 04/21/17 03:01 101 04/21/17 02:13 101 04/21/17 01:00 103 04/21/17 00:04 98 04/20/17 23:00 102 04/20/17 22:49 98.6 101 18 115/79 (91) 98 04/20/17 22:09 108 04/20/17 21:00 101 04/20/17 20:00 103 04/20/17 19:55 21 04/20/17 19:28 98 Room Air 04/20/17 19:27 98.6 116 18 121/82 (95) 98 04/20/17 19:00 124 04/20/17 18:21 114 04/20/17 17:09 102 04/20/17 16:06 108 04/20/17 15:12 98.7 109 18 125/86 (99) 98 I/O 04/20/17 04/20/17 04/20/17 04/21/17 04/21/17 04/21/17 07:00 15:00 23:00 07:00 15:00 23:00 Intake Total 480 ml 840 ml 2917 ml Balance 480 ml 840 ml 2917 ml Intake Oral 480 ml 840 ml 480 ml IV Total 2437 ml # Voids 2 5 2 # Bowel Movements 0 1 Result Diagram: 04/20/17 0344 04/20/17 0344 Imaging Last Impressions Chest X-Ray 04/20/17 1122 Signed Impressions: Service Date/Time: Thursday, April 20, 2017 11:33 - CONCLUSION: 1. Interval thoracentesis on the right. No pneumothorax is seen. Justen Marcial MD Thoracentesis Ultrasound 04/20/17 0000 Signed Impressions: Service Date/Time: Thursday, April 20, 2017 10:46 - CONCLUSION: Uncomplicated ultrasound guided right thoracentesis. Scooby Cassidy MD CT Angiography 04/19/17 0000 Signed Impressions: Service Date/Time: Wednesday, April 19, 2017 07:55 - CONCLUSION: 1. No evidence of pulmonary loss. 2. Moderate-sized right pleural effusion. Small left pleural effusion. Small moderate pericardial effusion. 3. Bilateral dependent atelectasis and mild bilateral groundglass opacity that may represent mild pulmonary edema. 4. Moderate diffuse cardiac enlargement. Timo Serrano MD Procedures Thoracentesis obtained 700 ml of fluid. Other Results Laboratory Tests Test 04/19/17 03:40 04/19/17 10:15 04/19/17 18:08 04/19/17 18:30 Activated Partial Thromboplast Time 36.0 SEC D-Dimer Quantitative (PE/DVT) 5.82 MG/L FEU Blood Urea Nitrogen 7 MG/DL Creatinine 0.75 MG/DL Random Glucose 88 MG/DL Calcium Level 8.3 MG/DL Magnesium Level 2.2 MG/DL Sodium Level 138 MEQ/L Potassium Level 3.4 MEQ/L Chloride Level 104 MEQ/L Carbon Dioxide Level 26.2 MEQ/L Total Bilirubin 0.4 MG/DL Direct Bilirubin 0.1 MG/DL Indirect Bilirubin 0.3 MG/DL Aspartate Amino Transf (AST/SGOT) 10 U/L Alanine Aminotransferase (ALT/SGPT) 17 U/L Alkaline Phosphatase 59 U/L Total Protein 6.7 GM/DL Albumin 2.4 GM/DL Total Creatine Kinase 34 U/L Troponin I LESS THAN 0.02 NG/ML Urine Color YELLOW Urine Turbidity CLEAR Urine pH 6.5 Urine Specific [place] GREATER THAN 1.050 Urine Protein 100 mg/dL Urine Glucose (UA) NEG mg/dL Urine Ketones NEG mg/dL Urine Occult Blood SMALL Urine Nitrite NEG Urine Bilirubin NEG Urine Urobilinogen 4.0 MG/DL Urine Leukocyte Esterase NEG Urine RBC 14 /hpf Urine WBC 3 /hpf Urine Squamous Epithelial Cells 5 /hpf Urine Amorphous Sediment RARE Urine Mucus MANY /lpf Microscopic Urinalysis Comment CULT NOT INDICATED Test 04/20/17 03:44 04/20/17 11:20 White Blood Count 9.7 TH/MM3 Red Blood Count 4.46 MIL/MM3 Hemoglobin 10.9 GM/DL Hematocrit 34.1 % Mean Corpuscular Volume 76.4 FL Mean Corpuscular Hemoglobin 24.4 PG Mean Corpuscular Hemoglobin Concent 31.9 % Red Cell Distribution Width 16.6 % Platelet Count 369 TH/MM3 Mean Platelet Volume 9.9 FL Neutrophils (%) (Auto) 73.0 % Lymphocytes (%) (Auto) 16.3 % Monocytes (%) (Auto) 6.5 % Eosinophils (%) (Auto) 3.6 % Basophils (%) (Auto) 0.6 % Neutrophils # (Auto) 7.1 TH/MM3 Lymphocytes # (Auto) 1.6 TH/MM3 Monocytes # (Auto) 0.6 TH/MM3 Eosinophils # (Auto) 0.4 TH/MM3 Basophils # (Auto) 0.1 TH/MM3 CBC Comment DIFF FINAL Differential Comment Prothrombin Time 11.6 SEC Prothromb Time International Ratio 1.1 RATIO Blood Urea Nitrogen 9 MG/DL Creatinine 0.73 MG/DL Random Glucose 81 MG/DL Calcium Level 8.8 MG/DL Sodium Level 138 MEQ/L Potassium Level 3.5 MEQ/L Chloride Level 104 MEQ/L Carbon Dioxide Level 25.5 MEQ/L Anion Gap 9 MEQ/L Estimat Glomerular Filtration Rate 109 ML/MIN Pleural Fluid pH 8.0 Pleural Fluid WBC 4677 /MM3 Pleural Fluid RBC 2357 /MM3 Pleural Fluid Neutrophils 45 % Pleural Fluid Lymphocytes 46 % Pleural Fluid Basophils 1 % Pleural Fluid Histiocytes 3 % Pleural Fluid Mesothelial Cells 5 % Pleural Fluid Total Protein 4.8 GM/DL Pleural Fluid LDH 167 U/L Pleural Fluid Glucose 82 MG/DL Objective Remarks GENERAL: Obese patient in no acute distress. SKIN: Warm and dry. HEAD: Normocephalic. EYES: No scleral icterus. No injection or drainage. NECK: Supple, trachea midline. No JVD or lymphadenopathy. CARDIOVASCULAR: Regular rate and rhythm without murmurs, gallops, or rubs. RESPIRATORY: Decreased breath sounds bilateral. GASTROINTESTINAL: Abdomen soft, non-tender, nondistended. MUSCULOSKELETAL: No cyanosis, or edema. BACK: Nontender without obvious deformity. No CVA tenderness. Medications and IVs Current Medications Medications (Trade) Dose Ordered Sig/[place] Route Start Time Stop Time Status Last Admin (NS Flush) 2 ml UNSCH PRN IVF 04/19/17 04:00 Sodium Chloride 1,000 ml @ 83 mls/hr Q12H3M IV 04/19/17 11:00 04/21/17 12:52 (NS Flush) 2 ml UNSCH PRN IV FLUSH 04/19/17 10:30 (NS Flush) 2 ml BID IV FLUSH 04/19/17 21:00 (Tylenol) 650 mg Q4H PRN PO 04/19/17 10:30 (Zofran Inj) 4 mg Q6H PRN IVP 04/19/17 10:30 (Narcan Inj) 0.4 mg UNSCH PRN IV PUSH 04/19/17 10:30 (Senokot) 17.2 mg Q12H PRN PO 04/19/17 10:30 04/19/17 21:04 (Dulcolax Supp) 10 mg DAILY PRN RECTAL 04/19/17 10:30 (Lactulose Liq) 30 ml DAILY PRN PO 04/19/17 10:30 (Mucinex Er) 600 mg BID PO 04/19/17 21:00 04/21/17 08:13 (Atrovent Neb) 0.5 mg Q4HR NEB NEB 04/19/17 12:00 04/21/17 11:24 (Cardizem Cd) 120 mg DAILY PO 04/20/17 09:00 04/21/17 08:13 (Percocet 5-325 Mg) 1 tab Q6HR PRN PO 04/19/17 10:30 04/21/17 10:43 (Protonix) 40 mg DAILY PO 04/20/17 09:00 04/21/17 08:13 (Pravachol) 40 mg HS PO 04/19/17 21:00 04/20/17 21:03 (Theragran Hematinic) 1 tab DAILY PO 04/19/17 13:00 04/21/17 08:13 (Duoneb Neb) 1 ampule Q6HR NEB PRN NEB 04/19/17 12:00 Levofloxacin/ Dextrose 100 ml @ 100 mls/hr Q24H IV 04/20/17 19:00 04/20/17 18:36 A/P Assessment and Plan 1. Hemoptysis EKG sinus tachycardia rate [address] elevation injury pattern or ectopy noted, CXR Mild right lower lung infiltrate, CTA with moderate pleural effusion, magnesium 2.2, Calcium level 8.3, discussed with marketing data specialist recommended to discontinue Eliquis and Hospitalize, Cardiac enzymes within normal range. Discussed with doctor Macario Sorto by ER physician Doctor Miller. continue Bronchodilator, Mucolytic and incentive spirometry. Oxygen to keep oxygen saturation above 92%, Status Ultrasound guided Thoracentesis obtained 700 ml of fluids. started on Levofloxacin by marketing data specialist. 2. Obesity strongly recommended diet and exercise. 3. Questionable Sleep Apnea asked for Polysomnography as outpatient by marketing data specialist 4. CAD by history 5. DM II on sliding scale 6. Hyperlipidemia to continue Home medicines. 7. Hypertension controlled to continue Home medicines 8. Atrial Fibrillation status post Ablation. continue Home medicines. chronic anticoagulation with Eliquis at this time on hold due to procedure. 9. GERD to continue Gastric protection 10. mitral valve repair with ring 03/03/[address] Sutton DVT prophylaxis with SCDs Eliquis on Hold due to Hemoptysis. Code Status Full Code. Discharge Planning Once cleared by marketing data specialist Ludwin Desir MD Apr 21, 2017 15:01
[2017-04-21] MEDS: LEVOFLOXACIN 500 MG PREMIX INJ 100 ML IV SCH (18:24)
[2017-04-21] MEDS: PRAVASTATIN SOD 40 MG TAB PO SCH (20:21)
[2017-04-21] MEDS: SENNOSIDES 8.6 MG TAB PO PRN (20:21)
[2017-04-22] VITALS (20 sets, daily range): BP systolic 113–133; BP diastolic 69–99; PULSE 18–106; RESP 17–20; TEMP 98–98.9; O2SAT 95–98
[2017-04-22] MEDS: RESP: IPRATROPIUM 0.5 MG/2.5 ML NEB NEB SCH ×5 (01:15→19:03)
[2017-04-22] MEDS: SODIUM CHLOR 0.9% 1000 ML INJ 1,000 ML IV SCH ×3 (02:36→22:40)
[2017-04-22] MEDS: PANTOPRAZOLE SOD 40 MG DELAYED RELEASE TAB PO SCH (07:58)
[2017-04-22] MEDS: MULTIVITAMIN HEMATINIC THERAPEUTIC TAB PO SCH (07:58)
[2017-04-22] MEDS: DILTIAZEM-CD 120 MG CAP ER PO SCH (07:59)
[2017-04-22] MEDS: guaiFENesin E.R. 600 MG TAB PO SCH ×2 (07:59→22:40)
[2017-04-22] MEDS: SODIUM CHLORIDE 0.9% FLUSH 10 ML FLUSH IV FLUSH SCH ×2 (08:02→21:00)
--- NOTE | 2017-04-22 11:33 | HHI.PR ---
Subjective Remarks This is a pleasant 36 y/o Female with iron Deficiency anemia, Sleep apnea, Asthma, Nonobstructive Coronary artery disease, DM II, Hyperlipidemia Hypertension, Mitral regurgitation and Morbid Obesity, she had Status post Mitral Valve repair ring 03/03/[address] Doctor Agustín, status post new admission on 03/25/17 due to Atrial Flutter with RVR, On this opportunity the patient came to ER with Chest pain on the left side radiating into the left subscapular region worsened by deep inspiration, that started four days ago, seen last 04/16/17 in ER, the pain continued, yesterday developed cough and in ER seen small amount of Hemoptysis, Patient is status post recent cardiac ablation for atrial flutter; (MR identified during cardiac cath 01/2017 minimal coronary disease with significant MR). Patient denies any lower extremity pain or swelling. the chest pain reported as 9/10 in intensity. 04/22: Patient with status post Thoracentesis of the right side, no further episodes of hemoptysis, Eliquis on hold, will need to be reassessed before discharge, her pleural fluid demonstrated Leukocytosis, started on Levaquin by Doctor Macario, following further recommendations. no nausea, vomit or diarrhea. Objective Vital Signs Date Time Temp Pulse Resp B/P (MAP) Pulse Ox O2 Delivery O2 Flow Rate FiO2 04/22/17 11:00 98.6 94 20 130/93 (105) 96 04/22/17 11:00 99 04/22/17 11:00 98.8 86 20 113/69 (84) 95 04/22/17 10:00 96 04/22/17 09:00 92 04/22/17 08:00 74 04/22/17 07:34 97 21 04/22/17 07:20 96 04/22/17 07:20 98.4 99 18 117/80 (92) 95 04/22/17 06:00 89 04/22/17 05:05 94 04/22/17 04:00 92 04/22/17 03:00 98.0 96 17 116/73 (87) 98 04/22/17 03:00 91 04/22/17 02:00 95 04/22/17 01:00 97 04/22/17 00:00 95 04/21/17 23:05 97.9 90 17 134/87 (103) 98 04/21/17 23:00 92 04/21/17 22:00 93 04/21/17 21:00 93 04/21/17 20:28 98 21 04/21/17 19:20 97.9 98 17 104/68 (80) 98 04/21/17 18:21 112 04/21/17 17:19 97 04/21/17 16:06 94 04/21/17 15:29 98.6 94 18 111/75 (87) 99 04/21/17 15:00 94 04/21/17 14:00 101 04/21/17 13:00 102 04/21/17 12:14 101 I/O 04/21/17 04/21/17 04/21/17 04/22/17 04/22/17 04/22/17 07:00 15:00 23:00 07:00 15:00 23:00 Intake Total 2917 ml 1318 ml 2100 ml Balance 2917 ml 1318 ml 2100 ml Intake Oral 480 ml 1318 ml 240 ml IV Total 2437 ml 1860 ml # Voids 2 5 2 # Bowel Movements 0 Result Diagram: 04/20/17 0344 04/20/17 0344 Imaging Last Impressions Chest X-Ray 04/20/17 1122 Signed Impressions: Service Date/Time: Thursday, April 20, 2017 11:33 - CONCLUSION: 1. Interval thoracentesis on the right. No pneumothorax is seen. Justen Marcial MD Thoracentesis Ultrasound 04/20/17 0000 Signed Impressions: Service Date/Time: Thursday, April 20, 2017 10:46 - CONCLUSION: Uncomplicated ultrasound guided right thoracentesis. Scooby Cassidy MD CT Angiography 04/19/17 0000 Signed Impressions: Service Date/Time: Wednesday, April 19, 2017 07:55 - CONCLUSION: 1. No evidence of pulmonary loss. 2. Moderate-sized right pleural effusion. Small left pleural effusion. Small moderate pericardial effusion. 3. Bilateral dependent atelectasis and mild bilateral groundglass opacity that may represent mild pulmonary edema. 4. Moderate diffuse cardiac enlargement. Timo Serrano MD Procedures Thoracentesis obtained 700 ml of fluid. Other Results Laboratory Tests Test 04/19/17 03:40 04/19/17 10:15 04/19/17 18:08 04/19/17 18:30 Activated Partial Thromboplast Time 36.0 SEC D-Dimer Quantitative (PE/DVT) 5.82 MG/L FEU Blood Urea Nitrogen 7 MG/DL Creatinine 0.75 MG/DL Random Glucose 88 MG/DL Calcium Level 8.3 MG/DL Magnesium Level 2.2 MG/DL Sodium Level 138 MEQ/L Potassium Level 3.4 MEQ/L Chloride Level 104 MEQ/L Carbon Dioxide Level 26.2 MEQ/L Total Bilirubin 0.4 MG/DL Direct Bilirubin 0.1 MG/DL Indirect Bilirubin 0.3 MG/DL Aspartate Amino Transf (AST/SGOT) 10 U/L Alanine Aminotransferase (ALT/SGPT) 17 U/L Alkaline Phosphatase 59 U/L Total Protein 6.7 GM/DL Albumin 2.4 GM/DL Total Creatine Kinase 34 U/L Troponin I LESS THAN 0.02 NG/ML Urine Color YELLOW Urine Turbidity CLEAR Urine pH 6.5 Urine Specific [place] GREATER THAN 1.050 Urine Protein 100 mg/dL Urine Glucose (UA) NEG mg/dL Urine Ketones NEG mg/dL Urine Occult Blood SMALL Urine Nitrite NEG Urine Bilirubin NEG Urine Urobilinogen 4.0 MG/DL Urine Leukocyte Esterase NEG Urine RBC 14 /hpf Urine WBC 3 /hpf Urine Squamous Epithelial Cells 5 /hpf Urine Amorphous Sediment RARE Urine Mucus MANY /lpf Microscopic Urinalysis Comment CULT NOT INDICATED Test 04/20/17 03:44 04/20/17 11:20 White Blood Count 9.7 TH/MM3 Red Blood Count 4.46 MIL/MM3 Hemoglobin 10.9 GM/DL Hematocrit 34.1 % Mean Corpuscular Volume 76.4 FL Mean Corpuscular Hemoglobin 24.4 PG Mean Corpuscular Hemoglobin Concent 31.9 % Red Cell Distribution Width 16.6 % Platelet Count 369 TH/MM3 Mean Platelet Volume 9.9 FL Neutrophils (%) (Auto) 73.0 % Lymphocytes (%) (Auto) 16.3 % Monocytes (%) (Auto) 6.5 % Eosinophils (%) (Auto) 3.6 % Basophils (%) (Auto) 0.6 % Neutrophils # (Auto) 7.1 TH/MM3 Lymphocytes # (Auto) 1.6 TH/MM3 Monocytes # (Auto) 0.6 TH/MM3 Eosinophils # (Auto) 0.4 TH/MM3 Basophils # (Auto) 0.1 TH/MM3 CBC Comment DIFF FINAL Differential Comment Prothrombin Time 11.6 SEC Prothromb Time International Ratio 1.1 RATIO Blood Urea Nitrogen 9 MG/DL Creatinine 0.73 MG/DL Random Glucose 81 MG/DL Calcium Level 8.8 MG/DL Sodium Level 138 MEQ/L Potassium Level 3.5 MEQ/L Chloride Level 104 MEQ/L Carbon Dioxide Level 25.5 MEQ/L Anion Gap 9 MEQ/L Estimat Glomerular Filtration Rate 109 ML/MIN Pleural Fluid pH 8.0 Pleural Fluid WBC 4677 /MM3 Pleural Fluid RBC 2357 /MM3 Pleural Fluid Neutrophils 45 % Pleural Fluid Lymphocytes 46 % Pleural Fluid Basophils 1 % Pleural Fluid Histiocytes 3 % Pleural Fluid Mesothelial Cells 5 % Pleural Fluid Total Protein 4.8 GM/DL Pleural Fluid LDH 167 U/L Pleural Fluid Glucose 82 MG/DL Objective Remarks GENERAL: Obese patient in no acute distress. SKIN: Warm and dry. HEAD: Normocephalic. EYES: No scleral icterus. No injection or drainage. NECK: Supple, trachea midline. No JVD or lymphadenopathy. CARDIOVASCULAR: Regular rate and rhythm without murmurs, gallops, or rubs. RESPIRATORY: Decreased breath sounds bilateral. GASTROINTESTINAL: Abdomen soft, non-tender, nondistended. MUSCULOSKELETAL: No cyanosis, or edema. BACK: Nontender without obvious deformity. No CVA tenderness. Medications and IVs Current Medications Medications (Trade) Dose Ordered Sig/[place] Route Start Time Stop Time Status Last Admin (NS Flush) 2 ml UNSCH PRN IVF 04/19/17 04:00 Sodium Chloride 1,000 ml @ 83 mls/hr Q12H3M IV 04/19/17 11:00 04/22/17 11:18 (NS Flush) 2 ml UNSCH PRN IV FLUSH 04/19/17 10:30 (NS Flush) 2 ml BID IV FLUSH 04/19/17 21:00 04/21/17 20:22 (Tylenol) 650 mg Q4H PRN PO 04/19/17 10:30 (Zofran Inj) 4 mg Q6H PRN IVP 04/19/17 10:30 (Narcan Inj) 0.4 mg UNSCH PRN IV PUSH 04/19/17 10:30 (Senokot) 17.2 mg Q12H PRN PO 04/19/17 10:30 04/21/17 20:21 (Dulcolax Supp) 10 mg DAILY PRN RECTAL 1/14/18 10:30 (Lactulose Liq) 30 ml DAILY PRN PO 04/19/17 10:30 (Mucinex Er) 600 mg BID PO 04/19/17 21:00 04/22/17 07:59 (Atrovent Neb) 0.5 mg Q4HR NEB NEB 04/19/17 12:00 04/22/17 07:34 (Cardizem Cd) 120 mg DAILY PO 04/20/17 09:00 04/22/17 07:59 (Percocet 5-325 Mg) 1 tab Q6HR PRN PO 04/19/17 10:30 04/21/17 16:53 (Protonix) 40 mg DAILY PO 04/20/17 09:00 04/22/17 07:58 (Pravachol) 40 mg HS PO 04/19/17 21:00 04/21/17 20:21 (Theragran Hematinic) 1 tab DAILY PO 04/19/17 13:00 04/22/17 07:58 (Duoneb Neb) 1 ampule Q6HR NEB PRN NEB 04/19/17 12:00 Levofloxacin/ Dextrose 100 ml @ 100 mls/hr Q24H IV 04/20/17 19:00 04/21/17 18:24 A/P Assessment and Plan 1. Hemoptysis EKG sinus tachycardia rate [address] elevation injury pattern or ectopy noted, CXR Mild right lower lung infiltrate, CTA with moderate pleural effusion, magnesium 2.2, Calcium level 8.3, discussed with field specialist recommended to discontinue Eliquis and Hospitalize, Cardiac enzymes within normal range. Discussed with doctor Macario Sorto by ER physician Doctor Miller. continue Bronchodilator, Mucolytic and incentive spirometry. Oxygen to keep oxygen saturation above 92%, Status Ultrasound guided Thoracentesis obtained 700 ml of fluids. started on Levofloxacin by field specialist. 2. Obesity strongly recommended diet and exercise. 3. Questionable Sleep Apnea asked for Polysomnography as outpatient by field specialist 4. CAD by history 5. mitral valve repair with ring 03/03/[address] Sutton 6. Hyperlipidemia to continue Home medicines. 7. Hypertension controlled to continue Home medicines 8. Atrial Fibrillation status post Ablation. continue Home medicines. chronic anticoagulation with Eliquis at this time on hold due to procedure. 9. GERD to continue Gastric protection DVT prophylaxis with SCDs Eliquis on Hold due to Hemoptysis. Code Status Full Code. Discharge Planning Once cleared by field specialist Ludwin Desir MD Apr 22, 2017 11:33
--- NOTE | 2017-04-22 16:35 | HHI.PR ---
Subjective Remarks PLEURAL EFFUSION S/P MV REPAIR AFLUTTER POST ABLATION BRONCHIAL ASTHMA H/O URI PRIOR TO ADMISSION pleural fluid exudae culture negative Cytology ? not done PLAN O2 NEEDED BRONCHODILATORS ANTIBX PATIENT MAY BE DISCHARGED F/U OUT PATIENT, HAS BILATERAL EFFUSION MORE ON RIGHT WELL PERICADIAL EFFUSION IF THESE RESOLVE NO FURTHER SOLER AT THIS POINT IF PERSIST OR WORSEN FURTHUR SOLER WILL BE NEEDED WILL SEE IN OFFICE I WEEK POST DC Objective Vital Signs Date Time Temp Pulse Resp B/P (MAP) Pulse Ox O2 Delivery O2 Flow Rate FiO2 04/22/17 15:07 95 21 04/22/17 11:00 98.6 94 20 130/93 (105) 96 04/22/17 11:00 99 04/22/17 11:00 98.8 86 20 113/69 (84) 95 04/22/17 10:00 96 04/22/17 09:00 92 04/22/17 08:00 74 04/22/17 07:34 97 21 04/22/17 07:20 96 04/22/17 07:20 98.4 99 18 117/80 (92) 95 04/22/17 06:00 89 04/22/17 05:05 94 04/22/17 04:00 92 04/22/17 03:00 98.0 96 17 116/73 (87) 98 04/22/17 03:00 91 04/22/17 02:00 95 04/22/17 01:00 97 04/22/17 00:00 95 04/21/17 23:05 97.9 90 17 134/87 (103) 98 04/21/17 23:00 92 04/21/17 22:00 93 04/21/17 21:00 93 04/21/17 20:28 98 21 04/21/17 19:20 97.9 98 17 104/68 (80) 98 04/21/17 18:21 112 04/21/17 17:19 97 I/O 04/21/17 04/21/17 04/21/17 04/22/17 04/22/17 04/22/17 07:00 15:00 23:00 07:00 15:00 23:00 Intake Total 2917 ml 1318 ml 2100 ml Balance 2917 ml 1318 ml 2100 ml Intake Oral 480 ml 1318 ml 240 ml IV Total 2437 ml 1860 ml # Voids 2 5 2 # Bowel Movements 0 Result Diagram: 04/20/17 0344 04/20/17 0344 Procedures Thoracentesis obtained 700 ml of fluid. Assessment and Plan Assessment and Plan PLEURAL EFFUSION S/P MV REPAIR H/O RECENT URI PLEURAL FLUID CULTURE NEGATIVE PLAN O2 NEEDED ANTIBX Macario Sorto MD Apr 22, 2017 16:35
[2017-04-22] MEDS: LEVOFLOXACIN 500 MG PREMIX INJ 100 ML IV SCH (17:34)
[2017-04-22] MEDS: PRAVASTATIN SOD 40 MG TAB PO SCH (22:40)
[2017-04-23] VITALS (13 sets, daily range): BP systolic 114–140; BP diastolic 85–100; PULSE 88–102; RESP 18; TEMP 97.9–98.8; O2SAT 97–100
[2017-04-23] MEDS: RESP: IPRATROPIUM 0.5 MG/2.5 ML NEB NEB SCH ×3 (00:01→08:41)
[2017-04-23] MEDS: DILTIAZEM-CD 120 MG CAP ER PO SCH (08:38)
[2017-04-23] MEDS: SODIUM CHLORIDE 0.9% FLUSH 10 ML FLUSH IV FLUSH SCH (08:38)
[2017-04-23] MEDS: guaiFENesin E.R. 600 MG TAB PO SCH (08:38)
[2017-04-23] MEDS: PANTOPRAZOLE SOD 40 MG DELAYED RELEASE TAB PO SCH (08:38)
[2017-04-23] MEDS: MULTIVITAMIN HEMATINIC THERAPEUTIC TAB PO SCH (08:38)
[2017-04-23] MEDS ORDERED: LEVA500T33 PO (10:54)
[2017-04-23] MEDS ORDERED: guaiFENesin ER PO (10:54)
[2017-04-23] MEDS ORDERED: OXYGEN NAS.CANULA (10:55)
--- NOTE | 2017-04-23 11:02 | HHI.PR ---
Subjective Remarks Follow-up hemoptysis/pleural effusion status post thoracentesis -right 04/23/17-patient seen and examined,denies any significant shortness of breath or chest pain. No acute event overnight. Afebrile and ready for discharge home. Objective Vitals Vital Signs Date Time Temp Pulse Resp B/P (MAP) Pulse Ox O2 Delivery O2 Flow Rate FiO2 04/23/17 08:43 99 04/23/17 06:00 96 04/23/17 05:00 92 04/23/17 04:00 88 04/23/17 04:00 97.9 90 18 132/100 (111) 98 04/23/17 03:00 90 04/23/17 02:00 102 04/23/17 01:00 94 04/23/17 00:10 97 04/23/17 00:00 98.2 96 18 121/88 (99) 98 04/23/17 00:00 94 04/22/17 23:00 94 04/22/17 22:00 106 04/22/17 21:00 96 04/22/17 20:00 103 04/22/17 20:00 98.2 96 18 121/88 (99) 98 04/22/17 18:00 95 04/22/17 16:00 98.9 105 18 133/99 (110) 97 04/22/17 16:00 105 04/22/17 15:07 95 21 04/22/17 11:00 98.6 94 20 130/93 (105) 96 04/22/17 11:00 99 04/22/17 11:00 98.8 86 20 113/69 (84) 95 I/O 04/22/17 04/22/17 04/22/17 04/23/17 04/23/17 04/23/17 07:00 15:00 23:00 07:00 15:00 23:00 Intake Total 2100 ml 440 ml Balance 2100 ml 440 ml Intake Oral 240 ml 440 ml IV Total 1860 ml # Voids 2 4 # Bowel Movements 2 0 Result Diagram: 04/20/17 0344 04/20/17 0344 Imaging Last Impressions Chest X-Ray 04/20/17 1122 Signed Impressions: Service Date/Time: Thursday, April 20, 2017 11:33 - CONCLUSION: 1. Interval thoracentesis on the right. No pneumothorax is seen. Justen Marcial MD Thoracentesis Ultrasound 04/20/17 0000 Signed Impressions: Service Date/Time: Thursday, April 20, 2017 10:46 - CONCLUSION: Uncomplicated ultrasound guided right thoracentesis. Scooby Cassidy MD CT Angiography 04/19/17 0000 Signed Impressions: Service Date/Time: Wednesday, April 19, 2017 07:55 - CONCLUSION: 1. No evidence of pulmonary loss. 2. Moderate-sized right pleural effusion. Small left pleural effusion. Small moderate pericardial effusion. 3. Bilateral dependent atelectasis and mild bilateral groundglass opacity that may represent mild pulmonary edema. 4. Moderate diffuse cardiac enlargement. Timo Serrano MD Objective Remarks GENERAL: NAD SKIN: Warm and dry. HEAD: Normocephalic. EYES: No scleral icterus. No injection or drainage. NECK: Supple, trachea midline. No JVD or lymphadenopathy. CARDIOVASCULAR: Irregular Regular rate and rhythm without murmurs, gallops, or rubs. RESPIRATORY: Breath sounds equal bilaterally. No accessory muscle use. GASTROINTESTINAL: Abdomen soft, non-tender, nondistended. MUSCULOSKELETAL: No cyanosis, or edema. BACK: Nontender without obvious deformity. No CVA tenderness. Procedures Ultrasound-guided right thoracentesis A/P Problem List: (1) Pleural effusion on right ICD Code: J90 - Pleural effusion, not elsewhere classified Status: Acute (2) SOB (shortness of breath) ICD Code: R06.02 - Shortness of breath Assessment and Plan 36-year-old female with Hemoptysis Pleural right effusion Status post ultrasound-guided thoracentesis Currently on Levaquin and will switch to by mouth Continue Bronchodilator, Mucolytic and incentive spirometry. Oxygen to keep oxygen saturation Appreciate input from pulmonary medicine Will resume Eliquis today 04/23/17 Will perform walk test prior to discharge Obesity strongly recommended diet and exercise. Questionable Sleep Apnea Polysomnography as outpatient by floor care specialist CAD by history mitral valve repair with ring 03/03/[address] Sutton Hyperlipidemia Continue Home medicines. Hypertension continue Home medicines Atrial Fibrillation status post Ablation. continue Home medicines. chronic anticoagulation with Eliquis which I would resume today GERD to continue Gastric protection Wang Hernández MD Apr 23, 2017 11:02
--- NOTE | 2017-04-23 11:05 | HHI.DS ---
Discharge Summary Admission Date Apr 19, 2017 at 09:51 Discharge Date: Apr 23, 2017 Admitting Diagnosis New R Pleural Effusion; CP/Dyspnea; HyperK on Eliquis (1) Pleural effusion on right ICD Code: J90 - Pleural effusion, not elsewhere classified Status: Acute (2) SOB (shortness of breath) ICD Code: R06.02 - Shortness of breath Procedures Ultrasound-guided right thoracentesis Brief History - From Admission This is a pleasant 36 y/o Female with iron Deficiency anemia, Sleep apnea, Asthma, Nonobstructive Coronary artery disease, DM II, Hyperlipidemia Hypertension, Mitral regurgitation and Morbid Obesity, she had Status post Mitral Valve repair ring 03/03/17 [address] Doctor Agustín, status post new admission on 03/25/17 due to Atrial Flutter with RVR, On this opportunity the patient came to ER with Chest pain on the left side radiating into the left subscapular region worsened by deep inspiration, that started four days ago, seen last 04/16/17 in ER, the pain continued, yesterday developed cough and in ER seen small amount of Hemoptysis, Patient is status post recent cardiac ablation for atrial flutter; (MR identified during cardiac cath 01/2017 minimal coronary disease with significant MR). Patient denies any lower extremity pain or swelling. the chest pain reported as 9/10 in intensity. Stable seen by hydraulic specialist, will have Thoracentesis tomorrow will give diet and will be NPO at midnight. CBC/BMP: 04/20/17 0344 04/20/17 0344 Significant Findings Laboratory Tests Test 04/20/17 11:20 Pleural Fluid WBC 4677 /MM3 (0-10) Pleural Fluid RBC 2357 /MM3 (0-0) Imaging Last Impressions Chest X-Ray 04/20/17 1122 Signed Impressions: Service Date/Time: Thursday, April 20, 2017 11:33 - CONCLUSION: 1. Interval thoracentesis on the right. No pneumothorax is seen. Justen Marcial MD Thoracentesis Ultrasound 04/20/17 0000 Signed Impressions: Service Date/Time: Thursday, April 20, 2017 10:46 - CONCLUSION: Uncomplicated ultrasound guided right thoracentesis. Scooby Cassidy MD CT Angiography 04/19/17 0000 Signed Impressions: Service Date/Time: Wednesday, April 19, 2017 07:55 - CONCLUSION: 1. No evidence of pulmonary loss. 2. Moderate-sized right pleural effusion. Small left pleural effusion. Small moderate pericardial effusion. 3. Bilateral dependent atelectasis and mild bilateral groundglass opacity that may represent mild pulmonary edema. 4. Moderate diffuse cardiac enlargement. Timo Serrano MD PE at Discharge GENERAL: NAD SKIN: Warm and dry. HEAD: Normocephalic. EYES: No scleral icterus. No injection or drainage. NECK: Supple, trachea midline. No JVD or lymphadenopathy. CARDIOVASCULAR: Irregular Regular rate and rhythm without murmurs, gallops, or rubs. RESPIRATORY: Breath sounds equal bilaterally. No accessory muscle use. GASTROINTESTINAL: Abdomen soft, non-tender, nondistended. MUSCULOSKELETAL: No cyanosis, or edema. BACK: Nontender without obvious deformity. No CVA tenderness. Hospital Course Patient was admitted secondary to acute respiratory failure and was found to have pleural effusion bilateral however large in the right which required consultation to pulmonary medicine. She underwent ultrasound-guided thoracentesis and was started on IV antibiotic including Levaquin and monitor culture which remained negative prior to discharge. Before her procedure, oral anticoagulation including Eliquis was held however this was resumed on . Patient was continued on her treatment for other chronic medical conditions. Walk test was performed prior to discharge. Prior to discharge, patient's condition improved and vital remained stable. Pt Condition on Discharge: Good Discharge Disposition: Discharge Home Discharge Time: <= 30 minutes Discharge Instructions DIET: Follow Instructions for: Heart Healthy Diet Activities you can perform: Regular-No Restrictions Follow up Referrals: PCP Follow-up - 1 Week Pulmonology New Medications: Levofloxacin (Levaquin) 500 Mg Tablet 500 MG PO DAILY for Infection, #3 TAB 0 Refills Oxygen (O2) (Oxygen (O2)) Inha LITER NELLY.CANULA CONTINUOUS for Prevent Hypoxemia, #2 Oxygen Concentrator Portable Gaseous 2 L/min via Nasal Canula Continuous For 99 months [guaiFENesin ER] () 600 MG TABCR 600 MG PO BID, #20 Continued Medications: Apixaban (Eliquis) 5 Mg Tab 5 MG PO BID for Blood Clot Prevention, #60 TAB 0 Refills start first dose 04/06/[address] (Aspirin EC) 81 Mg Tabdr 81 MG PO DAILY for Blood Clot Prevention, #30 TAB 0 Refills Diltiazem CD 24 HR (Diltiazem CD 24 HR) 120 Mg Caper 120 MG PO DAILY for heart rate, #30 CAP 0 Refills Docusate Sodium (Dok) 100 Mg Cap 100 MG PO BID for Constipation, #60 CAP 0 Refills Oxycodone HCl/Acetaminophen (Oxycodone-Acetaminophen 5-325) 5 Mg-325 Mg Tablet 1 TAB PO Q6HR PRN for PAIN SCALE 1 TO 5, #40 TAB 0 Refills Pantoprazole (Protonix) 40 Mg Tab 40 MG PO DAILY for Reflux, TAB 0 Refills Simvastatin (Simvastatin) 5 Mg Tab 20 MG PO HS for Cholesterol Management, #30 TAB 0 Refills [Bariatric Iron] () 25 MG PO DAILY [Bariatric Vitamin] () 1 TAB PO BID Wang Hernández MD Apr 23, 2017 11:05
[2017-04-23] MEDS ORDERED: APIXABAN 5 MG TABLET PO SCH (12:00)
== END 2017-04-23 11:57 | disposition home or self-care (01) | DRG 187 ==
LOC: NEPC 02:44 → NEDA 09:51 → HCIN 12:35 → NEDA 12:49 → HCPC 15:28 → HCIS 04-20 12:31 → HCPC 04-20 12:32 → HCIS 04-22 11:15
PROVIDERS: ADMIT Internal Medicine; ATTEND Hospitalist
PROC: 0W993ZX Drainage of Right Pleural Cavity, Percutaneous Approach, Diagnostic (ICD-10-PCS; principal; 2017-04-20)
DX: J90 Pleural effusion, not elsewhere classified (principal); Z68.41 Body mass index [BMI] 40.0-44.9, adult; I31.3 Pericardial effusion (noninflammatory); R04.2 Hemoptysis; E66.01 Morbid (severe) obesity due to excess calories; J98.11 Atelectasis; I48.91 Unspecified atrial fibrillation; D50.9 Iron deficiency anemia, unspecified; E11.9 Type 2 diabetes mellitus without complications; E78.5 Hyperlipidemia, unspecified; J45.909 Unspecified asthma, uncomplicated; K21.9 Gastro-esophageal reflux disease without esophagitis; I10 Essential (primary) hypertension; I25.10 Atherosclerotic heart disease of native coronary artery without angina pectoris; Z71.3 Dietary counseling and surveillance; Z79.01 Long term (current) use of anticoagulants; Z88.0 Allergy status to penicillin; Z88.8 Allergy status to other drugs, medicaments and biological substances
CPT/HCPCS: 32555; 71045; 71275; 80048; 80076; 81001; 82550; 82945; 83615; 83735; 83986; 84157; 84484; 85025; 85379; 85610; 85730; 87070; 87205; 89051; 93005; 94150; 94618; 94640; 94664; 96374; C1729; J1885; J1956; J7030; J7644; Q9967

== ENCOUNTER 2017-06-07 12:33 | Emergency (ER) | payer OTHER ==
[~2017-06-07] VITALS: Ht 175.3 cm; Wt 100.0 kg
[~2017-06-07 12:33] MED LIST changes: +LEVA500T33 PO; +OXYGEN NAS.CANULA; +guaiFENesin ER PO
[2017-06-07 12:38] VITALS: BP 125/89; PULSE 116; RESP 19; TEMP 98.2; O2SAT 100
[2017-06-07 13:12] VITALS: O2SAT 97
--- NOTE | 2017-06-07 13:15 | RADRPT ---
EXAM DATE/TIME: 06/07/2017 12:58 [facility] COMPARISON: CHEST SINGLE AP, April 19, 2017, 4:18. INDICATIONS : Chest pain and shortness of breath. MEDICAL HISTORY : Cardiovascular disease. Hypertension. Gastroesophageal reflux disease SURGICAL HISTORY : Breast augmentation. Cardiac cath. ENCOUNTER: Initial ACUITY: 1 day PAIN SCORE: 7/10 LOCATION: Bilateral upper chest FINDINGS: A single view of the chest demonstrates the lungs to be symmetrically aerated without evidence of mas s, infiltrate or effusion. There is no overt congestive failure.. Osseous structures are intact. CONCLUSION: Moderate cardiomegaly without failure. Lew Marcial MD FACR on June 07, 2017 at 13:12 Board Certified Radiologist. This report was verified electronically.
[2017-06-07 13:31] LABS: AUTOMATED NEUTROPHIL # 7.1 TH/MM3 (1.8-7.7); BASOPHIL # 0.1 TH/MM3 (0-0.2); BASOPHIL % 0.7 % (0.0-2.0); EOSINOPHIL # 0.1 TH/MM3 (0-0.4); EOSINOPHIL % 0.6 % (0.0-4.0); HEMATOCRIT 37.9 % (35.0-46.0); HEMOGLOBIN 12.2 GM/DL (11.6-15.3); LYMPH % 20.7 % (9.0-44.0); LYMPHOCYTE # 2.1 TH/MM3 (1.0-4.8); MEAN CORPUSCULAR HGB CONC 32.1 % (32.0-36.0); MEAN PLATELET VOLUME 9.6 FL (7.0-11.0); MONO % 8.2 % (0.0-8.0); MONOCYTE # 0.8 TH/MM3 (0-0.9); NEUT % 69.8 % (16.0-70.0); PLATELET COUNT 278 TH/MM3 (150-450); RED BLOOD COUNT 5.06 MIL/MM3 (4.00-5.30); RED CELL DISTRIBUTION WIDTH 21.1 % (11.6-17.2); WHITE BLOOD COUNT 10.2 TH/MM3 (4.0-11.0)
--- NOTE | 2017-06-07 13:53 | PD ---
HPI Chief Complaint: Chest Pain Time Seen by Provider: 12:44 Travel History International Travel<30 days: No Contact w/Intl Traveler<30days: No Traveled to known affect area: No History of Present Illness HPI 36-year-old female complains of chest pain on the left side since last night. Pain radiates to the left shoulder. She reports minimal relief from oxycodone last night. When she woke the pain had returned. In the past a pleural effusion felt similar and she is worried the same is affecting her now. PFSH Past Medical History Hx Anticoagulant Therapy: Yes (ELIQUIS) Arthritis: No Atrial Fibrillation: Yes Autoimmune Disease: No Anxiety: No Depression: No Heart Rhythm Problems: Yes Cancer: No Cardiovascular Problems: Yes High Cholesterol: Yes Chemotherapy: No Chest Pain: No Congestive Heart Failure: No Cerebrovascular Accident: No Diabetes: Yes ("PRE") Patient Takes Glucophage: No Diminished Hearing: No Endocrine: No Gastrointestinal Disorders: Yes (gerd) GERD: Yes Genitourinary: No Headaches: No Hepatitis: No Hiatal Hernia: Yes Heparin Induced Thrombocytopen: No Hypertension: Yes Immune Disorder: No Implanted Vascular Access Dvce: No Musculoskeletal: No Neurologic: No Psychiatric: No Reproductive: No Respiratory: Yes (sob on occasion) Migraines: No Radiation Therapy: No Seizures: No Sickle Cell Disease: No Sleep Apnea: No Thyroid Disease: No Tetanus Vaccination: < 5 Years Influenza Vaccination: Yes ?: Not LMP: 2 WEEKS AGO Past Surgical History Abdominal Surgery: Yes (gastric sleeve 2012, hiatal hernia repair apr 2016) AICD: No Arteriovenous Shunt: No Body Medical Devices: sleeve Cardiac Surgery: Yes (cardiac catherization; mitral valve repair) Ear Surgery: No Endocrine Surgery: No Eye Surgery: No Genitourinary Surgery: No Gynecologic Surgery: Yes (breast reduction) Insulin Pump: No Joint Replacement: No Oral Surgery: No Pacemaker: No Thoracic Surgery: Yes (breast reduction; ) Other Surgery: Yes (cardiac catherization and breast reduction, thoracentesis) Social History Alcohol Use: No Tobacco Use: No Substance Use: No Allergies-Medications (Allergen,Severity, Reaction): Coded Allergies: lisinopril (Verified Allergy, Severe, LIP AND AFCE SWELLING, 06/07/17) penicillin G (Verified Allergy, Severe, Hives, 06/07/17) Reported Meds & Prescriptions Reported Meds & Active Scripts Active Bactrim DS (Sulfamethoxazole-Trimethoprim) 800-160 Mg Tab 1 Tab PO BID 7 Days Hydrocodone-Acetaminophen 5-325 mg Tab 1 Tab PO Q6H PRN Ibuprofen 600 Mg Tab 600 Mg PO Q8H PRN 7 Days Oxygen (O2) (Miscellaneous Medication) Inha Liter NELLY.CANULA CONTINUOUS Oxygen Concentrator Portable Gaseous 2 L/min via Nasal Canula Continuous For 99 months Eliquis (Apixaban) 5 Mg Tab 5 Mg PO BID start first dose 04/06/17 Diltiazem CD 24 HR 120 Mg Caper 120 Mg PO DAILY Aspirin EC (Aspirin) 81 Mg Tabdr 81 Mg PO DAILY Dok (Docusate Sodium) 100 Mg Cap 100 Mg PO BID Oxycodone-Acetaminophen 5-325 (Oxycodone HCl/Acetaminophen) 5 Mg-325 Mg Tablet 1 Tab PO Q6HR PRN Reported Protonix (Pantoprazole Sodium) 40 Mg Tab 40 Mg PO DAILY [Bariatric Vitamin] 1 Tab PO BID Simvastatin 5 Mg Tab 20 Mg PO HS Review of Systems Except as stated in HPI: all other systems reviewed are Neg Physical Exam Narrative GENERAL: 36-year-old female well-nourished well-developed no acute distress Vital Signs Date Time Temp Pulse Resp B/P (MAP) Pulse Ox O2 Delivery O2 Flow Rate FiO2 06/07/17 13:12 97 Room Air 06/07/17 13:03 20 96 Room Air 06/07/17 12:38 98.2 116 19 125/89 (101) 100 SKIN: Warm and dry. HEAD: Atraumatic. Normocephalic. EYES: Pupils equal and round. No scleral icterus. No injection or drainage. ENT: No nasal bleeding or discharge. Mucous membranes pink and moist. NECK: Trachea midline. No JVD. CARDIOVASCULAR: Tachycardia. Regular rhythm. RESPIRATORY: No accessory muscle use. Clear to auscultation. Breath sounds equal bilaterally. GASTROINTESTINAL: Abdomen soft, non-tender, nondistended. Hepatic and splenic margins not palpable. MUSCULOSKELETAL: Extremities without clubbing, cyanosis, or edema. No obvious deformities. NEUROLOGICAL: Awake and alert. No obvious cranial nerve deficits. Motor grossly within normal limits. Five out of 5 muscle strength in the arms and legs. Normal speech. PSYCHIATRIC: Appropriate mood and affect; insight and judgment normal. Data Data Last Documented VS Vital Signs Date Time Temp Pulse Resp B/P (MAP) Pulse Ox O2 Delivery O2 Flow Rate FiO2 06/07/17 16:35 91 19 142/90 (107) 97 06/07/17 13:12 Room Air 06/07/17 12:38 98.2 Orders Orders Electrocardiogram (06/07/17 12:51) Complete Blood Count With Diff (06/07/17 12:51) Basic Metabolic Panel (Bmp) (06/07/17 12:51) Ckmb (Isoenzyme) Profile (06/07/17 12:51) Troponin I (06/07/17 12:51) Chest, Single Ap (06/07/17 12:51) Iv Access Insert/Monitor (06/07/17 12:51) Ecg Monitoring (06/07/17 12:51) Oxygen Administration (06/07/17 12:51) Oximetry (06/07/17 12:51) Ed Discharge Order (06/07/17 16:09) Labs Laboratory Tests Test 06/07/17 13:00 White Blood Count 10.2 TH/MM3 Red Blood Count 5.06 MIL/MM3 Hemoglobin 12.2 GM/DL Hematocrit 37.9 % Mean Corpuscular Volume 75.0 FL Mean Corpuscular Hemoglobin 24.0 PG Mean Corpuscular Hemoglobin Concent 32.1 % Red Cell Distribution Width 21.1 % Platelet Count 278 TH/MM3 Mean Platelet Volume 9.6 FL Neutrophils (%) (Auto) 69.8 % Lymphocytes (%) (Auto) 20.7 % Monocytes (%) (Auto) 8.2 % Eosinophils (%) (Auto) 0.6 % Basophils (%) (Auto) 0.7 % Neutrophils # (Auto) 7.1 TH/MM3 Lymphocytes # (Auto) 2.1 TH/MM3 Monocytes # (Auto) 0.8 TH/MM3 Eosinophils # (Auto) 0.1 TH/MM3 Basophils # (Auto) 0.1 TH/MM3 CBC Comment DIFF FINAL Differential Comment Blood Urea Nitrogen 10 MG/DL Creatinine 0.86 MG/DL Random Glucose 99 MG/DL Calcium Level 8.8 MG/DL Sodium Level 136 MEQ/L Potassium Level 4.0 MEQ/L Chloride Level 105 MEQ/L Carbon Dioxide Level 23.7 MEQ/L Anion Gap 7 MEQ/L Estimat Glomerular Filtration Rate 90 ML/MIN Total Creatine Kinase 44 U/L Troponin I LESS THAN 0.02 NG/ML MDM Medical Decision Making Medical Screen Exam Complete: Yes Emergency Medical Condition: Yes Medical Record Reviewed: Yes Differential Diagnosis Pleural effusion, pneumonia, A. fib, arrhythmia, anemia, coronary disease Narrative Course CBC & BMP Diagram 06/07/17 13:00 Calcium Level 8.8 Tn <0.02 EKG: rate 109, sinus, non-specific st changes Last Impressions Chest X-Ray 06/07/17 1251 Signed Impressions: Service Date/Time: Wednesday, June 07, 2017 12:58 - CONCLUSION: Moderate cardiomegaly without failure. Lew Marcial MD FACR Cardiac cath shows no significant coronary disease on 01/20 such that coronary ischemia considered less likely today. Pt on anticoagulation making PE less likely PNA/Effusion considered reasonably safely excluded Case d/w pt in detail Follow up plans discussed with patient Return precuations discussed PT agreeable with plan Diagnosis Primary Impression: Chest pain Qualified Codes: R07.9 - Chest pain, unspecified Referrals: Primary Care Physician 2 days Med/Other Pt SpecificInfo: Prescription(s) given Scripts Hydrocodone-Acetaminophen (Hydrocodone-Acetaminophen) 5-325 mg Tab 1 TAB PO Q6H Y for PAIN SCALE 6 TO 10, #12 TAB 0 Refills Prov: Justen Miller MD 06/07/17 Ibuprofen (Ibuprofen) 600 Mg Tab 600 MG PO Q8H Y for PAIN for 7 Days, #21 TAB 0 Refills Prov: Justen Miller MD 06/07/17 Disposition: 01 DISCHARGE HOME Condition: Stable Justen Miller MD Jun 07, 2017 13:53
[2017-06-07 14:19] LABS: BICARBONATE 23.7 MEQ/L (21.0-32.0); BLOOD UREA NITROGEN 10 MG/DL (7-18); CALCIUM 8.8 MG/DL (8.5-10.1); CHLORIDE 105 MEQ/L (98-107); CREATININE 0.86 MG/DL (0.50-1.00); GLOMERULAR FILTRATION RATE 90 ML/MIN (>89); GLUCOSE,RANDOM 99 MG/DL (74-106); SODIUM (NA) 136 MEQ/L (136-145); TROPONIN I LESS THAN 0.02 NG/ML (0.02-0.05)
[2017-06-07] MEDS ORDERED: IBUP-232 PO (16:16)
[2017-06-07] MEDS ORDERED: HYDR-3516 PO (16:16)
[2017-06-07 16:35] VITALS: BP 142/90
[2017-06-08] MEDS ORDERED: BACT800T5 PO (16:58)
--- NOTE | 2017-06-11 13:50 | EKG ---
Date Performed: 06/07/2017 Time Performed: 13:15:18 PTAGE: 36 years EKG: SINUS TACHYCARDIA POSSIBLE RIGHT ATRIAL ENLARGEMENT LEFT ATRIAL ENLARGEMENT NONSPECIFIC ST & T-WAVE ABNORMALITY ABNORMAL ECG ST segment elevation is noted in leads II, III and AVF. This is un changed from the prior tracing. Clinical correlation is recommended PREVIOUS TRACING : 04/19/2017 03.09 DOCTOR: Reinaldo Bowie Interpretating Date/Time 06/11/2017 13:49:38
== END 2017-06-07 16:45 | disposition home or self-care (01) ==
LOC: NEPE 12:33
DX: R07.9 Chest pain, unspecified (principal); E78.00 Pure hypercholesterolemia, unspecified; I10 Essential (primary) hypertension; I48.91 Unspecified atrial fibrillation; K21.9 Gastro-esophageal reflux disease without esophagitis; Z79.01 Long term (current) use of anticoagulants
CPT/HCPCS: 71045; 80048; 82550; 84484; 85025; 93005; 99285

== ENCOUNTER 2017-06-08 12:08 | Emergency (ER) | payer OTHER ==
[~2017-06-08 12:08] MED LIST changes: +HYDR-3516 PO; +IBUP-232 PO; -LEVA500T33 PO; -[UNRECOGNIZED DRUG - OTHER] PO; -guaiFENesin ER PO
[2017-06-08] MEDS ORDERED: IOHEXOL 350 MG/ML 10 ML VIAL (for RAD DIAG) IVCONTRAST ONE (12:09)
[2017-06-08 12:13] VITALS: BP 121/93; PULSE 133; RESP 18; TEMP 98.7
[2017-06-08] MEDS ORDERED: MORPHINE SULFATE 4 MG/ML INJ IV PUSH ONE (13:00)
[2017-06-08] MEDS ORDERED: ONDANSETRON HCL 4 MG/2 ML VIAL IV PUSH ONE (13:00)
--- NOTE | 2017-06-08 13:03 | PD ---
HPI Chief Complaint: Abdominal Pain Time Seen by Provider: 12:34 Travel History International Travel<30 days: No Contact w/Intl Traveler<30days: No Traveled to known affect area: No History of Present Illness HPI 36-year-old female presents to the emergency department with complaint of continued left-sided chest pain since . She was seen here yesterday at [place] for the same complaint. Reports worsening of pain since yesterday. Reports shortness of breath. Denies history of chest pain like this before. Reports feeling nauseated without vomiting that started today. Denies abdominal pain. Reports diaphoresis. Pain radiates to her left neck and shoulder. Pain shortness of breath is worse with lying flat, lying her left side, and activity. Pain is constant and does not fluctuate in intensity. Denies history of PE or DVT. Denies leg edema, hemoptysis, hormone replacement therapy, recent travel or surgeries. Does currently take Eliquis post cardiac ablation for atrial fibrillation. Her student services representative is Dr. Marr and Dr. Russell. She has a follow-up appointment on July 08. Reports that she will be put on a Holter monitor at the end of this month. Denies fever, recent illness. Has not taken any medication or tried any treatments to alleviate her symptoms. Symptoms are moderate to severe in severity. No known relieving factors. Primary care provider is Dr. Bolaños. Allergies to penicillin and lisinopril. History of mitral valve regurgitation, cardiac ablation for atrial fibrillation, pleural effusion, gastric sleeve, hypertension. Has no other medical complaints. No other modifying factors or associated signs and symptoms. PFSH Past Medical History Hx Anticoagulant Therapy: Yes (ELIQUIS) Arthritis: No Atrial Fibrillation: Yes Autoimmune Disease: No Anxiety: No Depression: No Heart Rhythm Problems: Yes Cancer: No Cardiovascular Problems: Yes High Cholesterol: Yes Chemotherapy: No Chest Pain: No Congestive Heart Failure: No Cerebrovascular Accident: No Diabetes: Yes ("PRE") Diminished Hearing: No Endocrine: No Gastrointestinal Disorders: Yes (gerd) GERD: Yes Genitourinary: No Headaches: No Hepatitis: No Hiatal Hernia: Yes Heparin Induced Thrombocytopen: No Hypertension: Yes Immune Disorder: No Implanted Vascular Access Dvce: No Musculoskeletal: No Neurologic: No Psychiatric: No Reproductive: No Respiratory: Yes (sob on occasion) Migraines: No Radiation Therapy: No Seizures: No Sickle Cell Disease: No Sleep Apnea: No Thyroid Disease: No ?: Not Past Surgical History Abdominal Surgery: Yes (gastric sleeve 2012, hiatal hernia repair apr 2016) AICD: No Arteriovenous Shunt: No Body Medical Devices: sleeve Cardiac Surgery: Yes (cardiac catherization; mitral valve repair) Ear Surgery: No Endocrine Surgery: No Eye Surgery: No Genitourinary Surgery: No Gynecologic Surgery: Yes (breast reduction) Insulin Pump: No Joint Replacement: No Oral Surgery: No Pacemaker: No Thoracic Surgery: Yes (breast reduction; ) Other Surgery: Yes (cardiac catherization and breast reduction, thoracentesis) Social History Alcohol Use: No Tobacco Use: No Substance Use: No Allergies-Medications (Allergen,Severity, Reaction): Coded Allergies: lisinopril (Verified Allergy, Severe, LIP AND AFCE SWELLING, 06/07/17) penicillin G (Verified Allergy, Severe, Hives, 06/07/17) Reported Meds & Prescriptions Reported Meds & Active Scripts Active Hydrocodone-Acetaminophen 5-325 mg Tab 1 Tab PO Q6H PRN Ibuprofen 600 Mg Tab 600 Mg PO Q8H PRN 7 Days Oxygen (O2) (Miscellaneous Medication) Inha Liter NELLY.CANULA CONTINUOUS Oxygen Concentrator Portable Gaseous 2 L/min via Nasal Canula Continuous For 99 months Eliquis (Apixaban) 5 Mg Tab 5 Mg PO BID start first dose 04/06/17 Diltiazem CD 24 HR 120 Mg Caper 120 Mg PO DAILY Aspirin EC (Aspirin) 81 Mg Tabdr 81 Mg PO DAILY Dok (Docusate Sodium) 100 Mg Cap 100 Mg PO BID Oxycodone-Acetaminophen 5-325 (Oxycodone HCl/Acetaminophen) 5 Mg-325 Mg Tablet 1 Tab PO Q6HR PRN Reported Protonix (Pantoprazole Sodium) 40 Mg Tab 40 Mg PO DAILY [Bariatric Vitamin] 1 Tab PO BID Simvastatin 5 Mg Tab 20 Mg PO HS Review of Systems Except as stated in HPI: all other systems reviewed are Neg Physical Exam Narrative GENERAL: Well-nourished, well-developed black female patient, in no acute distress SKIN: Warm and dry. HEAD: Atraumatic. Normocephalic. EYES: Pupils equal and round. No scleral icterus. No injection or drainage. ENT: Mucosa pink and moist. NECK: Trachea midline. CHEST: No reproducible chest wall tenderness; no crepitance or deformity. No retractions. With tachypnea. CARDIOVASCULAR: Tachycardic rate and rhythm. No murmur appreciated. RESPIRATORY: No accessory muscle use. Clear to auscultation. Breath sounds equal bilaterally. GASTROINTESTINAL: Abdomen soft, non-tender, nondistended. Hepatic and splenic margins not palpable. Bowel sounds are active 4 quadrants. MUSCULOSKELETAL: No obvious deformities. No clubbing. No cyanosis. No edema. NEUROLOGICAL: Awake and alert. Oriented 3. No obvious cranial nerve deficits. Motor grossly within normal limits. Normal speech. Moves all extremities. 5/5 strength to all extremities. PSYCHIATRIC: Appropriate mood and affect; insight and judgment normal. Data Data Last Documented VS Vital Signs Date Time Temp Pulse Resp B/P (MAP) Pulse Ox O2 Delivery O2 Flow Rate FiO2 06/08/17 16:12 105 16 130/74 (92) 99 Room Air 06/08/17 12:13 98.7 Orders Orders Complete Blood Count With Diff (06/08/17 12:16) Comprehensive Metabolic Panel (06/08/17 12:16) Lipase (06/08/17 12:16) Urinalysis - C+S If Indicated (06/08/17 12:16) Electrocardiogram (06/08/17 12:16) Ed Urine Pregnancytest Poc (06/08/17 12:16) Ckmb (Isoenzyme) Profile (06/08/17 12:16) Troponin I (06/08/17 12:16) Coag Profile (06/08/17 12:18) D-Dimer (06/08/17 12:53) B-Type Natriuretic Peptide (06/08/17 12:53) Morphine Inj (Morphine Inj) (06/08/17 13:00) Ondansetron Inj (Zofran Inj) (06/08/17 13:00) Urine Culture (06/08/17 12:40) Ct Pulmonary Angiogram (06/08/17 ) Ceftriaxone Inj (Rocephin Inj) (06/08/17 15:30) Iohexol 350 Inj (Omnipaque 350 Inj) (06/08/17 12:09) Labs Laboratory Tests Test 06/08/17 12:40 06/08/17 12:50 Urine Color DARK-YELLOW Urine Turbidity CLOUDY Urine pH 5.5 Urine Specific [place] 1.028 Urine Protein 100 mg/dL Urine Glucose (UA) NEG mg/dL Urine Ketones 10 mg/dL Urine Occult Blood MOD Urine Nitrite NEG Urine Bilirubin NEG Urine Urobilinogen 2.0 MG/DL Urine Leukocyte Esterase LARGE Urine RBC 21 /hpf Urine WBC /hpf Urine Squamous Epithelial Cells 61 /hpf Urine Bacteria FEW /hpf Urine Mucus MANY /lpf Microscopic Urinalysis Comment CULTURE INDICATED White Blood Count 13.6 TH/MM3 Red Blood Count 5.35 MIL/MM3 Hemoglobin 12.9 GM/DL Hematocrit 39.8 % Mean Corpuscular Volume 74.4 FL Mean Corpuscular Hemoglobin 24.1 PG Mean Corpuscular Hemoglobin Concent 32.3 % Red Cell Distribution Width 21.2 % Platelet Count 354 TH/MM3 Mean Platelet Volume 9.3 FL Neutrophils (%) (Auto) 80.2 % Lymphocytes (%) (Auto) 11.5 % Monocytes (%) (Auto) 7.6 % Eosinophils (%) (Auto) 0.2 % Basophils (%) (Auto) 0.5 % Neutrophils # (Auto) 10.9 TH/MM3 Lymphocytes # (Auto) 1.6 TH/MM3 Monocytes # (Auto) 1.0 TH/MM3 Eosinophils # (Auto) 0.0 TH/MM3 Basophils # (Auto) 0.1 TH/MM3 CBC Comment DIFF FINAL Differential Comment Prothrombin Time 12.6 SEC Prothromb Time International Ratio 1.2 RATIO Activated Partial Thromboplast Time 46.0 SEC D-Dimer Quantitative (PE/DVT) 2.18 MG/L FEU Blood Urea Nitrogen 8 MG/DL Creatinine 0.90 MG/DL Random Glucose 107 MG/DL Total Protein 8.1 GM/DL Albumin 3.4 GM/DL Calcium Level 8.7 MG/DL Alkaline Phosphatase 62 U/L Aspartate Amino Transf (AST/SGOT) 9 U/L Alanine Aminotransferase (ALT/SGPT) 16 U/L Total Bilirubin 0.7 MG/DL Sodium Level 134 MEQ/L Potassium Level 3.6 MEQ/L Chloride Level 101 MEQ/L Carbon Dioxide Level 24.2 MEQ/L Anion Gap 9 MEQ/L Estimat Glomerular Filtration Rate 85 ML/MIN Total Creatine Kinase 37 U/L Troponin I LESS THAN 0.02 NG/ML B-Type Natriuretic Peptide 236 PG/ML Lipase 76 U/L MDM Medical Decision Making Medical Screen Exam Complete: Yes Emergency Medical Condition: Yes Medical Record Reviewed: Yes Differential Diagnosis Cardiomyopathy, PE, congestive heart failure, ACS, nonspecific chest pain Narrative Course 36-year-old female with continued left-sided chest pain and shortness of breath. She was seen here yesterday for the same complaint and CBC, BMP, troponin were all unremarkable. Chest x-ray showed moderate cardiomegaly without failure. She was given prescriptions for hydrocodone and ibuprofen which she did not fill because the pharmacy was closed. She called her student services representative today and was told to come to the ER. Her student services representative is Dr. Marr and Dr. Russell. She has history of mitral valve regurgitation, cardiac ablation for atrial fibrillation, pleural effusion, hypertension, and she currently takes Eliquis post cardiac ablation. Denies history of PE/DVT. CBC, CMP, urinalysis, UPT, lipase, troponin, CK-MB, EKG ordered in triage. I discussed the patient with Dr. Figueroa and he recommends d-dimer and agrees BNP. D-dimer, BNP, morphine, Zofran ordered. 1250: EKG with sinus tachycardia; reviewed by Dr. Figueroa. 1520: BMP unremarkable. Troponin less than 0.02. BNP 236. Lipase 76. D- dimer 2.18. APTT 46.0. Urinalysis with signs of infection. Rocephin [address] pulmonary angiogram ordered. 1652: CT pulmonary angiogram concludes: CT Angiography 06/08/17 0000 Signed Impressions: Service Date/Time: Thursday, June 08, 2017 15:47 - CONCLUSION: 1. No evidence of pulmonary embolism. 2. Left pleural effusion and pericardial effusion similar to the prior study with left basilar atelectasis Reinaldo Sweet MD CT findings discussed with the patient. She had CT angiogram done April 19, 2007 which showed a right pleural effusion and she underwent thoracentesis. The current left pleural effusion found on CTA similar to the prior study done in April. Patient discussed with Dr. Figueroa and he agrees with discharge and outpatient follow-up. Bactrim prescribed for home for UTI. Patient has prescriptions for pain medications that she has not filled from yesterday. Instructed patient to follow-up with student services representative and hall coordinator. Instructed patient to follow up with primary care provider. Patient verbalizes understanding and agreement with treatment plan. Patient is medically cleared and stable for discharge. Discussed reasons to return to the emergency department. Patient agrees with treatment plan. The patients vital signs are stable and the patient is stable for outpatient follow-up and treatment. Patient discharged home, stable and in no acute distress. Diagnosis Primary Impression: Chest pain Qualified Codes: R07.9 - Chest pain, unspecified Additional Impressions: SOB (shortness of breath) UTI (urinary tract infection) Qualified Codes: N39.0 - Urinary tract infection, site not specified Referrals: Candy Mixer Primary Care Physician School Secretary Patient Instructions: Chest Pain (ED), General Instructions, Pleural Effusion ( ED), Shortness of Breath (ED) Additional Instructions: Take antibiotics as prescribed and complete full course Get your pain medications filled and take as directed for pain Drink plenty of fluids Maintain good personal hygiene Follow-up with primary care provider Follow-up with student services representative Follow-up with hall coordinator Return to the emergency department immediately with worsening of symptoms Med/Other Pt SpecificInfo: Prescription(s) given Scripts Sulfamethoxazole-Trimethoprim (Bactrim DS) 800-160 Mg Tab 1 TAB PO BID for Infection for 7 Days, #14 TAB 0 Refills Prov: Ingris Wilburn 06/08/17 Disposition: 01 DISCHARGE HOME Condition: Stable Ingris Wilburn Jun 08, 2017 13:03
[2017-06-08 13:12] LABS: AUTOMATED NEUTROPHIL # 10.9 TH/MM3 (1.8-7.7); BASOPHIL # 0.1 TH/MM3 (0-0.2); BASOPHIL % 0.5 % (0.0-2.0); EOSINOPHIL % 0.2 % (0.0-4.0); HEMATOCRIT 39.8 % (35.0-46.0); HEMOGLOBIN 12.9 GM/DL (11.6-15.3); LYMPH % 11.5 % (9.0-44.0); LYMPHOCYTE # 1.6 TH/MM3 (1.0-4.8); MEAN CELL VOLUME 74.4 FL (80.0-100.0); MEAN CORPUSCULAR HEMOGLOBIN 24.1 PG (27.0-34.0); MEAN CORPUSCULAR HGB CONC 32.3 % (32.0-36.0); MEAN PLATELET VOLUME 9.3 FL (7.0-11.0); MONO % 7.6 % (0.0-8.0); NEUT % 80.2 % (16.0-70.0); PLATELET COUNT 354 TH/MM3 (150-450); RED BLOOD COUNT 5.35 MIL/MM3 (4.00-5.30); RED CELL DISTRIBUTION WIDTH 21.2 % (11.6-17.2); WHITE BLOOD COUNT 13.6 TH/MM3 (4.0-11.0)
[2017-06-08 13:20] LABS: BACTERIA, URINE FEW /hpf; BLOOD, URINE MOD (NEG); GLUCOSE,URINE NEG (NEG); KETONE, URINE 10 mg/dL (NEG); MUCUS URINE MANY /lpf (OCC); NITRITE,URINE NEG (NEG); PH, URINE 5.5 (5.0-8.5); SQUAMOUS EPITHELIAL CELL URINE 61 /hpf (0-5); URINE COLOR DARK-YELLOW (YELLW/STRAW); URINE LEUKOCYTE ESTERASE LARGE (NEG)
[2017-06-08 13:21] LABS: BILIRUBIN, URINE NEG (NEG)
[2017-06-08 13:25] LABS: INTERNATIONAL NORMALIZED RATIO 1.2 RATIO; PROTHROMBIN TIME - PATIENT 12.6 SEC (9.8-11.6)
[2017-06-08 13:32] LABS: ALBUMIN 3.4 GM/DL (3.4-5.0); ALT (GPT) 16 U/L (10-53); AST (GOT) 9 U/L (15-37); BICARBONATE 24.2 MEQ/L (21.0-32.0); BLOOD UREA NITROGEN 8 MG/DL (7-18); CALCIUM 8.7 MG/DL (8.5-10.1); CHLORIDE 101 MEQ/L (98-107); GLOMERULAR FILTRATION RATE 85 ML/MIN (>89); GLUCOSE,RANDOM 107 MG/DL (74-106); SODIUM (NA) 134 MEQ/L (136-145)
[2017-06-08 13:36] LABS: ALKALINE PHOSPHATASE 62 U/L (45-117); TOTAL BILIRUBIN ADULT 0.7 MG/DL (0.2-1.0); TOTAL PROTEIN 8.1 GM/DL (6.4-8.2); TROPONIN I LESS THAN 0.02 NG/ML (0.02-0.05)
[2017-06-08] MEDS ORDERED: cefTRIAXone INJ 1,000 MG in SODIUM CHLORIDE 0.9% INJ 100 ML IV ONE (15:30)
--- NOTE | 2017-06-08 16:08 | RADRPT ---
EXAM DATE/TIME: 06/08/2017 15:47 [facility] COMPARISON: CT PULMONARY ANGIOGRAM, April 19, 2017, 7:55. INDICATIONS : Patient complains of chest pain radiates to shoulder. IV CONTRAST: 100 cc Omnipaque 350 (iohexol) IV RADIATION DOSE: CTDIvol (mGy) MEDICAL HISTORY : Cardiovascular disease. Hypertension. SURGICAL HISTORY : None. ENCOUNTER: Initial ACUITY: 1 day PAIN SCALE: 10/10 LOCATION: Left chest TECHNIQUE: Volumetric scanning of the chest was performed using a pulmonary embolism protocol MIP images were re constructed. Using automated exposure control and adjustment of the mA and/or kV according to patien t size, radiation dose was kept as low as reasonably achievable to obtain optimal diagnostic quality images. DICOM format image data is available electronically for review and comparison. Follow-up recommendations for detected pulmonary nodules are based at a minimum on nodule size and pa tient risk factors according to Fleischner Society Guidelines. FINDINGS: Examination of the pulmonary vasculature demonstrates good filling of the main, lobar and segmental b ranches. There are no filling defects to suggest pulmonary embolism. Multiplanar reconstructions are also unremarkable. There is atelectasis in the left base with a small left effusion. A moderate size pericardial effusio n which was present on the prior study. The visualized upper abdomen demonstrates no abnormality. CONCLUSION: 1. No evidence of pulmonary embolism. 2. Left pleural effusion and pericardial effusion similar to the prior study with left basilar atelec tasis Reinaldo Sweet MD on June 08, 2017 at 16:03 Board Certified Radiologist. This report was verified electronically.
[2017-06-08 16:12] VITALS: BP 130/74; PULSE 105; RESP 16; O2SAT 99
[2017-06-08] MEDS ORDERED: BACT800T5 PO (16:58)
--- NOTE | 2017-06-10 15:08 | EKG ---
Date Performed: 06/08/2017 Time Performed: 12:47:59 PTAGE: 36 years EKG: SINUS TACHYCARDIA LEFT ATRIAL ENLARGEMENT NONSPECIFIC ST & T-WAVE ABNORMALITY ABNORMAL ECG PREVIOUS TRACING : 06/07/2017 13.15 DOCTOR: Erik Melgar Interpretating Date/Time 06/10/2017 15:06:24
== END 2017-06-08 18:11 | disposition home or self-care (01) ==
LOC: NEPD 12:08
DX: R07.9 Chest pain, unspecified (principal); R06.02 Shortness of breath; N39.0 Urinary tract infection, site not specified; R00.0 Tachycardia, unspecified; I10 Essential (primary) hypertension; I48.91 Unspecified atrial fibrillation; E78.00 Pure hypercholesterolemia, unspecified; R73.03 Prediabetes; K21.9 Gastro-esophageal reflux disease without esophagitis; Z98.84 Bariatric surgery status; Z88.0 Allergy status to penicillin; Z88.8 Allergy status to other drugs, medicaments and biological substances; Z79.01 Long term (current) use of anticoagulants; Z79.899 Other long term (current) drug therapy
CPT/HCPCS: 71275; 80053; 81001; 82550; 83690; 83880; 84484; 84703; 85025; 85379; 85610; 85730; 87086; 93005; 96365; 96366; 96375; 99284; J0696; J2270; J2405; Q9967

== ENCOUNTER → 2017-09-03 | Outpatient (CLI) | payer OTHER ==
[~2017-09-03] MED LIST changes: +BACT800T5 PO
== END ==
LOC: HRSP 09:16
PROVIDERS: ATTEND Internal Medicine Sleep Medicine
DX: R06.89 Other abnormalities of breathing (principal)
CPT/HCPCS: 94060; 94726; 94729